=== PATIENT | male | born 1935 | race Two or more races ===

== ENCOUNTER 2016-07-16 11:58 | Inpatient (IN) | payer MEDICARE, MEDICAID ==
[~2016-07-16] VITALS: Ht 172.7 cm; Wt 77.3 kg
[2016-07-16] VITALS (20 sets, daily range): BP systolic 92–136; BP diastolic 45–113
[2016-07-16] MEDS ORDERED: Piperacillin/Tazobactam 3.375 GM in NS 110 ML IVPB ONE (12:15)
[2016-07-16] MEDS ORDERED: Zosyn 3.375gm inj ONE (12:37)
[2016-07-16 12:49] LABS: APPEARANCE,URINE TURBID; KETONES,URINE NEGATIVE (NEGATIVE); LEUKOCYTE ESTERASE ,URINE 3+ (NEGATIVE); NITRITE,URINE NEGATIVE (NEGATIVE); PH,URINE 9 (4.5-8.0); PROTEIN,URINE 4+ (NEGATIVE); UROBILINOGEN,URINE NORMAL MG/DL (0.0-1.0)
[2016-07-16 12:51] LABS: MEAN CORPUSCULAR HEMOGLOBIN 28.9 PG (27.0-31.0); MEAN CORPUSCULAR HGB CONC 31.7 G/DL (32.0-36.0); MEAN CORPUSCULAR VOLUME 91 FL (80-99); MEAN PLATELET VOLUME 6.9 FL (6.5-10.1); PLATELET COUNT 92 K/UL (150-450); RED CELL DISTRIBUTION WIDTH 15.5 % (11.6-14.8); WHITE BLOOD COUNT 10.3 K/UL (4.8-10.8)
[2016-07-16 12:58] LABS: INR 1.2 (0.9-1.1); PROTHROMBIN TIME 12.6 SEC (9.30-11.50)
--- NOTE | 2016-07-16 13:04 | Emergency Room Report ---
History of Present Illness General Chief Complaint: Dyspnea/Respdistress Present Illness HPI Patient presents from nursing facility with complaints of respiratory distress It appears the patient had symptoms earlier this morning however presents at noon Patient himself is in acute respiratory distress tachypneic Not able to provide any history There appears to be in consultation for hospice and the patient's paperwork from retirement however it is unclear if there was any consultation made Patient has multiple comorbidities unknown regarding fever No reports of any vomiting or diarrhea Allergies: Coded Allergies: No Known Allergies (Unverified , 07/16/16) Patient History Past Medical History: see triage record Pertinent Family History: none Reviewed Nursing Documentation: PMH: Agreed, PSxH: Agreed Nursing Documentation-PMH Hx Cardiac Problems: Yes - Heart Failure Hx Gastrointestinal Problems: Yes - GERD Hx Seizures: Yes Review of Systems All Other Systems: limited - Other than the ones mentioned in the history of present illness all others are reviewed however they do stay limited due to the patient's mental status Physical Exam Vital Signs Date Time Temp Pulse Resp B/P Pulse Ox O2 Delivery O2 Flow Rate FiO2 07/16/16 11:53 84 20 111/64 97 Non-Rebreather 15.0 07/16/16 12:15 98.5 07/16/16 12:20 100 Sp02 EP Interpretation: reviewed, normal General Appearance: severe distress - Tachypneic short of breath and retractions Head: normocephalic, atraumatic Eyes: bilateral eye other - The patient does not allow us to open his eyes ENT: dry mucus membranes Neck: supple, thyroid normal Respiratory: crackles - Audible crackles diffusely, tachypneic with retractions Cardiovascular #1: tachycardia Gastrointestinal: soft, no mass Musculoskeletal: other - Patient is contracted in his lower extremities does not follow commands Neurologic: other - Decreased GCS, minimally responsive to physical stimuli Skin: other - dry , poor turgor Lymphatic: no adenopathy Procedures Critical Care Time Critical Care Time 50 minutes for multiple evaluations critical presentation concern for respiratory failure not including any procedural time Central Line Central Line : Consent: Emergent Central Line Lumen: triple Maximal Sterile Barrier Tech: yes cap, yes mask, yes sterile gown, yes sterile gloves, yes large sterile sheet, yes hand hygiene, yes chlorhexidine prep Central Line Postion: femoral (L) Anesthesia: Lidocaine cc's of anesthesia: 2 Complications: none Central Line Post Position: sutured Attempts: Other Patient Tolerated: Well Complications: None Progress Patient had axis of femoral artery on 2 occasions in the right femoral area, therefore that was aborted and on the first attempt on the left femoral region patient had central line placed Intubation Intubation : Consent: Emergent Intubation Method: orotracheal Tube Size (cm): 8.0 Medications: Rocuronium Breath Sounds after Intubation: equal Intubation Complications: no complications Post Intubation Xray: Yes Attempts: One Patient Tolerated: Well Complications: None Medical Decision Making Diagnostic Impression: Primary Impression: Respiratory failure Additional Impressions: Renal failure Severe sepsis ER Course Patient presents in acute distress initial interventions include aggressive suctioning and ABG along with other intervention Patient's blood work reveals a significantly abnormal kidney function With evidence of renal failure hyperkalemia Patient meets all criteria for severe sepsis, including septic shock, IV hydration antibiotics and pressors are initiated , Patient requires emergent intervention ABG showing concerning findings of acidosis the patient's respiration continued to worsen requiring airway intubation Patient had copious amounts of mucous in the oral mucosa requiring suctioning Intubation was performed as noted above without any complications The patient is in acute distress requiring multiple IV bolus antibiotics ICU admission in critical condition Labs Test 07/16/16 12:12 07/16/16 12:30 07/16/16 13:01 White Blood Count 10.3 K/UL (4.8-10.8) Red Blood Count 4.00 M/UL (4.70-6.10) Hemoglobin 11.5 G/DL (14.2-18.0) Hematocrit 36.4 % (42.0-52.0) Mean Corpuscular Volume 91 FL (80-99) Mean Corpuscular Hemoglobin 28.9 PG (27.0-31.0) Mean Corpuscular Hemoglobin Concent 31.7 G/DL (32.0-36.0) Red Cell Distribution Width 15.5 % (11.6-14.8) Platelet Count 92 K/UL (150-450) Mean Platelet Volume 6.9 FL (6.5-10.1) Neutrophils (%) (Auto) % (45.0-75.0) Lymphocytes (%) (Auto) % (20.0-45.0) Monocytes (%) (Auto) % (1.0-10.0) Eosinophils (%) (Auto) % (0.0-3.0) Basophils (%) (Auto) % (0.0-2.0) Differential Total Cells Counted 100 Neutrophils % (Manual) 84 % (45-75) Lymphocytes % (Manual) 8 % (20-45) Monocytes % (Manual) 6 % (1-10) Eosinophils % (Manual) 0 % (0-3) Basophils % (Manual) 0 % (0-2) Band Neutrophils 2 % (0-8) Platelet Estimate Decreased Platelet Morphology Normal Hypochromasia 1+ Prothrombin Time 12.6 SEC (9.30-11.50) Prothromb Time International Ratio 1.2 (0.9-1.1) Activated Partial Thromboplast Time 26 SEC (23-33) Sodium Level 151 mEQ/L (135-145) Potassium Level 6.7 mEQ/L (3.4-4.9) Chloride Level 108 mEQ/L (98-107) Carbon Dioxide Level 11 mEQ/L (20-30) Anion Gap 32 (5-15) Blood Urea Nitrogen > 195 mg/dL (7-23) Creatinine 17.1 mg/dL (0.7-1.2) Estimat Glomerular Filtration Rate mL/min (>60) Glucose Level 166 mg/dL (74-106) Lactic Acid Level 1.80 mmol/L (0.66-2.22) Calcium Level 9.3 mg/dL (8.6-10.2) Phosphorus Level 6.6 mg/dL (2.5-4.8) Magnesium Level 3.2 mg/dL (1.7-2.5) Total Bilirubin 0.8 mg/dL (0.0-1.2) Aspartate Amino Transf (AST/SGOT) 12 U/L (5-40) Alanine Aminotransferase (ALT/SGPT) 7 U/L (3-41) Alkaline Phosphatase 169 U/L (40-129) Total Creatine Kinase 1235 U/L (38-174) Creatine Kinase MB 7.0 ng/mL (< 6.7) Creatine Kinase MB Relative Index 0.5 Troponin I < 0.30 ng/mL (<=0.30) Pro-B-Type Natriuretic Peptide 1323 pg/mL (0-450) Total Protein 6.7 g/dL (6.6-8.7) Albumin 2.6 g/dL (3.5-5.2) Globulin 4.1 g/dL Albumin/Globulin Ratio 0.6 (1.0-2.7) Lipase 165 U/L (< 60) Urine Color Red Urine Appearance Turbid Urine pH 9 (4.5-8.0) Urine Specific [place] 1.015 (1.005-1.035) Urine Protein 4+ (NEGATIVE) Urine Glucose (UA) Negative (NEGATIVE) Urine Ketones Negative (NEGATIVE) Urine Occult Blood 5+ (NEGATIVE) Urine Nitrite Negative (NEGATIVE) Urine Bilirubin Negative (NEGATIVE) Urine Urobilinogen Normal MG/DL (0.0-1.0) Urine Leukocyte Esterase 3+ (NEGATIVE) Urine RBC Tntc /HPF (0 - 0) Urine WBC Tntc /HPF (0 - 0) Urine Squamous Epithelial Cells Few /LPF (NONE/OCC) Urine Bacteria Many /HPF (NONE) Arterial Blood pH 7.191 (7.350-7.450) Arterial Blood Partial Pressure CO2 28.7 mmHg (35.0-45.0) Arterial Blood Partial Pressure O2 440.9 mmHg (75.0-100.0) Arterial Blood HCO3 10.7 mmol/L (22.0-26.0) Arterial Blood Oxygen Saturation 99.2 % (92.0-98.0) Arterial Blood Base Excess 16.0 Caleb Test Positive Rhythm Strip Diag. Results EP Interpretation: yes Rate: 89 Rhythm: NSR, no PVC's, no ectopy Chest X-Ray Diagnostic Results EP Interpretation: Yes Findings: no effusion, no pneumothorax, other - Poor exam, rotation significant , mediastinum appears abnormal Number of Views: 1 Other X-Ray Diagnostic Results Other X-Ray Diagnostic Results : EP Interpretation: Yes Findings: no dislocation, no soft tissue swelling, other - ET tube is appropriate, evidence of right lower lobe infiltrate, no acute bony abnormalities Number of Views: 1 - Repeat chest x-ray Last Vital Signs Date Time Temp Pulse Resp B/P Pulse Ox O2 Delivery O2 Flow Rate FiO2 07/16/16 12:45 89 36 100 Facial 100 07/16/16 12:15 98.5 135/113 15.0 Status: worsened Disposition: ADMITTED INPATIENT Condition: Critical Referrals: NON PHYSICIAN (PCP) YANCI SHARMA D.O. Jul 16, 2016 13:04
[2016-07-16 13:06] LABS: BACTERIA,URINE MANY /HPF; RBC,URINE TNTC /HPF (0 - 0); SQUAMOUS EPITHELIAL CELL,UR FEW /LPF (NONE/OCC); WBC,URINE TNTC /HPF (0 - 0)
[2016-07-16 13:10] LABS: ABG PCO2 28.7 mmHg (35.0-45.0)
[2016-07-16 13:11] LABS: ABG ALLEN TEST POSITIVE
[2016-07-16 13:18] LABS: TROPONIN I < 0.30 ng/mL (<=0.30)
[2016-07-16 13:22] LABS: ALANINE AMINOTRANSFERASE 7 U/L (3-41); ALBUMIN/GLOBULIN RATIO 0.6 (1.0-2.7); ASPARTATE AMINO TRANSFERASE 12 U/L (5-40); CALCIUM 9.3 mg/dL (8.6-10.2); CARBON DIOXIDE 11 mEQ/L (20-30); CHLORIDE 108 mEQ/L (98-107); CREATININE 17.1 mg/dL (0.7-1.2); HEMOLYSIS 7; LIPASE 165 U/L (< 60); MAGNESIUM 3.2 mg/dL (1.7-2.5); PHOSPHORUS 6.6 mg/dL (2.5-4.8); SODIUM 151 mEQ/L (135-145); TOTAL PROTEIN 6.7 g/dL (6.6-8.7)
[2016-07-16 13:35] LABS: BAND NEUTROPHILS % (MANUAL) 2 % (0-8); LYMPHOCYTES % (MANUAL) 8 % (20-45); NEUTROPHILS % (MANUAL) 84 % (45-75); TOTAL CELLS COUNTED 100
[2016-07-16 13:36] LABS: BASOPHILS % (MANUAL) 0 % (0-2); EOSINOPHILS % (MANUAL) 0 % (0-3); PLATELET ESTIMATE DECREASED; PLATELET MORPHOLOGY NORMAL
[2016-07-16 13:37] LABS: HYPOCHROMASIA 1+
[2016-07-16 13:39] LABS: ANION GAP 32 (5-15)
[2016-07-16 13:42] LABS: POTASSIUM 6.7 mEQ/L (3.4-4.9)
--- NOTE | 2016-07-16 14:05 | Diagnostic Imaging Report ---
Indication: Chest Pain Comparison: None A single view chest radiograph was obtained. Findings: Exam limited by rotation. Bones are osteopenic. Aorta is ectatic. Heart is normal in size. Lungs are clear. Impression: No acute disease. Suboptimal exam due to rotation
[2016-07-16] MEDS ORDERED: VALPROIC A250 MG/5 M PO (14:10)
[2016-07-16] MEDS ORDERED: NAMENDA5 MG ORAL (14:10)
[2016-07-16] MEDS ORDERED: CARVEDILOL6.25 MG ORAL (14:10)
[2016-07-16] MEDS ORDERED: ZYRTEC10 MG ORAL (14:10)
[2016-07-16] MEDS ORDERED: TAMSULOSIN HCL0.4 MG ORAL (14:10)
[2016-07-16] MEDS ORDERED: DONEPEZIL HCL5 MG ORAL (14:10)
[2016-07-16] MEDS ORDERED: ARTIFICIAL TEAR15 M2 OP (14:10)
[2016-07-16] MEDS ORDERED: CALCIUM CARBON500 M1 PO (14:10)
[2016-07-16] MEDS ORDERED: VITAMIN B-1100 MG ORAL (14:10)
[2016-07-16] MEDS ORDERED: MULTIVITAMINS1 EAC8 ORAL (14:10)
[2016-07-16] MEDS ORDERED: DOCUSATE SODIU100 MG ORAL (14:10)
[2016-07-16] MEDS ORDERED: PROMOD946 ML PO (14:10)
[2016-07-16] MEDS ORDERED: SINEMET 25/1001 EA ORAL (14:10)
[2016-07-16] MEDS ORDERED: FAMOTIDINE20 MG ORAL (14:10)
[2016-07-16] MEDS ORDERED: Sodium Polystyrene Sulfonate 15gm Powder ORAL ONE (14:15)
[2016-07-16] MEDS ORDERED: Sodium Bicarbonate 50ml Carp IV ONE (14:15)
[2016-07-16] MEDS ORDERED: DOPamine 400mg/250ml 250 ML IV SCH (15:00)
[2016-07-16] MEDS ORDERED: Nitroglycerin Subl 0.4mg tab (Bottle Of 25) SL PRN (15:15)
[2016-07-16] MEDS ORDERED: Miralax 17gm pkt ORAL PRN (15:15)
[2016-07-16] MEDS ORDERED: Morphine Sulfate 2mg/ml Inj IVP PRN (15:15)
[2016-07-16] MEDS ORDERED: DuoNeb 0.5-3(2.5)mg/3ml neb HHN PRN (15:15)
[2016-07-16] MEDS ORDERED: Zemuron 50mg/5ml Inj IV ONE (15:24)
[2016-07-16] MEDS ORDERED: Heparin 2000 units/Ns 1000ml IV ONE (16:00)
[2016-07-16] MEDS ORDERED: Heparin Sod 1000 units/ml 10ml INJ ONE (16:00)
[2016-07-16] MEDS ORDERED: Sodium Bicarbonate 4% 2.4meq/5ml vial IV ONE (16:00)
[2016-07-16] MEDS ORDERED: Lidocaine 1% Plain 30 ml INJ ONE (16:00)
--- NOTE | 2016-07-16 17:06 | Consultation ---
History of Present Illness General Date patient seen: Jul 16, 2016 Chief Complaint: Dyspnea/Respdistress Referring physician: Haris Reason for Consultation: HD cath Present Illness HPI 80M multiple medical comorbidities presented from nursing facility with respiratory failure. Required intubation in ED. Labs demonstrated renal insufficiency with Cr 17. Needs urgent HD. Surgery called for HD cath placement. please refer to medical records and H&P for details Allergies: Coded Allergies: No Known Allergies (Unverified , 07/16/16) Medication History Scheduled Calcium Carbonate (Calcium Carbonate), 1,000 MG PO DAILY, (Reported) Cetirizine Hcl* (Zyrtec*), 10 MG ORAL DAILY, (Reported) Docusate Sodium* (Docusate Sodium*), 100 MG ORAL DAILY, (Reported) Donepezil Hcl* (Donepezil Hcl*), 5 MG ORAL HS, (Reported) Famotidine (Famotidine), 20 MG ORAL DAILY, (Reported) Levodopa/Carbidopa (Carbidopa-Levodopa 25-100 Tab), 1 TAB ORAL EVERY 12 HOURS, ( Reported) Memantine Hcl* (Namenda*), 5 MG ORAL TWICE A DAY, (Reported) Multivitamin With Minerals (Multivitamins With Minerals*), 1 TAB ORAL DAILY, ( Reported) Protein Supplement (Promod), 30 ML PO DAILY, (Reported) Tamsulosin Hcl (Tamsulosin Hcl*), 0.4 MG ORAL DAILY, (Reported) Thiamine Hcl* (Vitamin B-1*), 100 MG ORAL DAILY, (Reported) Valproate Sodium (Valproic Acid), 7.5 ML PO TID, (Reported) Miscellaneous Medications Carvedilol* (Carvedilol*), 6.25 MG ORAL, (Reported) Polyvinyl Alcohol (Artificial Tears), 15 ML OP, (Reported) Patient History Limited by: medical condition History Provided By: Family Member Healthcare decision maker N Resuscitation status Advanced Directive on File Past Medical/Surgical History Past Medical/Surgical History: (1) Renal failure (2) Respiratory failure Review of Systems ROS Narrative unable to obtain given medical condition Physical Exam General Appearance: moderate distress Lines, tubes and drains: central line HEENT: atraumatic Neck: normal inspection Respiratory/Chest: respiratory distress, decreased breath sounds, on vent Cardiovascular/Chest: tachycardia Abdomen: soft, distended Extremities: trace edema Neurologic: unresponsiveness Last 24 Hour Vital Signs Date Time Temp Pulse Resp B/P Pulse Ox O2 Delivery O2 Flow Rate FiO2 07/16/16 15:55 98.5 114 18 92/50 92 Bi-pap 15.0 75 07/16/16 15:52 92/50 07/16/16 15:50 98.5 114 18 92/50 92 Bi-pap 15.0 75 07/16/16 15:47 81/50 07/16/16 15:42 82/50 07/16/16 15:40 15.0 75 07/16/16 15:37 75/48 07/16/16 15:35 114 18 Bi-pap 15.0 75 07/16/16 15:32 79/50 07/16/16 15:27 94/56 07/16/16 15:22 96/57 07/16/16 14:45 114 18 75 07/16/16 14:02 28 94/48 97 Bi-pap 07/16/16 13:55 15.0 100 07/16/16 13:00 36 136/94 98 Bi-pap 07/16/16 12:45 89 36 100 Facial 100 07/16/16 12:40 88 36 15.0 100 07/16/16 12:25 88 36 95 Facial 100 07/16/16 12:20 88 36 Bi-pap 100 07/16/16 12:15 98.5 86 30 135/113 98 Non-Rebreather 15.0 07/16/16 11:53 84 20 111/64 97 Non-Rebreather 15.0 Laboratory Tests Test 07/16/16 12:12 07/16/16 12:30 07/16/16 13:01 White Blood Count 10.3 K/UL (4.8-10.8) Red Blood Count 4.00 M/UL (4.70-6.10) L Hemoglobin 11.5 G/DL (14.2-18.0) L Hematocrit 36.4 % (42.0-52.0) L Mean Corpuscular Volume 91 FL (80-99) Mean Corpuscular Hemoglobin 28.9 PG (27.0-31.0) Mean Corpuscular Hemoglobin Concent 31.7 G/DL (32.0-36.0) L Red Cell Distribution Width 15.5 % (11.6-14.8) H Platelet Count 92 K/UL (150-450) L Mean Platelet Volume 6.9 FL (6.5-10.1) Neutrophils (%) (Auto) % (45.0-75.0) Lymphocytes (%) (Auto) % (20.0-45.0) Monocytes (%) (Auto) % (1.0-10.0) Eosinophils (%) (Auto) % (0.0-3.0) Basophils (%) (Auto) % (0.0-2.0) Differential Total Cells Counted 100 Neutrophils % (Manual) 84 % (45-75) H Lymphocytes % (Manual) 8 % (20-45) L Monocytes % (Manual) 6 % (1-10) Eosinophils % (Manual) 0 % (0-3) Basophils % (Manual) 0 % (0-2) Band Neutrophils 2 % (0-8) Platelet Estimate Decreased L Platelet Morphology Normal Hypochromasia 1+ Prothrombin Time 12.6 SEC (9.30-11.50) H Prothromb Time International Ratio 1.2 (0.9-1.1) H Activated Partial Thromboplast Time 26 SEC (23-33) Sodium Level 151 mEQ/L (135-145) H Potassium Level 6.7 mEQ/L (3.4-4.9) *H Chloride Level 108 mEQ/L (98-107) H Carbon Dioxide Level 11 mEQ/L (20-30) L Anion Gap 32 (5-15) H Blood Urea Nitrogen > 195 mg/dL (7-23) H Creatinine 17.1 mg/dL (0.7-1.2) H Estimat Glomerular Filtration Rate mL/min (>60) Glucose Level 166 mg/dL (74-106) H Lactic Acid Level 1.80 mmol/L (0.66-2.22) Calcium Level 9.3 mg/dL (8.6-10.2) Phosphorus Level 6.6 mg/dL (2.5-4.8) H Magnesium Level 3.2 mg/dL (1.7-2.5) H Total Bilirubin 0.8 mg/dL (0.0-1.2) Aspartate Amino Transf (AST/SGOT) 12 U/L (5-40) Alanine Aminotransferase (ALT/SGPT) 7 U/L (3-41) Alkaline Phosphatase 169 U/L (40-129) H Total Creatine Kinase 1235 U/L (38-174) H Creatine Kinase MB 7.0 ng/mL (< 6.7) H Creatine Kinase MB Relative Index 0.5 Troponin I < 0.30 ng/mL (<=0.30) Pro-B-Type Natriuretic Peptide 1323 pg/mL (0-450) H Total Protein 6.7 g/dL (6.6-8.7) Albumin 2.6 g/dL (3.5-5.2) L Globulin 4.1 g/dL Albumin/Globulin Ratio 0.6 (1.0-2.7) L Lipase 165 U/L (< 60) H Urine Color Red Urine Appearance Turbid Urine pH 9 (4.5-8.0) Urine Specific [place] 1.015 (1.005-1.035) Urine Protein 4+ (NEGATIVE) H Urine Glucose (UA) Negative (NEGATIVE) Urine Ketones Negative (NEGATIVE) Urine Occult Blood 5+ (NEGATIVE) H Urine Nitrite Negative (NEGATIVE) Urine Bilirubin Negative (NEGATIVE) Urine Urobilinogen Normal MG/DL (0.0-1.0) Urine Leukocyte Esterase 3+ (NEGATIVE) H Urine RBC Tntc /HPF (0 - 0) H Urine WBC Tntc /HPF (0 - 0) H Urine Squamous Epithelial Cells Few /LPF (NONE/OCC) Urine Bacteria Many /HPF (NONE) H Urine Eosinophils Pending Urine Random Sodium 129 mmol/L Urine Random Chloride 108 mmol/L Urine Potassium Timed 27 mmol/L Arterial Blood pH 7.191 (7.350-7.450) Arterial Blood Partial Pressure CO2 28.7 mmHg (35.0-45.0) L Arterial Blood Partial Pressure O2 440.9 mmHg (75.0-100.0) H Arterial Blood HCO3 10.7 mmol/L (22.0-26.0) L Arterial Blood Oxygen Saturation 99.2 % (92.0-98.0) H Arterial Blood Base Excess 16.0 Caleb Test Positive Height (Feet): 5 Height (Inches): 8.00 Weight (Pounds): 175 Medications Current Medications Medications (Trade) Dose Ordered Sig/Janay Route PRN Reason Start Time Stop Time Status Last Admin Dose Admin Acetaminophen (Tylenol) 650 mg Q4H PRN ORAL fever 07/16/16 15:15 08/15/16 15:14 Albuterol/ Ipratropium (DuoNeb 0.5-3(2.5)mg/3ml) 3 ml EVERY 4 HOURS PRN HHN Shortness of Breath 07/16/16 15:15 07/21/16 15:14 Chlorhexidine Gluconate (Loree-Hex 2%) 1 applic DAILY TOPIC 07/17/16 09:00 08/16/16 08:59 Lorazepam (Ativan 2mg/ml 1ml) 2 mg Q4H PRN IV For Anxiety 07/16/16 15:15 07/23/16 15:14 Morphine Sulfate (Morphine Sulfate) 2 mg EVERY 4 HOURS PRN IVP Moderate Pain (Pain Scale 4-6) 07/16/16 15:15 07/23/16 15:14 Nitroglycerin (Ntg) 0.4 mg Q5M PRN SL Prn Chest Pain 07/16/16 15:15 08/15/16 15:14 Ondansetron HCl (Zofran) 4 mg Q6H PRN IVP Nausea & Vomiting 07/16/16 15:15 08/15/16 15:14 Pantoprazole (Protonix) 40 mg EVERY 12 HOURS IVP 07/16/16 21:00 08/15/16 20:59 Polyethylene Glycol (Miralax) 17 gm DAILYPRN PRN ORAL Constipation 07/16/16 15:15 08/15/16 15:14 Sodium Chloride (Sodium Chloride 1000ml bag) 1,000 ml @ 150 mls/hr Q6H40M IVLG 07/17/16 17:00 08/16/16 16:59 Temazepam (Restoril) 15 mg HSPRN PRN ORAL Insomnia 07/16/16 15:15 07/23/16 15:14 Assessment/Plan Problem List: (1) Renal failure Assessment & Plan: 80M respiratory failure noted to have renal failure. Requires urgent HD. Thank you for this consultation. will place HD Cath at bedside. ICD Codes: N19 - Unspecified kidney failure SNOMED: [id number] Justin Cedillo Jul 16, 2016 17:06
--- NOTE | 2016-07-16 17:11 | Operative Note - PDOC ---
Operative Note Operative Note Date of Operation/Procedure: Jul 16, 2016 Pre-op Diagnosis: Renal failure Post-op Diagnosis: same as pre-op Operative Findings: consistent w/pre-op dx studies Surgeon: Mamadou Anesthesia: moderate sedation - patient sedated in ICU Specimen: none Complications: none Condition: stable Fluids: n/a Estimated Blood Loss: minimal - 20cc Drains: other - HD Cath Implant(s) used?: Yes - HD Cath Indications for Procedure 80M respiratory failure in ICU intubated noted to have Cr 17 with renal failure. Requires urgent HD. Family at bedside. risks, benefits, and alternatives discussed with son at bedside. He consented to procedure. Description of Procedure Patient was made comfortable at bedside in the supine position. time out was taken. patient was already intubated and sedated in the ICU. the right femoral artery and landmarks were assessed. All persons involved were shielded with hairnets, facemasks and sterile gowns. With sterile-gloved hands the right femoral area was thoroughly sponged with chlorhexidine and allowed to dry. The area was draped with the large disposable sterile field provided in the kit. The femoral artery was palpated and avoided. A finder needle was advanced at a 45-degree angle toward the inguinal ligament until the syringe was seen to fill with blood. The needle was then held in place while the guide wire was advanced. The needle was then removed. A skin dilator was advanced over the guidewire and removed, then the HD catheter was advanced over the guide wire into proper position. The guide wire was removed and discarded. The ports were aspirated which showed good blood return indicating proper position into the vein and then carefully flushed with normal saline. The catheter was stabilized and sutured to the skin with 2-0 silk at 2 anchor ports. A sterile bio-occlusive dressing was placed over the catheter, including the insertion site. The patient tolerated the procedure well. Justin Cedillo Jul 16, 2016 17:11
[2016-07-16] MEDS: DOPamine 400mg/250ml 250 ML IV SCH (17:30)
[2016-07-16 18:21] LABS: MEAN CORPUSCULAR HEMOGLOBIN 32.1 PG (27.0-31.0); MEAN CORPUSCULAR HGB CONC 34.4 G/DL (32.0-36.0); MEAN CORPUSCULAR VOLUME 93 FL (80-99); MEAN PLATELET VOLUME 8.2 FL (6.5-10.1); PLATELET COUNT 71 K/UL (150-450); RED BLOOD COUNT 3.14 M/UL (4.70-6.10); RED CELL DISTRIBUTION WIDTH 15.5 % (11.6-14.8); WHITE BLOOD COUNT 11.8 K/UL (4.8-10.8)
[2016-07-16 18:23] LABS: BASOPHILS % (AUTO) 0.2 % (0.0-2.0); MONOCYTES % (AUTO) 2.1 % (1.0-10.0); NEUTROPHILS % (AUTO) 94.7 % (45.0-75.0)
[2016-07-16 18:34] LABS: CARBON DIOXIDE 12 mEQ/L (20-30)
[2016-07-16 18:35] LABS: ALANINE AMINOTRANSFERASE 6 U/L (3-41); ALBUMIN/GLOBULIN RATIO 0.5 (1.0-2.7); ANION GAP 25 (5-15); ASPARTATE AMINO TRANSFERASE 13 U/L (5-40); CALCIUM 6.9 mg/dL (8.6-10.2); CHLORIDE 115 mEQ/L (98-107); CREATININE 12.1 mg/dL (0.7-1.2); HEMOLYSIS 13; MAGNESIUM 2.5 mg/dL (1.7-2.5); PHOSPHORUS 7.1 mg/dL (2.5-4.8); SODIUM 152 mEQ/L (135-145); URIC ACID 8.9 mg/dL (3.0-7.5)
--- NOTE | 2016-07-16 19:15 | History and Physical ---
History of Present Illness General Date patient seen: Jul 16, 2016 Reason for Hospitalization: Dyspnea/Respdistress Present Illness HPI 80 year old male with hx of Parkinson disease, renal insufficiency, bipolar, HTN , halfway resident presented with complaints of respiratory distress. Pt was in respiratory distress in ER and was intubated. Pt was in acute renal failure and a HD was place in ER as well. He received large amounts of fluid and transferred to ICU. Pt is obtunded and can't give any history. Allergies: Coded Allergies: No Known Allergies (Unverified , 07/16/16) Medication History Scheduled Calcium Carbonate (Calcium Carbonate), 1,000 MG PO DAILY, (Reported) Cetirizine Hcl* (Zyrtec*), 10 MG ORAL DAILY, (Reported) Docusate Sodium* (Docusate Sodium*), 100 MG ORAL DAILY, (Reported) Donepezil Hcl* (Donepezil Hcl*), 5 MG ORAL HS, (Reported) Famotidine (Famotidine), 20 MG ORAL DAILY, (Reported) Levodopa/Carbidopa (Carbidopa-Levodopa 25-100 Tab), 1 TAB ORAL EVERY 12 HOURS, ( Reported) Memantine Hcl* (Namenda*), 5 MG ORAL TWICE A DAY, (Reported) Multivitamin With Minerals (Multivitamins With Minerals*), 1 TAB ORAL DAILY, ( Reported) Protein Supplement (Promod), 30 ML PO DAILY, (Reported) Tamsulosin Hcl (Tamsulosin Hcl*), 0.4 MG ORAL DAILY, (Reported) Thiamine Hcl* (Vitamin B-1*), 100 MG ORAL DAILY, (Reported) Valproate Sodium (Valproic Acid), 7.5 ML PO TID, (Reported) Miscellaneous Medications Carvedilol* (Carvedilol*), 6.25 MG ORAL, (Reported) Polyvinyl Alcohol (Artificial Tears), 15 ML OP, (Reported) Patient History Healthcare decision maker N Resuscitation status Advanced Directive on File Past Medical/Surgical History Past Medical/Surgical History: (1) Parkinson disease (2) Bipolar 1 disorder (3) Anemia (4) Chronic renal insufficiency Review of Systems All Other Systems: negative except mentioned in HPI Physical Exam General Appearance: WD/WN Lines, tubes and drains: peripheral, central line HEENT: normocephalic, atraumatic Neck: non-tender, normal alignment Respiratory/Chest: chest wall non-tender, lungs clear Cardiovascular/Chest: normal peripheral pulses, normal rate Abdomen: normal bowel sounds, non tender Genitourinary/Rectal: normal genital exam Last 24 Hour Vital Signs Date Time Temp Pulse Resp B/P Pulse Ox O2 Delivery O2 Flow Rate FiO2 07/16/16 18:56 96 18 65 07/16/16 18:00 114/61 07/16/16 18:00 105 24 120/70 98 Mechanical Ventilator 75 07/16/16 17:30 113/67 07/16/16 17:28 106 18 75 07/16/16 17:00 98.4 104 24 117/68 97 Mechanical Ventilator 75 07/16/16 17:00 104/51 07/16/16 16:45 113 22 104/59 100 Mechanical Ventilator 75 07/16/16 16:30 113 24 104/59 90 Mechanical Ventilator 75 07/16/16 16:15 117 30 101/61 91 Mechanical Ventilator 75 07/16/16 16:00 119 07/16/16 16:00 98.3 119 28 95/45 92 Mechanical Ventilator 75 07/16/16 16:00 89/45 07/16/16 16:00 75 07/16/16 15:55 98.5 114 18 92/50 92 Bi-pap 15.0 75 07/16/16 15:52 92/50 07/16/16 15:50 98.5 114 18 92/50 92 Bi-pap 15.0 75 07/16/16 15:47 81/50 07/16/16 15:42 82/50 07/16/16 15:40 15.0 75 07/16/16 15:37 75/48 07/16/16 15:35 114 18 Bi-pap 15.0 75 07/16/16 15:32 79/50 07/16/16 15:27 94/56 07/16/16 15:22 96/57 07/16/16 14:45 114 18 75 07/16/16 14:02 28 94/48 97 Bi-pap 07/16/16 13:55 15.0 100 07/16/16 13:00 36 136/94 98 Bi-pap 07/16/16 12:45 89 36 100 Facial 100 07/16/16 12:40 88 36 15.0 100 07/16/16 12:25 88 36 95 Facial 100 07/16/16 12:20 88 36 Bi-pap 100 07/16/16 12:15 98.5 86 30 135/113 98 Non-Rebreather 15.0 07/16/16 11:53 84 20 111/64 97 Non-Rebreather 15.0 Laboratory Tests Test 07/16/16 12:12 07/16/16 12:30 07/16/16 13:01 07/16/16 18:00 White Blood Count 10.3 K/UL (4.8-10.8) 11.8 K/UL (4.8-10.8) H Red Blood Count 4.00 M/UL (4.70-6.10) L 3.14 M/UL (4.70-6.10) L Hemoglobin 11.5 G/DL (14.2-18.0) L 10.1 G/DL (14.2-18.0) L Hematocrit 36.4 % (42.0-52.0) L 29.4 % (42.0-52.0) L Mean Corpuscular Volume 91 FL (80-99) 93 FL (80-99) Mean Corpuscular Hemoglobin 28.9 PG (27.0-31.0) 32.1 PG (27.0-31.0) H Mean Corpuscular Hemoglobin Concent 31.7 G/DL (32.0-36.0) L 34.4 G/DL (32.0-36.0) Red Cell Distribution Width 15.5 % (11.6-14.8) H 15.5 % (11.6-14.8) H Platelet Count 92 K/UL (150-450) L 71 K/UL (150-450) L Mean Platelet Volume 6.9 FL (6.5-10.1) 8.2 FL (6.5-10.1) Neutrophils (%) (Auto) % (45.0-75.0) 94.7 % (45.0-75.0) H Lymphocytes (%) (Auto) % (20.0-45.0) 3.0 % (20.0-45.0) L Monocytes (%) (Auto) % (1.0-10.0) 2.1 % (1.0-10.0) Eosinophils (%) (Auto) % (0.0-3.0) 0.0 % (0.0-3.0) Basophils (%) (Auto) % (0.0-2.0) 0.2 % (0.0-2.0) Differential Total Cells Counted 100 Neutrophils % (Manual) 84 % (45-75) H Lymphocytes % (Manual) 8 % (20-45) L Monocytes % (Manual) 6 % (1-10) Eosinophils % (Manual) 0 % (0-3) Basophils % (Manual) 0 % (0-2) Band Neutrophils 2 % (0-8) Platelet Estimate Decreased L Platelet Morphology Normal Hypochromasia 1+ Prothrombin Time 12.6 SEC (9.30-11.50) H Prothromb Time International Ratio 1.2 (0.9-1.1) H Activated Partial Thromboplast Time 26 SEC (23-33) Sodium Level 151 mEQ/L (135-145) H 152 mEQ/L (135-145) H Potassium Level 6.7 mEQ/L (3.4-4.9) *H 5.0 mEQ/L (3.4-4.9) H Chloride Level 108 mEQ/L (98-107) H 115 mEQ/L (98-107) H Carbon Dioxide Level 11 mEQ/L (20-30) L 12 mEQ/L (20-30) L Anion Gap 32 (5-15) H 25 (5-15) H Blood Urea Nitrogen > 195 mg/dL (7-23) H 174 mg/dL (7-23) H Creatinine 17.1 mg/dL (0.7-1.2) H 12.1 mg/dL (0.7-1.2) H Estimat Glomerular Filtration Rate mL/min (>60) mL/min (>60) Glucose Level 166 mg/dL (74-106) H 192 mg/dL (74-106) H Lactic Acid Level 1.80 mmol/L (0.66-2.22) Calcium Level 9.3 mg/dL (8.6-10.2) 6.9 mg/dL (8.6-10.2) #L Phosphorus Level 6.6 mg/dL (2.5-4.8) H 7.1 mg/dL (2.5-4.8) H Magnesium Level 3.2 mg/dL (1.7-2.5) H 2.5 mg/dL (1.7-2.5) Total Bilirubin 0.8 mg/dL (0.0-1.2) 0.8 mg/dL (0.0-1.2) Aspartate Amino Transf (AST/SGOT) 12 U/L (5-40) 13 U/L (5-40) Alanine Aminotransferase (ALT/SGPT) 7 U/L (3-41) 6 U/L (3-41) Alkaline Phosphatase 169 U/L (40-129) H 120 U/L (40-129) Total Creatine Kinase 1235 U/L (38-174) H 1273 U/L (38-174) H Creatine Kinase MB 7.0 ng/mL (< 6.7) H Creatine Kinase MB Relative Index 0.5 Troponin I < 0.30 ng/mL (<=0.30) Pro-B-Type Natriuretic Peptide 1323 pg/mL (0-450) H Total Protein 6.7 g/dL (6.6-8.7) 5.0 g/dL (6.6-8.7) L Albumin 2.6 g/dL (3.5-5.2) L 1.8 g/dL (3.5-5.2) L Globulin 4.1 g/dL 3.2 g/dL Albumin/Globulin Ratio 0.6 (1.0-2.7) L 0.5 (1.0-2.7) L Lipase 165 U/L (< 60) H Urine Color Red Urine Appearance Turbid Urine pH 9 (4.5-8.0) Urine Specific [place] 1.015 (1.005-1.035) Urine Protein 4+ (NEGATIVE) H Urine Glucose (UA) Negative (NEGATIVE) Urine Ketones Negative (NEGATIVE) Urine Occult Blood 5+ (NEGATIVE) H Urine Nitrite Negative (NEGATIVE) Urine Bilirubin Negative (NEGATIVE) Urine Urobilinogen Normal MG/DL (0.0-1.0) Urine Leukocyte Esterase 3+ (NEGATIVE) H Urine RBC Tntc /HPF (0 - 0) H Urine WBC Tntc /HPF (0 - 0) H Urine Squamous Epithelial Cells Few /LPF (NONE/OCC) Urine Bacteria Many /HPF (NONE) H Urine Eosinophils None seen Urine Random Sodium 129 mmol/L Urine Random Chloride 108 mmol/L Urine Potassium Timed 27 mmol/L Arterial Blood pH 7.191 (7.350-7.450) Arterial Blood Partial Pressure CO2 28.7 mmHg (35.0-45.0) L Arterial Blood Partial Pressure O2 440.9 mmHg (75.0-100.0) H Arterial Blood HCO3 10.7 mmol/L (22.0-26.0) L Arterial Blood Oxygen Saturation 99.2 % (92.0-98.0) H Arterial Blood Base Excess 16.0 Caleb Test Positive Uric Acid 8.9 mg/dL (3.0-7.5) H Thyroid Stimulating Hormone (TSH) 0.670 uIU/mL (0.300-4.500) Free Thyroxine 0.83 ng/dL (0.86-1.85) L Height (Feet): 5 Height (Inches): 8.00 Weight (Pounds): 175 Medications Current Medications Medications (Trade) Dose Ordered Sig/Janay Route PRN Reason Start Time Stop Time Status Last Admin Dose Admin Acetaminophen (Tylenol) 650 mg Q4H PRN ORAL fever 07/16/16 15:15 08/15/16 15:14 Albuterol/ Ipratropium (DuoNeb 0.5-3(2.5)mg/3ml) 3 ml EVERY 4 HOURS PRN HHN Shortness of Breath 07/16/16 15:15 07/21/16 15:14 Chlorhexidine Gluconate 1 applic 1 applic DAILY TOPIC 07/17/16 09:00 08/16/16 08:59 Dopamine HCl/ Dextrose 250 ml @ 0 mls/hr Q24H IV 07/16/16 17:30 08/15/16 17:29 07/16/16 17:30 Lorazepam (Ativan 2mg/ml 1ml) 2 mg Q4H PRN IV For Anxiety 07/16/16 15:15 07/23/16 15:14 Morphine Sulfate (Morphine Sulfate) 2 mg EVERY 4 HOURS PRN IVP Moderate Pain (Pain Scale 4-6) 07/16/16 15:15 07/23/16 15:14 Nitroglycerin (Ntg) 0.4 mg Q5M PRN SL Prn Chest Pain 07/16/16 15:15 08/15/16 15:14 Ondansetron HCl (Zofran) 4 mg Q6H PRN IVP Nausea & Vomiting 07/16/16 15:15 08/15/16 15:14 Pantoprazole (Protonix) 40 mg EVERY 12 HOURS IVP 07/16/16 21:00 08/15/16 20:59 Polyethylene Glycol (Miralax) 17 gm DAILYPRN PRN ORAL Constipation 07/16/16 15:15 08/15/16 15:14 Sodium Chloride 1,000 ml @ 999 mls/hr Q1H1M ONCE IV 07/16/16 18:30 07/16/16 19:30 07/16/16 18:42 Sodium Chloride (Sodium Chloride 1000ml bag) 1,000 ml @ 150 mls/hr Q6H40M IVLG 07/17/16 17:00 08/16/16 16:59 Sodium Chloride (Sodium Chloride 1000ml bag) 1,000 ml @ 999 mls/hr Q1H1M ONCE IV 07/16/16 19:30 07/16/16 20:30 07/16/16 18:42 Temazepam (Restoril) 15 mg HSPRN PRN ORAL Insomnia 07/16/16 15:15 07/23/16 15:14 Assessment/Plan Problem List: (1) Acute respiratory failure ICD Codes: J96.00 - Acute respiratory failure, unspecified whether with hypoxia or hypercapnia SNOMED: 01529062 (2) Acute encephalopathy ICD Codes: G93.40 - Encephalopathy, unspecified SNOMED: 5584135 (3) Hyperkalemia ICD Codes: E87.5 - Hyperkalemia SNOMED: 93043483 (4) ATN (acute tubular necrosis) ICD Codes: N17.0 - Acute kidney failure with tubular necrosis SNOMED: 55076520 (5) Parkinson disease ICD Codes: G20 - Parkinson's disease SNOMED: 23392578 (6) Chronic renal insufficiency ICD Codes: N18.9 - Chronic kidney disease, unspecified SNOMED: 526976587 (7) Bipolar 1 disorder ICD Codes: F31.9 - Bipolar disorder, unspecified SNOMED: 151778296 Respiratory: monitor respiratory rate, adjust FIO2 Cardiac: continue to monitor HR/BP Renal: F/U I&O, keep IV fluid, check electrolytes, other - Hd as needed Infectious Disease: check cultures, continue antibiotics Gastrointestinal: continue feedings/current rate Endocrine: monitor blood sugar, continue sliding scale insulin Hematologic: monitor H/H, transfuse if hgb<8.5 Neurologic: PRN Morphine, keep patient comfortable Affect: PRN ativan Prophylaxis: Protonix Disposition: keep in ICU 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
[2016-07-16] MEDS ORDERED: Calcium Gluconate 1gm/10ml vial IVP ONE (20:30)
[2016-07-16] MEDS: Pantoprazole Inj IVP SCH (20:38)
[2016-07-16 20:41] LABS: ABG PCO2 40.4 mmHg (35.0-45.0)
[2016-07-16 20:42] LABS: ABG ALLEN TEST POSITIVE; ABG BASE EXCESS -17.8
[2016-07-16] MEDS ORDERED: Heparin 5000 units/ml inj SUBQ SCH (21:00)
[2016-07-16] MEDS: Sodium Bicarbonate 150 ML in D5W 1000ml 1,000 ML IV SCH (22:17)
[2016-07-16 22:40] LABS: ANION GAP 23 (5-15); CALCIUM 7.1 mg/dL (8.6-10.2); CARBON DIOXIDE 12 mEQ/L (20-30); CHLORIDE 117 mEQ/L (98-107); CREATININE 11.3 mg/dL (0.7-1.2); HEMOLYSIS 20; POTASSIUM 5.1 mEQ/L (3.4-4.9); SODIUM 152 mEQ/L (135-145)
[2016-07-16] MEDS: LORazepam Inj 2mg/ml 1ml IV PRN (23:13)
[2016-07-17] VITALS (81 sets, daily range): BP systolic 81–129; BP diastolic 25–105
--- NOTE | 2016-07-17 00:31 | Consultation ---
DATE OF CONSULTATION: 07/16/2016 REASON FOR CONSULTATION: Gross hematuria, urinary tract infection, and acute renal failure. The patient was referred to me by Dr. Carballo in critical condition with respiratory distress, renal failure, and gross hematuria. He was admitted to the [facility] from the ER with the above complaints. Previous history of urological condition is unavailable to me. He lives in nursing facility and was again admitted acutely to the ER. REVIEW OF SYSTEMS: Limited other than the one that is mentioned above. PHYSICAL EXAMINATION: GENERAL: In severe distress. HEENT: Normocephalic. ENT, dry mucous membranes. RESPIRATORY: Crackles bilaterally. GASTROINTESTINAL: Soft and nondistended. No mass. NEUROLOGIC: Exam deferred. GENITOURINARY: Prostate is mildly enlarged and firm. There is no evidence of nodules. LABORATORY DATA: Laboratory data was also reviewed. His white count is 10.3 and hematocrit is 36.4. Creatinine 17.1 and potassium 6.7. Urine shows 4+ protein, 5+ occult blood, and dho-wempcaff-xc-count WBCs. No imaging was done. ASSESSMENT/PLAN: The patient has severe respiratory and renal failure and gross hematuria. First, the patient will need to be stabilized with dialysis and his respiratory function. After that, we can proceed with evaluation of his upper and lower urinary tracts. He will be receiving antibiotics per ID to cover his urinary tract infection as well as respiratory. Thank you for entrusting me in the care of this patient. I will follow this patient with you. George Rosas M.D. DR: EVY JOB#: [id number] CC:
[2016-07-17] MEDS: Dyna-Hex 2% Top Sol 8oz TOPIC SCH ×2 (04:00→09:40)
[2016-07-17 04:04] LABS: ABG ALLEN TEST POSITIVE; ABG PCO2 33.2 mmHg (35.0-45.0)
[2016-07-17] MEDS: DOPamine 400mg/250ml 250 ML IV SCH ×2 (05:14→17:11)
[2016-07-17 05:39] LABS: MEAN CORPUSCULAR HEMOGLOBIN 30.3 PG (27.0-31.0); MEAN CORPUSCULAR HGB CONC 33.2 G/DL (32.0-36.0); MEAN CORPUSCULAR VOLUME 91 FL (80-99); MEAN PLATELET VOLUME 8.4 FL (6.5-10.1); PLATELET COUNT 48 K/UL (150-450); RED BLOOD COUNT 2.86 M/UL (4.70-6.10); RED CELL DISTRIBUTION WIDTH 16.1 % (11.6-14.8); WHITE BLOOD COUNT 11.1 K/UL (4.8-10.8)
[2016-07-17 06:10] LABS: ANION GAP 21 (5-15); CALCIUM 6.9 mg/dL (8.6-10.2); CARBON DIOXIDE 21 mEQ/L (20-30); CHLORIDE 107 mEQ/L (98-107); CREATININE 8.4 mg/dL (0.7-1.2); HEMOLYSIS 4; POTASSIUM 3.8 mEQ/L (3.4-4.9); SODIUM 149 mEQ/L (135-145)
[2016-07-17] MEDS: Sodium Bicarbonate 150 ML in D5W 1000ml 1,000 ML IV SCH (06:11)
[2016-07-17 06:17] LABS: ALANINE AMINOTRANSFERASE 10 U/L (3-41); ALBUMIN/GLOBULIN RATIO 0.5 (1.0-2.7); ANION GAP 22 (5-15); ASPARTATE AMINO TRANSFERASE 16 U/L (5-40); CALCIUM 6.8 mg/dL (8.6-10.2); CARBON DIOXIDE 21 mEQ/L (20-30); CHLORIDE 108 mEQ/L (98-107); CREATININE 8.6 mg/dL (0.7-1.2); HEMOLYSIS 6; POTASSIUM 3.9 mEQ/L (3.4-4.9); SODIUM 151 mEQ/L (135-145); TOTAL PROTEIN 4.6 g/dL (6.6-8.7)
--- NOTE | 2016-07-17 08:16 | Pulmonolgy Critical Care Note ---
Critical Care - Asmt/Plan Assessment/Plan: ASSESSMENT acute respiratory failure requiring intubation acute renal failure, requiring HD acute hyperkalemia shock possible sepsis UTI gross hematuria anemia CHF PLAN OF CARE ICU care vent support pulmonary toilet daily ABG and CXR and optimize ventilator settings as needed pressors, keep SBP above 90 , wean as tolerated HD as per nephro nephro follows monitor renal parameters, lytes avoid nephrotoxic renal US IVF with Na bicarb, per nephro management empiric abx , fup with cx urology consult appreciated monitor Garcia output, still with hematuria, manual irrigation prn urology follows monitor HH anemia workup transfuse prn CT abdomen/pelvis GI prophylaxis case discussed and evaluated by supervising physician Critical Care - Objective Last 24 Hour Vital Signs Date Time Temp Pulse Resp B/P Pulse Ox O2 Delivery O2 Flow Rate FiO2 07/17/16 07:00 106 28 92/55 97 Mechanical Ventilator 75 07/17/16 07:00 108 28 112/55 97 Mechanical Ventilator 75 07/17/16 06:56 107 31 50 07/17/16 06:45 108 28 111/54 97 Mechanical Ventilator 75 07/17/16 06:30 107 28 108/62 97 Mechanical Ventilator 75 07/17/16 06:15 106 28 92/55 97 Mechanical Ventilator 75 07/17/16 06:00 110 28 92/55 97 Mechanical Ventilator 75 07/17/16 05:45 110 28 90/55 96 Mechanical Ventilator 75 07/17/16 05:30 110 27 90/55 96 Mechanical Ventilator 75 07/17/16 05:24 113 30 50 07/17/16 05:15 114 27 111/64 96 Mechanical Ventilator 75 07/17/16 05:14 110/60 07/17/16 05:00 115 27 115/75 96 Mechanical Ventilator 75 07/17/16 04:45 115 27 110/60 96 Mechanical Ventilator 75 07/17/16 04:30 114 27 92/63 96 Mechanical Ventilator 75 07/17/16 04:15 114 28 98/55 95 Mechanical Ventilator 75 07/17/16 04:00 114 27 99/55 96 Mechanical Ventilator 75 07/17/16 04:00 115 07/17/16 04:00 75 07/17/16 03:45 115 28 108/84 96 Mechanical Ventilator 75 07/17/16 03:30 97.6 112 26 116/52 95 Mechanical Ventilator 75 6/3/17 03:15 112 26 116/52 95 Mechanical Ventilator 75 6/3/17 03:00 112 26 116/52 95 Mechanical Ventilator 75 6/3/17 02:54 100 25 50 6/3/17 02:45 111 26 92/58 95 Mechanical Ventilator 75 6/3/17 02:30 111 26 108/66 95 Mechanical Ventilator 75 6/3/17 02:15 114 25 108/70 97 Mechanical Ventilator 75 6/3/17 02:00 113 25 87/66 96 Mechanical Ventilator 75 6/3/17 01:45 108 24 96/59 97 Mechanical Ventilator 75 6/3/17 01:30 109 25 89/37 97 Mechanical Ventilator 75 6/3/17 01:15 102 24 98/73 97 Mechanical Ventilator 75 6/3/17 01:00 97 24 82/55 98 Mechanical Ventilator 75 6/3/17 00:56 94 24 50 6/3/17 00:45 95 22 84/25 100 Mechanical Ventilator 75 6/3/17 00:30 90 22 94/66 100 Mechanical Ventilator 75 6/3/17 00:15 92.2 87 22 114/81 99 Mechanical Ventilator 75 6/3/17 00:00 86 23 119/82 100 Mechanical Ventilator 75 6/3/17 00:00 90 6/3/17 00:00 75 6/2/17 23:30 86 21 106/65 99 Mechanical Ventilator 75 6/2/17 23:02 82 28 50 6/2/17 23:00 83 21 127/54 96 Mechanical Ventilator 75 6/2/17 22:30 83 21 111/74 96 Mechanical Ventilator 75 6/2/17 22:00 86 21 121/71 96 Mechanical Ventilator 75 6/2/17 21:30 88 18 120/73 96 Mechanical Ventilator 75 6/2/17 21:00 75 6/2/17 21:00 88 18 120/73 98 Mechanical Ventilator 75 6/2/17 20:35 91 18 65 6/2/17 20:30 91 21 120/64 99 Mechanical Ventilator 75 6/2/17 20:00 90 21 127/65 98 Mechanical Ventilator 75 6/2/17 20:00 75 6/2/17 20:00 89 6/2/17 20:00 126/85 6/2/17 19:30 98.0 94 21 104/73 98 Mechanical Ventilator 75 6/2/17 19:00 98 24 125/56 100 Mechanical Ventilator 75 07/16/16 19:00 125/50 07/16/16 18:56 96 18 65 07/16/16 18:00 114/61 07/16/16 18:00 105 24 120/70 98 Mechanical Ventilator 75 17 17:30 113/67 617 17:28 106 18 75 07/16/16 17:00 98.4 104 24 117/68 97 Mechanical Ventilator 75 07/16/16 17:00 104/51 07/16/16 16:45 113 22 104/59 100 Mechanical Ventilator 75 07/16/16 16:30 113 24 104/59 90 Mechanical Ventilator 75 07/16/16 16:15 117 30 101/61 91 Mechanical Ventilator 75 07/16/16 16:00 119 07/16/16 16:00 98.3 119 28 95/45 92 Mechanical Ventilator 75 07/16/16 16:00 89/45 07/16/16 16:00 75 07/16/16 15:55 98.5 114 18 92/50 92 Bi-pap 15.0 75 07/16/16 15:52 92/50 07/16/16 15:50 98.5 114 18 92/50 92 Bi-pap 15.0 75 07/16/16 15:47 81/50 07/16/16 15:42 82/50 07/16/16 15:40 15.0 75 07/16/16 15:37 75/48 07/16/16 15:35 114 18 Bi-pap 15.0 75 07/16/16 15:32 79/50 07/16/16 15:27 94/56 07/16/16 15:22 96/57 07/16/16 14:45 114 18 75 07/16/16 14:02 28 94/48 97 Bi-pap 07/16/16 13:55 15.0 100 07/16/16 13:00 36 136/94 98 Bi-pap 07/16/16 12:45 89 36 100 Facial 100 07/16/16 12:40 88 36 15.0 100 07/16/16 12:25 88 36 95 Facial 100 07/16/16 12:20 88 36 Bi-pap 100 07/16/16 12:15 98.5 86 30 135/113 98 Non-Rebreather 15.0 07/16/16 11:53 84 20 111/64 97 Non-Rebreather 15.0 Status: sedated Condition: critical HEENT: other - OP with ET in place, intact, NGT in place, intact Lungs: clear Heart: HR/BP unstable - on Dopamine gtt, other - L femoral TL CL, R femoral HD catheter intact Abdomen: soft, non-tender, active bowel sounds Extremities: other - edema +2 BLE Accucheck: 143 Critical Care - Subjective ROS Limited/Unobtainable: Yes Interval Events: hemodialysis early this morning with balance 0 creat down to 8.4 afebrile, leukocytosis on Dopamine drip intubated no signs of respiratory distress tachy 110 th Condition: critical IV Access: central - R femroal EKG Rhythm: Sinus Tachycardia FI02: 75 Vent Support Breath Rate: 24 Vent Support Mode: AC Vent Tidal Volume: 500 Sputum Amount: Small PEEP: 5.0 PIP: 14 Fluids: D5W with na bicarb at 150 Drips: Dopamine gtt 5 mcg/kg/min I&O: Intake and Output 07/16/16 07/17/16 19:00 07:00 Intake Total 08401.826 ml 1648.678 ml Output Total 7650 ml 2150 ml Balance 6853.826 ml -501.322 ml Intake Oral 0 ml IV Total 8003.826 ml 1648.678 ml Other 6500 ml Output Urine Total 7640 ml 2050 ml Stool Total 10 ml 100 ml # Bowel Movements 3 CXR: no acute cardiopulmonary disease ET-Tube: 8.0 ET Position: 24 Nora Ayoub NP (Vanchtein) Jul 17, 2016 08:16
[2016-07-17 08:24] LABS: ABG ALLEN TEST POSITIVE; ABG BASE EXCESS -0.8; ABG PCO2 32.7 mmHg (35.0-45.0)
[2016-07-17] MEDS: Pantoprazole Inj IVP SCH ×2 (09:40→21:02)
[2016-07-17 09:52] LABS: BAND NEUTROPHILS % (MANUAL) 2 % (0-8); BASOPHILS % (MANUAL) 0 % (0-2); EOSINOPHILS % (MANUAL) 0 % (0-3); LYMPHOCYTES % (MANUAL) 3 % (20-45); NEUTROPHILS % (MANUAL) 93 % (45-75); PLATELET ESTIMATE DECREASED; TOTAL CELLS COUNTED 100
[2016-07-17 09:53] LABS: ANISOCYTOSIS 1+; HYPOCHROMASIA 1+
[2016-07-17 09:54] LABS: PLATELET MORPHOLOGY NORMAL
[2016-07-17 10:30] LABS: HEMOLYSIS 6; IRON 24 ug/dL (59-158); TOTAL IRON BINDING CAPACITY 217 ug/dL (250-400)
[2016-07-17] MEDS ORDERED: Hydrocortisone 100mg Inj IV ONE (10:30)
--- NOTE | 2016-07-17 10:34 | Consultation ---
Consult Note Consult Note asked to eval for renal failure and acidosis Patient presents from nursing facility with complaints of respiratory distress It appears the patient had symptoms earlier this morning however presents at noon Patient himself is in acute respiratory distress tachypneic Not able to provide any history There appears to be in consultation for hospice and the patient's paperwork from intermediate however it is unclear if there was any consultation made Patient has multiple comorbidities unknown regarding fever No reports of any vomiting or diarrhea Assessment/Plan status: acute renal failure, requiring HD , done / acute hyperkalemia , resolved Low BP , septic Shock , on Pressors acute respiratory failure requiring intubation UTI gross hematuria anemia CHF Sever Hypoalbuminemai h/o Parkinsons , OBS , ? Sz Plan: Monitor renal parameters- Avoid Nephrotoxics Start Renal feeding IV Hydrocortisone BP support per orders HAI THOMPSON Jul 17, 2016 10:33
[2016-07-17 10:42] LABS: FERRITIN 319 ng/mL (10-230)
[2016-07-17] MEDS: D5 1/2NS 1,000 ML IV SCH (11:00)
--- NOTE | 2016-07-17 12:44 | General Progress Note ---
Progress Note Progress Note Triple samantha reyes OK, working well. Nothing to add CORNELIO WILSON Jul 17, 2016 12:44
--- NOTE | 2016-07-17 13:20 | Consultation ---
Consult Note Consult Note ID Dic # [id number] PHILLIP BARNES M.D. Jul 17, 2016 13:20
[2016-07-17] MEDS ORDERED: Piperacillin/Tazobactam 3.375 GM in D5W 110 ML IVPB SCH (14:00)
[2016-07-17] MEDS: Zosyn 2.25 gm in D5W 55ml IV SCH ×2 (15:38→22:10)
[2016-07-17] MEDS ORDERED: Sodium Bicarbonate 150 ML in D5W 1000ml 1,000 ML IV SCH (16:00)
[2016-07-17] MEDS ORDERED: D5 1/2NS 1000ml IV ONE (17:05)
[2016-07-17] MEDS ORDERED: Tubing IV Secondary IV ONE (17:05)
[2016-07-17] MEDS: Hydrocortisone 100mg Inj IV SCH (18:07)
[2016-07-17 20:53] LABS: MAGNESIUM 1.9 mg/dL (1.7-2.5); PHOSPHORUS 5.7 mg/dL (2.5-4.8); URIC ACID 7.6 mg/dL (3.0-7.5)
--- NOTE | 2016-07-17 21:30 | Consultation ---
DATE OF CONSULTATION: INFECTIOUS DISEASES CONSULTATION CONSULTING PHYSICIAN: New Thao M.D. REFERRING PHYSICIAN: Dawson Carballo M.D. REASON FOR CONSULTATION: Evaluation of the patient for sepsis, antibiotic management, and bacteremia. HISTORY OF PRESENT ILLNESS: The patient is an 80-year-old male who was brought to the hospital due to the respiratory distress. The patient was found to have sepsis, bacteremia, and hypertension. The patient has been started on IV antibiotics and Infectious Disease consultation has been requested for further evaluation of patient and antibiotic management. PAST MEDICAL HISTORY: 1. Dementia. 2. Parkinson disease. 3. Seizure disorder. 4. History of congestive heart failure. 5. Post pacemaker placement. 6. Obesity. 7. Renal insufficiency. 8. Hematuria. 9. Depression. 10. Anemia. ALLERGIES: No known drug allergies. MEDICATIONS: The patient received one dose of Zosyn. FAMILY HISTORY: unobtainable. SOCIAL HISTORY: Unobtainable. PHYSICAL EXAMINATION: VITAL SIGNS: Temperature is 99.2, blood pressure 114/55, pulse 86, and respiratory rate 18. HEENT: Mild pale conjunctivae. No icterus. NECK: No lymphadenopathy. CHEST: Coarse breathing sounds. HEART: S1 and S2. ABDOMEN: Soft. EXTREMITIES: No cyanosis at this time. NEUROLOGIC: Obtunded. LABORATORY AND DIAGNOSTIC DATA: WBC is 11, hemoglobin 8.6, and platelets 48,000. BUN 114, creatinine 8.4. ALT, AST, and alkaline phosphatase unremarkable. Urinalysis too numerous to count white blood cells and too numerous to count red blood cells. Cultures, blood cultures growing Gram-negative rods. Urine cultures, Gram-negative rods. ASSESSMENT: The patient is an 80-year-old male with multiple medical problems as listed above, who also has, 1. Sepsis. 2. Septic shock. 3. Urinary tract infection. 4. Gram-negative bacteremia. 5. Ventilator-dependent respiratory failure. 6. Renal insufficiency requiring hemodialysis. PLAN: 1. We will restart the patient on IV Zosyn. 2. Monitor CBC. 3. Monitor BMP. 4. Monitor cultures. 5. Continue ventilator support. Based on the patient's clinical course and labs, we will do further recommendations. Thank you, Dr. Carballo, for allowing me to participate in the care of this patient. I will follow the patient with you during this hospitalization. New Taho M.D. DR: MARCELA JOB#: [id number] CC:
[2016-07-18] VITALS (49 sets, daily range): BP systolic 85–185; BP diastolic 35–90
[2016-07-18] MEDS: Hydrocortisone 100mg Inj IV SCH ×3 (01:55→17:36)
[2016-07-18] MEDS: D5 1/2NS 1,000 ML IV SCH ×2 (04:28→04:29)
[2016-07-18] MEDS: Dyna-Hex 2% Top Sol 8oz TOPIC SCH (04:29)
[2016-07-18 05:54] LABS: MEAN CORPUSCULAR HEMOGLOBIN 30.6 PG (27.0-31.0); MEAN CORPUSCULAR HGB CONC 33.8 G/DL (32.0-36.0); MEAN CORPUSCULAR VOLUME 91 FL (80-99); MEAN PLATELET VOLUME 8.4 FL (6.5-10.1); PLATELET COUNT 62 K/UL (150-450); RED BLOOD COUNT 2.68 M/UL (4.70-6.10); RED CELL DISTRIBUTION WIDTH 15.6 % (11.6-14.8); WHITE BLOOD COUNT 12.8 K/UL (4.8-10.8)
[2016-07-18] MEDS: Zosyn 2.25 gm in D5W 55ml IV SCH ×3 (06:02→22:00)
[2016-07-18 06:54] LABS: ALANINE AMINOTRANSFERASE 26 U/L (3-41); ALBUMIN/GLOBULIN RATIO 0.5 (1.0-2.7); ANION GAP 21 (5-15); ASPARTATE AMINO TRANSFERASE 45 U/L (5-40); CARBON DIOXIDE 21 mEQ/L (20-30); CHLORIDE 108 mEQ/L (98-107); CREATININE 7.3 mg/dL (0.7-1.2); HEMOLYSIS 5; POTASSIUM 3.3 mEQ/L (3.4-4.9); SODIUM 150 mEQ/L (135-145); TOTAL PROTEIN 4.8 g/dL (6.6-8.7)
[2016-07-18 08:15] LABS: ABG ALLEN TEST POSITIVE; ABG BASE EXCESS -1.4; ABG PCO2 31.6 mmHg (35.0-45.0)
[2016-07-18 08:23] LABS: CRP QUANT 21.7 mg/dL (< 0.5); PHOSPHORUS 5.5 mg/dL (2.5-4.8); URIC ACID 8.2 mg/dL (3.0-7.5)
--- NOTE | 2016-07-18 08:28 | Diagnostic Imaging Report ---
Indication: Chest Pain Comparison: July 16, 2016 12:46 A single view chest radiograph was obtained. Findings: Current study performed 15:00. Endotracheal tube is in good position few cm above the otis. Dense acute consolidation of the right upper lobe demonstrated. Right basilar consolidation also noted. Right lung was previously clear about 2 hours earlier. A right pleural effusion is not excluded. Bones are osteopenic. Impression: Endotracheal tube in good position. Extensive new infiltrate in the right lung. Suspect aspiration pneumonia given the abrupt onset of findings occurring over the last 2 hours. Component of this may be atelectasis. Please correlate clinically. Followup recommended.
--- NOTE | 2016-07-18 08:29 | Diagnostic Imaging Report ---
Indication: Nasogastric tube placement Comparison: None Single view of the abdomen obtained Nasogastric tube is in good position with the side-port and tip both in the stomach. Although this is an abdomen exam only the upper part of the abdomen was imaged. Incidentally the endotracheal tube is noted and appears to be in good position. There is a hazy opacity over the right chest. Impression: Nasogastric tube in good position
--- NOTE | 2016-07-18 08:29 | Diagnostic Imaging Report ---
Indication: Line placement Comparison: 07/16/2016 A single view chest radiograph was obtained. Findings: The right upper lobe has reexpanded. There is a reexpansion pulmonary edema and/or residual infiltrate or atelectasis within the right upper lobe. Aeration has improved significantly. Endotracheal tube is in good position. A nasogastric tube has been passed and is in good position. There is no line identified. Heart size is stable. Impression: Interval reexpansion of the right upper lobe with residual infiltrate or atelectasis. Tube satisfactory in position
[2016-07-18] MEDS: LORazepam Inj 2mg/ml 1ml IV PRN ×2 (08:53→20:04)
[2016-07-18] MEDS: Pantoprazole Inj IVP SCH ×2 (08:53→20:46)
--- NOTE | 2016-07-18 09:22 | Infectious Diseases Prog Note ---
Assessment/Plan Assessment/Plan A; Gram negative sepsis UTI respiratory failure Anemia Parkinson's disease P; continue Zosyn will f/u cultures Subjective ROS Limited/Unobtainable: Yes Allergies: Coded Allergies: No Known Allergies (Unverified , 07/16/16) Objective Vital Signs Last 24 Hour Vital Signs Date Time Temp Pulse Resp B/P Pulse Ox O2 Delivery O2 Flow Rate FiO2 07/18/16 09:04 104 23 185/65 100 Mechanical Ventilator 40 07/18/16 08:54 40 07/18/16 08:45 110 35 40 07/18/16 08:30 106 23 168/64 100 Mechanical Ventilator 40 07/18/16 08:00 50 07/18/16 08:00 98.5 94 22 156/55 100 Mechanical Ventilator 50 07/18/16 08:00 98 07/18/16 07:30 93 25 140/52 100 Mechanical Ventilator 50 07/18/16 07:00 131/48 07/18/16 07:00 64 18 131/48 100 Mechanical Ventilator 50 07/18/16 06:55 60 30 40 07/18/16 06:30 71 20 107/43 100 Mechanical Ventilator 50 07/18/16 06:00 65 18 117/50 100 Mechanical Ventilator 50 07/18/16 06:00 115/66 07/18/16 05:30 72 18 143/71 100 Mechanical Ventilator 50 07/18/16 05:10 66 26 50 07/18/16 05:00 76 18 113/58 100 Mechanical Ventilator 50 07/18/16 05:00 121/63 07/18/16 04:30 79 21 140/90 100 Mechanical Ventilator 50 07/18/16 04:00 79 07/18/16 04:00 124/67 07/18/16 04:00 50 07/18/16 04:00 98.8 78 25 105/56 99 Mechanical Ventilator 50 07/18/16 03:30 65 21 122/51 100 Mechanical Ventilator 50 07/18/16 03:00 124/54 07/18/16 03:00 66 24 124/54 100 Mechanical Ventilator 50 07/18/16 02:55 65 25 50 07/18/16 02:30 67 24 88/45 100 Mechanical Ventilator 50 07/18/16 02:00 120/56 07/18/16 02:00 82 24 120/56 100 Mechanical Ventilator 50 07/18/16 01:30 70 24 125/49 100 Mechanical Ventilator 50 07/18/16 01:10 71 24 50 17 01:00 65 24 98/51 100 Mechanical Ventilator 50 07/18/16 01:00 83/44 07/18/16 00:30 86 26 134/68 100 Mechanical Ventilator 50 07/18/16 00:00 75 07/18/16 00:00 50 07/18/16 00:00 104/48 07/18/16 00:00 99.1 75 24 104/48 100 Mechanical Ventilator 50 07/17/16 23:30 84 25 129/71 100 Mechanical Ventilator 50 07/17/16 23:05 88 28 50 07/17/16 23:00 127/54 07/17/16 23:00 90 28 127/54 97 Mechanical Ventilator 50 07/17/16 22:30 88 28 116/60 100 Mechanical Ventilator 50 07/17/16 22:00 129/105 07/17/16 22:00 89 28 129/105 100 Mechanical Ventilator 50 07/17/16 21:30 71 24 110/51 100 Mechanical Ventilator 50 07/17/16 21:00 74 25 112/53 100 Mechanical Ventilator 50 07/17/16 21:00 112/53 07/17/16 20:43 71 26 50 07/17/16 20:30 74 25 120/50 100 Mechanical Ventilator 50 07/17/16 20:00 101/55 07/17/16 20:00 99.8 85 26 101/55 99 Mechanical Ventilator 50 07/17/16 20:00 85 07/17/16 20:00 50 07/17/16 19:30 77 26 121/74 100 Mechanical Ventilator 50 07/17/16 19:19 80 25 50 /3/17 19:00 99/47 07/17/16 19:00 75 25 99/47 99 Mechanical Ventilator 75 3/17 18:30 72 24 102/69 99 Mechanical Ventilator 75 63/17 18:00 110/62 63/17 18:00 83 26 103/49 99 Mechanical Ventilator 75 6/3/17 17:45 81 25 110/62 99 Mechanical Ventilator 75 6/3/17 17:30 82 25 90/44 99 Mechanical Ventilator 75 6/3/17 17:15 91 27 92/47 99 Mechanical Ventilator 75 3/17 17:11 121/62 6/3/17 17:02 92 36 50 6/3/17 17:00 96 30 103/51 99 Mechanical Ventilator 75 6/3/17 16:45 92 30 121/62 99 Mechanical Ventilator 75 6/3/17 16:30 93 29 94/51 99 Mechanical Ventilator 75 6/3/17 16:15 98 32 119/57 99 Mechanical Ventilator 75 6/3/17 16:00 92 26 128/61 99 Mechanical Ventilator 75 6/3/17 16:00 50 6/3/17 16:00 94 6/3/17 15:45 92 26 101/53 99 Mechanical Ventilator 75 6/3/17 15:30 95 26 128/95 100 Mechanical Ventilator 75 6/3/17 15:17 104 33 50 6/3/17 15:15 94 26 127/56 99 Mechanical Ventilator 75 6/3/17 15:00 117/60 6/3/17 15:00 120/54 6/3/17 15:00 96 26 117/60 100 Mechanical Ventilator 75 6/3/17 14:45 88 26 117/60 99 Mechanical Ventilator 75 6/3/17 14:30 85 25 113/53 99 Mechanical Ventilator 75 6/3/17 14:15 88 27 98/51 99 Mechanical Ventilator 75 6/3/17 14:15 88 27 98/51 99 Mechanical Ventilator 75 6/3/17 14:00 91 26 122/52 99 Mechanical Ventilator 75 6/3/17 14:00 110/54 6/3/17 14:00 122/52 6/3/17 13:45 89 25 120/55 99 Mechanical Ventilator 75 6/3/17 13:30 92 24 101/48 98 Mechanical Ventilator 75 6/3/17 13:29 94 29 50 6/3/17 13:15 97 28 102/49 99 Mechanical Ventilator 75 6/3/17 13:00 95 32 92/50 97 Mechanical Ventilator 75 6/3/17 13:00 98/67 6/3/17 12:45 95 32 102/57 97 Mechanical Ventilator 75 6/3/17 12:30 99 32 104/58 97 Mechanical Ventilator 75 6/3/17 12:15 98 34 103/58 97 Mechanical Ventilator 75 6/3/17 12:00 99.2 100 31 114/55 98 Mechanical Ventilator 75 6/3/17 12:00 98.2 104 31 114/55 97 Mechanical Ventilator 75 07/17/16 12:00 114/55 07/17/16 12:00 103 07/17/16 12:00 50 07/17/16 11:45 102 30 108/53 97 Mechanical Ventilator 75 07/17/16 11:45 102 34 108/53 98 Mechanical Ventilator 75 07/17/16 11:30 103 34 99/73 98 Mechanical Ventilator 75 07/17/16 11:30 103 32 99/73 97 Mechanical Ventilator 75 07/17/16 11:25 102 33 50 07/17/16 11:15 102 32 81/51 98 Mechanical Ventilator 75 07/17/16 11:15 102 33 100/51 97 Mechanical Ventilator 75 07/17/16 11:00 106 34 91/48 98 Mechanical Ventilator 75 07/17/16 11:00 91/48 07/17/16 11:00 106 30 91/48 97 Mechanical Ventilator 75 07/17/16 10:45 108 24 123/51 97 Mechanical Ventilator 75 07/17/16 10:30 107 33 110/60 97 Mechanical Ventilator 75 07/17/16 10:15 106 34 106/63 97 Mechanical Ventilator 75 07/17/16 10:00 97 24 86/34 97 Mechanical Ventilator 75 07/17/16 10:00 106/60 07/17/16 09:45 108 35 113/55 98 Mechanical Ventilator 75 07/17/16 09:30 106 35 102/52 98 Mechanical Ventilator 75 Height (Feet): 5 Height (Inches): 8.00 Weight (Pounds): 174 HEENT: other - orally intubated Respiratory/Chest: lungs clear, other - on ventilator Cardiovascular: tachycardia Abdomen: soft, non tender, other - orogastric tube Genitourinary: other - Garcia catheter, hematuria Extremities: other - mild edema of hands, right femoral line Neurologic/Psychiatric: unresponsiveness Microbiology Date/Time Source Procedure Growth Status 07/16/16 12:35 Blood Blood Culture - Preliminary Gram Negative Bacillus 1 Resulted 07/16/16 12:12 Blood Blood Culture - Preliminary Gram Negative Bacillus 1 Resulted 07/16/16 12:30 Urine,Clean Catch Urine Culture - Preliminary Proteus Mirabilis Gram Negative Bacillus 2 Resulted 07/16/16 16:00 Rectum VRE Culture - Final NO VANCOMYCIN RESISTANT ENTEROCOCCUS ... Complete Laboratory Tests Test 6/3/17 20:20 07/18/16 04:55 07/18/16 08:10 Uric Acid 7.6 mg/dL (3.0-7.5) H 8.2 mg/dL (3.0-7.5) H Phosphorus Level 5.7 mg/dL (2.5-4.8) H 5.5 mg/dL (2.5-4.8) H Magnesium Level 1.9 mg/dL (1.7-2.5) 2.0 mg/dL (1.7-2.5) White Blood Count 12.8 K/UL (4.8-10.8) H Red Blood Count 2.68 M/UL (4.70-6.10) L Hemoglobin 8.2 G/DL (14.2-18.0) L Hematocrit 24.3 % (42.0-52.0) L Mean Corpuscular Volume 91 FL (80-99) Mean Corpuscular Hemoglobin 30.6 PG (27.0-31.0) Mean Corpuscular Hemoglobin Concent 33.8 G/DL (32.0-36.0) Red Cell Distribution Width 15.6 % (11.6-14.8) H Platelet Count 62 K/UL (150-450) L Mean Platelet Volume 8.4 FL (6.5-10.1) Neutrophils (%) (Auto) % (45.0-75.0) Lymphocytes (%) (Auto) % (20.0-45.0) Monocytes (%) (Auto) % (1.0-10.0) Eosinophils (%) (Auto) % (0.0-3.0) Basophils (%) (Auto) % (0.0-2.0) Neutrophils % (Manual) Pending Lymphocytes % (Manual) Pending Platelet Estimate Pending Platelet Morphology Pending Sodium Level 150 mEQ/L (135-145) H Potassium Level 3.3 mEQ/L (3.4-4.9) L Chloride Level 108 mEQ/L (98-107) H Carbon Dioxide Level 21 mEQ/L (20-30) Anion Gap 21 (5-15) H Blood Urea Nitrogen 125 mg/dL (7-23) H Creatinine 7.3 mg/dL (0.7-1.2) H Estimat Glomerular Filtration Rate mL/min (>60) Glucose Level 282 mg/dL (74-106) #H Calcium Level 7.0 mg/dL (8.6-10.2) L Total Bilirubin 0.6 mg/dL (0.0-1.2) Gamma Glutamyl Transpeptidase 69 U/L (8-61) H Aspartate Amino Transf (AST/SGOT) 45 U/L (5-40) H Alanine Aminotransferase (ALT/SGPT) 26 U/L (3-41) Alkaline Phosphatase 207 U/L (40-129) H Total Creatine Kinase 2262 U/L (38-174) H C-Reactive Protein, Quantitative 21.7 mg/dL (< 0.5) H Pro-B-Type Natriuretic Peptide 1636 pg/mL (0-450) H Total Protein 4.8 g/dL (6.6-8.7) L Albumin 1.7 g/dL (3.5-5.2) L Globulin 3.1 g/dL Albumin/Globulin Ratio 0.5 (1.0-2.7) L Carcinoembryonic Antigen 5.7 ng/mL H Arterial Blood pH 7.460 (7.350-7.450) Arterial Blood Partial Pressure CO2 31.6 mmHg (35.0-45.0) L Arterial Blood Partial Pressure O2 120.8 mmHg (75.0-100.0) H Arterial Blood HCO3 22.0 mmol/L (22.0-26.0) Arterial Blood Oxygen Saturation 97.4 % (92.0-98.0) Arterial Blood Base Excess -1.4 Caleb Test Positive Current Medications Medications (Trade) Dose Ordered Sig/Janay Route PRN Reason Start Time Stop Time Status Last Admin Dose Admin Acetaminophen (Tylenol) 650 mg Q4H PRN ORAL fever 07/16/16 15:15 08/15/16 15:14 Albuterol/ Ipratropium (DuoNeb 0.5-3(2.5)mg/3ml) 3 ml EVERY 4 HOURS PRN HHN Shortness of Breath 07/16/16 15:15 07/21/16 15:14 Chlorhexidine Gluconate 1 applic 1 applic DAILY TOPIC 07/17/16 09:00 08/16/16 08:59 07/18/16 04:29 Dextrose/Sodium Chloride 1,000 ml @ 50 mls/hr Q20H IV 07/17/16 10:30 08/16/16 10:29 07/18/16 04:29 Dopamine HCl/ Dextrose (DOPamine 400mg/ 250ml) 250 ml @ 0 mls/hr Q24H IV 07/16/16 17:30 08/15/16 17:29 07/17/16 17:11 Hydrocortisone 100 mg 100 mg Q8H IV 07/17/16 18:00 08/16/16 17:59 07/18/16 01:55 Lorazepam (Ativan 2mg/ml 1ml) 2 mg Q4H PRN IV For Anxiety 07/16/16 15:15 07/23/16 15:14 07/18/16 08:53 Morphine Sulfate (Morphine Sulfate) 2 mg EVERY 4 HOURS PRN IVP Moderate Pain (Pain Scale 4-6) 07/16/16 15:15 07/23/16 15:14 07/17/16 04:09 Nitroglycerin (Ntg) 0.4 mg Q5M PRN SL Prn Chest Pain 07/16/16 15:15 08/15/16 15:14 Ondansetron HCl (Zofran) 4 mg Q6H PRN IVP Nausea & Vomiting 07/16/16 15:15 08/15/16 15:14 Pantoprazole (Protonix) 40 mg EVERY 12 HOURS IVP 07/16/16 21:00 08/15/16 20:59 07/18/16 08:53 Piperacillin Sod/ Tazobactam Sod/ Dextrose (Zosyn/D5W) 55 ml @ 110 mls/hr Q8HR IV 07/17/16 15:00 07/22/16 14:59 07/18/16 06:02 Polyethylene Glycol (Miralax) 17 gm DAILYPRN PRN ORAL Constipation 07/16/16 15:15 08/15/16 15:14 Temazepam (Restoril) 15 mg HSPRN PRN ORAL Insomnia 07/16/16 15:15 07/23/16 15:14 RAYMOND IRWIN Jul 18, 2016 09:22
[2016-07-18 09:44] LABS: BAND NEUTROPHILS % (MANUAL) 2 % (0-8); LYMPHOCYTES % (MANUAL) 8 % (20-45); NEUTROPHILS % (MANUAL) 87 % (45-75); TOTAL CELLS COUNTED 100
[2016-07-18 09:45] LABS: BASOPHILS % (MANUAL) 0 % (0-2); EOSINOPHILS % (MANUAL) 0 % (0-3); PLATELET ESTIMATE DECREASED; PLATELET MORPHOLOGY NORMAL
[2016-07-18 09:46] LABS: ANISOCYTOSIS 1+; HYPOCHROMASIA 1+
--- NOTE | 2016-07-18 10:47 | General Progress Note ---
Assessment/Plan Status: unchanged Assessment/Plan status: acute renal failure, requiring HD , done 07/16 acute hyperkalemia , resolved Low BP , septic Shock , on Pressors- RESOLVED acute respiratory failure requiring intubation UTI gross hematuria anemia CHF Sever Hypoalbuminemia h/o Parkinsons , OBS , ? Sz Plan: HD in am 07/19 Monitor renal parameters- Avoid Nephrotoxics Start Renal feeding IV Hydrocortisone BP support per orders Subjective ROS Limited/Unobtainable: Yes Allergies: Coded Allergies: No Known Allergies (Unverified , 07/16/16) Objective Last 24 Hour Vital Signs Date Time Temp Pulse Resp B/P Pulse Ox O2 Delivery O2 Flow Rate FiO2 07/18/16 10:30 94 19 102/45 100 Mechanical Ventilator 40 07/18/16 10:15 98 23 89/35 100 Mechanical Ventilator 40 07/18/16 10:00 103 23 85/38 100 Mechanical Ventilator 40 07/18/16 09:45 102 23 88/40 100 Mechanical Ventilator 40 07/18/16 09:30 104 23 110/50 100 Mechanical Ventilator 40 07/18/16 09:04 104 23 185/65 100 Mechanical Ventilator 40 07/18/16 08:54 40 07/18/16 08:45 110 35 40 07/18/16 08:30 106 23 168/64 100 Mechanical Ventilator 40 07/18/16 08:00 50 07/18/16 08:00 98.5 94 22 156/55 100 Mechanical Ventilator 50 07/18/16 08:00 98 07/18/16 07:30 93 25 140/52 100 Mechanical Ventilator 50 07/18/16 07:00 131/48 07/18/16 07:00 64 18 131/48 100 Mechanical Ventilator 50 07/18/16 06:55 60 30 40 07/18/16 06:30 71 20 107/43 100 Mechanical Ventilator 50 07/18/16 06:00 65 18 117/50 100 Mechanical Ventilator 50 07/18/16 06:00 115/66 07/18/16 05:30 72 18 143/71 100 Mechanical Ventilator 50 07/18/16 05:10 66 26 50 07/18/16 05:00 76 18 113/58 100 Mechanical Ventilator 50 07/18/16 05:00 121/63 07/18/16 04:30 79 21 140/90 100 Mechanical Ventilator 50 07/18/16 04:00 79 07/18/16 04:00 124/67 07/18/16 04:00 50 07/18/16 04:00 98.8 78 25 105/56 99 Mechanical Ventilator 50 07/18/16 03:30 65 21 122/51 100 Mechanical Ventilator 50 07/18/16 03:00 124/54 07/18/16 03:00 66 24 124/54 100 Mechanical Ventilator 50 07/18/16 02:55 65 25 50 07/18/16 02:30 67 24 88/45 100 Mechanical Ventilator 50 07/18/16 02:00 120/56 07/18/16 02:00 82 24 120/56 100 Mechanical Ventilator 50 07/18/16 01:30 70 24 125/49 100 Mechanical Ventilator 50 07/18/16 01:10 71 24 50 07/18/16 01:00 65 24 98/51 100 Mechanical Ventilator 50 07/18/16 01:00 83/44 07/18/16 00:30 86 26 134/68 100 Mechanical Ventilator 50 07/18/16 00:00 75 07/18/16 00:00 50 07/18/16 00:00 104/48 07/18/16 00:00 99.1 75 24 104/48 100 Mechanical Ventilator 50 07/17/16 23:30 84 25 129/71 100 Mechanical Ventilator 50 07/17/16 23:05 88 28 50 07/17/16 23:00 127/54 07/17/16 23:00 90 28 127/54 97 Mechanical Ventilator 50 07/17/16 22:30 88 28 116/60 100 Mechanical Ventilator 50 07/17/16 22:00 129/105 07/17/16 22:00 89 28 129/105 100 Mechanical Ventilator 50 07/17/16 21:30 71 24 110/51 100 Mechanical Ventilator 50 07/17/16 21:00 74 25 112/53 100 Mechanical Ventilator 50 07/17/16 21:00 112/53 07/17/16 20:43 71 26 50 07/17/16 20:30 74 25 120/50 100 Mechanical Ventilator 50 07/17/16 20:00 101/55 07/17/16 20:00 99.8 85 26 101/55 99 Mechanical Ventilator 50 07/17/16 20:00 85 07/17/16 20:00 50 07/17/16 19:30 77 26 121/74 100 Mechanical Ventilator 50 6/3/17 19:19 80 25 50 6/3/17 19:00 99/47 6/3/17 19:00 75 25 99/47 99 Mechanical Ventilator 75 6/3/17 18:30 72 24 102/69 99 Mechanical Ventilator 75 6/3/17 18:00 110/62 6/3/17 18:00 83 26 103/49 99 Mechanical Ventilator 75 6/3/17 17:45 81 25 110/62 99 Mechanical Ventilator 75 6/3/17 17:30 82 25 90/44 99 Mechanical Ventilator 75 6/3/17 17:15 91 27 92/47 99 Mechanical Ventilator 75 6/3/17 17:11 121/62 6/3/17 17:02 92 36 50 6/3/17 17:00 96 30 103/51 99 Mechanical Ventilator 75 6/3/17 16:45 92 30 121/62 99 Mechanical Ventilator 75 6/3/17 16:30 93 29 94/51 99 Mechanical Ventilator 75 6/3/17 16:15 98 32 119/57 99 Mechanical Ventilator 75 6/3/17 16:00 92 26 128/61 99 Mechanical Ventilator 75 6/3/17 16:00 50 6/3/17 16:00 94 6/3/17 15:45 92 26 101/53 99 Mechanical Ventilator 75 6/3/17 15:30 95 26 128/95 100 Mechanical Ventilator 75 6/3/17 15:17 104 33 50 6/3/17 15:15 94 26 127/56 99 Mechanical Ventilator 75 6/3/17 15:00 117/60 6/3/17 15:00 120/54 6/3/17 15:00 96 26 117/60 100 Mechanical Ventilator 75 6/3/17 14:45 88 26 117/60 99 Mechanical Ventilator 75 6/3/17 14:30 85 25 113/53 99 Mechanical Ventilator 75 6/3/17 14:15 88 27 98/51 99 Mechanical Ventilator 75 6/3/17 14:15 88 27 98/51 99 Mechanical Ventilator 75 6/3/17 14:00 91 26 122/52 99 Mechanical Ventilator 75 6/3/17 14:00 110/54 6/3/17 14:00 122/52 6/3/17 13:45 89 25 120/55 99 Mechanical Ventilator 75 6/3/17 13:30 92 24 101/48 98 Mechanical Ventilator 75 6/3/17 13:29 94 29 50 07/17/16 13:15 97 28 102/49 99 Mechanical Ventilator 75 07/17/16 13:00 95 32 92/50 97 Mechanical Ventilator 75 07/17/16 13:00 98/67 07/17/16 12:45 95 32 102/57 97 Mechanical Ventilator 75 07/17/16 12:30 99 32 104/58 97 Mechanical Ventilator 75 07/17/16 12:15 98 34 103/58 97 Mechanical Ventilator 75 07/17/16 12:00 99.2 100 31 114/55 98 Mechanical Ventilator 75 07/17/16 12:00 98.2 104 31 114/55 97 Mechanical Ventilator 75 07/17/16 12:00 114/55 07/17/16 12:00 103 07/17/16 12:00 50 07/17/16 11:45 102 30 108/53 97 Mechanical Ventilator 75 07/17/16 11:45 102 34 108/53 98 Mechanical Ventilator 75 07/17/16 11:30 103 34 99/73 98 Mechanical Ventilator 75 07/17/16 11:30 103 32 99/73 97 Mechanical Ventilator 75 07/17/16 11:25 102 33 50 07/17/16 11:15 102 32 81/51 98 Mechanical Ventilator 75 07/17/16 11:15 102 33 100/51 97 Mechanical Ventilator 75 07/17/16 11:00 106 34 91/48 98 Mechanical Ventilator 75 07/17/16 11:00 91/48 07/17/16 11:00 106 30 91/48 97 Mechanical Ventilator 75 07/17/16 10:45 108 24 123/51 97 Mechanical Ventilator 75 Intake and Output 07/17/16 07/18/16 19:00 07:00 Intake Total 899.343 ml 1171.208 ml Output Total 1115 ml 1130 ml Balance -215.657 ml 41.208 ml IV Total 839.343 ml 811.208 ml Tube Feeding 60 ml 360 ml Output Urine Total 1115 ml 1130 ml # Bowel Movements 3 1 Laboratory Tests 07/17/16 20:20: Uric Acid 7.6H, Phosphorus Level 5.7H, Magnesium Level 1.9 07/18/16 04:55: Uric Acid 8.2H, Phosphorus Level 5.5H, Magnesium Level 2.0, White Blood Count 12.8H, Red Blood Count 2.68L, Hemoglobin 8.2L, Hematocrit 24.3L, Mean Corpuscular Volume 91, Mean Corpuscular Hemoglobin 30.6, Mean Corpuscular Hemoglobin Concent 33.8, Red Cell Distribution Width 15.6H, Platelet Count 62L, Mean Platelet Volume 8.4, Neutrophils (%) (Auto) , Lymphocytes (%) (Auto) , Monocytes (%) (Auto) , Eosinophils (%) (Auto) , Basophils (%) (Auto) , Differential Total Cells Counted 100, Neutrophils % (Manual) 87H, Lymphocytes % (Manual) 8L, Monocytes % (Manual) 3, Eosinophils % (Manual) 0, Basophils % ( Manual) 0, Band Neutrophils 2, Platelet Estimate DecreasedL, Platelet Morphology Normal, Hypochromasia 1+, Anisocytosis 1+, Sodium Level 150H, Potassium Level 3.3L, Chloride Level 108H, Carbon Dioxide Level 21, Anion Gap 21H, Blood Urea Nitrogen 125H, Creatinine 7.3H, Estimat Glomerular Filtration Rate , Glucose Level 282#H, Calcium Level 7.0L, Total Bilirubin 0.6, Gamma Glutamyl Transpeptidase 69H, Aspartate Amino Transf (AST/SGOT) 45H, Alanine Aminotransferase (ALT/SGPT) 26, Alkaline Phosphatase 207H, Total Creatine Kinase 2262H, C-Reactive Protein, Quantitative 21.7H, Pro-B-Type Natriuretic Peptide 1636H, Total Protein 4.8L, Albumin 1.7L, Globulin 3.1, Albumin/Globulin Ratio 0.5L, Carcinoembryonic Antigen 5.7H 07/18/16 08:10: Arterial Blood pH 7.460H, Arterial Blood Partial Pressure CO2 31.6L, Arterial Blood Partial Pressure O2 120.8H, Arterial Blood HCO3 22.0, Arterial Blood Oxygen Saturation 97.4, Arterial Blood Base Excess -1.4, Caleb Test Positive Height (Feet): 5 Height (Inches): 8.00 Weight (Pounds): 174 General Appearance: mild distress Neck: stiff neck Cardiovascular: tachycardia Respiratory/Chest: decreased breath sounds Abdomen: distended Objective other PE not changed HAI THOMPSON Jul 18, 2016 10:46
--- NOTE | 2016-07-18 10:48 | General Progress Note ---
Progress Note Progress Note Afebrile. TLC OK. nothing to add. CORNELIO WILSON Jul 18, 2016 10:48
--- NOTE | 2016-07-18 12:15 | Diagnostic Imaging Report ---
Indication: Dyspnea Comparison: 07/17/2016 A single view chest radiograph was obtained. Findings: There is some clearance of the consolidative opacities and atelectasis seen yesterday in the right lung. There is still persistent airspace disease in the right lower lobe primarily, right perihilar region and a small focus in the right upper lobe. Continued followup recommended. Heart size is stable. Tubes and lines are in good position. Impression: Some improvement in aeration of the right lung with residual interstitial/alveolar disease and atelectasis. Followup recommended.
--- NOTE | 2016-07-18 12:34 | Pulmonolgy Critical Care Note ---
Critical Care - Asmt/Plan Assessment/Plan: ASSESSMENT acute respiratory failure requiring intubation acute renal failure, requiring HD acute hyperkalemia septic shock sepsis with bacteremia gram negative bacteremia polymicrobial UTI with Proteus and GNB gross hematuria anemia CHF PLAN OF CARE ICU care vent support pulmonary toilet daily ABG and CXR and optimize ventilator settings as needed pressors, keep SBP above 90 , wean as tolerated HD as per nephro nephro follows monitor renal parameters, lytes avoid nephrotoxic HD in am started on renal feeding renal US on IV Hydrocortisone IVF with Na bicarb, per nephro management, rate down to 50 abx , fup with cx, blood cx + GNB, urine cx + GNB, Proteus urology consult appreciated monitor Garcia output, still with hematuria, manual irrigation prn urology follows monitor HH anemia workup revealed low iron and low TIBC, thus anemia of chronic disease ? EPO - per nephro discretion transfuse prn CT abdomen/pelvis GI prophylaxis case discussed and evaluated by supervising physician Critical Care - Objective Last 24 Hour Vital Signs Date Time Temp Pulse Resp B/P Pulse Ox O2 Delivery O2 Flow Rate FiO2 07/18/16 11:07 110 28 40 07/18/16 11:04 93 19 100/45 100 Mechanical Ventilator 40 07/18/16 10:45 92 19 98/42 100 Mechanical Ventilator 40 07/18/16 10:30 94 19 102/45 100 Mechanical Ventilator 40 07/18/16 10:15 98 23 89/35 100 Mechanical Ventilator 40 07/18/16 10:00 103 23 85/38 100 Mechanical Ventilator 40 07/18/16 10:00 110/48 07/18/16 09:45 102 23 88/40 100 Mechanical Ventilator 40 07/18/16 09:30 104 23 110/50 100 Mechanical Ventilator 40 07/18/16 09:04 104 23 185/65 100 Mechanical Ventilator 40 07/18/16 09:00 88/38 07/18/16 08:54 40 07/18/16 08:45 110 35 40 07/18/16 08:30 106 23 168/64 100 Mechanical Ventilator 40 07/18/16 08:00 50 07/18/16 08:00 152/65 07/18/16 08:00 98.5 94 22 156/55 100 Mechanical Ventilator 50 07/18/16 08:00 98 07/18/16 07:30 93 25 140/52 100 Mechanical Ventilator 50 07/18/16 07:00 131/48 07/18/16 07:00 64 18 131/48 100 Mechanical Ventilator 50 07/18/16 06:55 60 30 40 07/18/16 06:30 71 20 107/43 100 Mechanical Ventilator 50 07/18/16 06:00 65 18 117/50 100 Mechanical Ventilator 50 07/18/16 06:00 115/66 07/18/16 05:30 72 18 143/71 100 Mechanical Ventilator 50 07/18/16 05:10 66 26 50 07/18/16 05:00 76 18 113/58 100 Mechanical Ventilator 50 07/18/16 05:00 121/63 07/18/16 04:30 79 21 140/90 100 Mechanical Ventilator 50 07/18/16 04:00 79 07/18/16 04:00 124/67 07/18/16 04:00 50 07/18/16 04:00 98.8 78 25 105/56 99 Mechanical Ventilator 50 07/18/16 03:30 65 21 122/51 100 Mechanical Ventilator 50 07/18/16 03:00 124/54 07/18/16 03:00 66 24 124/54 100 Mechanical Ventilator 50 07/18/16 02:55 65 25 50 07/18/16 02:30 67 24 88/45 100 Mechanical Ventilator 50 07/18/16 02:00 120/56 07/18/16 02:00 82 24 120/56 100 Mechanical Ventilator 50 07/18/16 01:30 70 24 125/49 100 Mechanical Ventilator 50 07/18/16 01:10 71 24 50 07/18/16 01:00 65 24 98/51 100 Mechanical Ventilator 50 07/18/16 01:00 83/44 07/18/16 00:30 86 26 134/68 100 Mechanical Ventilator 50 07/18/16 00:00 75 07/18/ 00:00 50 07/18/16 00:00 104/48 07/18/16 00:00 99.1 75 24 104/48 100 Mechanical Ventilator 50 07/17/16 23:30 84 25 129/71 100 Mechanical Ventilator 50 07/17/16 23:05 88 28 50 07/17/ 23:00 127/54 07/17/16 23:00 90 28 127/54 97 Mechanical Ventilator 50 07/17/16 22:30 88 28 116/60 100 Mechanical Ventilator 50 6/3/17 22:00 129/105 6/3/17 22:00 89 28 129/105 100 Mechanical Ventilator 50 6/3/17 21:30 71 24 110/51 100 Mechanical Ventilator 50 6/3/17 21:00 74 25 112/53 100 Mechanical Ventilator 50 6/3/17 21:00 112/53 6/3/17 20:43 71 26 50 6/3/17 20:30 74 25 120/50 100 Mechanical Ventilator 50 6/3/17 20:00 101/55 6/3/17 20:00 99.8 85 26 101/55 99 Mechanical Ventilator 50 6/3/17 20:00 85 6/3/17 20:00 50 6/3/17 19:30 77 26 121/74 100 Mechanical Ventilator 50 6/3/17 19:19 80 25 50 6/3/17 19:00 99/47 6/3/17 19:00 75 25 99/47 99 Mechanical Ventilator 75 6/3/17 18:30 72 24 102/69 99 Mechanical Ventilator 75 6/3/17 18:00 110/62 6/3/17 18:00 83 26 103/49 99 Mechanical Ventilator 75 6/3/17 17:45 81 25 110/62 99 Mechanical Ventilator 75 6/3/17 17:30 82 25 90/44 99 Mechanical Ventilator 75 6/3/17 17:15 91 27 92/47 99 Mechanical Ventilator 75 6/3/17 17:11 121/62 6/3/17 17:02 92 36 50 6/3/17 17:00 96 30 103/51 99 Mechanical Ventilator 75 6/3/17 16:45 92 30 121/62 99 Mechanical Ventilator 75 6/3/17 16:30 93 29 94/51 99 Mechanical Ventilator 75 6/3/17 16:15 98 32 119/57 99 Mechanical Ventilator 75 6/3/17 16:00 92 26 128/61 99 Mechanical Ventilator 75 6/3/17 16:00 50 6/3/17 16:00 94 6/3/17 15:45 92 26 101/53 99 Mechanical Ventilator 75 6/3/17 15:30 95 26 128/95 100 Mechanical Ventilator 75 6/3/17 15:17 104 33 50 6/3/17 15:15 94 26 127/56 99 Mechanical Ventilator 75 6/3/17 15:00 117/60 07/17/16 15:00 120/54 07/17/16 15:00 96 26 117/60 100 Mechanical Ventilator 75 07/17/16 14:45 88 26 117/60 99 Mechanical Ventilator 75 07/17/16 14:30 85 25 113/53 99 Mechanical Ventilator 75 07/17/16 14:15 88 27 98/51 99 Mechanical Ventilator 75 07/17/16 14:15 88 27 98/51 99 Mechanical Ventilator 75 07/17/16 14:00 91 26 122/52 99 Mechanical Ventilator 75 07/17/16 14:00 110/54 07/17/16 14:00 122/52 07/17/16 13:45 89 25 120/55 99 Mechanical Ventilator 75 07/17/16 13:30 92 24 101/48 98 Mechanical Ventilator 75 07/17/16 13:29 94 29 50 07/17/16 13:15 97 28 102/49 99 Mechanical Ventilator 75 07/17/16 13:00 95 32 92/50 97 Mechanical Ventilator 75 07/17/16 13:00 98/67 07/17/16 12:45 95 32 102/57 97 Mechanical Ventilator 75 Objective: Status: sedated Condition: critical HEENT: OP with ET in place, intact, NGT in place, intact Lungs: clear Heart: HR/BP unstable - on Dopamine gtt, L femoral TL CL, R femoral HD catheter intact Abdomen: soft, non-tender, active bowel sounds Extremities: edema +2 BLE Micro: Microbiology Date/Time Source Procedure Growth Status 07/16/16 12:35 Blood Blood Culture - Preliminary Gram Negative Bacillus 1 Resulted 07/16/16 12:12 Blood Blood Culture - Preliminary Gram Negative Bacillus 1 Resulted 07/16/16 16:00 Nasal Nares MRSA Culture - Final NO METHICILLIN RESISTANT STAPH AUREUS... Complete 07/16/16 12:30 Urine,Clean Catch Urine Culture - Preliminary Proteus Mirabilis Gram Negative Bacillus 2 Resulted 07/16/16 16:00 Rectum VRE Culture - Final NO VANCOMYCIN RESISTANT ENTEROCOCCUS ... Complete Accucheck: 143 Critical Care - Subjective ROS Limited/Unobtainable: Yes Interval Events: intubated still on pressors leukocytosis with small trend up, afebrile HH trending down ABG with respiratory alkalosis Condition: critical IV Access: central - L femoral CL TL inatct, R femoral HD catheter intact EKG Rhythm: Sinus Tachycardia FI02: 40 Vent Support Breath Rate: 24 Vent Support Mode: AC Vent Tidal Volume: 500 Sputum Amount: Small PEEP: 5.0 PIP: 35 Fluids: D5W+ Ma bicarb at 50 Tube Feeding Amount: 30 I&O: Intake and Output 07/17/16 07/18/16 19:00 07:00 Intake Total 899.343 ml 1171.208 ml Output Total 1115 ml 1130 ml Balance -215.657 ml 41.208 ml IV Total 839.343 ml 811.208 ml Tube Feeding 60 ml 360 ml Output Urine Total 1115 ml 1130 ml # Bowel Movements 3 1 CXR: 07/18 -Some improvement in aeration of the right lung with residual interstitial/alveolar disease and atelectasis. ET-Tube: 8.0 ET Position: 24 Mega (PardeepNora madrid NP Jul 18, 2016 12:34
[2016-07-18] MEDS ORDERED: D5 1/2NS 1000ml IV ONE (15:39)
[2016-07-18] MEDS ORDERED: NS 275ml ONE (15:39)
[2016-07-18 16:17] LABS: ABG ALLEN TEST POSITIVE; ABG BASE EXCESS 0.4; ABG PCO2 31.1 mmHg (35.0-45.0)
[2016-07-18] MEDS: DOPamine 400mg/250ml 250 ML IV SCH (17:35)
[2016-07-19] VITALS (27 sets, daily range): BP systolic 85–161; BP diastolic 43–101
[2016-07-19] MEDS: Hydrocortisone 100mg Inj IV SCH ×2 (02:00→10:49)
[2016-07-19] MEDS: Zosyn 2.25 gm in D5W 55ml IV SCH ×3 (05:43→21:59)
[2016-07-19 06:01] LABS: MEAN CORPUSCULAR HEMOGLOBIN 30.3 PG (27.0-31.0); MEAN CORPUSCULAR HGB CONC 32.9 G/DL (32.0-36.0); MEAN CORPUSCULAR VOLUME 92 FL (80-99); MEAN PLATELET VOLUME 8.6 FL (6.5-10.1); PLATELET COUNT 83 K/UL (150-450); RED BLOOD COUNT 2.66 M/UL (4.70-6.10); RED CELL DISTRIBUTION WIDTH 15.5 % (11.6-14.8); WHITE BLOOD COUNT 14.3 K/UL (4.8-10.8)
[2016-07-19 06:23] LABS: ANION GAP 18 (5-15); CALCIUM 7.5 mg/dL (8.6-10.2); CARBON DIOXIDE 22 mEQ/L (20-30); CHLORIDE 111 mEQ/L (98-107); CREATININE 5.5 mg/dL (0.7-1.2); HEMOLYSIS 7; SODIUM 151 mEQ/L (135-145)
[2016-07-19 08:02] LABS: ABG ALLEN TEST POSITIVE; ABG BASE EXCESS -2.3; ABG PCO2 31.3 mmHg (35.0-45.0)
[2016-07-19] MEDS: Pantoprazole Inj IVP SCH ×2 (08:34→21:06)
[2016-07-19] MEDS: Dyna-Hex 2% Top Sol 8oz TOPIC SCH (08:34)
--- NOTE | 2016-07-19 09:23 | General Progress Note ---
Assessment/Plan Status: not improved Status Narrative UTI Sepsis Hematuria Assessment/Plan Per ID ABX possible cystoscopy if condition will improve Subjective Allergies: Coded Allergies: No Known Allergies (Unverified , 07/16/16) Objective Last 24 Hour Vital Signs Date Time Temp Pulse Resp B/P Pulse Ox O2 Delivery O2 Flow Rate FiO2 07/19/16 09:00 40 07/19/16 07:07 84 30 40 07/19/16 07:00 76 23 145/82 99 Mechanical Ventilator 40 07/19/16 06:00 65 23 152/82 97 Mechanical Ventilator 40 07/19/16 05:04 81 38 40 07/19/16 05:00 76 29 142/72 97 Mechanical Ventilator 40 07/19/16 04:00 98.8 59 22 93/49 100 Mechanical Ventilator 40 07/19/16 04:00 40 07/19/16 04:00 59 07/19/16 03:31 56 22 40 07/19/16 03:30 57 22 93/49 99 Mechanical Ventilator 40 07/19/16 03:00 59 22 90/46 100 Mechanical Ventilator 40 07/19/16 02:30 60 26 90/58 99 Mechanical Ventilator 40 07/19/16 02:00 79 31 134/66 99 Mechanical Ventilator 40 07/19/16 01:43 78 35 40 07/19/16 01:30 81 31 126/66 99 Mechanical Ventilator 40 07/19/16 01:00 84 22 108/48 100 Mechanical Ventilator 40 07/19/16 00:30 59 22 108/48 100 Mechanical Ventilator 40 07/19/16 00:00 40 07/19/16 00:00 63 07/19/16 00:00 98.9 62 22 104/50 100 Mechanical Ventilator 40 07/18/16 23:34 72 42 40 07/18/16 23:30 76 31 125/86 100 Mechanical Ventilator 40 07/18/16 23:00 61 23 126/57 100 Mechanical Ventilator 40 07/18/16 22:30 72 23 126/57 100 Mechanical Ventilator 40 07/18/16 22:00 62 22 98/45 100 Mechanical Ventilator 40 07/18/16 21:30 63 22 98/45 100 Mechanical Ventilator 40 07/18/16 21:29 63 22 40 07/18/16 21:00 64 22 94/46 100 Mechanical Ventilator 40 07/18/16 20:30 66 22 111/48 100 Mechanical Ventilator 40 07/18/16 20:00 99.4 85 24 123/55 100 Mechanical Ventilator 40 07/18/16 20:00 71 07/18/16 20:00 40 07/18/16 19:54 87 37 40 17 19:30 91 21 122/79 100 Mechanical Ventilator 40 17 19:00 63 22 122/79 100 Mechanical Ventilator 40 07/18/16 18:00 88 22 100/47 98 Mechanical Ventilator 40 07/18/16 18:00 100/47 07/18/16 17:35 120/56 07/18/16 17:30 85 22 120/54 99 Mechanical Ventilator 40 17 17:06 68 22 40 07/18/16 17:00 84 22 130/65 99 Mechanical Ventilator 40 07/18/16 17:00 130/62 07/18/16 16:30 120/50 07/18/16 16:30 84 22 131/68 99 Mechanical Ventilator 40 07/18/16 16:00 100 07/18/16 16:00 131/68 07/18/16 16:00 99.2 71 26 130/65 99 Mechanical Ventilator 40 07/18/16 16:00 40 07/18/16 15:30 110/45 07/18/16 15:30 86 26 133/56 99 Mechanical Ventilator 40 07/18/16 15:00 126/56 07/18/16 15:00 84 26 126/61 99 Mechanical Ventilator 40 07/18/16 14:51 69 22 40 07/18/16 14:04 136/74 07/18/16 14:02 87 26 132/71 99 Mechanical Ventilator 40 07/18/16 14:00 40 07/18/16 13:32 96 30 40 07/18/16 13:30 90 28 152/71 100 Mechanical Ventilator 40 07/18/16 13:00 92 25 150/74 100 Mechanical Ventilator 40 07/18/16 13:00 128/68 07/18/16 12:30 99 31 170/87 100 Mechanical Ventilator 40 17 12:00 124/62 07/18/16 12:00 99 07/18/16 12:00 98.8 99 31 170/87 100 Mechanical Ventilator 40 07/18/16 11:30 99 29 165/81 100 Mechanical Ventilator 40 07/18/16 11:07 110 28 40 6/4/17 11:04 93 19 100/45 100 Mechanical Ventilator 40 07/18/16 11:00 120/56 07/18/16 10:45 92 19 98/42 100 Mechanical Ventilator 40 07/18/16 10:30 94 19 102/45 100 Mechanical Ventilator 40 07/18/16 10:15 98 23 89/35 100 Mechanical Ventilator 40 07/18/16 10:00 103 23 85/38 100 Mechanical Ventilator 40 07/18/16 10:00 110/48 07/18/16 09:45 102 23 88/40 100 Mechanical Ventilator 40 07/18/16 09:30 104 23 110/50 100 Mechanical Ventilator 40 Intake and Output 07/18/16 07/19/16 19:00 07:00 Intake Total 1169.9 ml 1092.5 ml Output Total 570 ml 1120 ml Balance 599.9 ml -27.5 ml IV Total 779.9 ml 732.5 ml Tube Feeding 390 ml 360 ml Output Urine Total 570 ml 1120 ml # Bowel Movements 2 Laboratory Tests 07/18/16 16:10: Arterial Blood pH 7.494H, Arterial Blood Partial Pressure CO2 31.1L, Arterial Blood Partial Pressure O2 115.6H, Arterial Blood HCO3 23.4, Arterial Blood Oxygen Saturation 97.2, Arterial Blood Base Excess 0.4, Caleb Test Positive 07/19/16 04:45: White Blood Count 14.3H, Red Blood Count 2.66L, Hemoglobin 8.1L, Hematocrit 24.5L, Mean Corpuscular Volume 92, Mean Corpuscular Hemoglobin 30.3, Mean Corpuscular Hemoglobin Concent 32.9, Red Cell Distribution Width 15.5H, Platelet Count 83L, Mean Platelet Volume 8.6, Neutrophils (%) (Auto) , Lymphocytes (%) (Auto) , Monocytes (%) (Auto) , Eosinophils (%) (Auto) , Basophils (%) (Auto) , Neutrophils % (Manual) [Pending], Lymphocytes % (Manual) [Pending], Platelet Estimate [Pending], Platelet Morphology [Pending], Sodium Level 151H, Potassium Level 3.0L, Chloride Level 111H, Carbon Dioxide Level 22, Anion Gap 18H, Blood Urea Nitrogen 123H, Creatinine 5.5H, Estimat Glomerular Filtration Rate , Glucose Level 326H, Calcium Level 7.5L 07/19/16 07:45: Arterial Blood pH 7.451H, Arterial Blood Partial Pressure CO2 31.3L, Arterial Blood Partial Pressure O2 126.7H, Arterial Blood HCO3 21.3L, Arterial Blood Oxygen Saturation 97.7, Arterial Blood Base Excess -2.3, Caleb Test Positive Height (Feet): 5 Height (Inches): 8.00 Weight (Pounds): 175 George Rosas MD Jul 19, 2016 09:23
[2016-07-19 10:01] LABS: ANISOCYTOSIS 1+; BAND NEUTROPHILS % (MANUAL) 0 % (0-8); BASOPHILS % (MANUAL) 0 % (0-2); EOSINOPHILS % (MANUAL) 0 % (0-3); HYPOCHROMASIA 1+; LYMPHOCYTES % (MANUAL) 3 % (20-45); NEUTROPHILS % (MANUAL) 96 % (45-75); PLATELET ESTIMATE DECREASED; PLATELET MORPHOLOGY NORMAL; TOTAL CELLS COUNTED 100
--- NOTE | 2016-07-19 11:13 | General Progress Note ---
Assessment/Plan Status: unchanged Status Narrative Cr lower Assessment/Plan status: acute renal failure, requiring HD , done 07/16 due 07/19 acute hyperkalemia , resolved Low BP , septic Shock , on Pressors- RESOLVED acute respiratory failure requiring intubation UTI gross hematuria anemia CHF Sever Hypoalbuminemia h/o Parkinsons , OBS , ? Sz Plan: HD today 07/19 Monitor renal parameters- Avoid Nephrotoxics Start Renal feeding DC IV Hydrocortisone BP support per orders Subjective ROS Limited/Unobtainable: Yes Allergies: Coded Allergies: No Known Allergies (Unverified , 07/16/16) Objective Last 24 Hour Vital Signs Date Time Temp Pulse Resp B/P Pulse Ox O2 Delivery O2 Flow Rate FiO2 07/19/16 10:38 61 22 30 07/19/16 09:21 76 25 30 07/19/16 09:00 40 07/19/16 09:00 84 23 121/57 99 Mechanical Ventilator 40 07/19/16 08:00 98.2 82 24 132/55 99 Mechanical Ventilator 40 07/19/16 08:00 88 07/19/16 07:07 84 30 40 07/19/16 07:00 76 23 145/82 99 Mechanical Ventilator 40 07/19/16 06:00 65 23 152/82 97 Mechanical Ventilator 40 07/19/16 05:04 81 38 40 07/19/16 05:00 76 29 142/72 97 Mechanical Ventilator 40 07/19/16 04:00 98.8 59 22 93/49 100 Mechanical Ventilator 40 07/19/16 04:00 40 07/19/16 04:00 59 07/19/16 03:31 56 22 40 07/19/16 03:30 57 22 93/49 99 Mechanical Ventilator 40 07/19/16 03:00 59 22 90/46 100 Mechanical Ventilator 40 07/19/16 02:30 60 26 90/58 99 Mechanical Ventilator 40 07/19/16 02:00 79 31 134/66 99 Mechanical Ventilator 40 07/19/16 01:43 78 35 40 07/19/16 01:30 81 31 126/66 99 Mechanical Ventilator 40 07/19/16 01:00 84 22 108/48 100 Mechanical Ventilator 40 07/19/16 00:30 59 22 108/48 100 Mechanical Ventilator 40 07/19/16 00:00 40 07/19/16 00:00 63 07/19/16 00:00 98.9 62 22 104/50 100 Mechanical Ventilator 40 6/17 23:34 72 42 40 617 23:30 76 31 125/86 100 Mechanical Ventilator 40 17 23:00 61 23 126/57 100 Mechanical Ventilator 40 6/17 22:30 72 23 126/57 100 Mechanical Ventilator 40 17 22:00 62 22 98/45 100 Mechanical Ventilator 40 17 21:30 63 22 98/45 100 Mechanical Ventilator 40 07/18/16 21:29 63 22 40 07/18/17 21:00 64 22 94/46 100 Mechanical Ventilator 40 17 20:30 66 22 111/48 100 Mechanical Ventilator 40 07/18/16 20:00 99.4 85 24 123/55 100 Mechanical Ventilator 40 07/18/16 20:00 71 07/18/16 20:00 40 07/18/16 19:54 87 37 40 07/18/16 19:30 91 21 122/79 100 Mechanical Ventilator 40 07/18/16 19:00 63 22 122/79 100 Mechanical Ventilator 40 07/18/16 18:00 88 22 100/47 98 Mechanical Ventilator 40 07/18/16 18:00 100/47 07/18/16 17:35 120/56 07/18/16 17:30 85 22 120/54 99 Mechanical Ventilator 40 07/18/16 17:06 68 22 40 17 17:00 84 22 130/65 99 Mechanical Ventilator 40 17 17:00 130/62 07/18/16 16:30 120/50 17 16:30 84 22 131/68 99 Mechanical Ventilator 40 07/18/16 16:00 100 17 16:00 131/68 07/18/16 16:00 99.2 71 26 130/65 99 Mechanical Ventilator 40 17 16:00 40 17 15:30 110/45 17 15:30 86 26 133/56 99 Mechanical Ventilator 40 617 15:00 126/56 17 15:00 84 26 126/61 99 Mechanical Ventilator 40 07/18/17 14:51 69 22 40 07/18/16 14:04 136/74 07/18/16 14:02 87 26 132/71 99 Mechanical Ventilator 40 07/18/16 14:00 40 07/18/16 13:32 96 30 40 07/18/16 13:30 90 28 152/71 100 Mechanical Ventilator 40 07/18/16 13:00 92 25 150/74 100 Mechanical Ventilator 40 07/18/16 13:00 128/68 07/18/16 12:30 99 31 170/87 100 Mechanical Ventilator 40 07/18/16 12:00 124/62 07/18/16 12:00 99 07/18/16 12:00 98.8 99 31 170/87 100 Mechanical Ventilator 40 07/18/16 11:30 99 29 165/81 100 Mechanical Ventilator 40 Intake and Output 07/18/16 07/19/16 19:00 07:00 Intake Total 1169.9 ml 1092.5 ml Output Total 570 ml 1120 ml Balance 599.9 ml -27.5 ml IV Total 779.9 ml 732.5 ml Tube Feeding 390 ml 360 ml Output Urine Total 570 ml 1120 ml # Bowel Movements 2 Laboratory Tests 07/18/16 16:10: Arterial Blood pH 7.494H, Arterial Blood Partial Pressure CO2 31.1L, Arterial Blood Partial Pressure O2 115.6H, Arterial Blood HCO3 23.4, Arterial Blood Oxygen Saturation 97.2, Arterial Blood Base Excess 0.4, Caleb Test Positive 07/18/16 18:47: Stool Occult Blood Positive 07/19/16 04:45: White Blood Count 14.3H, Red Blood Count 2.66L, Hemoglobin 8.1L, Hematocrit 24.5L, Mean Corpuscular Volume 92, Mean Corpuscular Hemoglobin 30.3, Mean Corpuscular Hemoglobin Concent 32.9, Red Cell Distribution Width 15.5H, Platelet Count 83L, Mean Platelet Volume 8.6, Neutrophils (%) (Auto) , Lymphocytes (%) (Auto) , Monocytes (%) (Auto) , Eosinophils (%) (Auto) , Basophils (%) (Auto) , Differential Total Cells Counted 100, Neutrophils % ( Manual) 96H, Lymphocytes % (Manual) 3L, Monocytes % (Manual) 1, Eosinophils % ( Manual) 0, Basophils % (Manual) 0, Band Neutrophils 0, Platelet Estimate DecreasedL, Platelet Morphology Normal, Hypochromasia 1+, Anisocytosis 1+, Sodium Level 151H, Potassium Level 3.0L, Chloride Level 111H, Carbon Dioxide Level 22, Anion Gap 18H, Blood Urea Nitrogen 123H, Creatinine 5.5H, Estimat Glomerular Filtration Rate , Glucose Level 326H, Calcium Level 7.5L 07/19/16 07:45: Arterial Blood pH 7.451H, Arterial Blood Partial Pressure CO2 31.3L, Arterial Blood Partial Pressure O2 126.7H, Arterial Blood HCO3 21.3L, Arterial Blood Oxygen Saturation 97.7, Arterial Blood Base Excess -2.3, Caleb Test Positive Height (Feet): 5 Height (Inches): 8.00 Weight (Pounds): 175 General Appearance: mild distress Cardiovascular: normal rate Respiratory/Chest: decreased breath sounds Abdomen: distended Objective other PE not changed HAI THOMPSON Jul 19, 2016 11:13
--- NOTE | 2016-07-19 11:15 | Pulmonolgy Critical Care Note ---
Critical Care - Asmt/Plan Problems: (1) Acute respiratory failure (2) Gram-negative bacteremia (3) ATN (acute tubular necrosis) (4) Hyperkalemia (5) Acute encephalopathy Respiratory: monitor respiratory rate, adjust FIO2, CXR Cardiac: stop pressors, continue to monitor HR/BP Renal: keep IV fluid Infectious Disease: check cultures Gastrointestinal: continue feedings/current rate Endocrine: monitor blood sugar, continue sliding scale insulin Hematologic: monitor H/H, transfuse if hgb<8.5 Neurologic: PRN Ativan, PRN Morphine, keep patient comfortable Affect: PRN ativan Prophylaxis: Protonix, Heparin Notes Reviewed: lead cytogenetic technologist, cardio, renal Discussed with: nurses, consultants, family caseworkersenior manager - Objective Last 24 Hour Vital Signs Date Time Temp Pulse Resp B/P Pulse Ox O2 Delivery O2 Flow Rate FiO2 07/19/16 10:38 61 22 30 07/19/16 09:21 76 25 30 07/19/16 09:00 40 07/19/16 09:00 84 23 121/57 99 Mechanical Ventilator 40 07/19/16 08:00 98.2 82 24 132/55 99 Mechanical Ventilator 40 07/19/16 08:00 88 07/19/16 07:07 84 30 40 07/19/16 07:00 76 23 145/82 99 Mechanical Ventilator 40 07/19/16 06:00 65 23 152/82 97 Mechanical Ventilator 40 07/19/16 05:04 81 38 40 07/19/16 05:00 76 29 142/72 97 Mechanical Ventilator 40 07/19/16 04:00 98.8 59 22 93/49 100 Mechanical Ventilator 40 07/19/16 04:00 40 07/19/16 04:00 59 07/19/16 03:31 56 22 40 07/19/16 03:30 57 22 93/49 99 Mechanical Ventilator 40 07/19/16 03:00 59 22 90/46 100 Mechanical Ventilator 40 07/19/16 02:30 60 26 90/58 99 Mechanical Ventilator 40 07/19/16 02:00 79 31 134/66 99 Mechanical Ventilator 40 07/19/16 01:43 78 35 40 07/19/16 01:30 81 31 126/66 99 Mechanical Ventilator 40 07/19/16 01:00 84 22 108/48 100 Mechanical Ventilator 40 07/19/16 00:30 59 22 108/48 100 Mechanical Ventilator 40 07/19/16 00:00 40 07/19/16 00:00 63 07/19/16 00:00 98.9 62 22 104/50 100 Mechanical Ventilator 40 07/18/16 23:34 72 42 40 17 23:30 76 31 125/86 100 Mechanical Ventilator 40 07/18/16 23:00 61 23 126/57 100 Mechanical Ventilator 40 07/18/16 22:30 72 23 126/57 100 Mechanical Ventilator 40 07/18/16 22:00 62 22 98/45 100 Mechanical Ventilator 40 07/18/16 21:30 63 22 98/45 100 Mechanical Ventilator 40 07/18/16 21:29 63 22 40 07/18/16 21:00 64 22 94/46 100 Mechanical Ventilator 40 07/18/16 20:30 66 22 111/48 100 Mechanical Ventilator 40 07/18/16 20:00 99.4 85 24 123/55 100 Mechanical Ventilator 40 07/18/16 20:00 71 07/18/16 20:00 40 07/18/16 19:54 87 37 40 07/18/16 19:30 91 21 122/79 100 Mechanical Ventilator 40 07/18/16 19:00 63 22 122/79 100 Mechanical Ventilator 40 07/18/16 18:00 88 22 100/47 98 Mechanical Ventilator 40 07/18/16 18:00 100/47 07/18/16 17:35 120/56 07/18/16 17:30 85 22 120/54 99 Mechanical Ventilator 40 07/18/16 17:06 68 22 40 07/18/16 17:00 84 22 130/65 99 Mechanical Ventilator 40 07/18/16 17:00 130/62 07/18/16 16:30 120/50 07/18/16 16:30 84 22 131/68 99 Mechanical Ventilator 40 17 16:00 100 07/18/16 16:00 131/68 07/18/16 16:00 99.2 71 26 130/65 99 Mechanical Ventilator 40 17 16:00 40 17 15:30 110/45 617 15:30 86 26 133/56 99 Mechanical Ventilator 40 17 15:00 126/56 17 15:00 84 26 126/61 99 Mechanical Ventilator 40 07/18/16 14:51 69 22 40 07/18/16 14:04 136/74 07/18/16 14:02 87 26 132/71 99 Mechanical Ventilator 40 07/18/16 14:00 40 07/18/16 13:32 96 30 40 07/18/16 13:30 90 28 152/71 100 Mechanical Ventilator 40 07/18/16 13:00 92 25 150/74 100 Mechanical Ventilator 40 07/18/16 13:00 128/68 07/18/16 12:30 99 31 170/87 100 Mechanical Ventilator 40 07/18/16 12:00 124/62 07/18/16 12:00 99 07/18/16 12:00 98.8 99 31 170/87 100 Mechanical Ventilator 40 07/18/16 11:30 99 29 165/81 100 Mechanical Ventilator 40 Status: sedated HEENT: atraumatic Neck: full ROM Lungs: clear Heart: HR/BP stable, HR/BP unstable Abdomen: soft, non-tender, feeding tube Extremities: edema Decubiti: location Micro: Microbiology Date/Time Source Procedure Growth Status 07/16/16 12:35 Blood Blood Culture - Final Proteus Mirabilis Complete 07/16/16 12:12 Blood Blood Culture - Final Proteus Mirabilis Complete 07/16/16 16:00 Nasal Nares MRSA Culture - Final NO METHICILLIN RESISTANT STAPH AUREUS... Complete 07/16/16 12:30 Urine,Clean Catch Urine Culture - Final Proteus Mirabilis Proteus Mirabilis#2 Complete 07/16/16 16:00 Rectum VRE Culture - Final NO VANCOMYCIN RESISTANT ENTEROCOCCUS ... Complete Accucheck: 143 Critical Care - Subjective ROS Limited/Unobtainable: No ICU Day: 3 Intubation Day: 3 Condition: critical EKG Rhythm: Sinus Rhythm FI02: 30 Vent Support Breath Rate: 22 Vent Support Mode: AC Vent Tidal Volume: 500 Sputum Amount: Small PEEP: 5.0 PIP: 35 Tube Feeding Amount: 30 I&O: Intake and Output 07/18/16 07/19/16 19:00 07:00 Intake Total 1169.9 ml 1092.5 ml Output Total 570 ml 1120 ml Balance 599.9 ml -27.5 ml IV Total 779.9 ml 732.5 ml Tube Feeding 390 ml 360 ml Output Urine Total 570 ml 1120 ml # Bowel Movements 2 CXR: ET in good position ET-Tube: 8.0 ET Position: 24 Labs: Laboratory Tests Test 07/18/16 16:10 07/18/16 18:47 07/19/16 04:45 07/19/16 07:45 Arterial Blood pH 7.494 (7.350-7.450) 7.451 (7.350-7.450) Arterial Blood Partial Pressure CO2 31.1 mmHg (35.0-45.0) L 31.3 mmHg (35.0-45.0) L Arterial Blood Partial Pressure O2 115.6 mmHg (75.0-100.0) H 126.7 mmHg (75.0-100.0) H Arterial Blood HCO3 23.4 mmol/L (22.0-26.0) 21.3 mmol/L (22.0-26.0) L Arterial Blood Oxygen Saturation 97.2 % (92.0-98.0) 97.7 % (92.0-98.0) Arterial Blood Base Excess 0.4 -2.3 Caleb Test Positive Positive Stool Occult Blood Positive (NEGATIVE) White Blood Count 14.3 K/UL (4.8-10.8) H Red Blood Count 2.66 M/UL (4.70-6.10) L Hemoglobin 8.1 G/DL (14.2-18.0) L Hematocrit 24.5 % (42.0-52.0) L Mean Corpuscular Volume 92 FL (80-99) Mean Corpuscular Hemoglobin 30.3 PG (27.0-31.0) Mean Corpuscular Hemoglobin Concent 32.9 G/DL (32.0-36.0) Red Cell Distribution Width 15.5 % (11.6-14.8) H Platelet Count 83 K/UL (150-450) L Mean Platelet Volume 8.6 FL (6.5-10.1) Neutrophils (%) (Auto) % (45.0-75.0) Lymphocytes (%) (Auto) % (20.0-45.0) Monocytes (%) (Auto) % (1.0-10.0) Eosinophils (%) (Auto) % (0.0-3.0) Basophils (%) (Auto) % (0.0-2.0) Differential Total Cells Counted 100 Neutrophils % (Manual) 96 % (45-75) H Lymphocytes % (Manual) 3 % (20-45) L Monocytes % (Manual) 1 % (1-10) Eosinophils % (Manual) 0 % (0-3) Basophils % (Manual) 0 % (0-2) Band Neutrophils 0 % (0-8) Platelet Estimate Decreased L Platelet Morphology Normal Hypochromasia 1+ Anisocytosis 1+ Sodium Level 151 mEQ/L (135-145) H Potassium Level 3.0 mEQ/L (3.4-4.9) L Chloride Level 111 mEQ/L (98-107) H Carbon Dioxide Level 22 mEQ/L (20-30) Anion Gap 18 (5-15) H Blood Urea Nitrogen 123 mg/dL (7-23) H Creatinine 5.5 mg/dL (0.7-1.2) H Estimat Glomerular Filtration Rate mL/min (>60) Glucose Level 326 mg/dL (74-106) H Calcium Level 7.5 mg/dL (8.6-10.2) MACARENA ZAPATA Jul 19, 2016 11:15
--- NOTE | 2016-07-19 11:15 | Infectious Diseases Prog Note ---
Assessment/Plan Assessment/Plan A: The patient is an 80-year-old male with Sepsis improving Septic shock, off of pressors Urinary tract infection : P mirabilis x 2 Bacteremia P mirabilis Ventilator-dependent respiratory failure Renal insufficiency requiring hemodialysis Dementia Parkinson disease Seizure disorder History of congestive heart failure Post pacemaker placement Obesity Renal insufficiency Hematuria Depression Anemia PLAN: cont pt on IV Zosyn d# 3 Monitor CBC Monitor BMP. Monitor cultures ( urine ) Continue ventilator support. HD as per Nephro Subjective Allergies: Coded Allergies: No Known Allergies (Unverified , 07/16/16) Subjective on vent Objective Vital Signs Last 24 Hour Vital Signs Date Time Temp Pulse Resp B/P Pulse Ox O2 Delivery O2 Flow Rate FiO2 07/19/16 10:38 61 22 30 07/19/16 09:21 76 25 30 07/19/16 09:00 40 07/19/16 09:00 84 23 121/57 99 Mechanical Ventilator 40 07/19/16 08:00 98.2 82 24 132/55 99 Mechanical Ventilator 40 07/19/16 08:00 88 07/19/16 07:07 84 30 40 07/19/16 07:00 76 23 145/82 99 Mechanical Ventilator 40 07/19/16 06:00 65 23 152/82 97 Mechanical Ventilator 40 07/19/16 05:04 81 38 40 07/19/16 05:00 76 29 142/72 97 Mechanical Ventilator 40 07/19/16 04:00 98.8 59 22 93/49 100 Mechanical Ventilator 40 07/19/16 04:00 40 07/19/16 04:00 59 07/19/16 03:31 56 22 40 07/19/16 03:30 57 22 93/49 99 Mechanical Ventilator 40 07/19/16 03:00 59 22 90/46 100 Mechanical Ventilator 40 07/19/16 02:30 60 26 90/58 99 Mechanical Ventilator 40 07/19/16 02:00 79 31 134/66 99 Mechanical Ventilator 40 07/19/16 01:43 78 35 40 07/19/16 01:30 81 31 126/66 99 Mechanical Ventilator 40 07/19/16 01:00 84 22 108/48 100 Mechanical Ventilator 40 07/19/16 00:30 59 22 108/48 100 Mechanical Ventilator 40 07/19/16 00:00 40 07/19/16 00:00 63 07/19/16 00:00 98.9 62 22 104/50 100 Mechanical Ventilator 40 617 23:34 72 42 40 617 23:30 76 31 125/86 100 Mechanical Ventilator 40 17 23:00 61 23 126/57 100 Mechanical Ventilator 40 6/17 22:30 72 23 126/57 100 Mechanical Ventilator 40 17 22:00 62 22 98/45 100 Mechanical Ventilator 40 07/18/16 21:30 63 22 98/45 100 Mechanical Ventilator 40 07/18/16 21:29 63 22 40 17 21:00 64 22 94/46 100 Mechanical Ventilator 40 07/18/16 20:30 66 22 111/48 100 Mechanical Ventilator 40 07/18/16 20:00 99.4 85 24 123/55 100 Mechanical Ventilator 40 07/18/16 20:00 71 07/18/16 20:00 40 07/18/16 19:54 87 37 40 07/18/16 19:30 91 21 122/79 100 Mechanical Ventilator 40 07/18/16 19:00 63 22 122/79 100 Mechanical Ventilator 40 07/18/16 18:00 88 22 100/47 98 Mechanical Ventilator 40 07/18/16 18:00 100/47 07/18/16 17:35 120/56 07/18/16 17:30 85 22 120/54 99 Mechanical Ventilator 40 07/18/16 17:06 68 22 40 17 17:00 84 22 130/65 99 Mechanical Ventilator 40 17 17:00 130/62 07/18/16 16:30 120/50 17 16:30 84 22 131/68 99 Mechanical Ventilator 40 07/18/16 16:00 100 17 16:00 131/68 07/18/16 16:00 99.2 71 26 130/65 99 Mechanical Ventilator 40 17 16:00 40 17 15:30 110/45 07/18/16 15:30 86 26 133/56 99 Mechanical Ventilator 40 17 15:00 126/56 17 15:00 84 26 126/61 99 Mechanical Ventilator 40 17 14:51 69 22 40 07/18/16 14:04 136/74 07/18/16 14:02 87 26 132/71 99 Mechanical Ventilator 40 07/18/16 14:00 40 07/18/16 13:32 96 30 40 07/18/16 13:30 90 28 152/71 100 Mechanical Ventilator 40 07/18/16 13:00 92 25 150/74 100 Mechanical Ventilator 40 07/18/16 13:00 128/68 07/18/16 12:30 99 31 170/87 100 Mechanical Ventilator 40 07/18/16 12:00 124/62 07/18/16 12:00 99 07/18/16 12:00 98.8 99 31 170/87 100 Mechanical Ventilator 40 07/18/16 11:30 99 29 165/81 100 Mechanical Ventilator 40 Height (Feet): 5 Height (Inches): 8.00 Weight (Pounds): 175 HEENT: anicteric Respiratory/Chest: lungs clear Cardiovascular: no gallop/murmur Abdomen: no organomegaly Microbiology Date/Time Source Procedure Growth Status 07/16/16 12:35 Blood Blood Culture - Final Proteus Mirabilis Complete 07/16/16 12:12 Blood Blood Culture - Final Proteus Mirabilis Complete 07/16/16 16:00 Nasal Nares MRSA Culture - Final NO METHICILLIN RESISTANT STAPH AUREUS... Complete 07/16/16 12:30 Urine,Clean Catch Urine Culture - Final Proteus Mirabilis Proteus Mirabilis#2 Complete 07/16/16 16:00 Rectum VRE Culture - Final NO VANCOMYCIN RESISTANT ENTEROCOCCUS ... Complete Laboratory Tests Test 07/18/16 16:10 07/18/16 18:47 07/19/16 04:45 07/19/16 07:45 Arterial Blood pH 7.494 (7.350-7.450) 7.451 (7.350-7.450) Arterial Blood Partial Pressure CO2 31.1 mmHg (35.0-45.0) L 31.3 mmHg (35.0-45.0) L Arterial Blood Partial Pressure O2 115.6 mmHg (75.0-100.0) H 126.7 mmHg (75.0-100.0) H Arterial Blood HCO3 23.4 mmol/L (22.0-26.0) 21.3 mmol/L (22.0-26.0) L Arterial Blood Oxygen Saturation 97.2 % (92.0-98.0) 97.7 % (92.0-98.0) Arterial Blood Base Excess 0.4 -2.3 Caleb Test Positive Positive Stool Occult Blood Positive (NEGATIVE) White Blood Count 14.3 K/UL (4.8-10.8) H Red Blood Count 2.66 M/UL (4.70-6.10) L Hemoglobin 8.1 G/DL (14.2-18.0) L Hematocrit 24.5 % (42.0-52.0) L Mean Corpuscular Volume 92 FL (80-99) Mean Corpuscular Hemoglobin 30.3 PG (27.0-31.0) Mean Corpuscular Hemoglobin Concent 32.9 G/DL (32.0-36.0) Red Cell Distribution Width 15.5 % (11.6-14.8) H Platelet Count 83 K/UL (150-450) L Mean Platelet Volume 8.6 FL (6.5-10.1) Neutrophils (%) (Auto) % (45.0-75.0) Lymphocytes (%) (Auto) % (20.0-45.0) Monocytes (%) (Auto) % (1.0-10.0) Eosinophils (%) (Auto) % (0.0-3.0) Basophils (%) (Auto) % (0.0-2.0) Differential Total Cells Counted 100 Neutrophils % (Manual) 96 % (45-75) H Lymphocytes % (Manual) 3 % (20-45) L Monocytes % (Manual) 1 % (1-10) Eosinophils % (Manual) 0 % (0-3) Basophils % (Manual) 0 % (0-2) Band Neutrophils 0 % (0-8) Platelet Estimate Decreased L Platelet Morphology Normal Hypochromasia 1+ Anisocytosis 1+ Sodium Level 151 mEQ/L (135-145) H Potassium Level 3.0 mEQ/L (3.4-4.9) L Chloride Level 111 mEQ/L (98-107) H Carbon Dioxide Level 22 mEQ/L (20-30) Anion Gap 18 (5-15) H Blood Urea Nitrogen 123 mg/dL (7-23) H Creatinine 5.5 mg/dL (0.7-1.2) H Estimat Glomerular Filtration Rate mL/min (>60) Glucose Level 326 mg/dL (74-106) H Calcium Level 7.5 mg/dL (8.6-10.2) L Current Medications Medications (Trade) Dose Ordered Sig/Janay Route PRN Reason Start Time Stop Time Status Last Admin Dose Admin Acetaminophen (Tylenol) 650 mg Q4H PRN ORAL fever 07/16/16 15:15 08/15/16 15:14 Albuterol/ Ipratropium (DuoNeb 0.5-3(2.5)mg/3ml) 3 ml EVERY 4 HOURS PRN HHN Shortness of Breath 07/16/16 15:15 07/21/16 15:14 Chlorhexidine Gluconate 1 applic 1 applic DAILY TOPIC 07/17/16 09:00 08/16/16 08:59 07/19/16 08:34 Dextrose/Sodium Chloride 1,000 ml @ 50 mls/hr Q20H IV 07/17/16 10:30 08/16/16 10:29 07/19/16 00:00 Dopamine HCl/ Dextrose (DOPamine 400mg/ 250ml) 250 ml @ 0 mls/hr Q24H IV 07/16/16 17:30 08/15/16 17:29 07/18/16 17:35 Hydrocortisone 100 mg 100 mg Q8H IV 07/17/16 18:00 08/16/16 17:59 07/19/16 10:49 Lorazepam (Ativan 2mg/ml 1ml) 2 mg Q4H PRN IV For Anxiety 07/16/16 15:15 07/23/16 15:14 07/18/16 20:04 Morphine Sulfate (Morphine Sulfate) 2 mg EVERY 4 HOURS PRN IVP Moderate Pain (Pain Scale 4-6) 07/16/16 15:15 07/23/16 15:14 07/17/16 04:09 Nitroglycerin (Ntg) 0.4 mg Q5M PRN SL Prn Chest Pain 07/16/16 15:15 08/15/16 15:14 Ondansetron HCl (Zofran) 4 mg Q6H PRN IVP Nausea & Vomiting 07/16/16 15:15 08/15/16 15:14 Pantoprazole (Protonix) 40 mg EVERY 12 HOURS IVP 07/16/16 21:00 08/15/16 20:59 07/19/16 08:34 Piperacillin Sod/ Tazobactam Sod/ Dextrose (Zosyn/D5W) 55 ml @ 110 mls/hr Q8HR IV 07/17/16 15:00 07/22/16 14:59 07/19/16 05:43 Polyethylene Glycol (Miralax) 17 gm DAILYPRN PRN ORAL Constipation 07/16/16 15:15 08/15/16 15:14 Temazepam (Restoril) 15 mg HSPRN PRN ORAL Insomnia 07/16/16 15:15 07/23/16 15:14 PHILLIP BARNES M.D. Jul 19, 2016 11:15
[2016-07-19 11:30] LABS: BILIRUBIN,DIRECT 0.2 mg/dL (0.1-0.3); MAGNESIUM 2.2 mg/dL (1.7-2.5); PHOSPHORUS 5.2 mg/dL (2.5-4.8); TOTAL PROTEIN 5.1 g/dL (6.6-8.7); URIC ACID 9.5 mg/dL (3.0-7.5)
--- NOTE | 2016-07-19 14:05 | Wound Care Consultation ---
Wound Assessment Wound Assessment #1: Wound Present on Admission: Yes New Wound: No Status Change of Wound: No Wound Location Body Site Modif: right Wound Location Body Site: heel Wound Type: pressure ulcer Kevin Test: Does not Kevin Pressure Ulcer Stage: deep tissue injury Wound Thickness: Full Thickness Wound Length: 6.5 Wound Width: 6.5 Wound Depth: utd Percent of Wound Purple/Maroon: 100 Wound Drainage Amount: None Wound Drainage Odor: None/Absent Tissue Surrounding Wound: Intact Wound General Appearance: Reddened - purple Wound Assessment #2: Wound Number: #2 Wound Present on Admission: Yes New Wound: No Status Change of Wound: No Wound Location Body Site Modif: right, lateral Wound Location Body Site: metatarsal head - 5th Wound Type: pressure ulcer Kevin Test: Does not Kevin Pressure Ulcer Stage: deep tissue injury Wound Thickness: Full Thickness Wound Length: 4.5 Wound Width: 2.5 Wound Depth: utd Percent of Wound Purple/Maroon: 100 Wound Drainage Amount: None Wound Drainage Odor: None/Absent Tissue Surrounding Wound: Intact Wound General Appearance: Reddened - purple Wound Assessment #3: Wound Number: #3 Wound Present on Admission: Yes New Wound: No Status Change of Wound: No Wound Location Body Site Modif: left, lateral Wound Location Body Site: metatarsal head - 1st Wound Type: pressure ulcer Kevin Test: Does not Kevin Pressure Ulcer Stage: deep tissue injury Wound Thickness: Full Thickness Wound Length: 3.0 Wound Width: 3.0 Wound Depth: utd Percent of Wound Purple/Maroon: 100 Wound Drainage Amount: None Wound Drainage Odor: None/Absent Tissue Surrounding Wound: Intact Wound General Appearance: Reddened - purple Wound Assessment #4: Wound Number: #4 Wound Present on Admission: Yes New Wound: No Status Change of Wound: No Wound Location Body Site Modif: left, mid, medial Wound Location Body Site: foot Wound Type: pressure ulcer Kevin Test: Does not Kevin Pressure Ulcer Stage: deep tissue injury Wound Thickness: Full Thickness Wound Length: 6.5 Wound Width: 5.0 Wound Depth: utd Percent of Wound Purple/Maroon: 100 - blood filled blister Wound Drainage Amount: None Wound Drainage Odor: None/Absent Tissue Surrounding Wound: Intact Wound General Appearance: Reddened - purple Wound Assessment #5: Wound Number: #5 Wound Present on Admission: Yes New Wound: No Status Change of Wound: No Wound Location Body Site Modif: left Wound Location Body Site: heel Wound Type: pressure ulcer Kevin Test: Does not Kevin Pressure Ulcer Stage: deep tissue injury Wound Thickness: Full Thickness Wound Length: 6.0 Wound Width: 6.0 Wound Depth: utd Percent of Wound Purple/Maroon: 100 Wound Drainage Amount: None Wound Drainage Odor: None/Absent Tissue Surrounding Wound: Intact Wound General Appearance: Reddened - purple Wound Assessment #6: Wound Number: #6 Wound Present on Admission: Yes New Wound: No Status Change of Wound: No Wound Location Body Site Modif: right, mid, lateral Wound Location Body Site: foot Wound Type: pressure ulcer Kevin Test: Does not Kevin Pressure Ulcer Stage: deep tissue injury Wound Thickness: Full Thickness Wound Length: 1.0 Wound Width: 1.0 Wound Depth: utd Percent of Wound Purple/Maroon: 100 Wound Drainage Amount: None Wound Drainage Odor: None/Absent Tissue Surrounding Wound: Intact Wound General Appearance: Reddened - maroon Wound Assessment #7: Wound Number: #7 Wound Present on Admission: Yes New Wound: No Status Change of Wound: No Wound Location Body Site Modif: right, lateral Wound Location Body Site: malleolus/ankle Wound Type: pressure ulcer Kevin Test: Does not Kevin Pressure Ulcer Stage: deep tissue injury Wound Thickness: Full Thickness Wound Length: 3.0 Wound Width: 2.5 Wound Depth: utd Percent of Wound Purple/Maroon: 100 Wound Drainage Amount: None Wound Drainage Odor: None/Absent Tissue Surrounding Wound: Intact Wound General Appearance: Reddened - maroon Wound Comment #1 Right heel DTI pressure ulcer #2 Right lateral 5th metatarsal head DTI pressure ulcer #3 Left 1st metatarsal head DTI pressure ulcer #4 Left mid foot blood filled blister DTI pressure ulcer #5 Left heel DTI pressure ulcer #6 Right mid lateral foot DTI pressure ulcer #7 Right lateral malleolus DTI pressure ulcer Recommendation -Local wound care per protocol for DTI pressure ulcer -Keep clean and dry -Turn and reposition -Offload both heels -Heel protector on both heels -Optimize nutrition -Low air loss mattress -Assess and f/u accordingly for any changes AMADO HIGH RN Jul 19, 2016 14:05
[2016-07-19] MEDS: DOPamine 400mg/250ml 250 ML IV SCH (17:30)
[2016-07-19] MEDS: NovoLOG Insulin Flexpen SUBQ SCH ×2 (18:28→23:55)
[2016-07-19] MEDS ORDERED: Sodium Bicarbonate 4% 2.4meq/5ml vial INJ PRN (19:15)
[2016-07-19] MEDS: D5 1/2NS 1,000 ML IV SCH ×2 (20:00)
[2016-07-20] VITALS (24 sets, daily range): BP systolic 83–148; BP diastolic 41–82
[2016-07-20 04:27] LABS: MEAN CORPUSCULAR HEMOGLOBIN 30.1 PG (27.0-31.0); MEAN CORPUSCULAR HGB CONC 32.6 G/DL (32.0-36.0); MEAN CORPUSCULAR VOLUME 92 FL (80-99); MEAN PLATELET VOLUME 7.6 FL (6.5-10.1); PLATELET COUNT 108 K/UL (150-450); RED BLOOD COUNT 2.69 M/UL (4.70-6.10); RED CELL DISTRIBUTION WIDTH 15.8 % (11.6-14.8); WHITE BLOOD COUNT 13.3 K/UL (4.8-10.8)
[2016-07-20 05:00] LABS: ALANINE AMINOTRANSFERASE 35 U/L (3-41); ALBUMIN/GLOBULIN RATIO 0.6 (1.0-2.7); ANION GAP 16 (5-15); ASPARTATE AMINO TRANSFERASE 32 U/L (5-40); CALCIUM 7.8 mg/dL (8.6-10.2); CARBON DIOXIDE 27 mEQ/L (20-30); CHLORIDE 111 mEQ/L (98-107); CREATININE 3.3 mg/dL (0.7-1.2); CRP QUANT 6.6 mg/dL (< 0.5); HEMOLYSIS 7; PHOSPHORUS 3.3 mg/dL (2.5-4.8); SODIUM 154 mEQ/L (135-145); TOTAL PROTEIN 5.3 g/dL (6.6-8.7); URIC ACID 7.6 mg/dL (3.0-7.5)
[2016-07-20 05:04] LABS: POTASSIUM 2.7 mEQ/L (3.4-4.9)
[2016-07-20] MEDS: NovoLOG Insulin Flexpen SUBQ SCH ×3 (05:47→17:30)
[2016-07-20] MEDS: Zosyn 2.25 gm in D5W 55ml IV SCH (05:48)
[2016-07-20] MEDS: Pantoprazole Inj IVP SCH ×2 (07:52→20:57)
--- NOTE | 2016-07-20 08:33 | Diagnostic Imaging Report ---
Indication:Elevated Bun and Creatinine. Technique: Grayscale and duplex Doppler imaging of the kidneys performed. Comparison: None Findings: The size, contour, and echogenicity of both kidneys are within normal limits. Right kidney 9.4 CM. Left kidney 10.6 CM. There is minimal hydronephrosis on the right side. Please correlate clinically and evaluate further as needed. The IVC and urinary bladder are unremarkable. Garcia catheter is noted. Impression: Minimal right hydronephrosis. Noncontrast CT may be helpful for further evaluation as warranted clinically.
[2016-07-20] MEDS ORDERED: Dyna-Hex 2% Top Sol 8oz TOPIC SCH (09:00)
[2016-07-20 10:03] LABS: ANISOCYTOSIS 1+; BAND NEUTROPHILS % (MANUAL) 0 % (0-8); BASOPHILS % (MANUAL) 0 % (0-2); EOSINOPHILS % (MANUAL) 3 % (0-3); HYPOCHROMASIA 1+; LYMPHOCYTES % (MANUAL) 10 % (20-45); NEUTROPHILS % (MANUAL) 86 % (45-75); PLATELET ESTIMATE DECREASED; PLATELET MORPHOLOGY NORMAL; TOTAL CELLS COUNTED 100
[2016-07-20 10:07] LABS: ABG PCO2 34.3 mmHg (35.0-45.0)
--- NOTE | 2016-07-20 10:07 | Pulmonolgy Critical Care Note ---
Critical Care - Asmt/Plan Problems: (1) Acute respiratory failure (2) Gram-negative bacteremia (3) ATN (acute tubular necrosis) (4) Hyperkalemia (5) Acute encephalopathy Respiratory: monitor respiratory rate, adjust FIO2, CXR Cardiac: continue to monitor HR/BP Renal: F/U I&O, keep IV fluid, check electrolytes Infectious Disease: check cultures, continue antibiotics Gastrointestinal: continue feedings/current rate Endocrine: monitor blood sugar, continue sliding scale insulin Hematologic: monitor H/H, transfuse if hgb<8.5 Neurologic: PRN Ativan, PRN Morphine, keep patient comfortable Prophylaxis: Protonix Time Spent (Minutes): 40 Notes Reviewed: ironer sock, cardio Discussed with: nurses, consultants, case aiderollout manager - Objective Last 24 Hour Vital Signs Date Time Temp Pulse Resp B/P Pulse Ox O2 Delivery O2 Flow Rate FiO2 07/20/16 09:26 104 32 30 07/20/16 09:00 101 24 136/80 96 Mechanical Ventilator 40 07/20/16 08:00 40 07/20/16 08:00 98 07/20/16 08:00 98.9 98 22 120/58 95 Mechanical Ventilator 40 07/20/16 07:28 102 32 30 07/20/16 07:00 92 26 148/69 96 Mechanical Ventilator 40 07/20/16 06:00 84 29 131/82 96 Mechanical Ventilator 40 07/20/16 05:00 80 29 142/80 96 Mechanical Ventilator 40 07/20/16 04:55 95 33 30 07/20/16 04:38 40 07/20/16 04:00 85 07/20/16 04:00 99.1 86 24 133/81 97 Mechanical Ventilator 40 07/20/16 03:30 87 23 30 07/20/16 03:00 85 20 135/80 96 Mechanical Ventilator 40 07/20/16 02:00 85 21 144/63 97 Mechanical Ventilator 40 07/20/16 01:03 87 27 30 07/20/16 01:00 84 21 140/72 96 Mechanical Ventilator 40 07/20/16 00:00 99.2 85 25 132/75 95 Mechanical Ventilator 40 07/20/16 00:00 85 07/20/16 00:00 40 07/19/16 23:30 83 27 30 07/19/16 23:00 84 23 161/66 97 Mechanical Ventilator 40 07/19/16 22:00 84 23 145/84 97 Mechanical Ventilator 40 07/19/16 21:30 83 25 30 07/19/16 21:00 90 27 149/76 97 Mechanical Ventilator 40 07/19/16 20:00 40 07/19/16 20:00 93 07/19/16 20:00 98.6 93 25 161/77 97 Mechanical Ventilator 40 07/19/16 19:30 90 25 30 07/19/16 19:00 92 22 142/84 97 Mechanical Ventilator 40 07/19/16 18:00 94 25 155/88 97 Mechanical Ventilator 40 07/19/16 17:01 98 26 30 07/19/16 17:00 95 24 148/91 99 Mechanical Ventilator 40 07/19/16 16:09 Mechanical Ventilator 15.0 40 07/19/16 16:06 Mechanical Ventilator 15.0 40 07/19/16 16:00 90 07/19/16 16:00 40 07/19/16 16:00 98.5 93 22 151/96 98 Mechanical Ventilator 40 07/19/16 15:07 97 30 30 07/19/16 15:00 87 22 139/88 99 Mechanical Ventilator 40 07/19/16 13:00 82 22 159/78 97 Mechanical Ventilator 40 07/19/16 12:44 85 22 30 07/19/16 12:00 Mechanical Ventilator 15.0 40 07/19/16 12:00 40 07/19/16 12:00 97 07/19/16 12:00 98.8 73 21 122/54 96 Mechanical Ventilator 40 07/19/16 11:00 81 21 85/43 96 Mechanical Ventilator 40 07/19/16 10:38 61 22 30 Status: awake Condition: critical, improving HEENT: atraumatic Neck: full ROM Lungs: clear Heart: HR/BP unstable Abdomen: soft, non-tender, active bowel sounds Extremities: no C/C/E, edema Decubiti: stage Accucheck: 184 Critical Care - Subjective ROS Limited/Unobtainable: No ICU Day: 4 Intubation Day: 4 Condition: critical EKG Rhythm: Sinus Rhythm FI02: 30 Vent Support Breath Rate: 22 Vent Support Mode: AC Vent Tidal Volume: 500 Sputum Amount: Small PEEP: 5.0 PIP: 18 Fluids: d5w 100 cc.hour Tube Feeding Amount: 30 I&O: Intake and Output 07/19/16 07/20/16 19:00 07:00 Intake Total 960 ml 1070 ml Output Total 855 ml 925 ml Balance 105 ml 145 ml IV Total 600 ml 710 ml Tube Feeding 360 ml 360 ml Output Urine Total 855 ml 925 ml Hemodialysis UF 0 ml # Bowel Movements 2 1 Subjective: comfortable CXR: ET in good position ET-Tube: 8.0 ET Position: 24 Labs: Laboratory Tests Test 07/20/16 03:20 White Blood Count 13.3 K/UL (4.8-10.8) H Red Blood Count 2.69 M/UL (4.70-6.10) L Hemoglobin 8.1 G/DL (14.2-18.0) L Hematocrit 24.8 % (42.0-52.0) L Mean Corpuscular Volume 92 FL (80-99) Mean Corpuscular Hemoglobin 30.1 PG (27.0-31.0) Mean Corpuscular Hemoglobin Concent 32.6 G/DL (32.0-36.0) Red Cell Distribution Width 15.8 % (11.6-14.8) H Platelet Count 108 K/UL (150-450) L Mean Platelet Volume 7.6 FL (6.5-10.1) Neutrophils (%) (Auto) % (45.0-75.0) Lymphocytes (%) (Auto) % (20.0-45.0) Monocytes (%) (Auto) % (1.0-10.0) Eosinophils (%) (Auto) % (0.0-3.0) Basophils (%) (Auto) % (0.0-2.0) Differential Total Cells Counted 100 Neutrophils % (Manual) 86 % (45-75) H Lymphocytes % (Manual) 10 % (20-45) L Monocytes % (Manual) 1 % (1-10) Eosinophils % (Manual) 3 % (0-3) Basophils % (Manual) 0 % (0-2) Band Neutrophils 0 % (0-8) Platelet Estimate Decreased L Platelet Morphology Normal Hypochromasia 1+ Anisocytosis 1+ Sodium Level 154 mEQ/L (135-145) H Potassium Level 2.7 mEQ/L (3.4-4.9) *L Chloride Level 111 mEQ/L (98-107) H Carbon Dioxide Level 27 mEQ/L (20-30) Anion Gap 16 (5-15) H Blood Urea Nitrogen 88 mg/dL (7-23) #H Creatinine 3.3 mg/dL (0.7-1.2) H Estimat Glomerular Filtration Rate mL/min (>60) Glucose Level 177 mg/dL (74-106) #H Uric Acid 7.6 mg/dL (3.0-7.5) H Calcium Level 7.8 mg/dL (8.6-10.2) L Phosphorus Level 3.3 mg/dL (2.5-4.8) Magnesium Level 2.0 mg/dL (1.7-2.5) Total Bilirubin 0.6 mg/dL (0.0-1.2) Aspartate Amino Transf (AST/SGOT) 32 U/L (5-40) Alanine Aminotransferase (ALT/SGPT) 35 U/L (3-41) Alkaline Phosphatase 231 U/L (40-129) H C-Reactive Protein, Quantitative 6.6 mg/dL (< 0.5) H Pro-B-Type Natriuretic Peptide 2083 pg/mL (0-450) H Total Protein 5.3 g/dL (6.6-8.7) L Albumin 2.0 g/dL (3.5-5.2) L Globulin 3.3 g/dL Albumin/Globulin Ratio 0.6 (1.0-2.7) L MACARENA FLANNERY Jul 20, 2016 10:07
[2016-07-20 10:08] LABS: ABG ALLEN TEST POSITIVE; ABG BASE EXCESS 6.4
--- NOTE | 2016-07-20 10:45 | General Progress Note ---
Assessment/Plan Status: stable Assessment/Plan status: acute renal failure, requiring HD , done 07/16 due 07/19 acute hyperkalemia , resolved Low BP , septic Shock , on Pressors- RESOLVED acute respiratory failure requiring intubation UTI gross hematuria anemia CHF Sever Hypoalbuminemia h/o Parkinsons , OBS , ? Sz Plan: HD 07/19 Monitor renal parameters- K supplement- D5W one liter- Avoid Nephrotoxics Start Renal feeding DC IV Hydrocortisone BP support per orders Subjective ROS Limited/Unobtainable: Yes Allergies: Coded Allergies: No Known Allergies (Unverified , 07/16/16) Objective Last 24 Hour Vital Signs Date Time Temp Pulse Resp B/P Pulse Ox O2 Delivery O2 Flow Rate FiO2 07/20/16 10:00 98 23 125/76 96 Mechanical Ventilator 40 07/20/16 09:26 104 32 30 07/20/16 09:00 101 24 136/80 96 Mechanical Ventilator 40 07/20/16 08:00 40 07/20/16 08:00 98 07/20/16 08:00 98.9 98 22 120/58 95 Mechanical Ventilator 40 07/20/16 07:28 102 32 30 07/20/16 07:00 92 26 148/69 96 Mechanical Ventilator 40 07/20/16 06:00 84 29 131/82 96 Mechanical Ventilator 40 07/20/16 05:00 80 29 142/80 96 Mechanical Ventilator 40 07/20/16 04:55 95 33 30 07/20/16 04:38 40 07/20/16 04:00 85 07/20/16 04:00 99.1 86 24 133/81 97 Mechanical Ventilator 40 07/20/16 03:30 87 23 30 07/20/16 03:00 85 20 135/80 96 Mechanical Ventilator 40 07/20/16 02:00 85 21 144/63 97 Mechanical Ventilator 40 07/20/16 01:03 87 27 30 07/20/16 01:00 84 21 140/72 96 Mechanical Ventilator 40 07/20/16 00:00 99.2 85 25 132/75 95 Mechanical Ventilator 40 07/20/16 00:00 85 07/20/16 00:00 40 07/19/16 23:30 83 27 30 07/19/16 23:00 84 23 161/66 97 Mechanical Ventilator 40 07/19/16 22:00 84 23 145/84 97 Mechanical Ventilator 40 07/19/16 21:30 83 25 30 07/19/16 21:00 90 27 149/76 97 Mechanical Ventilator 40 07/19/16 20:00 40 07/19/16 20:00 93 07/19/16 20:00 98.6 93 25 161/77 97 Mechanical Ventilator 40 07/19/16 19:30 90 25 30 07/19/16 19:00 92 22 142/84 97 Mechanical Ventilator 40 07/19/16 18:00 94 25 155/88 97 Mechanical Ventilator 40 07/19/16 17:01 98 26 30 07/19/16 17:00 95 24 148/91 99 Mechanical Ventilator 40 07/19/16 16:09 Mechanical Ventilator 15.0 40 07/19/16 16:06 Mechanical Ventilator 15.0 40 07/19/16 16:00 90 07/19/16 16:00 40 07/19/16 16:00 98.5 93 22 151/96 98 Mechanical Ventilator 40 07/19/16 15:07 97 30 30 07/19/16 15:00 87 22 139/88 99 Mechanical Ventilator 40 07/19/16 13:00 82 22 159/78 97 Mechanical Ventilator 40 07/19/16 12:44 85 22 30 07/19/16 12:00 Mechanical Ventilator 15.0 40 07/19/16 12:00 40 07/19/16 12:00 97 07/19/16 12:00 98.8 73 21 122/54 96 Mechanical Ventilator 40 07/19/16 11:00 81 21 85/43 96 Mechanical Ventilator 40 Intake and Output 07/19/16 07/20/16 19:00 07:00 Intake Total 960 ml 1070 ml Output Total 855 ml 925 ml Balance 105 ml 145 ml IV Total 600 ml 710 ml Tube Feeding 360 ml 360 ml Output Urine Total 855 ml 925 ml Hemodialysis UF 0 ml # Bowel Movements 2 1 Laboratory Tests 07/20/16 03:20: White Blood Count 13.3H, Red Blood Count 2.69L, Hemoglobin 8.1L, Hematocrit 24.8L, Mean Corpuscular Volume 92, Mean Corpuscular Hemoglobin 30.1, Mean Corpuscular Hemoglobin Concent 32.6, Red Cell Distribution Width 15.8H, Platelet Count 108L, Mean Platelet Volume 7.6, Neutrophils (%) (Auto) , Lymphocytes (%) (Auto) , Monocytes (%) (Auto) , Eosinophils (%) (Auto) , Basophils (%) (Auto) , Differential Total Cells Counted 100, Neutrophils % ( Manual) 86H, Lymphocytes % (Manual) 10L, Monocytes % (Manual) 1, Eosinophils % ( Manual) 3, Basophils % (Manual) 0, Band Neutrophils 0, Platelet Estimate DecreasedL, Platelet Morphology Normal, Hypochromasia 1+, Anisocytosis 1+, Sodium Level 154H, Potassium Level 2.7*L, Chloride Level 111H, Carbon Dioxide Level 27, Anion Gap 16H, Blood Urea Nitrogen 88#H, Creatinine 3.3H, Estimat Glomerular Filtration Rate , Glucose Level 177#H, Uric Acid 7.6H, Calcium Level 7.8L, Phosphorus Level 3.3, Magnesium Level 2.0, Total Bilirubin 0.6, Aspartate Amino Transf (AST/SGOT) 32, Alanine Aminotransferase (ALT/SGPT) 35, Alkaline Phosphatase 231H, C-Reactive Protein, Quantitative 6.6H, Pro-B-Type Natriuretic Peptide 2083H, Total Protein 5.3L, Albumin 2.0L, Globulin 3.3, Albumin/Globulin Ratio 0.6L 07/20/16 09:30: Arterial Blood pH 7.547H, Arterial Blood Partial Pressure CO2 34.3L, Arterial Blood Partial Pressure O2 72.5L, Arterial Blood HCO3 29.1H, Arterial Blood Oxygen Saturation 93.1, Arterial Blood Base Excess 6.4, Caleb Test Positive Height (Feet): 5 Height (Inches): 8.00 Weight (Pounds): 175 General Appearance: no apparent distress Neck: limited range of motion Cardiovascular: tachycardia Respiratory/Chest: decreased breath sounds Abdomen: soft Objective other PE not changed HAI THOMPSON Jul 20, 2016 10:45
--- NOTE | 2016-07-20 11:15 | Diagnostic Imaging Report ---
Indication: Dyspnea Comparison: 07/19/16 A single view chest radiograph was obtained. Findings: Endotracheal tube is in good position above the otis. NG tube is in good position unchanged. Lungs and pulmonary vascularity are unchanged from yesterday. Impression: No change from one day earlier
--- NOTE | 2016-07-20 12:08 | Infectious Diseases Prog Note ---
Assessment/Plan Assessment/Plan A: The patient is an 80-year-old male with Sepsis improving Septic shock, off of pressors Urinary tract infection : P mirabilis x 2 Bacteremia P mirabilis Ventilator-dependent respiratory failure Renal insufficiency ON hemodialysis Dementia Parkinson disease Seizure disorder History of congestive heart failure Post pacemaker placement Obesity Renal insufficiency Hematuria Depression Anemia PLAN: on levaquin d # 1 DC IV Zosyn d# 4 Monitor CBC Monitor BMP. Monitor cultures ( urine ) Continue ventilator support. HD as per Nephro Subjective Allergies: Coded Allergies: No Known Allergies (Unverified , 07/16/16) Subjective on vent Objective Vital Signs Last 24 Hour Vital Signs Date Time Temp Pulse Resp B/P Pulse Ox O2 Delivery O2 Flow Rate FiO2 07/20/16 11:14 91 30 30 07/20/16 11:00 87 23 89/44 98 Mechanical Ventilator 40 07/20/16 10:00 98 23 125/76 96 Mechanical Ventilator 40 07/20/16 09:26 104 32 30 07/20/16 09:00 101 24 136/80 96 Mechanical Ventilator 40 07/20/16 08:00 40 07/20/16 08:00 98 07/20/16 08:00 98.9 98 22 120/58 95 Mechanical Ventilator 40 07/20/16 07:28 102 32 30 07/20/16 07:00 92 26 148/69 96 Mechanical Ventilator 40 07/20/16 06:00 84 29 131/82 96 Mechanical Ventilator 40 07/20/16 05:00 80 29 142/80 96 Mechanical Ventilator 40 07/20/16 04:55 95 33 30 07/20/16 04:38 40 07/20/16 04:00 85 07/20/16 04:00 99.1 86 24 133/81 97 Mechanical Ventilator 40 07/20/16 03:30 87 23 30 07/20/16 03:00 85 20 135/80 96 Mechanical Ventilator 40 07/20/16 02:00 85 21 144/63 97 Mechanical Ventilator 40 07/20/16 01:03 87 27 30 07/20/16 01:00 84 21 140/72 96 Mechanical Ventilator 40 07/20/16 00:00 99.2 85 25 132/75 95 Mechanical Ventilator 40 07/20/16 00:00 85 07/20/16 00:00 40 07/19/16 23:30 83 27 30 07/19/16 23:00 84 23 161/66 97 Mechanical Ventilator 40 07/19/16 22:00 84 23 145/84 97 Mechanical Ventilator 40 07/19/16 21:30 83 25 30 07/19/16 21:00 90 27 149/76 97 Mechanical Ventilator 40 07/19/16 20:00 40 07/19/16 20:00 93 07/19/16 20:00 98.6 93 25 161/77 97 Mechanical Ventilator 40 07/19/16 19:30 90 25 30 07/19/16 19:00 92 22 142/84 97 Mechanical Ventilator 40 07/19/16 18:00 94 25 155/88 97 Mechanical Ventilator 40 07/19/16 17:01 98 26 30 07/19/16 17:00 95 24 148/91 99 Mechanical Ventilator 40 07/19/16 16:09 Mechanical Ventilator 15.0 40 07/19/16 16:06 Mechanical Ventilator 15.0 40 07/19/16 16:00 90 07/19/16 16:00 40 07/19/16 16:00 98.5 93 22 151/96 98 Mechanical Ventilator 40 07/19/16 15:07 97 30 30 07/19/16 15:00 87 22 139/88 99 Mechanical Ventilator 40 07/19/16 13:00 82 22 159/78 97 Mechanical Ventilator 40 07/19/16 12:44 85 22 30 Height (Feet): 5 Height (Inches): 8.00 Weight (Pounds): 175 HEENT: atraumatic Respiratory/Chest: normal breath sounds Cardiovascular: regularly irregular Abdomen: non distended Laboratory Tests Test 07/20/16 03:20 07/20/16 09:30 White Blood Count 13.3 K/UL (4.8-10.8) H Red Blood Count 2.69 M/UL (4.70-6.10) L Hemoglobin 8.1 G/DL (14.2-18.0) L Hematocrit 24.8 % (42.0-52.0) L Mean Corpuscular Volume 92 FL (80-99) Mean Corpuscular Hemoglobin 30.1 PG (27.0-31.0) Mean Corpuscular Hemoglobin Concent 32.6 G/DL (32.0-36.0) Red Cell Distribution Width 15.8 % (11.6-14.8) H Platelet Count 108 K/UL (150-450) L Mean Platelet Volume 7.6 FL (6.5-10.1) Neutrophils (%) (Auto) % (45.0-75.0) Lymphocytes (%) (Auto) % (20.0-45.0) Monocytes (%) (Auto) % (1.0-10.0) Eosinophils (%) (Auto) % (0.0-3.0) Basophils (%) (Auto) % (0.0-2.0) Differential Total Cells Counted 100 Neutrophils % (Manual) 86 % (45-75) H Lymphocytes % (Manual) 10 % (20-45) L Monocytes % (Manual) 1 % (1-10) Eosinophils % (Manual) 3 % (0-3) Basophils % (Manual) 0 % (0-2) Band Neutrophils 0 % (0-8) Platelet Estimate Decreased L Platelet Morphology Normal Hypochromasia 1+ Anisocytosis 1+ Sodium Level 154 mEQ/L (135-145) H Potassium Level 2.7 mEQ/L (3.4-4.9) *L Chloride Level 111 mEQ/L (98-107) H Carbon Dioxide Level 27 mEQ/L (20-30) Anion Gap 16 (5-15) H Blood Urea Nitrogen 88 mg/dL (7-23) #H Creatinine 3.3 mg/dL (0.7-1.2) H Estimat Glomerular Filtration Rate mL/min (>60) Glucose Level 177 mg/dL (74-106) #H Uric Acid 7.6 mg/dL (3.0-7.5) H Calcium Level 7.8 mg/dL (8.6-10.2) L Phosphorus Level 3.3 mg/dL (2.5-4.8) Magnesium Level 2.0 mg/dL (1.7-2.5) Total Bilirubin 0.6 mg/dL (0.0-1.2) Aspartate Amino Transf (AST/SGOT) 32 U/L (5-40) Alanine Aminotransferase (ALT/SGPT) 35 U/L (3-41) Alkaline Phosphatase 231 U/L (40-129) H C-Reactive Protein, Quantitative 6.6 mg/dL (< 0.5) H Pro-B-Type Natriuretic Peptide 2083 pg/mL (0-450) H Total Protein 5.3 g/dL (6.6-8.7) L Albumin 2.0 g/dL (3.5-5.2) L Globulin 3.3 g/dL Albumin/Globulin Ratio 0.6 (1.0-2.7) L Arterial Blood pH 7.547 (7.350-7.450) Arterial Blood Partial Pressure CO2 34.3 mmHg (35.0-45.0) L Arterial Blood Partial Pressure O2 72.5 mmHg (75.0-100.0) L Arterial Blood HCO3 29.1 mmol/L (22.0-26.0) H Arterial Blood Oxygen Saturation 93.1 % (92.0-98.0) Arterial Blood Base Excess 6.4 Caleb Test Positive Current Medications Medications (Trade) Dose Ordered Sig/Janay Route PRN Reason Start Time Stop Time Status Last Admin Dose Admin Acetaminophen (Tylenol) 650 mg Q4H PRN ORAL fever 07/16/16 15:15 08/15/16 15:14 Albuterol/ Ipratropium (DuoNeb 0.5-3(2.5)mg/3ml) 3 ml EVERY 4 HOURS PRN HHN Shortness of Breath 07/16/16 15:15 07/21/16 15:14 Dextrose 1,000 ml @ 100 mls/hr Q10H IV 07/20/16 10:00 07/20/16 19:59 07/20/16 10:03 Dextrose (Dextrose 50%) STAT PRN IV Hypoglycemia 07/19/16 17:30 08/18/16 17:29 Dopamine HCl/ Dextrose 250 ml @ 0 mls/hr Q24H IV 07/16/16 17:30 08/15/16 17:29 07/18/16 17:35 Insulin Aspart (NovoLOG) Q6HR SUBQ 07/19/16 18:30 08/18/16 18:29 07/20/16 11:47 Lorazepam (Ativan 2mg/ml 1ml) 2 mg Q4H PRN IV For Anxiety 07/16/16 15:15 07/23/16 15:14 07/18/16 20:04 Morphine Sulfate (Morphine Sulfate) 2 mg EVERY 4 HOURS PRN IVP Moderate Pain (Pain Scale 4-6) 07/16/16 15:15 07/23/16 15:14 07/17/16 04:09 Nitroglycerin (Ntg) 0.4 mg Q5M PRN SL Prn Chest Pain 07/16/16 15:15 08/15/16 15:14 Ondansetron HCl (Zofran) 4 mg Q6H PRN IVP Nausea & Vomiting 07/16/16 15:15 08/15/16 15:14 Pantoprazole 40 mg 40 mg EVERY 12 HOURS IVP 07/16/16 21:00 08/15/16 20:59 07/20/16 07:52 Piperacillin Sod/ Tazobactam Sod/ Dextrose (Zosyn/D5W) 55 ml @ 110 mls/hr Q8HR IV 07/17/16 15:00 07/22/16 14:59 07/20/16 05:48 Polyethylene Glycol (Miralax) 17 gm DAILYPRN PRN ORAL Constipation 07/16/16 15:15 08/15/16 15:14 Potassium Chloride (KCl 20mEq/100ml Premix) 100 ml @ 50 mls/hr ONCE ONCE IVPB 07/20/16 12:00 07/20/16 13:59 07/20/16 11:45 Sodium Bicarbonate 1 ml 1 ml ONCE PRN INJ PICC PLACEMENT 07/19/16 19:15 07/20/16 23:59 Temazepam (Restoril) 15 mg HSPRN PRN ORAL Insomnia 07/16/16 15:15 07/23/16 15:14 PHILLIP BARNES M.D. Jul 20, 2016 12:08
[2016-07-20] MEDS: LORazepam Inj 2mg/ml 1ml IV PRN (13:27)
[2016-07-20] MEDS ORDERED: D5 1/2NS 1000ml IV ONE (15:56)
[2016-07-20] MEDS ORDERED: NS 275ml ONE (15:56)
--- NOTE | 2016-07-20 16:05 | Diagnostic Imaging Report ---
APPROVED REPORT CPT Code: 77258 Present Symptoms Shortness of breath Comments: Hx of RT Femoral HD catheter LT Femoral CL RIGHT LEG: Venous imaging reveals chronic thrombus in the superficial femoral and popliteal veins. Large collateral vein noted anterior to the superficial femoral artery. Remainder of the deep venous system within normal limits. No evidence of thrombus in the common and calf veins. Greater saphenous vein also within normal limits. LEFT LEG: Venous imaging reveals chronic thrombus in the superficial femoral and popliteal veins. Large collateral vein noted anterior to the superficial femoral artery. Remainder of the deep venous system within normal limits. No evidence of thrombus in the common and calf veins. Greater saphenous vein also within normal limits. Technically difficult study (bilateral contractures of the hip and knee) and common femoral veins lines. There is no evidence of acute deep vein thrombosis.
--- NOTE | 2016-07-20 16:05 | Diagnostic Imaging Report ---
Indication: Dyspnea Comparison: 07/18/16 A single view chest radiograph was obtained. Findings: Tubes are stable. Heart size is stable. Right perihilar infiltrate and/or atelectasis may be present. Similar findings seen previously. These correlate clinically. Impression: No significant change from the prior day
[2016-07-20] MEDS: DOPamine 400mg/250ml 250 ML IV SCH (17:29)
[2016-07-20] MEDS: Dyna-Hex 2% Top Sol 8oz TOPIC SCH (23:12)
[2016-07-21] VITALS (24 sets, daily range): BP systolic 102–153; BP diastolic 51–88
[2016-07-21] MEDS: NovoLOG Insulin Flexpen SUBQ SCH ×5 (00:20→23:49)
[2016-07-21 04:43] LABS: MEAN CORPUSCULAR HEMOGLOBIN 29.9 PG (27.0-31.0); MEAN CORPUSCULAR HGB CONC 32.2 G/DL (32.0-36.0); MEAN CORPUSCULAR VOLUME 93 FL (80-99); MEAN PLATELET VOLUME 8.1 FL (6.5-10.1); PLATELET COUNT 115 K/UL (150-450); RED BLOOD COUNT 2.54 M/UL (4.70-6.10); RED CELL DISTRIBUTION WIDTH 15.9 % (11.6-14.8); WHITE BLOOD COUNT 11.1 K/UL (4.8-10.8)
[2016-07-21 05:38] LABS: ALANINE AMINOTRANSFERASE 62 U/L (3-41); ALBUMIN/GLOBULIN RATIO 0.5 (1.0-2.7); ASPARTATE AMINO TRANSFERASE 69 U/L (5-40); CALCIUM 7.8 mg/dL (8.6-10.2); CARBON DIOXIDE 26 mEQ/L (20-30); CHLORIDE 112 mEQ/L (98-107); CREATININE 2.9 mg/dL (0.7-1.2); CRP QUANT 9.8 mg/dL (< 0.5); HEMOLYSIS 4; MAGNESIUM 2.1 mg/dL (1.7-2.5); SODIUM 152 mEQ/L (135-145); TOTAL PROTEIN 5.2 g/dL (6.6-8.7); URIC ACID 7.4 mg/dL (3.0-7.5)
[2016-07-21 05:50] LABS: ANION GAP 14 (5-15)
[2016-07-21 06:04] LABS: POTASSIUM 2.6 mEQ/L (3.4-4.9)
--- NOTE | 2016-07-21 07:38 | General Progress Note ---
Progress Note Progress Note Surgery: Pt seen and examined at bedside. right groin HD cath clean and functional. Cr improving. -dressing changes and care for right groin HD cath daily. -Hopefully as renal function improves and when no longer requires HD can d/c catheter. Justin Cedillo Jul 21, 2016 07:38
[2016-07-21] MEDS: Pantoprazole Inj IVP SCH ×2 (08:15→20:32)
[2016-07-21 09:15] LABS: ABG ALLEN TEST POSITIVE; ABG PCO2 33.1 mmHg (35.0-45.0)
--- NOTE | 2016-07-21 09:28 | Diagnostic Imaging Report ---
Indication: Dyspnea Comparison: 07/20/16 A single view chest radiograph was obtained. Findings: Infiltrates in the right lung again noted. Heart is stable in size. Tubes are stable. 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
--- NOTE | 2016-07-21 09:35 | Diagnostic Imaging Report ---
Indication: Abdominal pain Technique: Continuous helical transaxial imaging of the abdomen and pelvis was obtained from the lung bases to the pubic symphysis. No intravenous contrast was administered. Coronal 2-D reformats were also obtained. Total Dose length Product (DLP): [address] Dose Index Volume (CTDIvol): 18 mGy Comparison: none Findings: The visualized lung bases demonstrate a mixed interstitial and other disease involving the right lung with airspace opacification and air bronchograms involving the right lower lobe and more ill-defined densities in the right middle lobe. Trace left basilar atelectasis also present. NG tube is in good position. There is a large masslike opacity measuring 3 x 8.7 x 4.8 cm (AP, transverse, craniocaudal dimensions respectively) between the left kidney and the body and tail the pancreas. The mass is associated with the left adrenal gland and could be of adrenal gland origin. Evaluation of this is limited on the current study which is done without IV contrast. Suggest repeating the study with intravenous contrast material. Considerations include solid tumor or phlegmon. There is a bilateral hydronephrosis present. There is no obstructing stone identified. There is suggestion of thickening of the uroepithelium especially in the left kidney and ureter. This could be due to chronic inflammation or superimposed infection. There is diffuse abnormal thickening of the wall the urinary bladder. There is a Garcia catheter present. The prostate is enlarged measuring 6.2 x 6.1 x 6.2 cm. Right inguinal hernia containing fat noted. Multiple small nodes are seen in the retroperitoneum and mesentery nonspecific in nature. Gallbladder is grossly unremarkable in appearance. There is no free fluid or free air. Bilateral femoral central venous catheters are present. There is narrowing of intervertebral discs and accompanying endplate osteophyte formation. Hypertrophied facet joints also demonstrated.. Bones are osteopenic. Impression: 3 x 8.7 x 4.8 cm mass posterior to the pancreas possibly arising from the left adrenal gland. This is poorly evaluated on the current exam which is done without IV contrast. Suggest repeating the study with IV contrast. Mixed interstitial infiltrate at the right lung base. Diffuse thickening of the urinary bladder wall consistent with cystitis. Garcia in good position. Mild bilateral hydronephrosis probably on the basis of a bladder disease. Thickening of the uroepithelium suggestive of chronic inflammation or infection. Right inguinal hernia containing fat Prostate enlargement Spondylosis and osteopenia Nasogastric tube in good position The CT scanner at [facility] is accredited by the [employer] and the scans are performed using dose optimization techniques as appropriate to a performed exam including Automatic Exposure control.
--- NOTE | 2016-07-21 09:41 | General Progress Note ---
Assessment/Plan Status: stable - from renal stand Status Narrative Low K- 2 times diarrhea Assessment/Plan status: acute renal failure, requiring HD , done 07/16 due 07/19 acute hyperkalemia , resolved Low BP , septic Shock , on Pressors- RESOLVED acute respiratory failure requiring intubation UTI gross hematuria anemia CHF Sever Hypoalbuminemia h/o Parkinsons , OBS , ? Sz Plan: HD 07/19, no further dialysis appears to be needed Monitor renal parameters- K supplement- D5W one liter- Lactobacillus Avoid Nephrotoxics Start Renal feeding DC IV Hydrocortisone BP support per orders Subjective ROS Limited/Unobtainable: Yes Allergies: Coded Allergies: No Known Allergies (Unverified , 07/16/16) Objective Last 24 Hour Vital Signs Date Time Temp Pulse Resp B/P Pulse Ox O2 Delivery O2 Flow Rate FiO2 07/21/16 09:15 81 23 30 07/21/16 08:00 99.4 90 22 134/84 99 Mechanical Ventilator 40 07/21/16 08:00 90 07/21/16 08:00 40 07/21/16 07:00 84 22 132/81 98 Mechanical Ventilator 40 07/21/16 06:45 85 21 30 07/21/16 06:00 83 22 108/55 98 Mechanical Ventilator 40 07/21/16 05:26 92 24 30 07/21/16 05:00 90 24 119/66 99 Mechanical Ventilator 40 07/21/16 04:00 89 07/21/16 04:00 99.2 94 18 119/61 97 Mechanical Ventilator 40 07/21/16 04:00 40 07/21/16 03:09 94 23 30 07/21/16 03:00 95 25 130/65 97 Mechanical Ventilator 40 07/21/16 02:00 93 25 130/66 97 Mechanical Ventilator 40 07/21/16 01:00 92 21 136/70 96 Mechanical Ventilator 40 07/21/16 00:29 85 24 30 07/21/16 00:00 40 07/21/16 00:00 99.6 89 20 128/65 97 Mechanical Ventilator 40 07/21/16 00:00 81 07/20/16 23:19 88 27 30 07/20/16 23:00 88 24 137/66 96 Mechanical Ventilator 40 07/20/16 22:00 87 24 133/64 97 Mechanical Ventilator 40 07/20/16 21:46 77 23 30 07/20/16 21:00 99.3 86 24 131/65 96 Mechanical Ventilator 40 07/20/16 20:00 99.6 88 23 129/75 98 Mechanical Ventilator 40 07/20/16 20:00 86 07/20/16 20:00 40 07/20/16 19:41 84 33 30 07/20/16 19:00 77 22 113/61 96 Mechanical Ventilator 40 07/20/16 18:00 98.9 89 23 134/59 96 Mechanical Ventilator 40 07/20/16 17:29 126/59 07/20/16 17:00 77 22 126/59 96 Mechanical Ventilator 40 07/20/16 16:43 89 27 30 07/20/16 16:00 98.9 73 23 110/51 95 Mechanical Ventilator 40 07/20/16 16:00 86 07/20/16 16:00 40 07/20/16 15:10 102 30 30 07/20/16 15:00 99.1 65 22 87/41 97 Mechanical Ventilator 40 07/20/16 14:25 99.2 07/20/16 14:00 99.6 87 22 83/43 96 Mechanical Ventilator 40 07/20/16 13:20 90 31 30 07/20/16 13:00 83 23 93/45 96 Mechanical Ventilator 40 07/20/16 12:00 97 07/20/16 12:00 40 07/20/16 12:00 99.2 86 20 112/46 98 Mechanical Ventilator 40 07/20/16 11:14 91 30 30 07/20/16 11:00 87 23 89/44 98 Mechanical Ventilator 40 07/20/16 10:00 98 23 125/76 96 Mechanical Ventilator 40 Intake and Output 07/20/16 07/21/16 19:00 07:00 Intake Total 2230 ml 870 ml Output Total 1040 ml 1110 ml Balance 1190 ml -240 ml Free Water 100 ml 300 ml IV Total 1400 ml 150 ml Tube Feeding 230 ml 420 ml Other 500 ml Output Urine Total 1040 ml 1110 ml # Bowel Movements 2 3 Laboratory Tests 07/21/16 03:10: White Blood Count 11.1H, Red Blood Count 2.54L, Hemoglobin 7.6L, Hematocrit 23.6L, Mean Corpuscular Volume 93, Mean Corpuscular Hemoglobin 29.9, Mean Corpuscular Hemoglobin Concent 32.2, Red Cell Distribution Width 15.9H, Platelet Count 115L, Mean Platelet Volume 8.1, Neutrophils (%) (Auto) , Lymphocytes (%) (Auto) , Monocytes (%) (Auto) , Eosinophils (%) (Auto) , Basophils (%) (Auto) , Neutrophils % (Manual) [Pending], Lymphocytes % (Manual) [Pending], Platelet Estimate [Pending], Platelet Morphology [Pending], Sodium Level 152H, Potassium Level 2.6*L, Chloride Level 112H, Carbon Dioxide Level 26 , Anion Gap 14, Blood Urea Nitrogen 76H, Creatinine 2.9H, Estimat Glomerular Filtration Rate , Glucose Level 157H, Uric Acid 7.4, Calcium Level 7.8L, Phosphorus Level 3.0, Magnesium Level 2.1, Total Bilirubin 0.5, Aspartate Amino Transf (AST/SGOT) 69H, Alanine Aminotransferase (ALT/SGPT) 62H, Alkaline Phosphatase 258H, C-Reactive Protein, Quantitative 9.8H, Total Protein 5.2L, Albumin 1.8L, Globulin 3.4, Albumin/Globulin Ratio 0.5L 07/21/16 09:03: Arterial Blood pH 7.528H, Arterial Blood Partial Pressure CO2 33.1L, Arterial Blood Partial Pressure O2 123.0H, Arterial Blood HCO3 26.9H, Arterial Blood Oxygen Saturation 97.7, Arterial Blood Base Excess 4.0, Caleb Test Positive Height (Feet): 5 Height (Inches): 8.00 Weight (Pounds): 174 General Appearance: no apparent distress Cardiovascular: tachycardia Respiratory/Chest: decreased breath sounds Abdomen: distended Edema: 1+ Arm (L), 1+ Arm (R), 1+ Leg (L), 1+ Leg (R), 1+ Pedal (L), 1+ Pedal ( R), 1+ Generalized Objective other PE not changed HAI THOMPSON Jul 21, 2016 09:40
--- NOTE | 2016-07-21 10:25 | Pulmonolgy Critical Care Note ---
Critical Care - Asmt/Plan Problems: (1) Acute respiratory failure (2) Gram-negative bacteremia (3) ATN (acute tubular necrosis) (4) Hyperkalemia (5) Acute encephalopathy Respiratory: monitor respiratory rate, adjust FIO2, CXR, other - might need tracheostomy Cardiac: continue to monitor HR/BP Renal: F/U I&O, check electrolytes Gastrointestinal: continue feedings/current rate Endocrine: check HgA1C, continue sliding scale insulin Hematologic: monitor H/H, transfuse if hgb<8.5 Neurologic: PRN Ativan, keep patient comfortable Affect: PRN ativan Prophylaxis: Protonix, Heparin Notes Reviewed: application administrator, cardio Discussed with: nurses, consultants, sample case porterintegrated marketing manager - Objective Last 24 Hour Vital Signs Date Time Temp Pulse Resp B/P Pulse Ox O2 Delivery O2 Flow Rate FiO2 07/21/16 09:15 81 23 30 07/21/16 08:00 99.4 90 22 134/84 99 Mechanical Ventilator 40 07/21/16 08:00 90 07/21/16 08:00 40 07/21/16 07:00 84 22 132/81 98 Mechanical Ventilator 40 07/21/16 06:45 85 21 30 07/21/16 06:00 83 22 108/55 98 Mechanical Ventilator 40 07/21/16 05:26 92 24 30 07/21/16 05:00 90 24 119/66 99 Mechanical Ventilator 40 07/21/16 04:00 89 07/21/16 04:00 99.2 94 18 119/61 97 Mechanical Ventilator 40 07/21/16 04:00 40 07/21/16 03:09 94 23 30 07/21/16 03:00 95 25 130/65 97 Mechanical Ventilator 40 07/21/16 02:00 93 25 130/66 97 Mechanical Ventilator 40 07/21/16 01:00 92 21 136/70 96 Mechanical Ventilator 40 07/21/16 00:29 85 24 30 07/21/16 00:00 40 07/21/16 00:00 99.6 89 20 128/65 97 Mechanical Ventilator 40 07/21/16 00:00 81 07/20/16 23:19 88 27 30 07/20/16 23:00 88 24 137/66 96 Mechanical Ventilator 40 07/20/16 22:00 87 24 133/64 97 Mechanical Ventilator 40 07/20/16 21:46 77 23 30 07/20/16 21:00 99.3 86 24 131/65 96 Mechanical Ventilator 40 07/20/16 20:00 99.6 88 23 129/75 98 Mechanical Ventilator 40 07/20/16 20:00 86 07/20/16 20:00 40 07/20/16 19:41 84 33 30 07/20/16 19:00 77 22 113/61 96 Mechanical Ventilator 40 07/20/16 18:00 98.9 89 23 134/59 96 Mechanical Ventilator 40 07/20/16 17:29 126/59 07/20/16 17:00 77 22 126/59 96 Mechanical Ventilator 40 07/20/16 16:43 89 27 30 07/20/16 16:00 98.9 73 23 110/51 95 Mechanical Ventilator 40 07/20/16 16:00 86 07/20/16 16:00 40 07/20/16 15:10 102 30 30 07/20/16 15:00 99.1 65 22 87/41 97 Mechanical Ventilator 40 07/20/16 14:25 99.2 07/20/16 14:00 99.6 87 22 83/43 96 Mechanical Ventilator 40 07/20/16 13:20 90 31 30 07/20/16 13:00 83 23 93/45 96 Mechanical Ventilator 40 07/20/16 12:00 97 07/20/16 12:00 40 07/20/16 12:00 99.2 86 20 112/46 98 Mechanical Ventilator 40 07/20/16 11:14 91 30 30 07/20/16 11:00 87 23 89/44 98 Mechanical Ventilator 40 Status: awake Condition: critical HEENT: atraumatic Lungs: clear Heart: HR/BP stable, HR/BP unstable Abdomen: soft, non-tender, feeding tube Extremities: edema Accucheck: 161 Critical Care - Subjective ROS Limited/Unobtainable: Yes ICU Day: 5 Condition: critical EKG Rhythm: Sinus Rhythm FI02: 30 Vent Support Breath Rate: 22 Vent Support Mode: AC Vent Tidal Volume: 500 Sputum Amount: Small PEEP: 5.0 PIP: 35 Secretions: small Fluids: d5w Tube Feeding Amount: 35 I&O: Intake and Output 07/20/16 07/21/16 19:00 07:00 Intake Total 2230 ml 870 ml Output Total 1040 ml 1110 ml Balance 1190 ml -240 ml Free Water 100 ml 300 ml IV Total 1400 ml 150 ml Tube Feeding 230 ml 420 ml Other 500 ml Output Urine Total 1040 ml 1110 ml # Bowel Movements 2 3 Subjective: comfortable CXR: ET in good postion ET-Tube: 8.0 ET Position: 24 Labs: Laboratory Tests Test 07/21/16 03:10 07/21/16 09:03 White Blood Count 11.1 K/UL (4.8-10.8) H Red Blood Count 2.54 M/UL (4.70-6.10) L Hemoglobin 7.6 G/DL (14.2-18.0) L Hematocrit 23.6 % (42.0-52.0) L Mean Corpuscular Volume 93 FL (80-99) Mean Corpuscular Hemoglobin 29.9 PG (27.0-31.0) Mean Corpuscular Hemoglobin Concent 32.2 G/DL (32.0-36.0) Red Cell Distribution Width 15.9 % (11.6-14.8) H Platelet Count 115 K/UL (150-450) L Mean Platelet Volume 8.1 FL (6.5-10.1) Neutrophils (%) (Auto) % (45.0-75.0) Lymphocytes (%) (Auto) % (20.0-45.0) Monocytes (%) (Auto) % (1.0-10.0) Eosinophils (%) (Auto) % (0.0-3.0) Basophils (%) (Auto) % (0.0-2.0) Neutrophils % (Manual) Pending Lymphocytes % (Manual) Pending Platelet Estimate Pending Platelet Morphology Pending Sodium Level 152 mEQ/L (135-145) H Potassium Level 2.6 mEQ/L (3.4-4.9) *L Chloride Level 112 mEQ/L (98-107) H Carbon Dioxide Level 26 mEQ/L (20-30) Anion Gap 14 (5-15) Blood Urea Nitrogen 76 mg/dL (7-23) H Creatinine 2.9 mg/dL (0.7-1.2) H Estimat Glomerular Filtration Rate mL/min (>60) Glucose Level 157 mg/dL (74-106) H Uric Acid 7.4 mg/dL (3.0-7.5) Calcium Level 7.8 mg/dL (8.6-10.2) L Phosphorus Level 3.0 mg/dL (2.5-4.8) Magnesium Level 2.1 mg/dL (1.7-2.5) Total Bilirubin 0.5 mg/dL (0.0-1.2) Aspartate Amino Transf (AST/SGOT) 69 U/L (5-40) H Alanine Aminotransferase (ALT/SGPT) 62 U/L (3-41) H Alkaline Phosphatase 258 U/L (40-129) H C-Reactive Protein, Quantitative 9.8 mg/dL (< 0.5) H Total Protein 5.2 g/dL (6.6-8.7) L Albumin 1.8 g/dL (3.5-5.2) L Globulin 3.4 g/dL Albumin/Globulin Ratio 0.5 (1.0-2.7) L Arterial Blood pH 7.528 (7.350-7.450) Arterial Blood Partial Pressure CO2 33.1 mmHg (35.0-45.0) L Arterial Blood Partial Pressure O2 123.0 mmHg (75.0-100.0) H Arterial Blood HCO3 26.9 mmol/L (22.0-26.0) H Arterial Blood Oxygen Saturation 97.7 % (92.0-98.0) Arterial Blood Base Excess 4.0 Caleb Test Positive MACARENA FLANNERY Jul 21, 2016 10:25
[2016-07-21] MEDS ORDERED: NS 275ml ONE (10:36)
[2016-07-21 10:48] LABS: EOSINOPHILS % (MANUAL) 2 % (0-3); LYMPHOCYTES % (MANUAL) 11 % (20-45); NEUTROPHILS % (MANUAL) 83 % (45-75); TOTAL CELLS COUNTED 100
[2016-07-21 10:49] LABS: ANISOCYTOSIS 1+; BAND NEUTROPHILS % (MANUAL) 0 % (0-8); BASOPHILS % (MANUAL) 0 % (0-2); HYPOCHROMASIA 1+; PLATELET ESTIMATE DECREASED; PLATELET MORPHOLOGY NORMAL
--- NOTE | 2016-07-21 11:39 | Neurology Progress Note ---
Interim History Interim History ROS Limited/Unobtainable: Yes Objective Physical Exam Last Vital Signs Date Time Temp Pulse Resp B/P Pulse Ox O2 Delivery O2 Flow Rate FiO2 07/21/16 11:00 72 22 131/56 99 Mechanical Ventilator 40 07/21/16 08:00 99.4 07/19/16 16:09 15.0 Laboratory Tests Test 07/21/16 03:10 07/21/16 09:03 White Blood Count 11.1 K/UL (4.8-10.8) H Red Blood Count 2.54 M/UL (4.70-6.10) L Hemoglobin 7.6 G/DL (14.2-18.0) L Hematocrit 23.6 % (42.0-52.0) L Mean Corpuscular Volume 93 FL (80-99) Mean Corpuscular Hemoglobin 29.9 PG (27.0-31.0) Mean Corpuscular Hemoglobin Concent 32.2 G/DL (32.0-36.0) Red Cell Distribution Width 15.9 % (11.6-14.8) H Platelet Count 115 K/UL (150-450) L Mean Platelet Volume 8.1 FL (6.5-10.1) Neutrophils (%) (Auto) % (45.0-75.0) Lymphocytes (%) (Auto) % (20.0-45.0) Monocytes (%) (Auto) % (1.0-10.0) Eosinophils (%) (Auto) % (0.0-3.0) Basophils (%) (Auto) % (0.0-2.0) Differential Total Cells Counted 100 Neutrophils % (Manual) 83 % (45-75) H Lymphocytes % (Manual) 11 % (20-45) L Monocytes % (Manual) 4 % (1-10) Eosinophils % (Manual) 2 % (0-3) Basophils % (Manual) 0 % (0-2) Band Neutrophils 0 % (0-8) Platelet Estimate Decreased L Platelet Morphology Normal Hypochromasia 1+ Anisocytosis 1+ Sodium Level 152 mEQ/L (135-145) H Potassium Level 2.6 mEQ/L (3.4-4.9) *L Chloride Level 112 mEQ/L (98-107) H Carbon Dioxide Level 26 mEQ/L (20-30) Anion Gap 14 (5-15) Blood Urea Nitrogen 76 mg/dL (7-23) H Creatinine 2.9 mg/dL (0.7-1.2) H Estimat Glomerular Filtration Rate mL/min (>60) Glucose Level 157 mg/dL (74-106) H Uric Acid 7.4 mg/dL (3.0-7.5) Calcium Level 7.8 mg/dL (8.6-10.2) L Phosphorus Level 3.0 mg/dL (2.5-4.8) Magnesium Level 2.1 mg/dL (1.7-2.5) Total Bilirubin 0.5 mg/dL (0.0-1.2) Aspartate Amino Transf (AST/SGOT) 69 U/L (5-40) H Alanine Aminotransferase (ALT/SGPT) 62 U/L (3-41) H Alkaline Phosphatase 258 U/L (40-129) H C-Reactive Protein, Quantitative 9.8 mg/dL (< 0.5) H Total Protein 5.2 g/dL (6.6-8.7) L Albumin 1.8 g/dL (3.5-5.2) L Globulin 3.4 g/dL Albumin/Globulin Ratio 0.5 (1.0-2.7) L Arterial Blood pH 7.528 (7.350-7.450) Arterial Blood Partial Pressure CO2 33.1 mmHg (35.0-45.0) L Arterial Blood Partial Pressure O2 123.0 mmHg (75.0-100.0) H Arterial Blood HCO3 26.9 mmol/L (22.0-26.0) H Arterial Blood Oxygen Saturation 97.7 % (92.0-98.0) Arterial Blood Base Excess 4.0 Caleb Test Positive Impression/Recommendations Status: stable Recommendations #[id number] LAVONNE MEANS Jul 21, 2016 11:39
[2016-07-21] MEDS: Lactobacillus-GG tablet GT SCH ×2 (12:32→17:36)
[2016-07-21 13:53] LABS: CKMB < 1.5 ng/mL (< 6.7)
--- NOTE | 2016-07-21 14:56 | Diagnostic Imaging Report ---
Indication: Headache Technique: Contiguous 5 mm thick transaxial imaging of the head obtained in a Siemens Sensation [address] scanner. Soft tissue and bone windows generated. Total Dose length Product (DLP): [address] Dose Index Volume (CTDIvol): 70.38 mGy Comparison: none Findings: There is moderate prominence of the ventricles, basal cisterns, and cerebral sulci consistent with atrophy. Moderate, nonspecific, white matter hypoattenuation is noted throughout the brain consistent with chronic small vessel disease. There is a focus of parenchymal calcification within the right parietal lobe. There is no midline shift, edema, acute hemorrhage, mass effect, or abnormal extra-axial fluid collections. Bones and extra osseous soft tissues are unremarkable. There is mucosal thickening within the paranasal sinuses. Impression: No acute intracranial bleed, mass effect or edema. 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 Evidence of chronic small vessel disease involving white matter tracts. Sinusitis The CT scanner at [facility] is accredited by the [employer] and the scans are performed using dose optimization techniques as appropriate to a performed exam including Automatic Exposure control.
--- NOTE | 2016-07-21 16:13 | Diagnostic Imaging Report ---
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 The right upper extremity was prepped with alcohol. All elements of maximal sterile barrier technique were followed including usage of a cap, mask, sterile gown, sterile gloves, hand hygiene and a large sterile sheet. Sonographic evaluation of the upper extremity was performed demonstrating a patent and compressible brachial vein. Access was obtained under real-time ultrasound guidance and digital image was saved and archived. An .018 wire was introduced. Needle exchanged for a 5 Malay peel-away sheath. Measurements were obtained. A 5 Malay dual-lumen Power PICC line catheter was cut to 35 cm and introduced over the wire. Peel-away sheath and wire were removed.Catheter was secured to the skin using 2-0 Prolene suture. Both ports aspirate and flush easily. Post procedure chest x-ray demonstrates the PICC line catheter within the right jugular vein. The catheter was pulled back several centimeters and repeat chest x-ray shows the tip in the subclavian vein. Impression: Successful placement of an upper extremity PICC line catheter. The tip of the catheter is in the right subclavian vein.
--- NOTE | 2016-07-21 16:27 | Diagnostic Imaging Report ---
Indication: PICC line repositioning Comparison: 30 minutes earlier A single view chest radiograph was obtained. Findings: Catheter was pulled back from the jugular vein and the tip is now in the subclavian vein. No change otherwise. Impression: Right PICC line tip is in the subclavian vein
[2016-07-21] MEDS: DOPamine 400mg/250ml 250 ML IV SCH (17:24)
--- NOTE | 2016-07-21 18:31 | Consultation ---
DATE OF CONSULTATION: 07/21/2016 NEUROLOGICAL CONSULTATION REQUESTING PHYSICIAN: Dawson Carballo M.D. HISTORY OF PRESENT ILLNESS: The patient is an 80-year-old man, resident of a convalescent hospital, brought to this hospital with acute respiratory distress. His baseline being altered with altered mental status. Paramedics were called to the scene, as the patient become hypoxic. His vital signs on admission were stable with sinus rhythm, was brought to the emergency room, tachypneic, short of breath with retractions. He maintained eyes tightly closed, tachycardia, minimally responsive to physical stimulation, and contracted lower extremities. The patient admitted with concern of respiratory failure. He was intubated. His initial laboratory studies included a CBC with hemoglobin 11.5 and hematocrit 36.4. Mild coagulopathy, INR 1.2. Chemistry panel with potassium 6.7, sodium 151, BUN of more than 195 and creatinine 17.1 and blood sugar 166. Elevated phosphorus and magnesium levels. Alkaline phosphatase of 169 and CPK of 1235 with a CK-MB of 7.0. BNP of 1323. Elevated lipase at 165. Normal B12. CEA 5.7. Urinalysis, WBC too numerous to count, 3+ leukocyte esterase, and 4+ protein. Stool for occult blood was positive. THE PATIENT PRESENTED WITH ACUTE RENAL FAILURE, REQUIRED HEMODIALYSIS, CONTINUES WITH HYPOTENSION AND SIGNS OF SEPTIC SHOCK. MAINTAIN TEMPORARILY ON PRESSORS: Acute respiratory failure required intubation. IV fluids and antibiotics for underlying UTI and urosepsis, presented with CHF and severe hyperalbuminemia. The patient remained nonverbal, unresponsive throughout the hospitalization. He described only being defensive with both upper extremities biting ET tube. With persistent changes in mental status, a neurological consultation was requested. PAST MEDICAL HISTORY: The patient has a history of advanced dementia, Parkinson syndrome, behavioral abnormalities, history of chronic renal and respiratory insufficiency. MEDICATIONS: The patient's treatment include Depakote, thiamine, tamsulosin, Namenda, Sinemet 25/100 mg b.i.d., Aricept, Zyrtec, carvedilol and calcium carbonate. ALLERGIES: None reported. SOCIAL HISTORY: Resident of nursing facility. FAMILY HISTORY: Unavailable. REVIEW OF SYSTEMS: Review of symptoms unable to obtain due the patient's status. PHYSICAL EXAMINATION: GENERAL: This is a well-developed, intubated man who is lying in bed comfortably. VITAL SIGNS: His vital signs are stable, blood pressure 131/56, heart rate is 66, and pulse oximetry 98%. HEENT: Head, normocephalic. There is no evidence of trauma. Eyes, ears, and throat are clear. NECK: Rigid in all directions. MUSCULOSKELETAL: No deformities noted. Peripheral pulses 1+ symmetric. MENTAL STATUS: The patient is nonverbal. He is not responding to any verbal commands. He does not follow instructions. He remained with eyes tightly closed, resisting examination and defending with both upper extremities when stimulated. CRANIAL NERVE II: Unable to test. CRANIAL NERVE V: Normal corneal responses. CRANIAL NERVE VII: No facial asymmetry, but grimacing. CRANIAL NERVE VIII: Unable to test. CRANIAL NERVE IX THROUGH XII: Tongue appears midline. Reduced gag response. MOTOR EXAMINATION: Significant diffuse rigidity in legs more than arms. Increased muscle tone. Ankle clonus both arms. Flexed both lower extremities and unable to extend. Deep tendon reflexes 2+ bilaterally. Plantar response is questionable. Babinski on the right. SENSORY EXAM: No response to pin stimulation. IMPRESSION: 1. This is an 80-year-old man with preexistent dementia with parkinsonian syndrome, now presents with persistent verbal unresponsiveness, obtundation, this likely represents multifactorial encephalopathy contributed by underlying infection, respiratory and renal insufficiency. 2. History of dementia with behavioral abnormalities. 3. Acute renal failure, status post hemodialysis. 4. Rhabdomyolysis. 5. Status post septic shock. 6. Status post pacemaker placement. 7. Respiratory failure, now ventilator-dependent. RECOMMENDATION: The patient remained with a verbal unresponsiveness, which may reflect multiple causes such as underlying infection and metabolic derangement in the setting of advanced dementia. No sedatives given. We will obtain a CAT scan of the brain to rule out any evidence of hydrocephalus versus stroke. The patient reportedly was evaluated for hospice care. Currently, the patient will continue symptomatic and supportive care. Thank you for allowing me to see this interesting patient in neurological consultation. Prashanth Leblanc M.D. DR: SAMUEL JOB#: [id number] CC:
--- NOTE | 2016-07-21 21:30 | Infectious Diseases Prog Note ---
Assessment/Plan Assessment/Plan A: The patient is an 80-year-old male with Sepsis improving Septic shock, off of pressors Urinary tract infection : P mirabilis x 2 Bacteremia P mirabilis Ventilator-dependent respiratory failure Renal insufficiency ON hemodialysis Dementia Parkinson disease Seizure disorder History of congestive heart failure Post pacemaker placement Obesity Renal insufficiency Hematuria Depression Anemia PLAN: on levaquin d # 2 /10 DC IV Zosyn d# 4 Monitor CBC Monitor BMP. Monitor cultures ( urine ) Continue ventilator support. HD as per Nephro Subjective Allergies: Coded Allergies: No Known Allergies (Unverified , 07/16/16) Subjective on vent Objective Vital Signs Last 24 Hour Vital Signs Date Time Temp Pulse Resp B/P Pulse Ox O2 Delivery O2 Flow Rate FiO2 07/21/16 21:09 69 22 30 07/21/16 21:00 69 23 119/51 98 Mechanical Ventilator 30 07/21/16 20:00 80 07/21/16 20:00 98.8 80 22 142/69 98 Mechanical Ventilator 30 07/21/16 20:00 30 07/21/16 19:07 85 22 30 07/21/16 19:00 80 22 120/53 98 Mechanical Ventilator 30 07/21/16 18:00 87 22 144/74 98 Mechanical Ventilator 30 07/21/16 17:24 112/88 07/21/16 17:00 83 22 112/88 98 Mechanical Ventilator 30 07/21/16 16:52 77 17 30 07/21/16 16:00 98.8 72 22 102/54 98 Mechanical Ventilator 30 07/21/16 16:00 71 07/21/16 16:00 30 07/21/16 15:00 84 22 142/73 97 Mechanical Ventilator 30 07/21/16 14:35 86 21 30 07/21/16 14:00 82 22 146/81 99 Mechanical Ventilator 30 07/21/16 13:00 70 22 134/58 99 Mechanical Ventilator 40 07/21/16 12:45 89 23 30 07/21/16 12:00 74 07/21/16 12:00 99.2 74 22 126/71 99 Mechanical Ventilator 40 07/21/16 12:00 30 07/21/16 11:00 72 22 131/56 99 Mechanical Ventilator 40 07/21/16 10:45 67 22 30 07/21/16 10:00 71 22 117/64 97 Mechanical Ventilator 40 07/21/16 09:15 81 23 30 07/21/16 09:00 74 22 141/66 97 Mechanical Ventilator 40 07/21/16 08:00 99.4 90 22 134/84 99 Mechanical Ventilator 40 07/21/16 08:00 90 07/21/16 08:00 40 07/21/16 07:00 84 22 132/81 98 Mechanical Ventilator 40 07/21/16 06:45 85 21 30 07/21/16 06:00 83 22 108/55 98 Mechanical Ventilator 40 07/21/16 05:26 92 24 30 07/21/16 05:00 90 24 119/66 99 Mechanical Ventilator 40 07/21/16 04:00 89 07/21/16 04:00 99.2 94 18 119/61 97 Mechanical Ventilator 40 07/21/16 04:00 40 07/21/16 03:09 94 23 30 07/21/16 03:00 95 25 130/65 97 Mechanical Ventilator 40 07/21/16 02:00 93 25 130/66 97 Mechanical Ventilator 40 07/21/16 01:00 92 21 136/70 96 Mechanical Ventilator 40 07/21/16 00:29 85 24 30 07/21/16 00:00 40 07/21/16 00:00 99.6 89 20 128/65 97 Mechanical Ventilator 40 07/21/16 00:00 81 07/20/16 23:19 88 27 30 07/20/16 23:00 88 24 137/66 96 Mechanical Ventilator 40 07/20/16 22:00 87 24 133/64 97 Mechanical Ventilator 40 07/20/16 21:46 77 23 30 Height (Feet): 5 Height (Inches): 8.00 Weight (Pounds): 174 Respiratory/Chest: normal breath sounds, accessory muscle use Cardiovascular: regular rhythm Abdomen: normal bowel sounds Laboratory Tests Test 07/21/16 03:10 07/21/16 09:03 07/21/16 13:20 White Blood Count 11.1 K/UL (4.8-10.8) H Red Blood Count 2.54 M/UL (4.70-6.10) L Hemoglobin 7.6 G/DL (14.2-18.0) L Hematocrit 23.6 % (42.0-52.0) L Mean Corpuscular Volume 93 FL (80-99) Mean Corpuscular Hemoglobin 29.9 PG (27.0-31.0) Mean Corpuscular Hemoglobin Concent 32.2 G/DL (32.0-36.0) Red Cell Distribution Width 15.9 % (11.6-14.8) H Platelet Count 115 K/UL (150-450) L Mean Platelet Volume 8.1 FL (6.5-10.1) Neutrophils (%) (Auto) % (45.0-75.0) Lymphocytes (%) (Auto) % (20.0-45.0) Monocytes (%) (Auto) % (1.0-10.0) Eosinophils (%) (Auto) % (0.0-3.0) Basophils (%) (Auto) % (0.0-2.0) Differential Total Cells Counted 100 Neutrophils % (Manual) 83 % (45-75) H Lymphocytes % (Manual) 11 % (20-45) L Monocytes % (Manual) 4 % (1-10) Eosinophils % (Manual) 2 % (0-3) Basophils % (Manual) 0 % (0-2) Band Neutrophils 0 % (0-8) Platelet Estimate Decreased L Platelet Morphology Normal Hypochromasia 1+ Anisocytosis 1+ Sodium Level 152 mEQ/L (135-145) H Potassium Level 2.6 mEQ/L (3.4-4.9) *L Chloride Level 112 mEQ/L (98-107) H Carbon Dioxide Level 26 mEQ/L (20-30) Anion Gap 14 (5-15) Blood Urea Nitrogen 76 mg/dL (7-23) H Creatinine 2.9 mg/dL (0.7-1.2) H Estimat Glomerular Filtration Rate mL/min (>60) Glucose Level 157 mg/dL (74-106) H Uric Acid 7.4 mg/dL (3.0-7.5) Calcium Level 7.8 mg/dL (8.6-10.2) L Phosphorus Level 3.0 mg/dL (2.5-4.8) Magnesium Level 2.1 mg/dL (1.7-2.5) Total Bilirubin 0.5 mg/dL (0.0-1.2) Aspartate Amino Transf (AST/SGOT) 69 U/L (5-40) H Alanine Aminotransferase (ALT/SGPT) 62 U/L (3-41) H Alkaline Phosphatase 258 U/L (40-129) H C-Reactive Protein, Quantitative 9.8 mg/dL (< 0.5) H Total Protein 5.2 g/dL (6.6-8.7) L Albumin 1.8 g/dL (3.5-5.2) L Globulin 3.4 g/dL Albumin/Globulin Ratio 0.5 (1.0-2.7) L Arterial Blood pH 7.528 (7.350-7.450) Arterial Blood Partial Pressure CO2 33.1 mmHg (35.0-45.0) L Arterial Blood Partial Pressure O2 123.0 mmHg (75.0-100.0) H Arterial Blood HCO3 26.9 mmol/L (22.0-26.0) H Arterial Blood Oxygen Saturation 97.7 % (92.0-98.0) Arterial Blood Base Excess 4.0 Caleb Test Positive Total Creatine Kinase 260 U/L (38-174) H Creatine Kinase MB < 1.5 ng/mL (< 6.7) Creatine Kinase MB Relative Index 0.5 Vitamin B12 Level > 2000 pg/mL (211-946) H Current Medications Medications (Trade) Dose Ordered Sig/Janay Route PRN Reason Start Time Stop Time Status Last Admin Dose Admin Acetaminophen (Tylenol) 650 mg Q4H PRN ORAL fever 07/16/16 15:15 08/15/16 15:14 07/20/16 13:27 Chlorhexidine Gluconate 1 applic 1 applic Q24H TOPIC 07/20/16 23:00 08/19/16 22:59 07/20/16 23:12 Dextrose (D5W 1000ml) 1,000 ml @ 75 mls/hr [id number] IV 07/21/16 10:00 07/21/16 23:00 07/21/16 10:50 Dextrose STAT PRN IV Hypoglycemia 07/19/16 17:30 08/18/16 17:29 Dopamine HCl/ Dextrose (DOPamine 400mg/ 250ml) 250 ml @ 0 mls/hr Q24H IV 07/16/16 17:30 08/15/16 17:29 07/18/16 17:35 Insulin Aspart (NovoLOG) Q6HR SUBQ 07/19/16 18:30 08/18/16 18:29 07/21/16 17:37 Lactobacillus Acidophilus (Culturelle) 1 tab THREE TIMES A DAY GT 07/21/16 13:00 08/20/16 12:59 07/21/16 17:36 Levofloxacin (Levaquin) 50 ml @ 50 mls/hr Q48H IVPB 07/22/16 18:00 07/29/16 17:59 Lorazepam (Ativan 2mg/ml 1ml) 2 mg Q4H PRN IV For Anxiety 07/16/16 15:15 07/23/16 15:14 07/20/16 13:27 Morphine Sulfate (Morphine Sulfate) 2 mg EVERY 4 HOURS PRN IVP Moderate Pain (Pain Scale 4-6) 07/16/16 15:15 07/23/16 15:14 07/17/16 04:09 Nitroglycerin (Ntg) 0.4 mg Q5M PRN SL Prn Chest Pain 07/16/16 15:15 08/15/16 15:14 Ondansetron HCl (Zofran) 4 mg Q6H PRN IVP Nausea & Vomiting 07/16/16 15:15 08/15/16 15:14 Pantoprazole 40 mg 40 mg EVERY 12 HOURS IVP 07/16/16 21:00 08/15/16 20:59 07/21/16 20:32 Polyethylene Glycol (Miralax) 17 gm DAILYPRN PRN ORAL Constipation 07/16/16 15:15 08/15/16 15:14 Temazepam (Restoril) 15 mg HSPRN PRN ORAL Insomnia 07/16/16 15:15 07/23/16 15:14 PHILLIP BARNES M.D. Jul 21, 2016 21:30
[2016-07-21] MEDS: Dyna-Hex 2% Top Sol 8oz TOPIC SCH (23:47)
[2016-07-22] VITALS (24 sets, daily range): BP systolic 92–144; BP diastolic 38–77
[2016-07-22 05:04] LABS: BASOPHILS % (AUTO) 0.3 % (0.0-2.0); EOSINOPHILS % (AUTO) 2.8 % (0.0-3.0); MEAN CORPUSCULAR HEMOGLOBIN 29.7 PG (27.0-31.0); MEAN CORPUSCULAR HGB CONC 32.3 G/DL (32.0-36.0); MEAN CORPUSCULAR VOLUME 92 FL (80-99); MEAN PLATELET VOLUME 8.5 FL (6.5-10.1); MONOCYTES % (AUTO) 3.4 % (1.0-10.0); NEUTROPHILS % (AUTO) 82.6 % (45.0-75.0); PLATELET COUNT 119 K/UL (150-450); RED BLOOD COUNT 2.81 M/UL (4.70-6.10); RED CELL DISTRIBUTION WIDTH 16.1 % (11.6-14.8); WHITE BLOOD COUNT 9.1 K/UL (4.8-10.8)
[2016-07-22 05:31] LABS: ALANINE AMINOTRANSFERASE 44 U/L (3-41); ALBUMIN/GLOBULIN RATIO 0.5 (1.0-2.7); ANION GAP 11 (5-15); ASPARTATE AMINO TRANSFERASE 31 U/L (5-40); CALCIUM 7.8 mg/dL (8.6-10.2); CARBON DIOXIDE 28 mEQ/L (20-30); CHLORIDE 110 mEQ/L (98-107); CREATININE 2.5 mg/dL (0.7-1.2); CRP QUANT 10.9 mg/dL (< 0.5); HEMOLYSIS 3; PHOSPHORUS 3.1 mg/dL (2.5-4.8); POTASSIUM 3.3 mEQ/L (3.4-4.9); SODIUM 149 mEQ/L (135-145); TOTAL PROTEIN 5.1 g/dL (6.6-8.7); URIC ACID 7.2 mg/dL (3.0-7.5)
[2016-07-22] MEDS: NovoLOG Insulin Flexpen SUBQ SCH ×3 (06:02→17:52)
[2016-07-22 07:13] LABS: OTHERS PATHOLOGIST COMMENT
[2016-07-22] MEDS: Lactobacillus-GG tablet GT SCH ×3 (08:41→17:50)
[2016-07-22] MEDS: Pantoprazole Inj IVP SCH ×2 (08:41→20:46)
--- NOTE | 2016-07-22 10:02 | Pulmonolgy Critical Care Note ---
Critical Care - Asmt/Plan Problems: (1) Acute respiratory failure (2) Gram-negative bacteremia (3) ATN (acute tubular necrosis) (4) Hyperkalemia (5) Acute encephalopathy Respiratory: monitor respiratory rate, adjust FIO2, CXR, other - weaning parameters, can't extubate with current mental status Cardiac: continue to monitor HR/BP Renal: F/U I&O, check electrolytes Infectious Disease: check cultures, continue antibiotics Gastrointestinal: continue feedings/current rate Endocrine: monitor blood sugar Hematologic: transfuse if hgb<8.5 Neurologic: PRN Ativan, PRN Morphine, keep patient comfortable Affect: PRN ativan Prophylaxis: Protonix Notes Reviewed: renal Discussed with: nurses, consultants, case finishermanager psychology - Objective Last 24 Hour Vital Signs Date Time Temp Pulse Resp B/P Pulse Ox O2 Delivery O2 Flow Rate FiO2 07/22/16 09:25 70 22 30 07/22/16 09:00 82 21 118/50 97 Mechanical Ventilator 30 07/22/16 08:00 99.0 84 25 132/67 98 Mechanical Ventilator 30 07/22/16 08:00 75 07/22/16 08:00 30 07/22/16 07:00 72 22 107/54 98 Mechanical Ventilator 30 07/22/16 06:55 72 22 30 07/22/16 06:00 88 23 144/59 98 Mechanical Ventilator 07/22/16 05:22 79 22 30 07/22/16 05:00 89 24 115/61 98 Mechanical Ventilator 07/22/16 04:00 98.3 81 20 134/65 98 Mechanical Ventilator 07/22/16 04:00 30 07/22/16 04:00 81 07/22/16 03:28 86 23 30 07/22/16 03:00 90 21 137/69 99 Mechanical Ventilator 07/22/16 02:00 86 23 129/64 99 Mechanical Ventilator 07/22/16 01:04 85 23 30 07/22/16 01:00 85 18 140/72 99 Mechanical Ventilator 07/22/16 00:00 71 07/22/16 00:00 98.6 77 23 108/52 99 Mechanical Ventilator 30 07/22/16 00:00 30 07/21/16 23:23 68 22 30 07/21/16 23:00 67 18 146/59 99 Mechanical Ventilator 30 07/21/16 22:00 77 22 153/62 99 Mechanical Ventilator 30 07/21/16 21:09 69 22 30 07/21/16 21:00 69 23 119/51 98 Mechanical Ventilator 30 07/21/16 20:00 80 07/21/16 20:00 98.8 80 22 142/69 98 Mechanical Ventilator 30 07/21/16 20:00 30 07/21/16 19:07 85 22 30 07/21/16 19:00 80 22 120/53 98 Mechanical Ventilator 30 07/21/16 18:00 87 22 144/74 98 Mechanical Ventilator 30 07/21/16 17:24 112/88 07/21/16 17:00 83 22 112/88 98 Mechanical Ventilator 30 07/21/16 16:52 77 17 30 07/21/16 16:00 98.8 72 22 102/54 98 Mechanical Ventilator 30 07/21/16 16:00 71 07/21/16 16:00 30 07/21/16 15:00 84 22 142/73 97 Mechanical Ventilator 07/21/16 14:35 86 21 30 07/21/16 14:00 82 22 146/81 99 Mechanical Ventilator 30 07/21/16 13:00 70 22 134/58 99 Mechanical Ventilator 40 07/21/16 12:45 89 23 30 07/21/16 12:00 74 07/21/16 12:00 99.2 74 22 126/71 99 Mechanical Ventilator 40 07/21/16 12:00 30 07/21/16 11:00 72 22 131/56 99 Mechanical Ventilator 40 07/21/16 10:45 67 22 30 Status: awake Condition: critical, grave HEENT: atraumatic Neck: full ROM Lungs: clear Heart: HR/BP stable, HR/BP unstable Abdomen: soft, non-tender, active bowel sounds, feeding tube Extremities: no C/C/E Decubiti: location, stage Accucheck: 150 Critical Care - Subjective ROS Limited/Unobtainable: No ICU Day: 6 Intubation Day: 6 Condition: critical EKG Rhythm: Sinus Rhythm FI02: 30 Vent Support Breath Rate: 22 Vent Support Mode: AC Vent Tidal Volume: 500 Sputum Amount: Small PEEP: 5.0 PIP: 29 Secretions: small Tube Feeding Amount: 35 I&O: Intake and Output 07/21/16 07/22/16 19:00 07:00 Intake Total 1378 ml 1470 ml Output Total 1190 ml 1170 ml Balance 188 ml 300 ml Free Water 300 ml 300 ml IV Total 693 ml 450 ml Tube Feeding 385 ml 420 ml Blood Product 300 ml Output Urine Total 1190 ml 1170 ml # Bowel Movements 2 Subjective: comfortable CXR: increase infiltrate in RLL ET-Tube: 8.0 ET Position: 24 Labs: Laboratory Tests Test 07/21/16 13:20 07/22/16 04:00 Total Creatine Kinase 260 U/L (38-174) H Creatine Kinase MB < 1.5 ng/mL (< 6.7) Creatine Kinase MB Relative Index 0.5 Vitamin B12 Level > 2000 pg/mL (211-946) H White Blood Count 9.1 K/UL (4.8-10.8) Red Blood Count 2.81 M/UL (4.70-6.10) L Hemoglobin 8.3 G/DL (14.2-18.0) L Hematocrit 25.8 % (42.0-52.0) L Mean Corpuscular Volume 92 FL (80-99) Mean Corpuscular Hemoglobin 29.7 PG (27.0-31.0) Mean Corpuscular Hemoglobin Concent 32.3 G/DL (32.0-36.0) Red Cell Distribution Width 16.1 % (11.6-14.8) H Platelet Count 119 K/UL (150-450) L Mean Platelet Volume 8.5 FL (6.5-10.1) Neutrophils (%) (Auto) 82.6 % (45.0-75.0) H Lymphocytes (%) (Auto) 11.0 % (20.0-45.0) L Monocytes (%) (Auto) 3.4 % (1.0-10.0) Eosinophils (%) (Auto) 2.8 % (0.0-3.0) Basophils (%) (Auto) 0.3 % (0.0-2.0) Sodium Level 149 mEQ/L (135-145) H Potassium Level 3.3 mEQ/L (3.4-4.9) L Chloride Level 110 mEQ/L (98-107) H Carbon Dioxide Level 28 mEQ/L (20-30) Anion Gap 11 (5-15) Blood Urea Nitrogen 62 mg/dL (7-23) H Creatinine 2.5 mg/dL (0.7-1.2) H Estimat Glomerular Filtration Rate mL/min (>60) Glucose Level 146 mg/dL (74-106) H Uric Acid 7.2 mg/dL (3.0-7.5) Calcium Level 7.8 mg/dL (8.6-10.2) L Phosphorus Level 3.1 mg/dL (2.5-4.8) Magnesium Level 2.0 mg/dL (1.7-2.5) Total Bilirubin 0.6 mg/dL (0.0-1.2) Aspartate Amino Transf (AST/SGOT) 31 U/L (5-40) Alanine Aminotransferase (ALT/SGPT) 44 U/L (3-41) H Alkaline Phosphatase 226 U/L (40-129) H C-Reactive Protein, Quantitative 10.9 mg/dL (< 0.5) H Pro-B-Type Natriuretic Peptide 1294 pg/mL (0-450) H Total Protein 5.1 g/dL (6.6-8.7) L Albumin 1.8 g/dL (3.5-5.2) L Globulin 3.3 g/dL Albumin/Globulin Ratio 0.5 (1.0-2.7) L MACARENA FLANNERY Jul 22, 2016 10:02
--- NOTE | 2016-07-22 11:20 | General Progress Note ---
Progress Note Progress Note Afebrile. Pt remain intubated. The rt femoral Mahurkur catheter is in place. Good urine output, creatinine is improving, now 2.5. We will continue supportive measures. Sincere Erwin MD Jul 22, 2016 11:20
--- NOTE | 2016-07-22 11:54 | General Progress Note ---
Assessment/Plan Status: stable - from renal stand Status Narrative renal parameters stable- Remains intubated- Na lower Assessment/Plan status: acute renal failure, requiring HD , done 07/16 due 07/19 acute hyperkalemia , resolved Low BP , septic Shock , on Pressors- RESOLVED acute respiratory failure requiring intubation UTI gross hematuria anemia CHF Sever Hypoalbuminemia h/o Parkinsons , OBS , ? Sz Plan: HD 07/19, no further dialysis appears to be needed Monitor renal parameters- K supplement- weaning Lactobacillus Avoid Nephrotoxics Start Renal feeding DC IV Hydrocortisone BP support per orders Subjective ROS Limited/Unobtainable: Yes Allergies: Coded Allergies: No Known Allergies (Unverified , 07/16/16) Objective Last 24 Hour Vital Signs Date Time Temp Pulse Resp B/P Pulse Ox O2 Delivery O2 Flow Rate FiO2 07/22/16 11:07 70 22 30 07/22/16 11:00 78 25 114/70 95 Mechanical Ventilator 07/22/16 10:00 71 20 122/38 95 Mechanical Ventilator 30 07/22/16 09:25 70 22 30 07/22/16 09:00 82 21 118/50 97 Mechanical Ventilator 07/22/16 08:00 99.0 84 25 132/67 98 Mechanical Ventilator 07/22/16 08:00 75 07/22/16 08:00 30 07/22/16 07:00 72 22 107/54 98 Mechanical Ventilator 07/22/16 06:55 72 22 30 07/22/16 06:00 88 23 144/59 98 Mechanical Ventilator 07/22/16 05:22 79 22 30 07/22/16 05:00 89 24 115/61 98 Mechanical Ventilator 07/22/16 04:00 98.3 81 20 134/65 98 Mechanical Ventilator 30 07/22/16 04:00 30 07/22/16 04:00 81 07/22/16 03:28 86 23 30 07/22/16 03:00 90 21 137/69 99 Mechanical Ventilator 07/22/16 02:00 86 23 129/64 99 Mechanical Ventilator 07/22/16 01:04 85 23 30 07/22/16 01:00 85 18 140/72 99 Mechanical Ventilator 07/22/16 00:00 71 07/22/16 00:00 98.6 77 23 108/52 99 Mechanical Ventilator 07/22/16 00:00 30 07/21/16 23:23 68 22 30 07/21/16 23:00 67 18 146/59 99 Mechanical Ventilator 30 07/21/16 22:00 77 22 153/62 99 Mechanical Ventilator 30 07/21/16 21:09 69 22 30 07/21/16 21:00 69 23 119/51 98 Mechanical Ventilator 30 07/21/16 20:00 80 07/21/16 20:00 98.8 80 22 142/69 98 Mechanical Ventilator 30 07/21/16 20:00 30 07/21/16 19:07 85 22 30 07/21/16 19:00 80 22 120/53 98 Mechanical Ventilator 30 07/21/16 18:00 87 22 144/74 98 Mechanical Ventilator 30 07/21/16 17:24 112/88 07/21/16 17:00 83 22 112/88 98 Mechanical Ventilator 30 07/21/16 16:52 77 17 30 07/21/16 16:00 98.8 72 22 102/54 98 Mechanical Ventilator 30 07/21/16 16:00 71 07/21/16 16:00 30 07/21/16 15:00 84 22 142/73 97 Mechanical Ventilator 30 07/21/16 14:35 86 21 30 07/21/16 14:00 82 22 146/81 99 Mechanical Ventilator 30 07/21/16 13:00 70 22 134/58 99 Mechanical Ventilator 40 07/21/16 12:45 89 23 30 07/21/16 12:00 74 07/21/16 12:00 99.2 74 22 126/71 99 Mechanical Ventilator 40 07/21/16 12:00 30 Intake and Output 07/21/16 07/22/16 19:00 07:00 Intake Total 1378 ml 1470 ml Output Total 1190 ml 1170 ml Balance 188 ml 300 ml Free Water 300 ml 300 ml IV Total 693 ml 450 ml Tube Feeding 385 ml 420 ml Blood Product 300 ml Output Urine Total 1190 ml 1170 ml # Bowel Movements 2 Laboratory Tests 07/21/16 13:20: Total Creatine Kinase 260H, Creatine Kinase MB < 1.5, Creatine Kinase MB Relative Index 0.5, Vitamin B12 Level > 2000H 07/22/16 04:00: White Blood Count 9.1, Red Blood Count 2.81L, Hemoglobin 8.3L, Hematocrit 25.8L , Mean Corpuscular Volume 92, Mean Corpuscular Hemoglobin 29.7, Mean Corpuscular Hemoglobin Concent 32.3, Red Cell Distribution Width 16.1H, Platelet Count 119L, Mean Platelet Volume 8.5, Neutrophils (%) (Auto) 82.6H, Lymphocytes (%) (Auto) 11.0L, Monocytes (%) (Auto) 3.4, Eosinophils (%) (Auto) 2.8, Basophils (%) (Auto) 0.3, Sodium Level 149H, Potassium Level 3.3L, Chloride Level 110H, Carbon Dioxide Level 28, Anion Gap 11, Blood Urea Nitrogen 62H, Creatinine 2.5H, Estimat Glomerular Filtration Rate , Glucose Level 146H, Uric Acid 7.2, Calcium Level 7.8L, Phosphorus Level 3.1, Magnesium Level 2.0, Total Bilirubin 0.6, Aspartate Amino Transf (AST/SGOT) 31, Alanine Aminotransferase (ALT/SGPT) 44H, Alkaline Phosphatase 226H, C-Reactive Protein, Quantitative 10.9H, Pro-B-Type Natriuretic Peptide 1294H, Total Protein 5.1L, Albumin 1.8L, Globulin 3.3, Albumin/Globulin Ratio 0.5L Height (Feet): 5 Height (Inches): 8.00 Weight (Pounds): 180 General Appearance: no apparent distress Respiratory/Chest: decreased breath sounds Abdomen: soft, distended Objective other PE not changed AHI THOMPSON Jul 22, 2016 11:54
--- NOTE | 2016-07-22 12:00 | Infectious Diseases Prog Note ---
Assessment/Plan Assessment/Plan A: The patient is an 80-year-old male with Sepsis improving Septic shock, off of pressors Urinary tract infection : P mirabilis x 2 Bacteremia P mirabilis Ventilator-dependent respiratory failure Renal insufficiency SP hemodialysis x 2 Dementia Parkinson disease Seizure disorder History of congestive heart failure Post pacemaker placement Obesity Renal insufficiency Hematuria Depression Anemia PLAN: on levaquin d # 3 /10 6/7 IV Zosyn d# 4 Monitor CBC Monitor BMP. Continue ventilator support. HD on hold as per Nephro Subjective Allergies: Coded Allergies: No Known Allergies (Unverified , 07/16/16) Subjective on vent Objective Vital Signs Last 24 Hour Vital Signs Date Time Temp Pulse Resp B/P Pulse Ox O2 Delivery O2 Flow Rate FiO2 07/22/16 11:07 70 22 30 07/22/16 11:00 78 25 114/70 95 Mechanical Ventilator 30 07/22/16 10:00 71 20 122/38 95 Mechanical Ventilator 30 07/22/16 09:25 70 22 30 07/22/16 09:00 82 21 118/50 97 Mechanical Ventilator 30 07/22/16 08:00 99.0 84 25 132/67 98 Mechanical Ventilator 30 07/22/16 08:00 75 07/22/16 08:00 30 07/22/16 07:00 72 22 107/54 98 Mechanical Ventilator 30 07/22/16 06:55 72 22 30 07/22/16 06:00 88 23 144/59 98 Mechanical Ventilator 30 07/22/16 05:22 79 22 30 07/22/16 05:00 89 24 115/61 98 Mechanical Ventilator 30 07/22/16 04:00 98.3 81 20 134/65 98 Mechanical Ventilator 30 07/22/16 04:00 30 07/22/16 04:00 81 07/22/16 03:28 86 23 30 07/22/16 03:00 90 21 137/69 99 Mechanical Ventilator 30 07/22/16 02:00 86 23 129/64 99 Mechanical Ventilator 30 07/22/16 01:04 85 23 30 07/22/16 01:00 85 18 140/72 99 Mechanical Ventilator 30 07/22/16 00:00 71 07/22/16 00:00 98.6 77 23 108/52 99 Mechanical Ventilator 30 07/22/16 00:00 30 07/21/16 23:23 68 22 30 07/21/16 23:00 67 18 146/59 99 Mechanical Ventilator 30 07/21/16 22:00 77 22 153/62 99 Mechanical Ventilator 30 07/21/16 21:09 69 22 30 07/21/16 21:00 69 23 119/51 98 Mechanical Ventilator 30 07/21/16 20:00 80 07/21/16 20:00 98.8 80 22 142/69 98 Mechanical Ventilator 30 07/21/16 20:00 30 07/21/16 19:07 85 22 30 07/21/16 19:00 80 22 120/53 98 Mechanical Ventilator 30 07/21/16 18:00 87 22 144/74 98 Mechanical Ventilator 30 07/21/16 17:24 112/88 07/21/16 17:00 83 22 112/88 98 Mechanical Ventilator 30 07/21/16 16:52 77 17 30 07/21/16 16:00 98.8 72 22 102/54 98 Mechanical Ventilator 30 07/21/16 16:00 71 07/21/16 16:00 30 07/21/16 15:00 84 22 142/73 97 Mechanical Ventilator 30 07/21/16 14:35 86 21 30 07/21/16 14:00 82 22 146/81 99 Mechanical Ventilator 30 07/21/16 13:00 70 22 134/58 99 Mechanical Ventilator 40 07/21/16 12:45 89 23 30 07/21/16 12:00 74 07/21/16 12:00 99.2 74 22 126/71 99 Mechanical Ventilator 40 07/21/16 12:00 30 Height (Feet): 5 Height (Inches): 8.00 Weight (Pounds): 180 HEENT: atraumatic Respiratory/Chest: no respiratory distress Cardiovascular: regular rhythm Abdomen: non distended Laboratory Tests Test 07/21/16 13:20 07/22/16 04:00 Total Creatine Kinase 260 U/L (38-174) H Creatine Kinase MB < 1.5 ng/mL (< 6.7) Creatine Kinase MB Relative Index 0.5 Vitamin B12 Level > 2000 pg/mL (211-946) H White Blood Count 9.1 K/UL (4.8-10.8) Red Blood Count 2.81 M/UL (4.70-6.10) L Hemoglobin 8.3 G/DL (14.2-18.0) L Hematocrit 25.8 % (42.0-52.0) L Mean Corpuscular Volume 92 FL (80-99) Mean Corpuscular Hemoglobin 29.7 PG (27.0-31.0) Mean Corpuscular Hemoglobin Concent 32.3 G/DL (32.0-36.0) Red Cell Distribution Width 16.1 % (11.6-14.8) H Platelet Count 119 K/UL (150-450) L Mean Platelet Volume 8.5 FL (6.5-10.1) Neutrophils (%) (Auto) 82.6 % (45.0-75.0) H Lymphocytes (%) (Auto) 11.0 % (20.0-45.0) L Monocytes (%) (Auto) 3.4 % (1.0-10.0) Eosinophils (%) (Auto) 2.8 % (0.0-3.0) Basophils (%) (Auto) 0.3 % (0.0-2.0) Sodium Level 149 mEQ/L (135-145) H Potassium Level 3.3 mEQ/L (3.4-4.9) L Chloride Level 110 mEQ/L (98-107) H Carbon Dioxide Level 28 mEQ/L (20-30) Anion Gap 11 (5-15) Blood Urea Nitrogen 62 mg/dL (7-23) H Creatinine 2.5 mg/dL (0.7-1.2) H Estimat Glomerular Filtration Rate mL/min (>60) Glucose Level 146 mg/dL (74-106) H Uric Acid 7.2 mg/dL (3.0-7.5) Calcium Level 7.8 mg/dL (8.6-10.2) L Phosphorus Level 3.1 mg/dL (2.5-4.8) Magnesium Level 2.0 mg/dL (1.7-2.5) Total Bilirubin 0.6 mg/dL (0.0-1.2) Aspartate Amino Transf (AST/SGOT) 31 U/L (5-40) Alanine Aminotransferase (ALT/SGPT) 44 U/L (3-41) H Alkaline Phosphatase 226 U/L (40-129) H C-Reactive Protein, Quantitative 10.9 mg/dL (< 0.5) H Pro-B-Type Natriuretic Peptide 1294 pg/mL (0-450) H Total Protein 5.1 g/dL (6.6-8.7) L Albumin 1.8 g/dL (3.5-5.2) L Globulin 3.3 g/dL Albumin/Globulin Ratio 0.5 (1.0-2.7) L Current Medications Medications (Trade) Dose Ordered Sig/Janay Route PRN Reason Start Time Stop Time Status Last Admin Dose Admin Acetaminophen (Tylenol) 650 mg Q4H PRN ORAL fever 07/16/16 15:15 08/15/16 15:14 07/20/16 13:27 Chlorhexidine Gluconate (Loree-Hex 2%) 1 applic Q24H TOPIC 07/20/16 23:00 08/19/16 22:59 07/21/16 23:47 Dextrose STAT PRN IV Hypoglycemia 07/19/16 17:30 08/18/16 17:29 Dopamine HCl/ Dextrose (DOPamine 400mg/ 250ml) 250 ml @ 0 mls/hr Q24H IV 07/16/16 17:30 08/15/16 17:29 07/18/16 17:35 Insulin Aspart (NovoLOG) Q6HR SUBQ 07/19/16 18:30 08/18/16 18:29 07/22/16 06:02 Lactobacillus Acidophilus 1 tab 1 tab THREE TIMES A DAY GT 07/21/16 13:00 08/20/16 12:59 07/22/16 08:41 Levofloxacin (Levaquin) 50 ml @ 50 mls/hr Q48H IVPB 07/22/16 18:00 07/29/16 17:59 Lorazepam (Ativan 2mg/ml 1ml) 2 mg Q4H PRN IV For Anxiety 07/16/16 15:15 07/23/16 15:14 07/20/16 13:27 Morphine Sulfate (Morphine Sulfate) 2 mg EVERY 4 HOURS PRN IVP Moderate Pain (Pain Scale 4-6) 07/16/16 15:15 07/23/16 15:14 07/17/16 04:09 Nitroglycerin (Ntg) 0.4 mg Q5M PRN SL Prn Chest Pain 07/16/16 15:15 08/15/16 15:14 Ondansetron HCl (Zofran) 4 mg Q6H PRN IVP Nausea & Vomiting 07/16/16 15:15 08/15/16 15:14 Pantoprazole 40 mg 40 mg EVERY 12 HOURS IVP 07/16/16 21:00 08/15/16 20:59 07/22/16 08:41 Polyethylene Glycol (Miralax) 17 gm DAILYPRN PRN ORAL Constipation 07/16/16 15:15 08/15/16 15:14 Potassium Chloride (KCl 20mEq/100ml Premix) 100 ml @ 50 mls/hr Q2H IVPB 07/22/16 09:00 07/22/16 12:59 07/22/16 11:20 Temazepam (Restoril) 15 mg HSPRN PRN ORAL Insomnia 07/16/16 15:15 07/23/16 15:14 PHILLIP BARNES M.D. Jul 22, 2016 12:00
[2016-07-22 16:47] LABS: ABG ALLEN TEST POSITIVE; ABG PCO2 32.2 mmHg (35.0-45.0)
[2016-07-22] MEDS: DOPamine 400mg/250ml 250 ML IV SCH (17:30)
[2016-07-22] MEDS: Levofloxacin 250mg/D5W 50ml IVPB SCH (17:50)
[2016-07-22] MEDS: Dyna-Hex 2% Top Sol 8oz TOPIC SCH (23:58)
[2016-07-23] VITALS (23 sets, daily range): BP systolic 93–145; BP diastolic 44–105
[2016-07-23] MEDS: NovoLOG Insulin Flexpen SUBQ SCH ×5 (00:06→23:46)
[2016-07-23 05:05] LABS: BASOPHILS % (AUTO) 0.4 % (0.0-2.0); EOSINOPHILS % (AUTO) 2.2 % (0.0-3.0); LYMPHOCYTES % (AUTO) 11.7 % (20.0-45.0); MEAN CORPUSCULAR HEMOGLOBIN 29.5 PG (27.0-31.0); MEAN CORPUSCULAR HGB CONC 32.3 G/DL (32.0-36.0); MEAN CORPUSCULAR VOLUME 91 FL (80-99); MEAN PLATELET VOLUME 8.5 FL (6.5-10.1); MONOCYTES % (AUTO) 3.5 % (1.0-10.0); NEUTROPHILS % (AUTO) 82.2 % (45.0-75.0); PLATELET COUNT 171 K/UL (150-450); RED CELL DISTRIBUTION WIDTH 15.7 % (11.6-14.8); WHITE BLOOD COUNT 8.4 K/UL (4.8-10.8)
[2016-07-23 05:26] LABS: ALANINE AMINOTRANSFERASE 37 U/L (3-41); ALBUMIN/GLOBULIN RATIO 0.5 (1.0-2.7); ANION GAP 9 (5-15); ASPARTATE AMINO TRANSFERASE 26 U/L (5-40); CARBON DIOXIDE 26 mEQ/L (20-30); CHLORIDE 114 mEQ/L (98-107); CREATININE 2.1 mg/dL (0.7-1.2); HEMOLYSIS 8; POTASSIUM 4.2 mEQ/L (3.4-4.9); SODIUM 149 mEQ/L (135-145); TOTAL PROTEIN 5.5 g/dL (6.6-8.7)
[2016-07-23] MEDS: Pantoprazole Inj IVP SCH ×2 (08:34→21:10)
[2016-07-23] MEDS: Lactobacillus-GG tablet GT SCH ×3 (08:34→17:50)
--- NOTE | 2016-07-23 08:56 | Diagnostic Imaging Report ---
Indication: DYSPNEA Technique: One view of the chest Comparison: 07/21/2016 Findings: Right arm PICC has its tip in the axillary vein. Stable satisfactory positions of endotracheal and nasogastric tubes. Equivocal minimal interstitial congestion noted. There are probable small bilateral pleural effusions. Findings are unchanged Impression: Unchanged, over 2 days, findings as above.
--- NOTE | 2016-07-23 09:17 | General Progress Note ---
Assessment/Plan Status: stable Status Narrative Cr stable 2.1 Assessment/Plan status: acute renal failure, requiring HD , done 07/16 due 07/19 acute hyperkalemia , resolved Low BP , septic Shock , on Pressors- RESOLVED acute respiratory failure requiring intubation UTI gross hematuria anemia CHF Sever Hypoalbuminemia h/o Parkinsons , OBS , ? Sz Plan: HD 07/19, no further dialysis appears to be needed, DC Dialysis cath from groin Monitor renal parameters- K supplement- weaning in process Lactobacillus Avoid Nephrotoxics On Renal feeding BP support per orders Subjective ROS Limited/Unobtainable: Yes Allergies: Coded Allergies: No Known Allergies (Unverified , 07/16/16) Objective Last 24 Hour Vital Signs Date Time Temp Pulse Resp B/P Pulse Ox O2 Delivery O2 Flow Rate FiO2 07/23/16 08:00 84 07/23/16 08:00 99.0 87 23 124/52 98 Mechanical Ventilator 30 07/23/16 07:25 30 07/23/16 07:00 79 22 30 07/23/16 07:00 84 18 104/54 99 Mechanical Ventilator 30 07/23/16 06:00 82 18 120/55 97 Mechanical Ventilator 30 07/23/16 05:00 85 18 138/69 97 Mechanical Ventilator 30 07/23/16 04:55 86 24 30 07/23/16 04:00 30 07/23/16 04:00 80 07/23/16 04:00 98.7 83 19 125/66 97 Mechanical Ventilator 07/23/16 03:00 87 20 125/60 97 Mechanical Ventilator 30 07/23/16 03:00 86 22 30 07/23/16 02:00 83 19 125/105 97 Mechanical Ventilator 07/23/16 01:00 81 19 137/70 99 Mechanical Ventilator 30 07/23/16 00:59 78 22 30 07/23/16 00:00 30 07/23/16 00:00 98.6 81 19 120/61 99 Mechanical Ventilator 30 07/23/16 00:00 82 07/22/16 23:15 82 22 30 07/22/16 23:00 80 20 121/61 99 Mechanical Ventilator 30 07/22/16 22:00 79 25 108/72 99 Mechanical Ventilator 30 07/22/16 21:05 80 23 30 07/22/16 21:00 78 25 92/44 97 Mechanical Ventilator 30 07/22/16 20:00 72 07/22/16 20:00 98.6 75 24 92/47 97 Mechanical Ventilator 30 07/22/16 19:00 91 23 107/63 97 Mechanical Ventilator 30 07/22/16 18:50 88 25 30 07/22/16 18:00 30 07/22/16 18:00 96 26 102/54 97 Mechanical Ventilator 30 07/22/16 17:06 79 24 30 07/22/16 17:00 99.0 82 24 124/60 98 Mechanical Ventilator 30 07/22/16 16:00 30 07/22/16 16:00 94 25 143/53 97 Mechanical Ventilator 30 07/22/16 16:00 90 07/22/16 15:29 30 07/22/16 15:19 77 21 30 07/22/16 15:00 76 20 123/67 97 Mechanical Ventilator 30 07/22/16 14:00 72 19 105/51 97 Mechanical Ventilator 30 07/22/16 13:00 82 24 96/77 99 Mechanical Ventilator 30 07/22/16 12:45 30 07/22/16 12:42 77 23 30 07/22/16 12:00 73 07/22/16 12:00 98.9 75 18 128/58 95 Mechanical Ventilator 30 07/22/16 12:00 30 07/22/16 11:15 30 07/22/16 11:07 70 22 30 07/22/16 11:00 78 25 114/70 95 Mechanical Ventilator 30 07/22/16 10:00 71 20 122/38 95 Mechanical Ventilator 30 07/22/16 09:25 70 22 30 Intake and Output 07/22/16 07/23/16 19:00 07:00 Intake Total 1100 ml 720 ml Output Total 1500 ml 1150 ml Balance -400 ml -430 ml Free Water 300 ml 300 ml IV Total 200 ml Tube Feeding 420 ml 420 ml Other 180 ml Output Urine Total 1500 ml 1150 ml # Bowel Movements 1 1 Laboratory Tests 07/22/16 16:30: Arterial Blood pH 7.520H, Arterial Blood Partial Pressure CO2 32.2L, Arterial Blood Partial Pressure O2 82.0, Arterial Blood HCO3 25.8, Arterial Blood Oxygen Saturation 94.9, Arterial Blood Base Excess 3.0, Caleb Test Positive 07/23/16 04:40: White Blood Count 8.4, Red Blood Count 2.90L, Hemoglobin 8.6L, Hematocrit 26.5L , Mean Corpuscular Volume 91, Mean Corpuscular Hemoglobin 29.5, Mean Corpuscular Hemoglobin Concent 32.3, Red Cell Distribution Width 15.7H, Platelet Count 171, Mean Platelet Volume 8.5, Neutrophils (%) (Auto) 82.2H, Lymphocytes (%) (Auto) 11.7L, Monocytes (%) (Auto) 3.5, Eosinophils (%) (Auto) 2.2, Basophils (%) (Auto) 0.4, Sodium Level 149H, Potassium Level 4.2, Chloride Level 114H, Carbon Dioxide Level 26, Anion Gap 9, Blood Urea Nitrogen 54H, Creatinine 2.1H, Estimat Glomerular Filtration Rate , Glucose Level 126H, Calcium Level 8.0L, Total Bilirubin 0.5, Aspartate Amino Transf (AST/SGOT) 26, Alanine Aminotransferase (ALT/SGPT) 37, Alkaline Phosphatase 246H, Pro-B-Type Natriuretic Peptide 1567H, Total Protein 5.5L, Albumin 1.9L, Globulin 3.6, Albumin/Globulin Ratio 0.5L Height (Feet): 5 Height (Inches): 8.00 Weight (Pounds): 185 General Appearance: mild distress EENT: other - on vent Cardiovascular: tachycardia Respiratory/Chest: decreased breath sounds Abdomen: soft Objective other PE not changed HAI THOMPSON Jul 23, 2016 09:17
[2016-07-23] MEDS ORDERED: Tubing Blood Filter IV ONE (09:56)
[2016-07-23] MEDS ORDERED: NS 275ml ONE ×2 (09:56→16:46)
[2016-07-23] MEDS ORDERED: Tubing IV Secondary IV ONE ×2 (09:56→16:46)
--- NOTE | 2016-07-23 10:17 | Pulmonolgy Critical Care Note ---
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, 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 - Objective Last 24 Hour Vital Signs Date Time Temp Pulse Resp B/P Pulse Ox O2 Delivery O2 Flow Rate FiO2 07/23/16 09:00 98 30 145/82 96 Mechanical Ventilator 30 07/23/16 09:00 100 25 30 07/23/16 09:00 95 07/23/16 08:00 84 07/23/16 08:00 99.0 87 23 124/52 98 Mechanical Ventilator 30 07/23/16 07:25 30 07/23/16 07:00 79 22 30 07/23/16 07:00 84 18 104/54 99 Mechanical Ventilator 30 07/23/16 06:00 82 18 120/55 97 Mechanical Ventilator 30 07/23/16 05:00 85 18 138/69 97 Mechanical Ventilator 30 07/23/16 04:55 86 24 30 07/23/16 04:00 30 07/23/16 04:00 80 07/23/16 04:00 98.7 83 19 125/66 97 Mechanical Ventilator 30 07/23/16 03:00 87 20 125/60 97 Mechanical Ventilator 30 07/23/16 03:00 86 22 30 07/23/16 02:00 83 19 125/105 97 Mechanical Ventilator 30 07/23/16 01:00 81 19 137/70 99 Mechanical Ventilator 30 07/23/16 00:59 78 22 30 07/23/16 00:00 30 07/23/16 00:00 98.6 81 19 120/61 99 Mechanical Ventilator 30 07/23/16 00:00 82 07/22/16 23:15 82 22 30 07/22/16 23:00 80 20 121/61 99 Mechanical Ventilator 30 07/22/16 22:00 79 25 108/72 99 Mechanical Ventilator 30 07/22/16 21:05 80 23 30 07/22/16 21:00 78 25 92/44 97 Mechanical Ventilator 30 07/22/16 20:00 72 07/22/16 20:00 98.6 75 24 92/47 97 Mechanical Ventilator 30 07/22/16 19:00 91 23 107/63 97 Mechanical Ventilator 30 07/22/16 18:50 88 25 30 07/22/16 18:00 30 07/22/16 18:00 96 26 102/54 97 Mechanical Ventilator 30 07/22/16 17:06 79 24 30 07/22/16 17:00 99.0 82 24 124/60 98 Mechanical Ventilator 30 07/22/16 16:00 30 07/22/16 16:00 94 25 143/53 97 Mechanical Ventilator 30 07/22/16 16:00 90 07/22/16 15:29 30 07/22/16 15:19 77 21 30 07/22/16 15:00 76 20 123/67 97 Mechanical Ventilator 07/22/16 14:00 72 19 105/51 97 Mechanical Ventilator 30 07/22/16 13:00 82 24 96/77 99 Mechanical Ventilator 30 07/22/16 12:45 30 07/22/16 12:42 77 23 30 07/22/16 12:00 73 07/22/16 12:00 98.9 75 18 128/58 95 Mechanical Ventilator 30 07/22/16 12:00 30 07/22/16 11:15 30 07/22/16 11:07 70 22 30 07/22/16 11:00 78 25 114/70 95 Mechanical Ventilator 30 Status: somnolent Condition: critical HEENT: atraumatic Neck: full ROM Lungs: clear Heart: HR/BP stable, HR/BP unstable Extremities: no C/C/E, edema Decubiti: location Accucheck: 120 Critical Care - Subjective ROS Limited/Unobtainable: No ICU Day: 7 Condition: critical EKG Rhythm: Sinus Rhythm FI02: 30 Vent Support Breath Rate: 10 Vent Support Mode: IMV/SIMV Vent Tidal Volume: 500 Sputum Amount: Small PEEP: 5.0 PIP: 20 Tube Feeding Amount: 35 I&O: Intake and Output 07/22/16 07/23/16 19:00 07:00 Intake Total 1100 ml 720 ml Output Total 1500 ml 1150 ml Balance -400 ml -430 ml Free Water 300 ml 300 ml IV Total 200 ml Tube Feeding 420 ml 420 ml Other 180 ml Output Urine Total 1500 ml 1150 ml # Bowel Movements 1 1 Subjective: comfortable CXR: no change ET-Tube: 8.0 ET Position: 24 Labs: Laboratory Tests Test 07/22/16 16:30 07/23/16 04:40 Arterial Blood pH 7.520 (7.350-7.450) Arterial Blood Partial Pressure CO2 32.2 mmHg (35.0-45.0) L Arterial Blood Partial Pressure O2 82.0 mmHg (75.0-100.0) Arterial Blood HCO3 25.8 mmol/L (22.0-26.0) Arterial Blood Oxygen Saturation 94.9 % (92.0-98.0) Arterial Blood Base Excess 3.0 Caleb Test Positive White Blood Count 8.4 K/UL (4.8-10.8) Red Blood Count 2.90 M/UL (4.70-6.10) L Hemoglobin 8.6 G/DL (14.2-18.0) L Hematocrit 26.5 % (42.0-52.0) L Mean Corpuscular Volume 91 FL (80-99) Mean Corpuscular Hemoglobin 29.5 PG (27.0-31.0) Mean Corpuscular Hemoglobin Concent 32.3 G/DL (32.0-36.0) Red Cell Distribution Width 15.7 % (11.6-14.8) H Platelet Count 171 K/UL (150-450) Mean Platelet Volume 8.5 FL (6.5-10.1) Neutrophils (%) (Auto) 82.2 % (45.0-75.0) H Lymphocytes (%) (Auto) 11.7 % (20.0-45.0) L Monocytes (%) (Auto) 3.5 % (1.0-10.0) Eosinophils (%) (Auto) 2.2 % (0.0-3.0) Basophils (%) (Auto) 0.4 % (0.0-2.0) Sodium Level 149 mEQ/L (135-145) H Potassium Level 4.2 mEQ/L (3.4-4.9) Chloride Level 114 mEQ/L (98-107) H Carbon Dioxide Level 26 mEQ/L (20-30) Anion Gap 9 (5-15) Blood Urea Nitrogen 54 mg/dL (7-23) H Creatinine 2.1 mg/dL (0.7-1.2) H Estimat Glomerular Filtration Rate mL/min (>60) Glucose Level 126 mg/dL (74-106) H Calcium Level 8.0 mg/dL (8.6-10.2) L Total Bilirubin 0.5 mg/dL (0.0-1.2) Aspartate Amino Transf (AST/SGOT) 26 U/L (5-40) Alanine Aminotransferase (ALT/SGPT) 37 U/L (3-41) Alkaline Phosphatase 246 U/L (40-129) H Pro-B-Type Natriuretic Peptide 1567 pg/mL (0-450) H Total Protein 5.5 g/dL (6.6-8.7) L Albumin 1.9 g/dL (3.5-5.2) L Globulin 3.6 g/dL Albumin/Globulin Ratio 0.5 (1.0-2.7) L MACARENA FLANNERY Jul 23, 2016 10:17
[2016-07-23] MEDS: DOPamine 400mg/250ml 250 ML IV SCH (17:30)
--- NOTE | 2016-07-23 22:32 | Infectious Diseases Prog Note ---
Assessment/Plan Assessment/Plan A: The patient is an 80-year-old male with Sepsis improving Septic shock, off of pressors Urinary tract infection : P mirabilis x 2 CT: Diffuse thickening of the urinary bladder wall consistent with cystitis. Garcia in good position. Mild bilateral hydronephrosis probably on the basis of a bladder disease. Thickening of the uroepithelium suggestive of chronic inflammation or infection. Prostate enlargement Bacteremia P mirabilis Chronic VDRF Left adrenal mass CT: 3 x 8.7 x 4.8 cm mass posterior to the pancreas possibly arising from the left adrenal gland. Renal insufficiency SP hemodialysis x 2 Dementia Parkinson disease Seizure disorder History of congestive heart failure Post pacemaker placement Chronic BLE DVT Obesity Renal insufficiency Hematuria Depression Anemia PLAN: continue levaquin d # 4 /10 6/ IV Zosyn d# 4 Monitor CBC Monitor BMP. Continue ventilator support. HD on hold as per Nephro Subjective Allergies: Coded Allergies: No Known Allergies (Unverified , 07/16/16) Subjective remains afebrile on vent. no pressors Objective Vital Signs Last 24 Hour Vital Signs Date Time Temp Pulse Resp B/P Pulse Ox O2 Delivery O2 Flow Rate FiO2 07/23/16 21:19 75 22 30 07/23/16 20:00 30 07/23/16 19:15 76 22 30 07/23/16 18:00 77 22 105/56 100 Mechanical Ventilator 30 07/23/16 17:30 129/66 07/23/16 17:00 76 22 129/66 100 Mechanical Ventilator 30 07/23/16 16:43 72 22 30 07/23/16 16:00 74 07/23/16 16:00 99.2 75 22 136/67 100 Mechanical Ventilator 30 07/23/16 16:00 30 07/23/16 15:00 73 16 118/76 99 Mechanical Ventilator 30 07/23/16 15:00 78 24 30 07/23/16 14:00 76 21 109/59 99 Mechanical Ventilator 30 07/23/16 13:08 78 29 30 07/23/16 13:00 83 30 117/61 99 Mechanical Ventilator 30 07/23/16 12:00 30 07/23/16 12:00 99.6 84 28 119/62 100 Mechanical Ventilator 30 07/23/16 12:00 84 07/23/16 11:00 83 26 127/69 98 Mechanical Ventilator 30 07/23/16 10:46 88 23 30 07/23/16 10:00 90 24 131/61 97 Mechanical Ventilator 30 07/23/16 09:00 98 30 145/82 96 Mechanical Ventilator 30 07/23/16 09:00 100 25 30 07/23/16 09:00 95 07/23/16 08:00 84 07/23/16 08:00 99.0 87 23 124/52 98 Mechanical Ventilator 30 07/23/16 07:25 30 07/23/16 07:00 79 22 30 07/23/16 07:00 84 18 104/54 99 Mechanical Ventilator 30 07/23/16 06:00 82 18 120/55 97 Mechanical Ventilator 30 07/23/16 05:00 85 18 138/69 97 Mechanical Ventilator 07/23/16 04:55 86 24 30 07/23/16 04:00 30 07/23/16 04:00 80 07/23/16 04:00 98.7 83 19 125/66 97 Mechanical Ventilator 07/23/16 03:00 87 20 125/60 97 Mechanical Ventilator 30 07/23/16 03:00 86 22 30 07/23/16 02:00 83 19 125/105 97 Mechanical Ventilator 30 07/23/16 01:00 81 19 137/70 99 Mechanical Ventilator 30 07/23/16 00:59 78 22 30 07/23/16 00:00 30 07/23/16 00:00 98.6 81 19 120/61 99 Mechanical Ventilator 30 07/23/16 00:00 82 07/22/16 23:15 82 22 30 07/22/16 23:00 80 20 121/61 99 Mechanical Ventilator 30 Height (Feet): 5 Height (Inches): 8.00 Weight (Pounds): 185 General Appearance: no acute distress Respiratory/Chest: decreased breath sounds Cardiovascular: normal rate, regular rhythm Abdomen: normal bowel sounds, soft, non tender, non distended Laboratory Tests Test 07/23/16 04:40 White Blood Count 8.4 K/UL (4.8-10.8) Red Blood Count 2.90 M/UL (4.70-6.10) L Hemoglobin 8.6 G/DL (14.2-18.0) L Hematocrit 26.5 % (42.0-52.0) L Mean Corpuscular Volume 91 FL (80-99) Mean Corpuscular Hemoglobin 29.5 PG (27.0-31.0) Mean Corpuscular Hemoglobin Concent 32.3 G/DL (32.0-36.0) Red Cell Distribution Width 15.7 % (11.6-14.8) H Platelet Count 171 K/UL (150-450) Mean Platelet Volume 8.5 FL (6.5-10.1) Neutrophils (%) (Auto) 82.2 % (45.0-75.0) H Lymphocytes (%) (Auto) 11.7 % (20.0-45.0) L Monocytes (%) (Auto) 3.5 % (1.0-10.0) Eosinophils (%) (Auto) 2.2 % (0.0-3.0) Basophils (%) (Auto) 0.4 % (0.0-2.0) Sodium Level 149 mEQ/L (135-145) H Potassium Level 4.2 mEQ/L (3.4-4.9) Chloride Level 114 mEQ/L (98-107) H Carbon Dioxide Level 26 mEQ/L (20-30) Anion Gap 9 (5-15) Blood Urea Nitrogen 54 mg/dL (7-23) H Creatinine 2.1 mg/dL (0.7-1.2) H Estimat Glomerular Filtration Rate mL/min (>60) Glucose Level 126 mg/dL (74-106) H Calcium Level 8.0 mg/dL (8.6-10.2) L Total Bilirubin 0.5 mg/dL (0.0-1.2) Aspartate Amino Transf (AST/SGOT) 26 U/L (5-40) Alanine Aminotransferase (ALT/SGPT) 37 U/L (3-41) Alkaline Phosphatase 246 U/L (40-129) H Pro-B-Type Natriuretic Peptide 1567 pg/mL (0-450) H Total Protein 5.5 g/dL (6.6-8.7) L Albumin 1.9 g/dL (3.5-5.2) L Globulin 3.6 g/dL Albumin/Globulin Ratio 0.5 (1.0-2.7) L Current Medications Medications (Trade) Dose Ordered Sig/Janay Route PRN Reason Start Time Stop Time Status Last Admin Dose Admin Acetaminophen (Tylenol) 650 mg Q4H PRN ORAL fever 07/16/16 15:15 08/15/16 15:14 07/20/16 13:27 Chlorhexidine Gluconate (Loree-Hex 2%) 1 applic Q24H TOPIC 07/20/16 23:00 08/19/16 22:59 07/22/16 23:58 Dextrose STAT PRN IV Hypoglycemia 07/19/16 17:30 08/18/16 17:29 Dopamine HCl/ Dextrose (DOPamine 400mg/ 250ml) 250 ml @ 0 mls/hr Q24H IV 07/16/16 17:30 08/15/16 17:29 07/18/16 17:35 Insulin Aspart (NovoLOG) Q6HR SUBQ 07/19/16 18:30 08/18/16 18:29 07/23/16 12:00 Lactobacillus Acidophilus (Culturelle) 1 tab THREE TIMES A DAY GT 07/21/16 13:00 08/20/16 12:59 07/23/16 17:50 Levofloxacin (Levaquin) 50 ml @ 50 mls/hr Q48H IVPB 07/22/16 18:00 07/29/16 17:59 07/22/16 17:50 Nitroglycerin (Ntg) 0.4 mg Q5M PRN SL Prn Chest Pain 07/16/16 15:15 08/15/16 15:14 Ondansetron HCl (Zofran) 4 mg Q6H PRN IVP Nausea & Vomiting 07/16/16 15:15 08/15/16 15:14 Pantoprazole 40 mg 40 mg EVERY 12 HOURS IVP 07/16/16 21:00 08/15/16 20:59 07/23/16 21:10 Polyethylene Glycol (Miralax) 17 gm DAILYPRN PRN ORAL Constipation 07/16/16 15:15 08/15/16 15:14 YVONNE ORTIZ Jul 23, 2016 22:32
[2016-07-23] MEDS: Dyna-Hex 2% Top Sol 8oz TOPIC SCH (23:24)
[2016-07-24] VITALS (24 sets, daily range): BP systolic 96–143; BP diastolic 47–89
[2016-07-24] MEDS: NovoLOG Insulin Flexpen SUBQ SCH ×4 (05:52→23:41)
[2016-07-24 05:59] LABS: BASOPHILS % (AUTO) 0.4 % (0.0-2.0); EOSINOPHILS % (AUTO) 2.3 % (0.0-3.0); LYMPHOCYTES % (AUTO) 13.5 % (20.0-45.0); MEAN CORPUSCULAR HEMOGLOBIN 30.8 PG (27.0-31.0); MEAN CORPUSCULAR HGB CONC 33.1 G/DL (32.0-36.0); MEAN CORPUSCULAR VOLUME 93 FL (80-99); MEAN PLATELET VOLUME 7.1 FL (6.5-10.1); MONOCYTES % (AUTO) 4.3 % (1.0-10.0); NEUTROPHILS % (AUTO) 79.5 % (45.0-75.0); PLATELET COUNT 169 K/UL (150-450); RED CELL DISTRIBUTION WIDTH 15.7 % (11.6-14.8); WHITE BLOOD COUNT 7.3 K/UL (4.8-10.8)
[2016-07-24 06:16] LABS: ALANINE AMINOTRANSFERASE 29 U/L (3-41); ALBUMIN/GLOBULIN RATIO 0.4 (1.0-2.7); ANION GAP 10 (5-15); ASPARTATE AMINO TRANSFERASE 25 U/L (5-40); CALCIUM 8.1 mg/dL (8.6-10.2); CARBON DIOXIDE 27 mEQ/L (20-30); CHLORIDE 115 mEQ/L (98-107); CREATININE 2.2 mg/dL (0.7-1.2); HEMOLYSIS 0; MAGNESIUM 2.1 mg/dL (1.7-2.5); PHOSPHORUS 3.3 mg/dL (2.5-4.8); POTASSIUM 3.9 mEQ/L (3.4-4.9); SODIUM 152 mEQ/L (135-145); TOTAL PROTEIN 5.4 g/dL (6.6-8.7)
[2016-07-24] MEDS: Pantoprazole Inj IVP SCH (08:10)
[2016-07-24] MEDS: Lactobacillus-GG tablet GT SCH ×3 (08:10→17:31)
[2016-07-24 08:48] LABS: ABG BASE EXCESS 1.4; ABG PCO2 33.3 mmHg (35.0-45.0)
[2016-07-24 08:49] LABS: ABG ALLEN TEST POSITIVE
--- NOTE | 2016-07-24 09:20 | Diagnostic Imaging Report ---
Indication: Dyspnea Comparison: 07/23/16 A single view chest radiograph was obtained. Findings: Tubes and lines are stable. Heart size is stable. Minimal interstitial edema may be present. Infiltrate in the right lung is not excluded but the appearance is unchanged. 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
--- NOTE | 2016-07-24 10:59 | General Progress Note ---
Assessment/Plan Status: stable - from , unchanged Assessment/Plan status: acute renal failure, requiring HD , done 07/16 due 07/19 acute hyperkalemia , resolved Low BP , septic Shock , on Pressors- RESOLVED acute respiratory failure requiring intubation UTI gross hematuria anemia CHF Sever Hypoalbuminemia h/o Parkinsons , OBS , ? Sz Plan: HD 07/19, no further dialysis appears to be needed, DC Dialysis cath from groin ( right groin catheter was discontinued and the site was dressed under pressure and hemostasis acheived) Monitor renal parameters- K supplement as needed- one liter D5 weaning in process Lactobacillus Avoid Nephrotoxics On Renal feeding BP support per orders Subjective ROS Limited/Unobtainable: Yes Allergies: Coded Allergies: No Known Allergies (Unverified , 07/16/16) Objective Last 24 Hour Vital Signs Date Time Temp Pulse Resp B/P Pulse Ox O2 Delivery O2 Flow Rate FiO2 07/24/16 10:00 73 20 110/54 99 Mechanical Ventilator 30 07/24/16 09:00 74 20 113/64 96 Mechanical Ventilator 30 07/24/16 08:35 71 22 30 07/24/16 08:00 80 07/24/16 08:00 99.0 77 33 111/71 97 Mechanical Ventilator 30 07/24/16 08:00 30 07/24/16 07:02 85 22 30 07/24/16 07:00 75 21 117/62 96 Mechanical Ventilator 30 07/24/16 06:00 75 22 117/73 96 Mechanical Ventilator 30 07/24/16 05:27 83 22 30 07/24/16 05:00 84 22 120/67 96 Mechanical Ventilator 30 07/24/16 04:00 30 07/24/16 04:00 98.4 87 22 119/67 96 Mechanical Ventilator 30 07/24/16 04:00 87 07/24/16 03:00 89 21 119/47 97 Mechanical Ventilator 30 07/24/16 02:00 83 21 118/60 97 Mechanical Ventilator 30 07/24/16 01:10 80 23 30 07/24/16 01:00 82 23 110/58 99 Mechanical Ventilator 30 07/24/16 00:00 64 07/24/16 00:00 98.8 78 22 122/60 99 Mechanical Ventilator 30 07/24/16 00:00 30 07/23/16 23:29 80 22 30 07/23/16 23:00 80 22 93/44 98 Mechanical Ventilator 30 07/23/16 22:00 76 22 131/63 99 Mechanical Ventilator 30 07/23/16 21:19 75 22 30 07/23/16 21:00 75 22 124/68 100 Mechanical Ventilator 30 07/23/16 20:00 99.0 75 22 110/56 100 Mechanical Ventilator 30 07/23/16 20:00 75 07/23/16 20:00 30 07/23/16 19:15 76 22 30 07/23/16 18:00 77 22 105/56 100 Mechanical Ventilator 30 07/23/16 17:30 129/66 07/23/16 17:00 76 22 129/66 100 Mechanical Ventilator 30 07/23/16 16:43 72 22 30 07/23/16 16:00 74 07/23/16 16:00 99.2 75 22 136/67 100 Mechanical Ventilator 30 07/23/16 16:00 30 07/23/16 15:00 73 16 118/76 99 Mechanical Ventilator 30 07/23/16 15:00 78 24 30 07/23/16 14:00 76 21 109/59 99 Mechanical Ventilator 30 07/23/16 13:08 78 29 30 07/23/16 13:00 83 30 117/61 99 Mechanical Ventilator 30 07/23/16 12:00 30 07/23/16 12:00 99.6 84 28 119/62 100 Mechanical Ventilator 30 07/23/16 12:00 84 07/23/16 11:00 83 26 127/69 98 Mechanical Ventilator 30 07/23/16 10:46 88 23 30 Intake and Output 07/23/16 07/24/16 19:00 07:00 Intake Total 685 ml 720 ml Output Total 965 ml 1151 ml Balance -280 ml -431 ml Free Water 300 ml 300 ml Tube Feeding 385 ml 420 ml Output Urine Total 965 ml 1150 ml Stool Total 1 ml # Bowel Movements 4 Laboratory Tests 07/24/16 03:11: White Blood Count 7.3, Red Blood Count 2.60L, Hemoglobin 8.0L, Hematocrit 24.2L , Mean Corpuscular Volume 93, Mean Corpuscular Hemoglobin 30.8, Mean Corpuscular Hemoglobin Concent 33.1, Red Cell Distribution Width 15.7H, Platelet Count 169, Mean Platelet Volume 7.1, Neutrophils (%) (Auto) 79.5H, Lymphocytes (%) (Auto) 13.5L, Monocytes (%) (Auto) 4.3, Eosinophils (%) (Auto) 2.3, Basophils (%) (Auto) 0.4, Sodium Level 152H, Potassium Level 3.9, Chloride Level 115H, Carbon Dioxide Level 27, Anion Gap 10, Blood Urea Nitrogen 50H, Creatinine 2.2H, Estimat Glomerular Filtration Rate , Glucose Level 108H, Calcium Level 8.1L, Phosphorus Level 3.3, Magnesium Level 2.1, Total Bilirubin 0.5, Aspartate Amino Transf (AST/SGOT) 25, Alanine Aminotransferase (ALT/SGPT) 29, Alkaline Phosphatase 244H, Total Protein 5.4L, Albumin 1.6L, Globulin 3.8, Albumin/Globulin Ratio 0.4L 07/24/16 04:00: Arterial Blood pH 7.490H, Arterial Blood Partial Pressure CO2 33.3L, Arterial Blood Partial Pressure O2 82.0, Arterial Blood HCO3 25.0, Arterial Blood Oxygen Saturation 95.1, Arterial Blood Base Excess 1.4, Caleb Test Positive Height (Feet): 5 Height (Inches): 8.00 Weight (Pounds): 187 General Appearance: no apparent distress EENT: other - remains intubated Respiratory/Chest: decreased breath sounds Abdomen: soft Objective other PE not changed HAI THOMPSON Jul 24, 2016 10:59
--- NOTE | 2016-07-24 11:17 | Pulmonolgy Critical Care Note ---
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 winter - Objective Last 24 Hour Vital Signs Date Time Temp Pulse Resp B/P Pulse Ox O2 Delivery O2 Flow Rate FiO2 07/24/16 10:46 76 22 30 07/24/16 10:00 73 20 110/54 99 Mechanical Ventilator 30 07/24/16 09:00 74 20 113/64 96 Mechanical Ventilator 30 07/24/16 08:35 71 22 30 07/24/16 08:00 80 07/24/16 08:00 99.0 77 33 111/71 97 Mechanical Ventilator 30 07/24/16 08:00 30 07/24/16 07:02 85 22 30 07/24/16 07:00 75 21 117/62 96 Mechanical Ventilator 30 07/24/16 06:00 75 22 117/73 96 Mechanical Ventilator 30 07/24/16 05:27 83 22 30 07/24/16 05:00 84 22 120/67 96 Mechanical Ventilator 30 07/24/16 04:00 30 07/24/16 04:00 98.4 87 22 119/67 96 Mechanical Ventilator 30 07/24/16 04:00 87 07/24/16 03:00 89 21 119/47 97 Mechanical Ventilator 30 07/24/16 02:00 83 21 118/60 97 Mechanical Ventilator 30 07/24/16 01:10 80 23 30 07/24/16 01:00 82 23 110/58 99 Mechanical Ventilator 30 07/24/16 00:00 64 07/24/16 00:00 98.8 78 22 122/60 99 Mechanical Ventilator 30 07/24/16 00:00 30 07/23/16 23:29 80 22 30 07/23/16 23:00 80 22 93/44 98 Mechanical Ventilator 30 07/23/16 22:00 76 22 131/63 99 Mechanical Ventilator 30 07/23/16 21:19 75 22 30 07/23/16 21:00 75 22 124/68 100 Mechanical Ventilator 30 07/23/16 20:00 99.0 75 22 110/56 100 Mechanical Ventilator 30 07/23/16 20:00 75 07/23/16 20:00 30 07/23/16 19:15 76 22 30 07/23/16 18:00 77 22 105/56 100 Mechanical Ventilator 30 07/23/16 17:30 129/66 07/23/16 17:00 76 22 129/66 100 Mechanical Ventilator 30 07/23/16 16:43 72 22 30 07/23/16 16:00 74 07/23/16 16:00 99.2 75 22 136/67 100 Mechanical Ventilator 30 07/23/16 16:00 30 07/23/16 15:00 73 16 118/76 99 Mechanical Ventilator 30 07/23/16 15:00 78 24 30 07/23/16 14:00 76 21 109/59 99 Mechanical Ventilator 30 07/23/16 13:08 78 29 30 07/23/16 13:00 83 30 117/61 99 Mechanical Ventilator 30 07/23/16 12:00 30 07/23/16 12:00 99.6 84 28 119/62 100 Mechanical Ventilator 30 07/23/16 12:00 84 Status: somnolent HEENT: atraumatic, normocephalic Lungs: clear Heart: HR/BP stable, HR/BP unstable Abdomen: soft, non-tender Extremities: no C/C/E, edema Decubiti: location Accucheck: 107 Critical Care - Subjective ROS Limited/Unobtainable: No Condition: critical EKG Rhythm: Sinus Rhythm FI02: 30 Vent Support Breath Rate: 22 Vent Support Mode: AC Vent Tidal Volume: 500 Sputum Amount: Small PEEP: 5.0 PIP: 22 Tube Feeding Amount: 35 I&O: Intake and Output 07/23/16 07/24/16 19:00 07:00 Intake Total 685 ml 720 ml Output Total 965 ml 1151 ml Balance -280 ml -431 ml Free Water 300 ml 300 ml Tube Feeding 385 ml 420 ml Output Urine Total 965 ml 1150 ml Stool Total 1 ml # Bowel Movements 4 Subjective: comfortable CXR: no change ET-Tube: 8.0 ET Position: 24 Labs: Laboratory Tests Test 07/24/16 03:11 07/24/16 04:00 White Blood Count 7.3 K/UL (4.8-10.8) Red Blood Count 2.60 M/UL (4.70-6.10) L Hemoglobin 8.0 G/DL (14.2-18.0) L Hematocrit 24.2 % (42.0-52.0) L Mean Corpuscular Volume 93 FL (80-99) Mean Corpuscular Hemoglobin 30.8 PG (27.0-31.0) Mean Corpuscular Hemoglobin Concent 33.1 G/DL (32.0-36.0) Red Cell Distribution Width 15.7 % (11.6-14.8) H Platelet Count 169 K/UL (150-450) Mean Platelet Volume 7.1 FL (6.5-10.1) Neutrophils (%) (Auto) 79.5 % (45.0-75.0) H Lymphocytes (%) (Auto) 13.5 % (20.0-45.0) L Monocytes (%) (Auto) 4.3 % (1.0-10.0) Eosinophils (%) (Auto) 2.3 % (0.0-3.0) Basophils (%) (Auto) 0.4 % (0.0-2.0) Sodium Level 152 mEQ/L (135-145) H Potassium Level 3.9 mEQ/L (3.4-4.9) Chloride Level 115 mEQ/L (98-107) H Carbon Dioxide Level 27 mEQ/L (20-30) Anion Gap 10 (5-15) Blood Urea Nitrogen 50 mg/dL (7-23) H Creatinine 2.2 mg/dL (0.7-1.2) H Estimat Glomerular Filtration Rate mL/min (>60) Glucose Level 108 mg/dL (74-106) H Calcium Level 8.1 mg/dL (8.6-10.2) L Phosphorus Level 3.3 mg/dL (2.5-4.8) Magnesium Level 2.1 mg/dL (1.7-2.5) Total Bilirubin 0.5 mg/dL (0.0-1.2) Aspartate Amino Transf (AST/SGOT) 25 U/L (5-40) Alanine Aminotransferase (ALT/SGPT) 29 U/L (3-41) Alkaline Phosphatase 244 U/L (40-129) H Total Protein 5.4 g/dL (6.6-8.7) L Albumin 1.6 g/dL (3.5-5.2) L Globulin 3.8 g/dL Albumin/Globulin Ratio 0.4 (1.0-2.7) L Arterial Blood pH 7.490 (7.350-7.450) Arterial Blood Partial Pressure CO2 33.3 mmHg (35.0-45.0) L Arterial Blood Partial Pressure O2 82.0 mmHg (75.0-100.0) Arterial Blood HCO3 25.0 mmol/L (22.0-26.0) Arterial Blood Oxygen Saturation 95.1 % (92.0-98.0) Arterial Blood Base Excess 1.4 Caleb Test Positive MACARENA FLANNERY Jul 24, 2016 11:17
[2016-07-24] MEDS ORDERED: NS 275ml ONE (15:56)
[2016-07-24] MEDS ORDERED: Tubing Blood Filter IV ONE (15:56)
--- NOTE | 2016-07-24 17:15 | Infectious Diseases Prog Note ---
Assessment/Plan Assessment/Plan A: The patient is an 80-year-old male with Leukocytosis - resolved, afebrile Septic shock SP - off of pressors Urinary tract infection : P mirabilis x 2 CT: Diffuse thickening of the urinary bladder wall consistent with cystitis. Garcia in good position. Mild bilateral hydronephrosis probably on the basis of a bladder disease. Thickening of the uroepithelium suggestive of chronic inflammation or infection. Prostate enlargement Bacteremia P mirabilis Acute VDRF - failed weaning, may need trach Left adrenal mass CT: 3 x 8.7 x 4.8 cm mass posterior to the pancreas possibly arising from the left adrenal gland. Renal insufficiency SP hemodialysis x 2 Hypernatremia Dementia Parkinson disease Seizure disorder History of congestive heart failure Post pacemaker placement Chronic BLE DVT Obesity Renal insufficiency Hematuria Depression Anemia PLAN: continue levaquin d # 5 /10 6/ IV Zosyn d# 4 Monitor CBC Monitor BMP. vent support, wean as tolerated - may need trach HD on hold as per Nephro Subjective Allergies: Coded Allergies: No Known Allergies (Unverified , 07/16/16) Subjective remains afebrile on vent. no pressors Objective Vital Signs Last 24 Hour Vital Signs Date Time Temp Pulse Resp B/P Pulse Ox O2 Delivery O2 Flow Rate FiO2 07/24/16 16:44 65 22 30 07/24/16 16:00 68 07/24/16 16:00 99.0 69 19 129/89 100 Mechanical Ventilator 30 07/24/16 16:00 30 07/24/16 15:00 70 20 109/63 100 Mechanical Ventilator 30 07/24/16 14:53 59 22 30 07/24/16 14:00 63 19 101/51 100 Mechanical Ventilator 30 07/24/16 13:12 65 22 30 07/24/16 13:00 75 18 96/71 99 Mechanical Ventilator 30 07/24/16 12:00 30 07/24/16 12:00 64 07/24/16 12:00 98.9 64 20 110/66 99 Mechanical Ventilator 30 07/24/16 11:00 69 19 124/58 99 Mechanical Ventilator 30 07/24/16 10:46 76 22 30 07/24/16 10:00 73 20 110/54 99 Mechanical Ventilator 30 07/24/16 09:00 74 20 113/64 96 Mechanical Ventilator 30 07/24/16 08:35 71 22 30 07/24/16 08:00 80 07/24/16 08:00 99.0 77 33 111/71 97 Mechanical Ventilator 30 07/24/16 08:00 30 07/24/16 07:02 85 22 30 07/24/16 07:00 75 21 117/62 96 Mechanical Ventilator 30 07/24/16 06:00 75 22 117/73 96 Mechanical Ventilator 30 07/24/16 05:27 83 22 30 07/24/16 05:00 84 22 120/67 96 Mechanical Ventilator 30 07/24/16 04:00 30 07/24/16 04:00 98.4 87 22 119/67 96 Mechanical Ventilator 30 07/24/16 04:00 87 07/24/16 03:00 89 21 119/47 97 Mechanical Ventilator 30 07/24/16 02:00 83 21 118/60 97 Mechanical Ventilator 30 07/24/16 01:10 80 23 30 07/24/16 01:00 82 23 110/58 99 Mechanical Ventilator 30 07/24/16 00:00 64 07/24/16 00:00 98.8 78 22 122/60 99 Mechanical Ventilator 30 07/24/16 00:00 30 07/23/16 23:29 80 22 30 07/23/16 23:00 80 22 93/44 98 Mechanical Ventilator 30 07/23/16 22:00 76 22 131/63 99 Mechanical Ventilator 30 07/23/16 21:19 75 22 30 07/23/16 21:00 75 22 124/68 100 Mechanical Ventilator 30 07/23/16 20:00 99.0 75 22 110/56 100 Mechanical Ventilator 07/23/16 20:00 75 07/23/16 20:00 30 07/23/16 19:15 76 22 30 07/23/16 18:00 77 22 105/56 100 Mechanical Ventilator 30 07/23/16 17:30 129/66 Height (Feet): 5 Height (Inches): 8.00 Weight (Pounds): 187 General Appearance: other - intubated Respiratory/Chest: decreased breath sounds Cardiovascular: normal rate, regular rhythm Abdomen: normal bowel sounds, soft, non tender, non distended Laboratory Tests Test 07/24/16 03:11 07/24/16 04:00 White Blood Count 7.3 K/UL (4.8-10.8) Red Blood Count 2.60 M/UL (4.70-6.10) L Hemoglobin 8.0 G/DL (14.2-18.0) L Hematocrit 24.2 % (42.0-52.0) L Mean Corpuscular Volume 93 FL (80-99) Mean Corpuscular Hemoglobin 30.8 PG (27.0-31.0) Mean Corpuscular Hemoglobin Concent 33.1 G/DL (32.0-36.0) Red Cell Distribution Width 15.7 % (11.6-14.8) H Platelet Count 169 K/UL (150-450) Mean Platelet Volume 7.1 FL (6.5-10.1) Neutrophils (%) (Auto) 79.5 % (45.0-75.0) H Lymphocytes (%) (Auto) 13.5 % (20.0-45.0) L Monocytes (%) (Auto) 4.3 % (1.0-10.0) Eosinophils (%) (Auto) 2.3 % (0.0-3.0) Basophils (%) (Auto) 0.4 % (0.0-2.0) Sodium Level 152 mEQ/L (135-145) H Potassium Level 3.9 mEQ/L (3.4-4.9) Chloride Level 115 mEQ/L (98-107) H Carbon Dioxide Level 27 mEQ/L (20-30) Anion Gap 10 (5-15) Blood Urea Nitrogen 50 mg/dL (7-23) H Creatinine 2.2 mg/dL (0.7-1.2) H Estimat Glomerular Filtration Rate mL/min (>60) Glucose Level 108 mg/dL (74-106) H Calcium Level 8.1 mg/dL (8.6-10.2) L Phosphorus Level 3.3 mg/dL (2.5-4.8) Magnesium Level 2.1 mg/dL (1.7-2.5) Total Bilirubin 0.5 mg/dL (0.0-1.2) Aspartate Amino Transf (AST/SGOT) 25 U/L (5-40) Alanine Aminotransferase (ALT/SGPT) 29 U/L (3-41) Alkaline Phosphatase 244 U/L (40-129) H Total Protein 5.4 g/dL (6.6-8.7) L Albumin 1.6 g/dL (3.5-5.2) L Globulin 3.8 g/dL Albumin/Globulin Ratio 0.4 (1.0-2.7) L Arterial Blood pH 7.490 (7.350-7.450) Arterial Blood Partial Pressure CO2 33.3 mmHg (35.0-45.0) L Arterial Blood Partial Pressure O2 82.0 mmHg (75.0-100.0) Arterial Blood HCO3 25.0 mmol/L (22.0-26.0) Arterial Blood Oxygen Saturation 95.1 % (92.0-98.0) Arterial Blood Base Excess 1.4 Caleb Test Positive Current Medications Medications (Trade) Dose Ordered Sig/Janay Route PRN Reason Start Time Stop Time Status Last Admin Dose Admin Acetaminophen (Tylenol) 650 mg Q4H PRN ORAL fever 07/16/16 15:15 08/15/16 15:14 07/24/16 14:36 Chlorhexidine Gluconate (Loree-Hex 2%) 1 applic Q24H TOPIC 07/20/16 23:00 08/19/16 22:59 07/23/16 23:24 Dextrose (D5W 1000ml) 1,000 ml @ 100 mls/hr Q10H IV 07/24/16 11:00 07/24/16 20:59 07/24/16 11:39 Dextrose STAT PRN IV Hypoglycemia 07/19/16 17:30 08/18/16 17:29 Dopamine HCl/ Dextrose (DOPamine 400mg/ 250ml) 250 ml @ 0 mls/hr Q24H IV 07/16/16 17:30 08/15/16 17:29 07/18/16 17:35 Insulin Aspart (NovoLOG) Q6HR SUBQ 07/19/16 18:30 08/18/16 18:29 07/24/16 11:58 Lactobacillus Acidophilus (Culturelle) 1 tab THREE TIMES A DAY GT 07/21/16 13:00 08/20/16 12:59 07/24/16 12:00 Levofloxacin (Levaquin) 50 ml @ 50 mls/hr Q48H IVPB 07/22/16 18:00 07/29/16 17:59 07/22/16 17:50 Nitroglycerin (Ntg) 0.4 mg Q5M PRN SL Prn Chest Pain 07/16/16 15:15 08/15/16 15:14 Ondansetron HCl (Zofran) 4 mg Q6H PRN IVP Nausea & Vomiting 07/16/16 15:15 08/15/16 15:14 Pantoprazole 40 mg 40 mg DAILY IVP 07/25/16 09:00 08/24/16 08:59 Polyethylene Glycol 17 gm 17 gm DAILYPRN PRN ORAL Constipation 07/16/16 15:15 08/15/16 15:14 YVONNE ORTIZ Jul 24, 2016 17:15
[2016-07-24] MEDS: DOPamine 400mg/250ml 250 ML IV SCH (17:25)
[2016-07-24] MEDS: Levofloxacin 250mg/D5W 50ml IVPB SCH (17:31)
[2016-07-24] MEDS: Dyna-Hex 2% Top Sol 8oz TOPIC SCH (23:10)
[2016-07-25] VITALS (24 sets, daily range): BP systolic 102–158; BP diastolic 58–100
[2016-07-25] MEDS: NovoLOG Insulin Flexpen SUBQ SCH ×3 (06:11→17:38)
[2016-07-25 06:36] LABS: BASOPHILS % (AUTO) 0.3 % (0.0-2.0); EOSINOPHILS % (AUTO) 2.2 % (0.0-3.0); MEAN CORPUSCULAR HEMOGLOBIN 30.2 PG (27.0-31.0); MEAN CORPUSCULAR VOLUME 92 FL (80-99); MEAN PLATELET VOLUME 6.6 FL (6.5-10.1); MONOCYTES % (AUTO) 3.2 % (1.0-10.0); NEUTROPHILS % (AUTO) 80.3 % (45.0-75.0); PLATELET COUNT 191 K/UL (150-450); RED BLOOD COUNT 3.17 M/UL (4.70-6.10); WHITE BLOOD COUNT 8.4 K/UL (4.8-10.8)
[2016-07-25 07:31] LABS: ALANINE AMINOTRANSFERASE 31 U/L (3-41); ALBUMIN/GLOBULIN RATIO 0.5 (1.0-2.7); ANION GAP 14 (5-15); ASPARTATE AMINO TRANSFERASE 31 U/L (5-40); CALCIUM 8.1 mg/dL (8.6-10.2); CARBON DIOXIDE 24 mEQ/L (20-30); CHLORIDE 109 mEQ/L (98-107); CREATININE 1.9 mg/dL (0.7-1.2); HEMOLYSIS 3; POTASSIUM 4.1 mEQ/L (3.4-4.9); SODIUM 147 mEQ/L (135-145); TOTAL PROTEIN 5.7 g/dL (6.6-8.7)
[2016-07-25 07:56] LABS: CRP QUANT 9.1 mg/dL (< 0.5); PHOSPHORUS 3.3 mg/dL (2.5-4.8); URIC ACID 6.6 mg/dL (3.0-7.5)
[2016-07-25] MEDS: Pantoprazole Inj IVP SCH (07:59)
[2016-07-25] MEDS: Lactobacillus-GG tablet GT SCH ×3 (07:59→17:41)
--- NOTE | 2016-07-25 09:00 | Infectious Diseases Prog Note ---
Assessment/Plan Assessment/Plan A; Proteus sepsis ProteusUTI respiratory failure Anemia Parkinson's disease Adrenal mass P; continue Levaquin Subjective ROS Limited/Unobtainable: Yes Allergies: Coded Allergies: No Known Allergies (Unverified , 07/16/16) Objective Vital Signs Last 24 Hour Vital Signs Date Time Temp Pulse Resp B/P Pulse Ox O2 Delivery O2 Flow Rate FiO2 07/25/16 08:00 94 07/25/16 08:00 99.4 95 25 140/61 99 Mechanical Ventilator 30 07/25/16 08:00 30 07/25/16 07:02 97 23 30 07/25/16 07:00 97 21 116/62 99 Mechanical Ventilator 30 07/25/16 07:00 99 23 116/62 99 Mechanical Ventilator 30 07/25/16 06:00 99 23 120/77 99 Mechanical Ventilator 30 07/25/16 05:10 97 25 30 07/25/16 05:00 101 23 124/77 99 Mechanical Ventilator 30 07/25/16 04:00 98.2 96 20 144/82 99 Mechanical Ventilator 30 07/25/16 04:00 30 07/25/16 04:00 96 07/25/16 03:06 100 28 30 07/25/16 03:00 99 20 141/81 99 Mechanical Ventilator 30 07/25/16 02:00 85 20 130/85 99 Mechanical Ventilator 30 07/25/16 01:00 77 21 132/89 99 Mechanical Ventilator 30 07/25/16 00:48 72 22 30 07/25/16 00:00 30 07/25/16 00:00 98.4 71 23 151/82 99 Mechanical Ventilator 30 07/25/16 00:00 71 07/24/16 23:06 67 22 30 07/24/16 23:00 66 22 136/65 99 Mechanical Ventilator 30 07/24/16 22:00 69 23 143/80 100 Mechanical Ventilator 30 07/24/16 21:00 70 23 138/80 100 Mechanical Ventilator 30 07/24/16 20:57 73 25 30 07/24/16 20:00 30 07/24/16 20:00 98.8 72 24 141/82 100 Mechanical Ventilator 30 07/24/16 20:00 72 07/24/16 19:29 65 22 30 07/24/16 19:00 72 20 118/61 100 Mechanical Ventilator 30 07/24/16 18:00 67 21 124/82 100 Mechanical Ventilator 30 07/24/16 17:00 60 20 106/54 100 Mechanical Ventilator 30 07/24/16 16:44 65 22 30 07/24/16 16:00 68 07/24/16 16:00 99.0 69 19 129/89 100 Mechanical Ventilator 30 07/24/16 16:00 30 07/24/16 15:00 70 20 109/63 100 Mechanical Ventilator 30 07/24/16 14:53 59 22 30 07/24/16 14:00 63 19 101/51 100 Mechanical Ventilator 30 07/24/16 13:12 65 22 30 07/24/16 13:00 75 18 96/71 99 Mechanical Ventilator 30 07/24/16 12:00 30 07/24/16 12:00 64 07/24/16 12:00 98.9 64 20 110/66 99 Mechanical Ventilator 30 07/24/16 11:00 69 19 124/58 99 Mechanical Ventilator 30 07/24/16 10:46 76 22 30 07/24/16 10:00 73 20 110/54 99 Mechanical Ventilator 30 07/24/16 09:00 74 20 113/64 96 Mechanical Ventilator 30 Height (Feet): 5 Height (Inches): 8.00 Weight (Pounds): 183 HEENT: other - orally intubated Respiratory/Chest: lungs clear, other - on ventilator Cardiovascular: normal rate Abdomen: soft, non tender, other - orogastric tube feeding Extremities: other - Generalized edema, R arm PICC line Neurologic/Psychiatric: unresponsiveness Laboratory Tests Test 07/25/16 03:48 White Blood Count 8.4 K/UL (4.8-10.8) Red Blood Count 3.17 M/UL (4.70-6.10) L Hemoglobin 9.6 G/DL (14.2-18.0) L Hematocrit 29.0 % (42.0-52.0) L Mean Corpuscular Volume 92 FL (80-99) Mean Corpuscular Hemoglobin 30.2 PG (27.0-31.0) Mean Corpuscular Hemoglobin Concent 33.0 G/DL (32.0-36.0) Red Cell Distribution Width 15.0 % (11.6-14.8) H Platelet Count 191 K/UL (150-450) Mean Platelet Volume 6.6 FL (6.5-10.1) Neutrophils (%) (Auto) 80.3 % (45.0-75.0) H Lymphocytes (%) (Auto) 14.0 % (20.0-45.0) L Monocytes (%) (Auto) 3.2 % (1.0-10.0) Eosinophils (%) (Auto) 2.2 % (0.0-3.0) Basophils (%) (Auto) 0.3 % (0.0-2.0) Sodium Level 147 mEQ/L (135-145) H Potassium Level 4.1 mEQ/L (3.4-4.9) Chloride Level 109 mEQ/L (98-107) H Carbon Dioxide Level 24 mEQ/L (20-30) Anion Gap 14 (5-15) Blood Urea Nitrogen 44 mg/dL (7-23) H Creatinine 1.9 mg/dL (0.7-1.2) H Estimat Glomerular Filtration Rate mL/min (>60) Glucose Level 110 mg/dL (74-106) H Uric Acid 6.6 mg/dL (3.0-7.5) Calcium Level 8.1 mg/dL (8.6-10.2) L Phosphorus Level 3.3 mg/dL (2.5-4.8) Magnesium Level 2.0 mg/dL (1.7-2.5) Total Bilirubin 0.5 mg/dL (0.0-1.2) Aspartate Amino Transf (AST/SGOT) 31 U/L (5-40) Alanine Aminotransferase (ALT/SGPT) 31 U/L (3-41) Alkaline Phosphatase 259 U/L (40-129) H C-Reactive Protein, Quantitative 9.1 mg/dL (< 0.5) H Pro-B-Type Natriuretic Peptide 1092 pg/mL (0-450) H Total Protein 5.7 g/dL (6.6-8.7) L Albumin 2.1 g/dL (3.5-5.2) L Globulin 3.6 g/dL Albumin/Globulin Ratio 0.5 (1.0-2.7) L Current Medications Medications (Trade) Dose Ordered Sig/Janay Route PRN Reason Start Time Stop Time Status Last Admin Dose Admin Acetaminophen (Tylenol) 650 mg Q4H PRN ORAL fever 07/16/16 15:15 7/2/17 15:14 07/24/16 14:36 Chlorhexidine Gluconate (Loree-Hex 2%) 1 applic Q24H TOPIC 07/20/16 23:00 08/19/16 22:59 07/24/16 23:10 Dextrose STAT PRN IV Hypoglycemia 07/19/16 17:30 08/18/16 17:29 Dopamine HCl/ Dextrose (DOPamine 400mg/ 250ml) 250 ml @ 0 mls/hr Q24H IV 07/16/16 17:30 08/15/16 17:29 07/18/16 17:35 Insulin Aspart (NovoLOG) Q6HR SUBQ 07/19/16 18:30 08/18/16 18:29 07/25/16 06:11 Lactobacillus Acidophilus (Culturelle) 1 tab THREE TIMES A DAY GT 07/21/16 13:00 08/20/16 12:59 07/25/16 07:59 Levofloxacin (Levaquin) 50 ml @ 50 mls/hr Q48H IVPB 07/22/16 18:00 07/29/16 17:59 07/24/16 17:31 Nitroglycerin (Ntg) 0.4 mg Q5M PRN SL Prn Chest Pain 07/16/16 15:15 08/15/16 15:14 Ondansetron HCl (Zofran) 4 mg Q6H PRN IVP Nausea & Vomiting 07/16/16 15:15 08/15/16 15:14 Pantoprazole (Protonix) 40 mg DAILY IVP 07/25/16 09:00 08/24/16 08:59 07/25/16 07:59 Polyethylene Glycol 17 gm 17 gm DAILYPRN PRN ORAL Constipation 07/16/16 15:15 08/15/16 15:14 RAYMOND IRWIN Jul 25, 2016 08:59
--- NOTE | 2016-07-25 11:26 | General Progress Note ---
Assessment/Plan Status: stable - from renal stand Assessment/Plan status: acute renal failure, requiring HD , done 07/16 & 07/19 & no more acute hyperkalemia , resolved Low BP , septic Shock , on Pressors- RESOLVED acute respiratory failure requiring intubation UTI gross hematuria anemia CHF Sever Hypoalbuminemia h/o Parkinsons , OBS , ? Sz Plan: HD 07/19, no further dialysis appears to be needed, DC Dialysis cath from groin 06/23/16--( right groin catheter was discontinued and the site was dressed under pressure and hemostasis acheived) Monitor renal parameters- K supplement as needed- one liter D5 weaning in process Lactobacillus Avoid Nephrotoxics On Renal feeding BP support per orders Subjective ROS Limited/Unobtainable: Yes Allergies: Coded Allergies: No Known Allergies (Unverified , 07/16/16) Objective Last 24 Hour Vital Signs Date Time Temp Pulse Resp B/P Pulse Ox O2 Delivery O2 Flow Rate FiO2 07/25/16 11:04 78 22 30 07/25/16 11:00 81 23 118/90 98 Mechanical Ventilator 30 07/25/16 10:00 75 24 111/98 98 Mechanical Ventilator 30 07/25/16 09:00 89 23 104/73 97 Mechanical Ventilator 30 07/25/16 08:54 93 25 30 07/25/16 08:00 94 07/25/16 08:00 99.4 95 25 140/61 99 Mechanical Ventilator 30 07/25/16 08:00 30 07/25/16 07:02 97 23 30 07/25/16 07:00 97 21 116/62 99 Mechanical Ventilator 30 07/25/16 07:00 99 23 116/62 99 Mechanical Ventilator 30 07/25/16 06:00 99 23 120/77 99 Mechanical Ventilator 30 07/25/16 05:10 97 25 30 07/25/16 05:00 101 23 124/77 99 Mechanical Ventilator 30 07/25/16 04:00 98.2 96 20 144/82 99 Mechanical Ventilator 30 07/25/16 04:00 30 07/25/16 04:00 96 07/25/16 03:06 100 28 30 07/25/16 03:00 99 20 141/81 99 Mechanical Ventilator 30 07/25/16 02:00 85 20 130/85 99 Mechanical Ventilator 30 07/25/16 01:00 77 21 132/89 99 Mechanical Ventilator 30 07/25/16 00:48 72 22 30 07/25/16 00:00 30 07/25/16 00:00 98.4 71 23 151/82 99 Mechanical Ventilator 30 07/25/16 00:00 71 07/24/16 23:06 67 22 30 07/24/16 23:00 66 22 136/65 99 Mechanical Ventilator 30 07/24/16 22:00 69 23 143/80 100 Mechanical Ventilator 30 07/24/16 21:00 70 23 138/80 100 Mechanical Ventilator 30 07/24/16 20:57 73 25 30 07/24/16 20:00 30 07/24/16 20:00 98.8 72 24 141/82 100 Mechanical Ventilator 30 07/24/16 20:00 72 07/24/16 19:29 65 22 30 07/24/16 19:00 72 20 118/61 100 Mechanical Ventilator 30 07/24/16 18:00 67 21 124/82 100 Mechanical Ventilator 30 07/24/16 17:00 60 20 106/54 100 Mechanical Ventilator 30 07/24/16 16:44 65 22 30 07/24/16 16:00 68 07/24/16 16:00 99.0 69 19 129/89 100 Mechanical Ventilator 30 07/24/16 16:00 30 07/24/16 15:00 70 20 109/63 100 Mechanical Ventilator 30 07/24/16 14:53 59 22 30 07/24/16 14:00 63 19 101/51 100 Mechanical Ventilator 30 07/24/16 13:12 65 22 30 07/24/16 13:00 75 18 96/71 99 Mechanical Ventilator 30 07/24/16 12:00 30 07/24/16 12:00 64 07/24/16 12:00 98.9 64 20 110/66 99 Mechanical Ventilator 30 Intake and Output 07/24/16 07/25/16 19:00 07:00 Intake Total 1795 ml 1100 ml Output Total 710 ml 1022 ml Balance 1085 ml 78 ml Free Water 200 ml 300 ml IV Total 600 ml 200 ml Tube Feeding 525 ml 600 ml Blood Product 250 ml Other 220 ml Output Urine Total 710 ml 1020 ml Stool Total 2 ml # Bowel Movements 1 2 Laboratory Tests 07/25/16 03:48: White Blood Count 8.4, Red Blood Count 3.17L, Hemoglobin 9.6L, Hematocrit 29.0L , Mean Corpuscular Volume 92, Mean Corpuscular Hemoglobin 30.2, Mean Corpuscular Hemoglobin Concent 33.0, Red Cell Distribution Width 15.0H, Platelet Count 191, Mean Platelet Volume 6.6, Neutrophils (%) (Auto) 80.3H, Lymphocytes (%) (Auto) 14.0L, Monocytes (%) (Auto) 3.2, Eosinophils (%) (Auto) 2.2, Basophils (%) (Auto) 0.3, Sodium Level 147H, Potassium Level 4.1, Chloride Level 109H, Carbon Dioxide Level 24, Anion Gap 14, Blood Urea Nitrogen 44H, Creatinine 1.9H, Estimat Glomerular Filtration Rate , Glucose Level 110H, Uric Acid 6.6, Calcium Level 8.1L, Phosphorus Level 3.3, Magnesium Level 2.0, Total Bilirubin 0.5, Aspartate Amino Transf (AST/SGOT) 31, Alanine Aminotransferase ( ALT/SGPT) 31, Alkaline Phosphatase 259H, C-Reactive Protein, Quantitative 9.1H, Pro-B-Type Natriuretic Peptide 1092H, Total Protein 5.7L, Albumin 2.1L, Globulin 3.6, Albumin/Globulin Ratio 0.5L Height (Feet): 5 Height (Inches): 8.00 Weight (Pounds): 183 General Appearance: no apparent distress Objective other PE not changed HAI THOMPSON Jul 25, 2016 11:26
--- NOTE | 2016-07-25 12:02 | Pulmonolgy Critical Care Note ---
Critical Care - Asmt/Plan Problems: (1) Acute respiratory failure (2) Gram-negative bacteremia (3) ATN (acute tubular necrosis) (4) Hyperkalemia (5) Acute encephalopathy Respiratory: monitor respiratory rate, adjust FIO2 Cardiac: continue pressors, stop pressors Renal: F/U I&O, keep IV fluid Infectious Disease: check cultures Gastrointestinal: continue feedings/current rate Endocrine: check TSH Hematologic: monitor H/H Neurologic: PRN Ativan Affect: PRN ativan Prophylaxis: Protonix Disposition: keep in ICU Critical Care - Objective Last 24 Hour Vital Signs Date Time Temp Pulse Resp B/P Pulse Ox O2 Delivery O2 Flow Rate FiO2 07/25/16 11:04 78 22 30 07/25/16 11:00 81 23 118/90 98 Mechanical Ventilator 30 07/25/16 10:00 75 24 111/98 98 Mechanical Ventilator 30 07/25/16 09:00 89 23 104/73 97 Mechanical Ventilator 30 07/25/16 08:54 93 25 30 07/25/16 08:00 94 07/25/16 08:00 99.4 95 25 140/61 99 Mechanical Ventilator 30 07/25/16 08:00 30 07/25/16 07:02 97 23 30 07/25/16 07:00 97 21 116/62 99 Mechanical Ventilator 30 07/25/16 07:00 99 23 116/62 99 Mechanical Ventilator 30 07/25/16 06:00 99 23 120/77 99 Mechanical Ventilator 30 07/25/16 05:10 97 25 30 07/25/16 05:00 101 23 124/77 99 Mechanical Ventilator 30 07/25/16 04:00 98.2 96 20 144/82 99 Mechanical Ventilator 30 07/25/16 04:00 30 07/25/16 04:00 96 07/25/16 03:06 100 28 30 07/25/16 03:00 99 20 141/81 99 Mechanical Ventilator 30 07/25/16 02:00 85 20 130/85 99 Mechanical Ventilator 30 07/25/16 01:00 77 21 132/89 99 Mechanical Ventilator 30 07/25/16 00:48 72 22 30 07/25/16 00:00 30 07/25/16 00:00 98.4 71 23 151/82 99 Mechanical Ventilator 30 07/25/16 00:00 71 07/24/16 23:06 67 22 30 07/24/16 23:00 66 22 136/65 99 Mechanical Ventilator 30 07/24/16 22:00 69 23 143/80 100 Mechanical Ventilator 30 07/24/16 21:00 70 23 138/80 100 Mechanical Ventilator 30 07/24/16 20:57 73 25 30 07/24/16 20:00 30 07/24/16 20:00 98.8 72 24 141/82 100 Mechanical Ventilator 30 07/24/16 20:00 72 07/24/16 19:29 65 22 30 07/24/16 19:00 72 20 118/61 100 Mechanical Ventilator 30 07/24/16 18:00 67 21 124/82 100 Mechanical Ventilator 30 07/24/16 17:00 60 20 106/54 100 Mechanical Ventilator 30 07/24/16 16:44 65 22 30 07/24/16 16:00 68 07/24/16 16:00 99.0 69 19 129/89 100 Mechanical Ventilator 30 07/24/16 16:00 30 07/24/16 15:00 70 20 109/63 100 Mechanical Ventilator 30 07/24/16 14:53 59 22 30 07/24/16 14:00 63 19 101/51 100 Mechanical Ventilator 30 07/24/16 13:12 65 22 30 07/24/16 13:00 75 18 96/71 99 Mechanical Ventilator 30 Status: awake Condition: critical HEENT: atraumatic Lungs: clear Heart: HR/BP stable Abdomen: soft, non-tender Extremities: no C/C/E Accucheck: 123 Critical Care - Subjective ROS Limited/Unobtainable: Yes - 9 ICU Day: 9 Intubation Day: 9 Condition: critical FI02: 30 Vent Support Breath Rate: 22 Vent Support Mode: AC Vent Tidal Volume: 500 Sputum Amount: Small PEEP: 5.0 PIP: 28 Tube Feeding Amount: 50 I&O: Intake and Output 07/24/16 07/25/16 19:00 07:00 Intake Total 1795 ml 1100 ml Output Total 710 ml 1022 ml Balance 1085 ml 78 ml Free Water 200 ml 300 ml IV Total 600 ml 200 ml Tube Feeding 525 ml 600 ml Blood Product 250 ml Other 220 ml Output Urine Total 710 ml 1020 ml Stool Total 2 ml # Bowel Movements 1 2 Subjective: comfortable ET-Tube: 8.0 ET Position: 24 Labs: Laboratory Tests Test 6/11/17 03:48 White Blood Count 8.4 K/UL (4.8-10.8) Red Blood Count 3.17 M/UL (4.70-6.10) L Hemoglobin 9.6 G/DL (14.2-18.0) L Hematocrit 29.0 % (42.0-52.0) L Mean Corpuscular Volume 92 FL (80-99) Mean Corpuscular Hemoglobin 30.2 PG (27.0-31.0) Mean Corpuscular Hemoglobin Concent 33.0 G/DL (32.0-36.0) Red Cell Distribution Width 15.0 % (11.6-14.8) H Platelet Count 191 K/UL (150-450) Mean Platelet Volume 6.6 FL (6.5-10.1) Neutrophils (%) (Auto) 80.3 % (45.0-75.0) H Lymphocytes (%) (Auto) 14.0 % (20.0-45.0) L Monocytes (%) (Auto) 3.2 % (1.0-10.0) Eosinophils (%) (Auto) 2.2 % (0.0-3.0) Basophils (%) (Auto) 0.3 % (0.0-2.0) Sodium Level 147 mEQ/L (135-145) H Potassium Level 4.1 mEQ/L (3.4-4.9) Chloride Level 109 mEQ/L (98-107) H Carbon Dioxide Level 24 mEQ/L (20-30) Anion Gap 14 (5-15) Blood Urea Nitrogen 44 mg/dL (7-23) H Creatinine 1.9 mg/dL (0.7-1.2) H Estimat Glomerular Filtration Rate mL/min (>60) Glucose Level 110 mg/dL (74-106) H Uric Acid 6.6 mg/dL (3.0-7.5) Calcium Level 8.1 mg/dL (8.6-10.2) L Phosphorus Level 3.3 mg/dL (2.5-4.8) Magnesium Level 2.0 mg/dL (1.7-2.5) Total Bilirubin 0.5 mg/dL (0.0-1.2) Aspartate Amino Transf (AST/SGOT) 31 U/L (5-40) Alanine Aminotransferase (ALT/SGPT) 31 U/L (3-41) Alkaline Phosphatase 259 U/L (40-129) H C-Reactive Protein, Quantitative 9.1 mg/dL (< 0.5) H Pro-B-Type Natriuretic Peptide 1092 pg/mL (0-450) H Total Protein 5.7 g/dL (6.6-8.7) L Albumin 2.1 g/dL (3.5-5.2) L Globulin 3.6 g/dL Albumin/Globulin Ratio 0.5 (1.0-2.7) L MACARENA FLANNERY Jul 25, 2016 12:02
[2016-07-25] MEDS: DOPamine 400mg/250ml 250 ML IV SCH (17:30)
[2016-07-25] MEDS: Levofloxacin 250mg/D5W 50ml IVPB SCH (17:41)
--- NOTE | 2016-07-25 22:37 | Cardiology Report ---
APPROVED REPORT EKG Measurement Heart [id number] Sinus rhythm with occasional premature ventricular complexes and fusion complexes Indeterminate axis Right bundle branch block Abnormal ECG
[2016-07-26] VITALS (24 sets, daily range): BP systolic 94–178; BP diastolic 55–104
[2016-07-26] MEDS: Dyna-Hex 2% Top Sol 8oz TOPIC SCH ×2 (00:34→23:10)
[2016-07-26 05:29] LABS: BASOPHILS % (AUTO) 0.5 % (0.0-2.0); EOSINOPHILS % (AUTO) 1.8 % (0.0-3.0); LYMPHOCYTES % (AUTO) 14.6 % (20.0-45.0); MEAN CORPUSCULAR HEMOGLOBIN 30.6 PG (27.0-31.0); MEAN CORPUSCULAR HGB CONC 33.4 G/DL (32.0-36.0); MEAN CORPUSCULAR VOLUME 92 FL (80-99); MONOCYTES % (AUTO) 4.5 % (1.0-10.0); NEUTROPHILS % (AUTO) 78.6 % (45.0-75.0); PLATELET COUNT 202 K/UL (150-450); RED BLOOD COUNT 3.01 M/UL (4.70-6.10); RED CELL DISTRIBUTION WIDTH 14.8 % (11.6-14.8); WHITE BLOOD COUNT 8.5 K/UL (4.8-10.8)
[2016-07-26] MEDS: NovoLOG Insulin Flexpen SUBQ SCH ×4 (06:00→17:49)
[2016-07-26 06:03] LABS: ALANINE AMINOTRANSFERASE 25 U/L (3-41); ALBUMIN/GLOBULIN RATIO 0.4 (1.0-2.7); ANION GAP 13 (5-15); ASPARTATE AMINO TRANSFERASE 26 U/L (5-40); CALCIUM 8.1 mg/dL (8.6-10.2); CARBON DIOXIDE 22 mEQ/L (20-30); CHLORIDE 112 mEQ/L (98-107); CREATININE 1.7 mg/dL (0.7-1.2); HEMOLYSIS 9; MAGNESIUM 1.9 mg/dL (1.7-2.5); PHOSPHORUS 3.5 mg/dL (2.5-4.8); POTASSIUM 4.5 mEQ/L (3.4-4.9); SODIUM 147 mEQ/L (135-145); TOTAL PROTEIN 5.5 g/dL (6.6-8.7)
[2016-07-26] MEDS: Lactobacillus-GG tablet GT SCH ×3 (08:29→17:48)
[2016-07-26] MEDS: Pantoprazole Inj IVP SCH (08:29)
--- NOTE | 2016-07-26 09:11 | Diagnostic Imaging Report ---
Indication: Dyspnea Comparison: 07/24/16 A single view chest radiograph was obtained. Findings: Endotracheal tube, PICC line and nasogastric tubes are in good position. Heart is stable in size. Appearance of the lungs is unchanged. Impression: No changeover operator the last day
--- NOTE | 2016-07-26 09:56 | General Progress Note ---
Assessment/Plan Status: stable - from renal stand Status Narrative Cr remains low Assessment/Plan status: acute renal failure, requiring HD , done 07/16 & 07/19 & no more acute hyperkalemia , resolved Low BP , septic Shock , on Pressors- RESOLVED acute respiratory failure requiring intubation UTI gross hematuria anemia CHF Sever Hypoalbuminemia h/o Parkinsons , OBS , ? Sz Plan: HD 07/19, no further dialysis appears to be needed, DC Dialysis cath from groin 06/23/16--( right groin catheter was discontinued and the site was dressed under pressure and hemostasis acheived) Monitor renal parameters- K supplement as needed- one liter D5 weaning in process Lactobacillus Avoid Nephrotoxics On Renal feeding BP support per orders Subjective ROS Limited/Unobtainable: Yes Allergies: Coded Allergies: No Known Allergies (Unverified , 07/16/16) Objective Last 24 Hour Vital Signs Date Time Temp Pulse Resp B/P Pulse Ox O2 Delivery O2 Flow Rate FiO2 07/26/16 09:00 76 24 105/57 100 Mechanical Ventilator 30 07/26/16 08:39 79 20 30 07/26/16 08:37 97 07/26/16 08:30 30 07/26/16 08:00 80 07/26/16 08:00 99.6 80 21 110/63 100 Mechanical Ventilator 30 07/26/16 08:00 30 07/26/16 07:00 86 22 134/79 100 Mechanical Ventilator 30 07/26/16 06:54 83 22 30 07/26/16 06:00 79 23 123/69 100 Mechanical Ventilator 30 07/26/16 05:09 80 22 30 07/26/16 05:00 84 23 136/75 99 Mechanical Ventilator 30 07/26/16 04:00 30 07/26/16 04:00 96 07/26/16 04:00 99.4 96 28 178/82 100 Mechanical Ventilator 30 07/26/16 03:22 85 24 30 07/26/16 03:00 89 25 131/104 96 Mechanical Ventilator 30 07/26/16 02:00 83 24 137/66 100 Mechanical Ventilator 30 07/26/16 01:12 80 26 30 07/26/16 01:00 89 23 157/77 100 Mechanical Ventilator 30 07/26/16 00:00 30 07/26/16 00:00 89 07/26/16 00:00 99.2 89 23 161/81 97 Mechanical Ventilator 30 07/25/16 23:06 75 24 30 07/25/16 23:00 77 23 151/77 99 Mechanical Ventilator 30 07/25/16 22:00 78 25 158/100 99 Mechanical Ventilator 30 07/25/16 21:00 80 27 148/59 99 Mechanical Ventilator 30 07/25/16 20:59 75 25 30 07/25/16 20:00 30 07/25/16 20:00 66 07/25/16 20:00 98.3 66 21 157/73 99 Mechanical Ventilator 30 07/25/16 19:03 81 22 30 07/25/16 19:00 80 21 145/85 100 Mechanical Ventilator 30 07/25/16 18:00 70 22 128/70 100 Mechanical Ventilator 30 07/25/16 17:00 66 21 127/67 100 Mechanical Ventilator 30 07/25/16 16:38 73 22 30 07/25/16 16:00 70 07/25/16 16:00 98.8 72 29 127/61 100 Mechanical Ventilator 30 07/25/16 16:00 30 07/25/16 15:00 70 19 131/64 100 Mechanical Ventilator 30 07/25/16 14:36 65 22 30 07/25/16 14:00 70 20 112/86 100 Mechanical Ventilator 30 07/25/16 13:00 72 18 102/58 100 Mechanical Ventilator 30 07/25/16 12:47 74 22 30 07/25/16 12:00 30 07/25/16 12:00 99.0 78 21 122/66 100 Mechanical Ventilator 30 07/25/16 12:00 98 07/25/16 11:04 78 22 30 07/25/16 11:00 81 23 118/90 98 Mechanical Ventilator 30 07/25/16 10:00 75 24 111/98 98 Mechanical Ventilator 30 Intake and Output 07/25/16 07/26/16 19:00 07:00 Intake Total 1250 ml 600 ml Output Total 1280 ml 1250 ml Balance -30 ml -650 ml Free Water 300 ml IV Total 50 ml Tube Feeding 600 ml 600 ml Other 300 ml Output Urine Total 1280 ml 1250 ml # Bowel Movements 5 4 Laboratory Tests 07/26/16 04:20: White Blood Count 8.5, Red Blood Count 3.01L, Hemoglobin 9.2L, Hematocrit 27.6L , Mean Corpuscular Volume 92, Mean Corpuscular Hemoglobin 30.6, Mean Corpuscular Hemoglobin Concent 33.4, Red Cell Distribution Width 14.8, Platelet Count 202, Mean Platelet Volume 7.0, Neutrophils (%) (Auto) 78.6H, Lymphocytes ( %) (Auto) 14.6L, Monocytes (%) (Auto) 4.5, Eosinophils (%) (Auto) 1.8, Basophils (%) (Auto) 0.5, Sodium Level 147H, Potassium Level 4.5, Chloride Level 112H, Carbon Dioxide Level 22, Anion Gap 13, Blood Urea Nitrogen 36H, Creatinine 1.7H, Estimat Glomerular Filtration Rate , Glucose Level 103, Calcium Level 8.1L, Phosphorus Level 3.5, Magnesium Level 1.9, Total Bilirubin 0.4, Aspartate Amino Transf (AST/SGOT) 26, Alanine Aminotransferase (ALT/SGPT) 25, Alkaline Phosphatase 232H, Total Protein 5.5L, Albumin 1.8L, Globulin 3.7, Albumin/Globulin Ratio 0.4L Height (Feet): 5 Height (Inches): 8.00 Weight (Pounds): 184 General Appearance: no apparent distress Cardiovascular: normal rate Respiratory/Chest: decreased breath sounds Abdomen: soft Objective other PE not changed HAI THOMPSON Jul 26, 2016 09:56
--- NOTE | 2016-07-26 10:29 | Pulmonolgy Critical Care Note ---
Critical Care - Asmt/Plan Problems: (1) Acute respiratory failure (2) Gram-negative bacteremia (3) ATN (acute tubular necrosis) (4) Hyperkalemia (5) Acute encephalopathy Respiratory: monitor respiratory rate, adjust FIO2 Cardiac: continue to monitor HR/BP Renal: F/U I&O, check electrolytes Infectious Disease: check cultures, continue antibiotics Gastrointestinal: continue feedings/current rate Endocrine: monitor blood sugar, check HgA1C Hematologic: transfuse if hgb<8.5 Neurologic: PRN Morphine, keep patient comfortable Prophylaxis: Protonix Disposition: keep in ICU Notes Reviewed: cardio, renal Discussed with: nurses, consultants, window caser, other - will need to talk to family about plan of care. Critical Care - Objective Last 24 Hour Vital Signs Date Time Temp Pulse Resp B/P Pulse Ox O2 Delivery O2 Flow Rate FiO2 07/26/16 10:00 73 21 105/56 100 Mechanical Ventilator 30 07/26/16 09:54 30 07/26/16 09:46 76 6 30 07/26/16 09:00 76 24 105/57 100 Mechanical Ventilator 30 07/26/16 08:39 79 20 30 07/26/16 08:37 97 07/26/16 08:30 30 07/26/16 08:00 80 07/26/16 08:00 99.6 80 21 110/63 100 Mechanical Ventilator 30 07/26/16 08:00 30 07/26/16 07:00 86 22 134/79 100 Mechanical Ventilator 30 07/26/16 06:54 83 22 30 07/26/16 06:00 79 23 123/69 100 Mechanical Ventilator 30 07/26/16 05:09 80 22 30 07/26/16 05:00 84 23 136/75 99 Mechanical Ventilator 30 07/26/16 04:00 30 07/26/16 04:00 96 07/26/16 04:00 99.4 96 28 178/82 100 Mechanical Ventilator 30 07/26/16 03:22 85 24 30 07/26/16 03:00 89 25 131/104 96 Mechanical Ventilator 30 07/26/16 02:00 83 24 137/66 100 Mechanical Ventilator 30 07/26/16 01:12 80 26 30 07/26/16 01:00 89 23 157/77 100 Mechanical Ventilator 30 07/26/16 00:00 30 07/26/16 00:00 89 07/26/16 00:00 99.2 89 23 161/81 97 Mechanical Ventilator 30 07/25/16 23:06 75 24 30 07/25/16 23:00 77 23 151/77 99 Mechanical Ventilator 30 07/25/16 22:00 78 25 158/100 99 Mechanical Ventilator 30 07/25/16 21:00 80 27 148/59 99 Mechanical Ventilator 30 07/25/16 20:59 75 25 30 07/25/16 20:00 30 07/25/16 20:00 66 07/25/16 20:00 98.3 66 21 157/73 99 Mechanical Ventilator 30 07/25/16 19:03 81 22 30 07/25/16 19:00 80 21 145/85 100 Mechanical Ventilator 30 07/25/16 18:00 70 22 128/70 100 Mechanical Ventilator 30 07/25/16 17:00 66 21 127/67 100 Mechanical Ventilator 30 07/25/16 16:38 73 22 30 07/25/16 16:00 70 07/25/16 16:00 98.8 72 29 127/61 100 Mechanical Ventilator 30 07/25/16 16:00 30 07/25/16 15:00 70 19 131/64 100 Mechanical Ventilator 30 07/25/16 14:36 65 22 30 07/25/16 14:00 70 20 112/86 100 Mechanical Ventilator 30 07/25/16 13:00 72 18 102/58 100 Mechanical Ventilator 30 07/25/16 12:47 74 22 30 07/25/16 12:00 30 07/25/16 12:00 99.0 78 21 122/66 100 Mechanical Ventilator 30 07/25/16 12:00 98 07/25/16 11:04 78 22 30 07/25/16 11:00 81 23 118/90 98 Mechanical Ventilator 30 Status: somnolent Condition: critical HEENT: atraumatic Neck: full ROM Lungs: clear, chest wall tender Heart: HR/BP stable Abdomen: soft, non-tender Extremities: no C/C/E, edema Accucheck: 88 Critical Care - Subjective ROS Limited/Unobtainable: Yes - 1 ICU Day: 10 Condition: critical EKG Rhythm: Sinus Rhythm FI02: 30 Vent Support Breath Rate: 8 Vent Support Mode: CPAP Vent Tidal Volume: 500 Sputum Amount: Moderate PEEP: 5.0 PIP: 19 Secretions: small Tube Feeding Amount: 50 I&O: Intake and Output 07/25/16 07/26/16 19:00 07:00 Intake Total 1250 ml 600 ml Output Total 1280 ml 1250 ml Balance -30 ml -650 ml Free Water 300 ml IV Total 50 ml Tube Feeding 600 ml 600 ml Other 300 ml Output Urine Total 1280 ml 1250 ml # Bowel Movements 5 4 Subjective: comfortable CXR: no rehman ET-Tube: 8.0 ET Position: 24 Labs: Laboratory Tests Test 07/26/16 04:20 White Blood Count 8.5 K/UL (4.8-10.8) Red Blood Count 3.01 M/UL (4.70-6.10) L Hemoglobin 9.2 G/DL (14.2-18.0) L Hematocrit 27.6 % (42.0-52.0) L Mean Corpuscular Volume 92 FL (80-99) Mean Corpuscular Hemoglobin 30.6 PG (27.0-31.0) Mean Corpuscular Hemoglobin Concent 33.4 G/DL (32.0-36.0) Red Cell Distribution Width 14.8 % (11.6-14.8) Platelet Count 202 K/UL (150-450) Mean Platelet Volume 7.0 FL (6.5-10.1) Neutrophils (%) (Auto) 78.6 % (45.0-75.0) H Lymphocytes (%) (Auto) 14.6 % (20.0-45.0) L Monocytes (%) (Auto) 4.5 % (1.0-10.0) Eosinophils (%) (Auto) 1.8 % (0.0-3.0) Basophils (%) (Auto) 0.5 % (0.0-2.0) Sodium Level 147 mEQ/L (135-145) H Potassium Level 4.5 mEQ/L (3.4-4.9) Chloride Level 112 mEQ/L (98-107) H Carbon Dioxide Level 22 mEQ/L (20-30) Anion Gap 13 (5-15) Blood Urea Nitrogen 36 mg/dL (7-23) H Creatinine 1.7 mg/dL (0.7-1.2) H Estimat Glomerular Filtration Rate mL/min (>60) Glucose Level 103 mg/dL (74-106) Calcium Level 8.1 mg/dL (8.6-10.2) L Phosphorus Level 3.5 mg/dL (2.5-4.8) Magnesium Level 1.9 mg/dL (1.7-2.5) Total Bilirubin 0.4 mg/dL (0.0-1.2) Aspartate Amino Transf (AST/SGOT) 26 U/L (5-40) Alanine Aminotransferase (ALT/SGPT) 25 U/L (3-41) Alkaline Phosphatase 232 U/L (40-129) H Total Protein 5.5 g/dL (6.6-8.7) L Albumin 1.8 g/dL (3.5-5.2) L Globulin 3.7 g/dL Albumin/Globulin Ratio 0.4 (1.0-2.7) L MACARENA FLANNERY Jul 26, 2016 10:29
--- NOTE | 2016-07-26 10:57 | Infectious Diseases Prog Note ---
Assessment/Plan Assessment/Plan A: The patient is an 80-year-old male with Leukocytosis - resolved, afebrile Septic shock SP - off of pressors Urinary tract infection : P mirabilis x 2 CT: Diffuse thickening of the urinary bladder wall consistent with cystitis. Garcia in good position. Mild bilateral hydronephrosis probably on the basis of a bladder disease. Thickening of the uroepithelium suggestive of chronic inflammation or infection. Prostate enlargement Bacteremia P mirabilis Acute VDRF - failed weaning, may need trach Left adrenal mass CT: 3 x 8.7 x 4.8 cm mass posterior to the pancreas possibly arising from the left adrenal gland. Renal insufficiency SP hemodialysis x 2 Hypernatremia Dementia Parkinson disease Seizure disorder History of congestive heart failure Post pacemaker placement Chronic BLE DVT Obesity Renal insufficiency Hematuria Depression Anemia PLAN: continue levaquin d # 7 /10 6/ IV Zosyn d# 4 Monitor CBC Monitor BMP. vent support, wean as tolerated - may need trach HD on hold as per Nephro Subjective Allergies: Coded Allergies: No Known Allergies (Unverified , 07/16/16) Subjective on vent Objective Vital Signs Last 24 Hour Vital Signs Date Time Temp Pulse Resp B/P Pulse Ox O2 Delivery O2 Flow Rate FiO2 07/26/16 10:53 82 20 30 07/26/16 10:00 73 21 105/56 100 Mechanical Ventilator 30 07/26/16 09:54 30 07/26/16 09:46 76 6 30 07/26/16 09:00 76 24 105/57 100 Mechanical Ventilator 30 07/26/16 08:39 79 20 30 07/26/16 08:37 97 07/26/16 08:30 30 07/26/16 08:00 80 07/26/16 08:00 99.6 80 21 110/63 100 Mechanical Ventilator 30 07/26/16 08:00 30 07/26/16 07:00 86 22 134/79 100 Mechanical Ventilator 30 07/26/16 06:54 83 22 30 07/26/16 06:00 79 23 123/69 100 Mechanical Ventilator 30 07/26/16 05:09 80 22 30 07/26/16 05:00 84 23 136/75 99 Mechanical Ventilator 30 07/26/16 04:00 30 07/26/16 04:00 96 07/26/16 04:00 99.4 96 28 178/82 100 Mechanical Ventilator 30 07/26/16 03:22 85 24 30 07/26/16 03:00 89 25 131/104 96 Mechanical Ventilator 30 07/26/16 02:00 83 24 137/66 100 Mechanical Ventilator 30 07/26/16 01:12 80 26 30 07/26/16 01:00 89 23 157/77 100 Mechanical Ventilator 30 07/26/16 00:00 30 07/26/16 00:00 89 07/26/16 00:00 99.2 89 23 161/81 97 Mechanical Ventilator 30 07/25/16 23:06 75 24 30 07/25/16 23:00 77 23 151/77 99 Mechanical Ventilator 30 07/25/16 22:00 78 25 158/100 99 Mechanical Ventilator 30 07/25/16 21:00 80 27 148/59 99 Mechanical Ventilator 30 07/25/16 20:59 75 25 30 07/25/16 20:00 30 07/25/16 20:00 66 07/25/16 20:00 98.3 66 21 157/73 99 Mechanical Ventilator 30 07/25/16 19:03 81 22 30 07/25/16 19:00 80 21 145/85 100 Mechanical Ventilator 30 07/25/16 18:00 70 22 128/70 100 Mechanical Ventilator 30 07/25/16 17:00 66 21 127/67 100 Mechanical Ventilator 30 07/25/16 16:38 73 22 30 07/25/16 16:00 70 07/25/16 16:00 98.8 72 29 127/61 100 Mechanical Ventilator 30 07/25/16 16:00 30 07/25/16 15:00 70 19 131/64 100 Mechanical Ventilator 30 07/25/16 14:36 65 22 30 07/25/16 14:00 70 20 112/86 100 Mechanical Ventilator 30 07/25/16 13:00 72 18 102/58 100 Mechanical Ventilator 30 07/25/16 12:47 74 22 30 07/25/16 12:00 30 07/25/16 12:00 99.0 78 21 122/66 100 Mechanical Ventilator 30 07/25/16 12:00 98 07/25/16 11:04 78 22 30 07/25/16 11:00 81 23 118/90 98 Mechanical Ventilator 30 Height (Feet): 5 Height (Inches): 8.00 Weight (Pounds): 184 HEENT: anicteric Respiratory/Chest: lungs clear Cardiovascular: regular rhythm Abdomen: no organomegaly Laboratory Tests Test 07/26/16 04:20 White Blood Count 8.5 K/UL (4.8-10.8) Red Blood Count 3.01 M/UL (4.70-6.10) L Hemoglobin 9.2 G/DL (14.2-18.0) L Hematocrit 27.6 % (42.0-52.0) L Mean Corpuscular Volume 92 FL (80-99) Mean Corpuscular Hemoglobin 30.6 PG (27.0-31.0) Mean Corpuscular Hemoglobin Concent 33.4 G/DL (32.0-36.0) Red Cell Distribution Width 14.8 % (11.6-14.8) Platelet Count 202 K/UL (150-450) Mean Platelet Volume 7.0 FL (6.5-10.1) Neutrophils (%) (Auto) 78.6 % (45.0-75.0) H Lymphocytes (%) (Auto) 14.6 % (20.0-45.0) L Monocytes (%) (Auto) 4.5 % (1.0-10.0) Eosinophils (%) (Auto) 1.8 % (0.0-3.0) Basophils (%) (Auto) 0.5 % (0.0-2.0) Sodium Level 147 mEQ/L (135-145) H Potassium Level 4.5 mEQ/L (3.4-4.9) Chloride Level 112 mEQ/L (98-107) H Carbon Dioxide Level 22 mEQ/L (20-30) Anion Gap 13 (5-15) Blood Urea Nitrogen 36 mg/dL (7-23) H Creatinine 1.7 mg/dL (0.7-1.2) H Estimat Glomerular Filtration Rate mL/min (>60) Glucose Level 103 mg/dL (74-106) Calcium Level 8.1 mg/dL (8.6-10.2) L Phosphorus Level 3.5 mg/dL (2.5-4.8) Magnesium Level 1.9 mg/dL (1.7-2.5) Total Bilirubin 0.4 mg/dL (0.0-1.2) Aspartate Amino Transf (AST/SGOT) 26 U/L (5-40) Alanine Aminotransferase (ALT/SGPT) 25 U/L (3-41) Alkaline Phosphatase 232 U/L (40-129) H Total Protein 5.5 g/dL (6.6-8.7) L Albumin 1.8 g/dL (3.5-5.2) L Globulin 3.7 g/dL Albumin/Globulin Ratio 0.4 (1.0-2.7) L Current Medications Medications (Trade) Dose Ordered Sig/Janay Route PRN Reason Start Time Stop Time Status Last Admin Dose Admin Acetaminophen (Tylenol) 650 mg Q4H PRN ORAL fever 07/16/16 15:15 08/15/16 15:14 07/24/16 14:36 Chlorhexidine Gluconate (Loree-Hex 2%) 1 applic Q24H TOPIC 07/20/16 23:00 08/19/16 22:59 07/26/16 00:34 Dextrose (Dextrose 50%) STAT PRN IV Hypoglycemia 07/19/16 17:30 08/18/16 17:29 Insulin Aspart (NovoLOG) Q6HR SUBQ 07/19/16 18:30 08/18/16 18:29 07/25/16 11:57 Lactobacillus Acidophilus (Culturelle) 1 tab THREE TIMES A DAY GT 07/21/16 13:00 08/20/16 12:59 07/26/16 08:29 Levofloxacin (Levaquin) 50 ml @ 50 mls/hr Q24H IVPB 07/25/16 18:00 07/29/16 23:59 07/25/16 17:41 Nitroglycerin (Ntg) 0.4 mg Q5M PRN SL Prn Chest Pain 07/16/16 15:15 08/15/16 15:14 Ondansetron HCl (Zofran) 4 mg Q6H PRN IVP Nausea & Vomiting 07/16/16 15:15 08/15/16 15:14 Pantoprazole 40 mg 40 mg DAILY IVP 07/25/16 09:00 08/24/16 08:59 07/26/16 08:29 Polyethylene Glycol (Miralax) 17 gm DAILYPRN PRN ORAL Constipation 07/16/16 15:15 08/15/16 15:14 PHILLIP BARNES M.D. Jul 26, 2016 10:56
[2016-07-26 11:04] LABS: ABG ALLEN TEST POSITIVE; ABG BASE EXCESS -0.8; ABG PCO2 32.3 mmHg (35.0-45.0)
[2016-07-26] MEDS ORDERED: NS 275ml ONE (11:07)
[2016-07-26] MEDS ORDERED: NS Irrig 1000ml ONE (11:08)
[2016-07-26] MEDS: Levofloxacin 250mg/D5W 50ml IVPB SCH (17:49)
[2016-07-27] VITALS (24 sets, daily range): BP systolic 105–141; BP diastolic 47–95
[2016-07-27 05:28] LABS: BASOPHILS % (AUTO) 0.6 % (0.0-2.0); EOSINOPHILS % (AUTO) 2.1 % (0.0-3.0); LYMPHOCYTES % (AUTO) 15.7 % (20.0-45.0); MEAN CORPUSCULAR HEMOGLOBIN 29.8 PG (27.0-31.0); MEAN CORPUSCULAR HGB CONC 32.3 G/DL (32.0-36.0); MEAN CORPUSCULAR VOLUME 92 FL (80-99); MEAN PLATELET VOLUME 7.1 FL (6.5-10.1); MONOCYTES % (AUTO) 5.4 % (1.0-10.0); NEUTROPHILS % (AUTO) 76.1 % (45.0-75.0); PLATELET COUNT 194 K/UL (150-450); RED BLOOD COUNT 2.96 M/UL (4.70-6.10); WHITE BLOOD COUNT 7.4 K/UL (4.8-10.8)
[2016-07-27] MEDS: NovoLOG Insulin Flexpen SUBQ SCH ×4 (05:35→17:17)
[2016-07-27 05:59] LABS: ALANINE AMINOTRANSFERASE 22 U/L (3-41); ALBUMIN/GLOBULIN RATIO 0.4 (1.0-2.7); ANION GAP 12 (5-15); ASPARTATE AMINO TRANSFERASE 22 U/L (5-40); CALCIUM 8.1 mg/dL (8.6-10.2); CARBON DIOXIDE 21 mEQ/L (20-30); CHLORIDE 110 mEQ/L (98-107); CREATININE 1.6 mg/dL (0.7-1.2); HEMOLYSIS 1; MAGNESIUM 1.8 mg/dL (1.7-2.5); PHOSPHORUS 3.3 mg/dL (2.5-4.8); POTASSIUM 4.6 mEQ/L (3.4-4.9); SODIUM 143 mEQ/L (135-145); TOTAL PROTEIN 5.6 g/dL (6.6-8.7)
[2016-07-27] MEDS: Pantoprazole Inj IVP SCH (08:00)
[2016-07-27] MEDS: Lactobacillus-GG tablet GT SCH ×3 (08:00→17:17)
[2016-07-27 09:47] LABS: ABG PCO2 33.4 mmHg (35.0-45.0)
[2016-07-27 09:48] LABS: ABG ALLEN TEST POSITIVE; ABG BASE EXCESS 0.3
--- NOTE | 2016-07-27 10:05 | Diagnostic Imaging Report ---
Indications: DYSPNEA Technique: Portable AP chest Findings: Comparison: 07/26/2016 Right lung base linear opacity, right costophrenic angle blunting, hazy opacity overlying right hemithorax persists, unchanged. Left lung and pleura remain clear. Heart size and pulmonary vasculature remain within normal limits. Lines and tubes remain in place. IMPRESSION: Stable right lung base subsegmental atelectasis and adjacent pleural effusion. Superimposed pulmonary infiltrate not excludable, unchanged. No new abnormality
--- NOTE | 2016-07-27 10:28 | Pulmonolgy Critical Care Note ---
Critical Care - Asmt/Plan Problems: (1) Acute respiratory failure (2) Gram-negative bacteremia (3) ATN (acute tubular necrosis) (4) Hyperkalemia (5) Acute encephalopathy Respiratory: monitor respiratory rate, adjust FIO2, CXR Cardiac: continue to monitor HR/BP Renal: F/U I&O, check electrolytes Infectious Disease: check cultures, continue antibiotics Gastrointestinal: continue feedings/current rate Endocrine: monitor blood sugar, check TSH Hematologic: monitor H/H, transfuse if hgb<8.5 Neurologic: PRN Ativan, PRN Morphine, keep patient comfortable Prophylaxis: Protonix, Heparin Notes Reviewed: renal, ID Discussed with: nurses, consultants, patient case coordinatorcreative resource manager - Objective Last 24 Hour Vital Signs Date Time Temp Pulse Resp B/P Pulse Ox O2 Delivery O2 Flow Rate FiO2 07/27/16 09:27 78 24 30 07/27/16 09:03 99 07/27/16 09:00 94 21 141/95 97 Mechanical Ventilator 30 07/27/16 08:00 99.0 82 24 117/62 97 Mechanical Ventilator 30 07/27/16 08:00 83 07/27/16 07:57 30 07/27/16 07:00 95 26 30 07/27/16 07:00 94 21 118/82 97 Mechanical Ventilator 30 07/27/16 06:00 79 21 113/66 96 Mechanical Ventilator 30 07/27/16 05:12 93 24 30 07/27/16 05:00 88 21 106/53 100 Mechanical Ventilator 30 07/27/16 04:00 84 07/27/16 04:00 30 07/27/16 04:00 98.0 85 19 105/53 100 Mechanical Ventilator 30 07/27/16 03:24 78 28 30 07/27/16 03:00 80 19 120/75 100 Mechanical Ventilator 30 07/27/16 02:00 77 20 122/75 100 Mechanical Ventilator 30 07/27/16 01:00 76 21 127/75 100 Mechanical Ventilator 30 07/27/16 00:37 69 20 30 07/27/16 00:00 74 07/27/16 00:00 97.9 81 21 130/76 100 Mechanical Ventilator 30 07/27/16 00:00 30 07/26/16 23:00 79 20 115/57 100 Mechanical Ventilator 30 07/26/16 22:36 72 22 30 07/26/16 22:00 68 20 127/92 100 Mechanical Ventilator 30 07/26/16 21:02 80 26 30 07/26/16 21:00 78 20 153/89 100 Mechanical Ventilator 30 07/26/16 20:00 98.5 78 20 123/65 100 Mechanical Ventilator 30 07/26/16 20:00 79 07/26/16 19:11 30 07/26/16 19:10 77 25 30 07/26/16 19:00 77 20 119/69 100 Mechanical Ventilator 30 07/26/16 18:00 64 21 106/62 100 Mechanical Ventilator 30 07/26/16 17:20 84 24 30 07/26/16 17:00 67 20 130/76 100 Mechanical Ventilator 30 07/26/16 16:00 73 07/26/16 16:00 30 07/26/16 16:00 98.6 76 24 112/58 100 Mechanical Ventilator 30 07/26/16 15:00 66 19 108/57 100 Mechanical Ventilator 30 07/26/16 14:49 64 19 30 07/26/16 14:00 63 20 112/60 100 Mechanical Ventilator 30 07/26/16 13:04 65 20 30 07/26/16 13:00 66 19 94/59 98 Mechanical Ventilator 30 07/26/16 12:00 30 07/26/16 12:00 72 07/26/16 12:00 99.2 70 18 111/55 98 Mechanical Ventilator 30 07/26/16 11:00 82 20 132/73 100 Mechanical Ventilator 30 07/26/16 10:53 82 20 30 Status: somnolent Condition: critical HEENT: atraumatic Neck: full ROM Lungs: clear, chest wall tender Heart: HR/BP stable, regular Abdomen: soft, non-tender, active bowel sounds Extremities: no C/C/E, edema Decubiti: location, stage Accucheck: 108 Critical Care - Subjective ROS Limited/Unobtainable: No Condition: critical EKG Rhythm: Sinus Rhythm FI02: 30 Vent Support Breath Rate: 8 Vent Support Mode: IMV/SIMV Vent Tidal Volume: 500 Sputum Amount: Moderate PEEP: 5.0 PIP: 26 Tube Feeding Amount: 50 I&O: Intake and Output 07/26/16 07/27/16 19:00 07:00 Intake Total 1130 ml 900 ml Output Total 1430 ml 1350 ml Balance -300 ml -450 ml Free Water 300 ml 300 ml IV Total 50 ml Tube Feeding 600 ml 600 ml Other 180 ml Output Urine Total 1430 ml 1350 ml # Bowel Movements 4 3 Subjective: comfortable CXR: no new changes, ET in good position ET-Tube: 8.0 ET Position: 24 Labs: Laboratory Tests Test 07/26/16 10:50 07/27/16 04:30 07/27/16 09:30 Arterial Blood pH 7.462 (7.350-7.450) 7.469 (7.350-7.450) Arterial Blood Partial Pressure CO2 32.3 mmHg (35.0-45.0) L 33.4 mmHg (35.0-45.0) L Arterial Blood Partial Pressure O2 95.7 mmHg (75.0-100.0) 105.2 mmHg (75.0-100.0) H Arterial Blood HCO3 22.8 mmol/L (22.0-26.0) 23.7 mmol/L (22.0-26.0) Arterial Blood Oxygen Saturation 96.6 % (92.0-98.0) 97.4 % (92.0-98.0) Arterial Blood Base Excess -0.8 0.3 Caleb Test Positive Positive White Blood Count 7.4 K/UL (4.8-10.8) Red Blood Count 2.96 M/UL (4.70-6.10) L Hemoglobin 8.8 G/DL (14.2-18.0) L Hematocrit 27.3 % (42.0-52.0) L Mean Corpuscular Volume 92 FL (80-99) Mean Corpuscular Hemoglobin 29.8 PG (27.0-31.0) Mean Corpuscular Hemoglobin Concent 32.3 G/DL (32.0-36.0) Red Cell Distribution Width 15.0 % (11.6-14.8) H Platelet Count 194 K/UL (150-450) Mean Platelet Volume 7.1 FL (6.5-10.1) Neutrophils (%) (Auto) 76.1 % (45.0-75.0) H Lymphocytes (%) (Auto) 15.7 % (20.0-45.0) L Monocytes (%) (Auto) 5.4 % (1.0-10.0) Eosinophils (%) (Auto) 2.1 % (0.0-3.0) Basophils (%) (Auto) 0.6 % (0.0-2.0) Sodium Level 143 mEQ/L (135-145) Potassium Level 4.6 mEQ/L (3.4-4.9) Chloride Level 110 mEQ/L (98-107) H Carbon Dioxide Level 21 mEQ/L (20-30) Anion Gap 12 (5-15) Blood Urea Nitrogen 32 mg/dL (7-23) H Creatinine 1.6 mg/dL (0.7-1.2) H Estimat Glomerular Filtration Rate mL/min (>60) Glucose Level 119 mg/dL (74-106) H Calcium Level 8.1 mg/dL (8.6-10.2) L Phosphorus Level 3.3 mg/dL (2.5-4.8) Magnesium Level 1.8 mg/dL (1.7-2.5) Total Bilirubin 0.4 mg/dL (0.0-1.2) Aspartate Amino Transf (AST/SGOT) 22 U/L (5-40) Alanine Aminotransferase (ALT/SGPT) 22 U/L (3-41) Alkaline Phosphatase 214 U/L (40-129) H Total Protein 5.6 g/dL (6.6-8.7) L Albumin 1.8 g/dL (3.5-5.2) L Globulin 3.8 g/dL Albumin/Globulin Ratio 0.4 (1.0-2.7) L MACARENA FLANNERY Jul 27, 2016 10:28
--- NOTE | 2016-07-27 10:45 | General Progress Note ---
Assessment/Plan Status: stable Status Narrative Cr 1.6 Assessment/Plan status: acute renal failure, requiring HD , done 07/16 & 07/19 & no more acute hyperkalemia , resolved Low BP , septic Shock , on Pressors- RESOLVED acute respiratory failure requiring intubation UTI gross hematuria anemia CHF Sever Hypoalbuminemia h/o Parkinsons , OBS , ? Sz Plan: HD 07/19, no further dialysis appears to be needed, DC Dialysis cath from groin 06/23/16--( right groin catheter was discontinued and the site was dressed under pressure and hemostasis acheived) Monitor renal parameters- K supplement as needed- one liter D5 weaning in process Lactobacillus Avoid Nephrotoxics On Renal feeding BP support per orders Subjective ROS Limited/Unobtainable: Yes Allergies: Coded Allergies: No Known Allergies (Unverified , 07/16/16) Objective Last 24 Hour Vital Signs Date Time Temp Pulse Resp B/P Pulse Ox O2 Delivery O2 Flow Rate FiO2 07/27/16 10:00 77 26 131/81 96 Mechanical Ventilator 30 07/27/16 09:27 78 24 30 07/27/16 09:03 99 07/27/16 09:00 94 21 141/95 97 Mechanical Ventilator 30 07/27/16 08:00 99.0 82 24 117/62 97 Mechanical Ventilator 30 07/27/16 08:00 83 07/27/16 07:57 30 07/27/16 07:00 95 26 30 07/27/16 07:00 94 21 118/82 97 Mechanical Ventilator 30 07/27/16 06:00 79 21 113/66 96 Mechanical Ventilator 30 07/27/16 05:12 93 24 30 07/27/16 05:00 88 21 106/53 100 Mechanical Ventilator 30 07/27/16 04:00 84 07/27/16 04:00 30 07/27/16 04:00 98.0 85 19 105/53 100 Mechanical Ventilator 30 07/27/16 03:24 78 28 30 07/27/16 03:00 80 19 120/75 100 Mechanical Ventilator 30 07/27/16 02:00 77 20 122/75 100 Mechanical Ventilator 30 07/27/16 01:00 76 21 127/75 100 Mechanical Ventilator 30 07/27/16 00:37 69 20 30 07/27/16 00:00 74 07/27/16 00:00 97.9 81 21 130/76 100 Mechanical Ventilator 30 07/27/16 00:00 30 07/26/16 23:00 79 20 115/57 100 Mechanical Ventilator 30 07/26/16 22:36 72 22 30 07/26/16 22:00 68 20 127/92 100 Mechanical Ventilator 30 07/26/16 21:02 80 26 30 07/26/16 21:00 78 20 153/89 100 Mechanical Ventilator 30 07/26/16 20:00 98.5 78 20 123/65 100 Mechanical Ventilator 30 07/26/16 20:00 79 07/26/16 19:11 30 07/26/16 19:10 77 25 30 07/26/16 19:00 77 20 119/69 100 Mechanical Ventilator 30 07/26/16 18:00 64 21 106/62 100 Mechanical Ventilator 30 07/26/16 17:20 84 24 30 07/26/16 17:00 67 20 130/76 100 Mechanical Ventilator 30 07/26/16 16:00 73 07/26/16 16:00 30 07/26/16 16:00 98.6 76 24 112/58 100 Mechanical Ventilator 30 07/26/16 15:00 66 19 108/57 100 Mechanical Ventilator 30 07/26/16 14:49 64 19 30 07/26/16 14:00 63 20 112/60 100 Mechanical Ventilator 30 07/26/16 13:04 65 20 30 07/26/16 13:00 66 19 94/59 98 Mechanical Ventilator 30 07/26/16 12:00 30 07/26/16 12:00 72 07/26/16 12:00 99.2 70 18 111/55 98 Mechanical Ventilator 30 07/26/16 11:00 82 20 132/73 100 Mechanical Ventilator 30 07/26/16 10:53 82 20 30 Intake and Output 07/26/16 07/27/16 19:00 07:00 Intake Total 1130 ml 900 ml Output Total 1430 ml 1350 ml Balance -300 ml -450 ml Free Water 300 ml 300 ml IV Total 50 ml Tube Feeding 600 ml 600 ml Other 180 ml Output Urine Total 1430 ml 1350 ml # Bowel Movements 4 3 Laboratory Tests 07/26/16 10:50: Arterial Blood pH 7.462H, Arterial Blood Partial Pressure CO2 32.3L, Arterial Blood Partial Pressure O2 95.7, Arterial Blood HCO3 22.8, Arterial Blood Oxygen Saturation 96.6, Arterial Blood Base Excess -0.8, Caleb Test Positive 07/27/16 04:30: White Blood Count 7.4, Red Blood Count 2.96L, Hemoglobin 8.8L, Hematocrit 27.3L , Mean Corpuscular Volume 92, Mean Corpuscular Hemoglobin 29.8, Mean Corpuscular Hemoglobin Concent 32.3, Red Cell Distribution Width 15.0H, Platelet Count 194, Mean Platelet Volume 7.1, Neutrophils (%) (Auto) 76.1H, Lymphocytes (%) (Auto) 15.7L, Monocytes (%) (Auto) 5.4, Eosinophils (%) (Auto) 2.1, Basophils (%) (Auto) 0.6, Sodium Level 143, Potassium Level 4.6, Chloride Level 110H, Carbon Dioxide Level 21, Anion Gap 12, Blood Urea Nitrogen 32H, Creatinine 1.6H, Estimat Glomerular Filtration Rate , Glucose Level 119H, Calcium Level 8.1L, Phosphorus Level 3.3, Magnesium Level 1.8, Total Bilirubin 0.4, Aspartate Amino Transf (AST/SGOT) 22, Alanine Aminotransferase (ALT/SGPT) 22, Alkaline Phosphatase 214H, Total Protein 5.6L, Albumin 1.8L, Globulin 3.8, Albumin/Globulin Ratio 0.4L 07/27/16 09:30: Arterial Blood pH 7.469H, Arterial Blood Partial Pressure CO2 33.4L, Arterial Blood Partial Pressure O2 105.2H, Arterial Blood HCO3 23.7, Arterial Blood Oxygen Saturation 97.4, Arterial Blood Base Excess 0.3, Caleb Test Positive Height (Feet): 5 Height (Inches): 8.00 Weight (Pounds): 186 General Appearance: no apparent distress Objective other PE not changed HAI THOMPSON Jul 27, 2016 10:45
--- NOTE | 2016-07-27 11:08 | Diagnostic Imaging Report ---
Indication: DYSPNEA Technique: One view of the chest Comparison: 07/25/2016 Findings: Stable satisfactory positions of endotracheal tube, nasogastric tube. Right arm midline is again demonstrated. Mild interstitial prominence throughout the right lung is noted. Fibronodular scarring is again demonstrated at the right lung apex. No new infiltrates or significant interim change Impression: Unchanged, over one day, findings as above.
--- NOTE | 2016-07-27 11:10 | Diagnostic Imaging Report ---
Indication:Elevated Bun and Creatinine. Technique: Grayscale and duplex Doppler imaging of the kidneys performed. Comparison: None Findings: There is mild right hydronephrosis demonstrated. No hydronephrosis on the left side demonstrated. Renal cortical echogenicity appears increased. Please correlate clinically for medical renal disease. IVC is grossly unremarkable. The right kidney measures 9 CM. Left kidney 10.7 CM in length. Impression: mild right hydronephrosis Garcia catheter Probable medical renal disease
--- NOTE | 2016-07-27 12:35 | Infectious Diseases Prog Note ---
Assessment/Plan Assessment/Plan A: The patient is an 80-year-old male with Leukocytosis - resolved, afebrile Septic shock SP - off of pressors Urinary tract infection : P mirabilis x 2 CT: Diffuse thickening of the urinary bladder wall consistent with cystitis. Garcia in good position. Mild bilateral hydronephrosis probably on the basis of a bladder disease. Thickening of the uroepithelium suggestive of chronic inflammation or infection. Prostate enlargement Bacteremia P mirabilis Acute VDRF - failed weaning, may need trach Left adrenal mass CT: 3 x 8.7 x 4.8 cm mass posterior to the pancreas possibly arising from the left adrenal gland. Renal insufficiency SP hemodialysis x 2 Hypernatremia Dementia Parkinson disease Seizure disorder History of congestive heart failure Post pacemaker placement Chronic BLE DVT Obesity Renal insufficiency Hematuria Depression Anemia PLAN: continue levaquin d # 8 /10 6/ IV Zosyn d# 4 Monitor CBC Monitor BMP. vent support, wean as tolerated - may need trach HD on hold as per Nephro Subjective Constitutional: Denies: anorexia, chills, drenching sweats, fatigue, fever, no symptoms, other Allergies: Coded Allergies: No Known Allergies (Unverified , 07/16/16) Subjective on vent Objective Vital Signs Last 24 Hour Vital Signs Date Time Temp Pulse Resp B/P Pulse Ox O2 Delivery O2 Flow Rate FiO2 07/27/16 12:00 30 07/27/16 12:00 98.9 76 22 123/69 100 Mechanical Ventilator 30 07/27/16 11:28 76 29 30 07/27/16 11:00 76 22 124/67 100 Mechanical Ventilator 30 07/27/16 10:00 77 26 131/81 96 Mechanical Ventilator 30 07/27/16 09:27 78 24 30 07/27/16 09:03 99 07/27/16 09:00 94 21 141/95 97 Mechanical Ventilator 30 07/27/16 08:00 99.0 82 24 117/62 97 Mechanical Ventilator 30 07/27/16 08:00 83 07/27/16 07:57 30 07/27/16 07:00 95 26 30 07/27/16 07:00 94 21 118/82 97 Mechanical Ventilator 30 07/27/16 06:00 79 21 113/66 96 Mechanical Ventilator 30 07/27/16 05:12 93 24 30 07/27/16 05:00 88 21 106/53 100 Mechanical Ventilator 30 07/27/16 04:00 84 07/27/16 04:00 30 07/27/16 04:00 98.0 85 19 105/53 100 Mechanical Ventilator 30 07/27/16 03:24 78 28 30 07/27/16 03:00 80 19 120/75 100 Mechanical Ventilator 30 07/27/16 02:00 77 20 122/75 100 Mechanical Ventilator 30 07/27/16 01:00 76 21 127/75 100 Mechanical Ventilator 30 07/27/16 00:37 69 20 30 07/27/16 00:00 74 07/27/16 00:00 97.9 81 21 130/76 100 Mechanical Ventilator 30 07/27/16 00:00 30 07/26/16 23:00 79 20 115/57 100 Mechanical Ventilator 30 07/26/16 22:36 72 22 30 07/26/16 22:00 68 20 127/92 100 Mechanical Ventilator 30 07/26/16 21:02 80 26 30 07/26/16 21:00 78 20 153/89 100 Mechanical Ventilator 30 07/26/16 20:00 98.5 78 20 123/65 100 Mechanical Ventilator 30 07/26/16 20:00 79 07/26/16 19:11 30 07/26/16 19:10 77 25 30 07/26/16 19:00 77 20 119/69 100 Mechanical Ventilator 30 07/26/16 18:00 64 21 106/62 100 Mechanical Ventilator 30 07/26/16 17:20 84 24 30 07/26/16 17:00 67 20 130/76 100 Mechanical Ventilator 30 07/26/16 16:00 73 07/26/16 16:00 30 07/26/16 16:00 98.6 76 24 112/58 100 Mechanical Ventilator 30 07/26/16 15:00 66 19 108/57 100 Mechanical Ventilator 30 07/26/16 14:49 64 19 30 07/26/16 14:00 63 20 112/60 100 Mechanical Ventilator 30 07/26/16 13:04 65 20 30 07/26/16 13:00 66 19 94/59 98 Mechanical Ventilator 30 Height (Feet): 5 Height (Inches): 8.00 Weight (Pounds): 186 HEENT: anicteric Respiratory/Chest: no respiratory distress Cardiovascular: regularly irregular Abdomen: no organomegaly Laboratory Tests Test 07/27/16 04:30 07/27/16 09:30 White Blood Count 7.4 K/UL (4.8-10.8) Red Blood Count 2.96 M/UL (4.70-6.10) L Hemoglobin 8.8 G/DL (14.2-18.0) L Hematocrit 27.3 % (42.0-52.0) L Mean Corpuscular Volume 92 FL (80-99) Mean Corpuscular Hemoglobin 29.8 PG (27.0-31.0) Mean Corpuscular Hemoglobin Concent 32.3 G/DL (32.0-36.0) Red Cell Distribution Width 15.0 % (11.6-14.8) H Platelet Count 194 K/UL (150-450) Mean Platelet Volume 7.1 FL (6.5-10.1) Neutrophils (%) (Auto) 76.1 % (45.0-75.0) H Lymphocytes (%) (Auto) 15.7 % (20.0-45.0) L Monocytes (%) (Auto) 5.4 % (1.0-10.0) Eosinophils (%) (Auto) 2.1 % (0.0-3.0) Basophils (%) (Auto) 0.6 % (0.0-2.0) Sodium Level 143 mEQ/L (135-145) Potassium Level 4.6 mEQ/L (3.4-4.9) Chloride Level 110 mEQ/L (98-107) H Carbon Dioxide Level 21 mEQ/L (20-30) Anion Gap 12 (5-15) Blood Urea Nitrogen 32 mg/dL (7-23) H Creatinine 1.6 mg/dL (0.7-1.2) H Estimat Glomerular Filtration Rate mL/min (>60) Glucose Level 119 mg/dL (74-106) H Calcium Level 8.1 mg/dL (8.6-10.2) L Phosphorus Level 3.3 mg/dL (2.5-4.8) Magnesium Level 1.8 mg/dL (1.7-2.5) Total Bilirubin 0.4 mg/dL (0.0-1.2) Aspartate Amino Transf (AST/SGOT) 22 U/L (5-40) Alanine Aminotransferase (ALT/SGPT) 22 U/L (3-41) Alkaline Phosphatase 214 U/L (40-129) H Total Protein 5.6 g/dL (6.6-8.7) L Albumin 1.8 g/dL (3.5-5.2) L Globulin 3.8 g/dL Albumin/Globulin Ratio 0.4 (1.0-2.7) L Arterial Blood pH 7.469 (7.350-7.450) Arterial Blood Partial Pressure CO2 33.4 mmHg (35.0-45.0) L Arterial Blood Partial Pressure O2 105.2 mmHg (75.0-100.0) H Arterial Blood HCO3 23.7 mmol/L (22.0-26.0) Arterial Blood Oxygen Saturation 97.4 % (92.0-98.0) Arterial Blood Base Excess 0.3 Caleb Test Positive Current Medications Medications (Trade) Dose Ordered Sig/Janay Route PRN Reason Start Time Stop Time Status Last Admin Dose Admin Acetaminophen (Tylenol) 650 mg Q4H PRN ORAL fever 07/16/16 15:15 08/15/16 15:14 07/24/16 14:36 Chlorhexidine Gluconate (Loree-Hex 2%) 1 applic Q24H TOPIC 07/20/16 23:00 08/19/16 22:59 07/26/16 23:10 Dextrose (Dextrose 50%) STAT PRN IV Hypoglycemia 07/19/16 17:30 08/18/16 17:29 Insulin Aspart (NovoLOG) Q6HR SUBQ 07/19/16 18:30 08/18/16 18:29 07/25/16 11:57 Lactobacillus Acidophilus (Culturelle) 1 tab THREE TIMES A DAY GT 07/21/16 13:00 08/20/16 12:59 07/27/16 08:00 Levofloxacin (Levaquin) 50 ml @ 50 mls/hr Q24H IVPB 07/25/16 18:00 07/29/16 23:59 07/26/16 17:49 Nitroglycerin (Ntg) 0.4 mg Q5M PRN SL Prn Chest Pain 07/16/16 15:15 08/15/16 15:14 Ondansetron HCl (Zofran) 4 mg Q6H PRN IVP Nausea & Vomiting 07/16/16 15:15 08/15/16 15:14 Pantoprazole 40 mg 40 mg DAILY IVP 07/25/16 09:00 08/24/16 08:59 07/27/16 08:00 Polyethylene Glycol (Miralax) 17 gm DAILYPRN PRN ORAL Constipation 07/16/16 15:15 08/15/16 15:14 PHILLIP BARNES M.D. Jul 27, 2016 12:35
[2016-07-27] MEDS: Levofloxacin 250mg/D5W 50ml IVPB SCH (17:17)
--- NOTE | 2016-07-27 17:30 | Consultation ---
DATE OF CONSULTATION: HEAD AND NECK SURGERY ENT CONSULT CONSULTING PHYSICIAN: Suleiman Guerin M.D. REQUESTING PHYSICIAN: Dawson Carballo M.D. INDICATION FOR CONSULTATION: The patient is an 80-year-old male, who is presently intubated, has been intubated and extubated numerous times, as well as being on BiPAP which he tolerates for short while and then becomes intubated. I have been asked to evaluate him for tracheostomy to control his airway. PAST MEDICAL HISTORY: Significant for most recently severe sepsis, renal failure which is responding to treatment by Dr. Smith, respiratory failure, bipolar disorder, chronic renal insufficiency, Parkinson's, anemia, encephalopathy, hyperkalemia. MEDICATIONS: Include sodium chloride, Protonix, lactobacillus acidophilus, NovoLog, dextrose, Tylenol, Zofran, nitroglycerin, MiraLAX. PHYSICAL EXAMINATION: VITAL SIGNS: Height 172.72 centimeters, weight 84.368 kg, BMI 28.3 kg/m2. HEENT: Head is normocephalic. Endotracheal tube taken through his mouth so I did not do a full evaluation of his mouth. Feeding tube. Ears, positive light reflex and normal canals. NECK: Normal landmarks. ASSESSMENT: He is a candidate for tracheostomy. As a safety factor considering that he has been intubated-extubated, intubated-extubated numerous times and according to the nurses never been off the BiPAP in his recent stay in the hospital. It is also my understanding that the family is not sure if they want to consent to tracheostomy and that they have a meeting scheduled with Dr. Carballo. If need, I also will be available to speak to the family but at this point the nurse there would like to speak with Dr. Carballo. I will be available once we consulted to proceed with a tracheostomy as needed. I would request an INR be done within 48 hours of the trach, his last one was done on 07/16/2016 and is high-level of acceptable for doing a tracheostomy which is an INR of 1.2. Thank you very much for asking my opinion in the care and treatment of this patient. Suleiman Guerin M.D. DR: Jayesh JOB#: [id number] CC: SANJAY
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
[2016-07-28] VITALS (24 sets, daily range): BP systolic 12–144; BP diastolic 27–105
[2016-07-28] MEDS: Dyna-Hex 2% Top Sol 8oz TOPIC SCH (00:09)
[2016-07-28 05:40] LABS: BASOPHILS % (AUTO) 0.7 % (0.0-2.0); EOSINOPHILS % (AUTO) 2.7 % (0.0-3.0); LYMPHOCYTES % (AUTO) 20.8 % (20.0-45.0); MEAN CORPUSCULAR HEMOGLOBIN 29.6 PG (27.0-31.0); MEAN CORPUSCULAR HGB CONC 32.4 G/DL (32.0-36.0); MEAN CORPUSCULAR VOLUME 91 FL (80-99); MEAN PLATELET VOLUME 6.8 FL (6.5-10.1); MONOCYTES % (AUTO) 5.5 % (1.0-10.0); NEUTROPHILS % (AUTO) 70.2 % (45.0-75.0); PLATELET COUNT 201 K/UL (150-450); RED BLOOD COUNT 3.01 M/UL (4.70-6.10); WHITE BLOOD COUNT 6.7 K/UL (4.8-10.8)
[2016-07-28 05:43] LABS: INR 1.1 (0.9-1.1)
[2016-07-28] MEDS: NovoLOG Insulin Flexpen SUBQ SCH ×2 (06:00)
[2016-07-28 06:14] LABS: ALANINE AMINOTRANSFERASE 24 U/L (3-41); ALBUMIN/GLOBULIN RATIO 0.5 (1.0-2.7); ANION GAP 12 (5-15); ASPARTATE AMINO TRANSFERASE 29 U/L (5-40); CALCIUM 8.3 mg/dL (8.6-10.2); CARBON DIOXIDE 21 mEQ/L (20-30); CHLORIDE 108 mEQ/L (98-107); CREATININE 1.5 mg/dL (0.7-1.2); HEMOLYSIS 3; MAGNESIUM 1.8 mg/dL (1.7-2.5); PHOSPHORUS 3.5 mg/dL (2.5-4.8); POTASSIUM 4.8 mEQ/L (3.4-4.9); SODIUM 141 mEQ/L (135-145); TOTAL PROTEIN 5.7 g/dL (6.6-8.7)
[2016-07-28] MEDS: Lactobacillus-GG tablet GT SCH ×3 (08:00→18:09)
[2016-07-28] MEDS: Pantoprazole Inj IVP SCH (08:00)
--- NOTE | 2016-07-28 10:08 | Pulmonolgy Critical Care Note ---
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 Discussed with: nurses, consultants, correctional casework specialistmanager pacu - Objective Last 24 Hour Vital Signs Date Time Temp Pulse Resp B/P Pulse Ox O2 Delivery O2 Flow Rate FiO2 07/28/16 09:08 84 28 133/94 99 Mechanical Ventilator 30 07/28/16 09:07 79 29 30 07/28/16 09:06 99 07/28/16 08:00 99.3 88 26 128/85 97 Mechanical Ventilator 30 07/28/16 08:00 30 07/28/16 07:11 76 25 30 07/28/16 07:00 84 28 140/70 99 Mechanical Ventilator 30 07/28/16 06:00 78 25 122/72 98 Mechanical Ventilator 30 07/28/16 05:29 80 27 30 07/28/16 05:00 79 27 144/83 99 Mechanical Ventilator 30 07/28/16 04:00 78 07/28/16 04:00 30 07/28/16 04:00 98.5 74 25 116/91 99 Mechanical Ventilator 30 07/28/16 03:30 82 25 30 07/28/16 03:00 79 27 91/71 100 Mechanical Ventilator 30 07/28/16 02:00 79 25 120/89 99 Mechanical Ventilator 30 07/28/16 01:30 81 24 30 07/28/16 01:00 79 19 139/76 100 Mechanical Ventilator 30 07/28/16 00:00 30 07/28/16 00:00 69 07/28/16 00:00 98.1 69 19 121/66 100 Mechanical Ventilator 30 07/27/16 23:00 79 25 135/74 99 Mechanical Ventilator 30 07/27/16 22:54 76 24 30 07/27/16 22:00 75 20 117/47 98 Mechanical Ventilator 30 07/27/16 21:30 69 23 30 07/27/16 21:00 68 19 115/55 98 Mechanical Ventilator 30 07/27/16 20:00 98.6 77 20 109/56 98 Mechanical Ventilator 30 07/27/16 20:00 82 07/27/16 20:00 30 07/27/16 19:30 77 33 30 07/27/16 19:00 78 20 120/79 98 Mechanical Ventilator 30 07/27/16 18:00 73 19 119/60 98 Mechanical Ventilator 30 07/27/16 17:00 79 19 124/75 98 Mechanical Ventilator 30 07/27/16 16:44 70 23 30 07/27/16 16:00 99.0 69 20 111/68 98 Mechanical Ventilator 30 07/27/16 16:00 67 07/27/16 16:00 30 07/27/16 15:20 73 22 30 07/27/16 15:00 68 20 127/69 98 Mechanical Ventilator 30 07/27/16 14:00 79 20 105/59 98 Mechanical Ventilator 30 07/27/16 13:29 70 22 30 07/27/16 13:00 98.9 69 18 120/59 100 Mechanical Ventilator 30 07/27/16 12:00 30 07/27/16 12:00 70 07/27/16 12:00 98.9 76 22 123/69 100 Mechanical Ventilator 30 07/27/16 11:28 76 29 30 07/27/16 11:00 76 22 124/67 100 Mechanical Ventilator 30 Status: somnolent Condition: critical Neck: full ROM Lungs: clear, chest wall tender Heart: HR/BP unstable Abdomen: soft, non-tender, active bowel sounds Extremities: no C/C/E, edema Decubiti: location Accucheck: 102 Critical Care - Subjective ROS Limited/Unobtainable: Yes - 12 ICU Day: 12 Intubation Day: 12 Condition: critical EKG Rhythm: Sinus Rhythm FI02: 30 Vent Support Breath Rate: 8 Vent Support Mode: IMV/SIMV Vent Tidal Volume: 500 Sputum Amount: Small PEEP: 5.0 PIP: 21 Tube Feeding Amount: 50 I&O: Intake and Output 07/27/16 07/28/16 19:00 07:00 Intake Total 1180 ml 900 ml Output Total 1480 ml 1175 ml Balance -300 ml -275 ml Free Water 300 ml 300 ml IV Total 50 ml Tube Feeding 650 ml 600 ml Other 180 ml Output Urine Total 1480 ml 1175 ml # Bowel Movements 2 3 Subjective: comfortable CXR: RLL infiltrate ET-Tube: 8.0 ET Position: 24 Labs: Laboratory Tests Test 07/28/16 04:30 White Blood Count 6.7 K/UL (4.8-10.8) Red Blood Count 3.01 M/UL (4.70-6.10) L Hemoglobin 8.9 G/DL (14.2-18.0) L Hematocrit 27.5 % (42.0-52.0) L Mean Corpuscular Volume 91 FL (80-99) Mean Corpuscular Hemoglobin 29.6 PG (27.0-31.0) Mean Corpuscular Hemoglobin Concent 32.4 G/DL (32.0-36.0) Red Cell Distribution Width 14.0 % (11.6-14.8) Platelet Count 201 K/UL (150-450) Mean Platelet Volume 6.8 FL (6.5-10.1) Neutrophils (%) (Auto) 70.2 % (45.0-75.0) Lymphocytes (%) (Auto) 20.8 % (20.0-45.0) Monocytes (%) (Auto) 5.5 % (1.0-10.0) Eosinophils (%) (Auto) 2.7 % (0.0-3.0) Basophils (%) (Auto) 0.7 % (0.0-2.0) Prothrombin Time 12.0 SEC (9.30-11.50) H Prothromb Time International Ratio 1.1 (0.9-1.1) Activated Partial Thromboplast Time 26 SEC (23-33) Sodium Level 141 mEQ/L (135-145) Potassium Level 4.8 mEQ/L (3.4-4.9) Chloride Level 108 mEQ/L (98-107) H Carbon Dioxide Level 21 mEQ/L (20-30) Anion Gap 12 (5-15) Blood Urea Nitrogen 29 mg/dL (7-23) H Creatinine 1.5 mg/dL (0.7-1.2) H Estimat Glomerular Filtration Rate mL/min (>60) Glucose Level 102 mg/dL (74-106) Calcium Level 8.3 mg/dL (8.6-10.2) L Phosphorus Level 3.5 mg/dL (2.5-4.8) Magnesium Level 1.8 mg/dL (1.7-2.5) Total Bilirubin 0.4 mg/dL (0.0-1.2) Aspartate Amino Transf (AST/SGOT) 29 U/L (5-40) Alanine Aminotransferase (ALT/SGPT) 24 U/L (3-41) Alkaline Phosphatase 212 U/L (40-129) H Total Protein 5.7 g/dL (6.6-8.7) L Albumin 2.0 g/dL (3.5-5.2) L Globulin 3.7 g/dL Albumin/Globulin Ratio 0.5 (1.0-2.7) L MACARENA FLANNERY Jul 28, 2016 10:08
--- NOTE | 2016-07-28 10:36 | General Progress Note ---
Assessment/Plan Status: stable - from renal stand Assessment/Plan status: acute renal failure, requiring HD , done 07/16 & 07/19 & no more acute hyperkalemia , resolved Low BP , septic Shock , on Pressors- RESOLVED acute respiratory failure requiring intubation UTI gross hematuria anemia CHF Sever Hypoalbuminemia h/o Parkinsons , OBS , ? Sz Plan: HD 07/19, no further dialysis appears to be needed, DC Dialysis cath from groin 06/23/16--( right groin catheter was discontinued and the site was dressed under pressure and hemostasis acheived) Monitor renal parameters- K supplement as needed- one liter D5 weaning in process Lactobacillus Avoid Nephrotoxics On Renal feeding BP support per orders Subjective ROS Limited/Unobtainable: Yes Allergies: Coded Allergies: No Known Allergies (Unverified , 07/16/16) Objective Last 24 Hour Vital Signs Date Time Temp Pulse Resp B/P Pulse Ox O2 Delivery O2 Flow Rate FiO2 07/28/16 09:08 84 28 133/94 99 Mechanical Ventilator 30 07/28/16 09:07 79 29 30 07/28/16 09:06 99 07/28/16 08:00 99.3 88 26 128/85 97 Mechanical Ventilator 30 07/28/16 08:00 30 07/28/16 07:11 76 25 30 07/28/16 07:00 84 28 140/70 99 Mechanical Ventilator 30 07/28/16 06:00 78 25 122/72 98 Mechanical Ventilator 30 07/28/16 05:29 80 27 30 07/28/16 05:00 79 27 144/83 99 Mechanical Ventilator 30 07/28/16 04:00 78 07/28/16 04:00 30 07/28/16 04:00 98.5 74 25 116/91 99 Mechanical Ventilator 30 07/28/16 03:30 82 25 30 07/28/16 03:00 79 27 91/71 100 Mechanical Ventilator 30 07/28/16 02:00 79 25 120/89 99 Mechanical Ventilator 30 07/28/16 01:30 81 24 30 07/28/16 01:00 79 19 139/76 100 Mechanical Ventilator 30 07/28/16 00:00 30 07/28/16 00:00 69 07/28/16 00:00 98.1 69 19 121/66 100 Mechanical Ventilator 30 07/27/16 23:00 79 25 135/74 99 Mechanical Ventilator 30 07/27/16 22:54 76 24 30 07/27/16 22:00 75 20 117/47 98 Mechanical Ventilator 30 07/27/16 21:30 69 23 30 07/27/16 21:00 68 19 115/55 98 Mechanical Ventilator 30 07/27/16 20:00 98.6 77 20 109/56 98 Mechanical Ventilator 30 07/27/16 20:00 82 07/27/16 20:00 30 07/27/16 19:30 77 33 30 07/27/16 19:00 78 20 120/79 98 Mechanical Ventilator 30 07/27/16 18:00 73 19 119/60 98 Mechanical Ventilator 30 07/27/16 17:00 79 19 124/75 98 Mechanical Ventilator 30 07/27/16 16:44 70 23 30 07/27/16 16:00 99.0 69 20 111/68 98 Mechanical Ventilator 30 07/27/16 16:00 67 07/27/16 16:00 30 07/27/16 15:20 73 22 30 07/27/16 15:00 68 20 127/69 98 Mechanical Ventilator 30 07/27/16 14:00 79 20 105/59 98 Mechanical Ventilator 30 07/27/16 13:29 70 22 30 07/27/16 13:00 98.9 69 18 120/59 100 Mechanical Ventilator 30 07/27/16 12:00 30 07/27/16 12:00 70 07/27/16 12:00 98.9 76 22 123/69 100 Mechanical Ventilator 30 07/27/16 11:28 76 29 30 07/27/16 11:00 76 22 124/67 100 Mechanical Ventilator 30 Intake and Output 07/27/16 07/28/16 19:00 07:00 Intake Total 1180 ml 900 ml Output Total 1480 ml 1175 ml Balance -300 ml -275 ml Free Water 300 ml 300 ml IV Total 50 ml Tube Feeding 650 ml 600 ml Other 180 ml Output Urine Total 1480 ml 1175 ml # Bowel Movements 2 3 Laboratory Tests 07/28/16 04:30: White Blood Count 6.7, Red Blood Count 3.01L, Hemoglobin 8.9L, Hematocrit 27.5L , Mean Corpuscular Volume 91, Mean Corpuscular Hemoglobin 29.6, Mean Corpuscular Hemoglobin Concent 32.4, Red Cell Distribution Width 14.0, Platelet Count 201, Mean Platelet Volume 6.8, Neutrophils (%) (Auto) 70.2, Lymphocytes (% ) (Auto) 20.8, Monocytes (%) (Auto) 5.5, Eosinophils (%) (Auto) 2.7, Basophils ( %) (Auto) 0.7, Prothrombin Time 12.0H, Prothromb Time International Ratio 1.1, Activated Partial Thromboplast Time 26, Sodium Level 141, Potassium Level 4.8, Chloride Level 108H, Carbon Dioxide Level 21, Anion Gap 12, Blood Urea Nitrogen 29H, Creatinine 1.5H, Estimat Glomerular Filtration Rate , Glucose Level 102, Calcium Level 8.3L, Phosphorus Level 3.5, Magnesium Level 1.8, Total Bilirubin 0.4, Aspartate Amino Transf (AST/SGOT) 29, Alanine Aminotransferase (ALT/SGPT) 24, Alkaline Phosphatase 212H, Total Protein 5.7L, Albumin 2.0L, Globulin 3.7, Albumin/Globulin Ratio 0.5L Height (Feet): 5 Height (Inches): 8.00 Weight (Pounds): 184 General Appearance: no apparent distress Objective other PE not changed HAI THOMPSON Jul 28, 2016 10:36
[2016-07-28] MEDS: Levofloxacin 250mg/D5W 50ml IVPB SCH (18:09)
[2016-07-29] VITALS (24 sets, daily range): BP systolic 93–144; BP diastolic 48–100
[2016-07-29] MEDS: Dyna-Hex 2% Top Sol 8oz TOPIC SCH ×2 (00:15→23:00)
[2016-07-29 05:23] LABS: BASOPHILS % (AUTO) 0.7 % (0.0-2.0); EOSINOPHILS % (AUTO) 3.4 % (0.0-3.0); LYMPHOCYTES % (AUTO) 21.9 % (20.0-45.0); MEAN CORPUSCULAR HEMOGLOBIN 31.3 PG (27.0-31.0); MEAN CORPUSCULAR HGB CONC 34.5 G/DL (32.0-36.0); MEAN CORPUSCULAR VOLUME 91 FL (80-99); MONOCYTES % (AUTO) 5.4 % (1.0-10.0); NEUTROPHILS % (AUTO) 68.6 % (45.0-75.0); PLATELET COUNT 187 K/UL (150-450); RED BLOOD COUNT 2.83 M/UL (4.70-6.10); RED CELL DISTRIBUTION WIDTH 13.8 % (11.6-14.8)
[2016-07-29 05:53] LABS: ALANINE AMINOTRANSFERASE 22 U/L (3-41); ALBUMIN/GLOBULIN RATIO 0.5 (1.0-2.7); ANION GAP 13 (5-15); ASPARTATE AMINO TRANSFERASE 26 U/L (5-40); CALCIUM 8.2 mg/dL (8.6-10.2); CARBON DIOXIDE 21 mEQ/L (20-30); CHLORIDE 106 mEQ/L (98-107); CREATININE 1.5 mg/dL (0.7-1.2); HEMOLYSIS 2; MAGNESIUM 1.9 mg/dL (1.7-2.5); PHOSPHORUS 3.5 mg/dL (2.5-4.8); POTASSIUM 4.6 mEQ/L (3.4-4.9); SODIUM 140 mEQ/L (135-145); TOTAL PROTEIN 5.7 g/dL (6.6-8.7)
[2016-07-29 08:24] LABS: ABG ALLEN TEST POSITIVE; ABG BASE EXCESS -1.4; ABG PCO2 33.3 mmHg (35.0-45.0)
--- NOTE | 2016-07-29 09:13 | Infectious Diseases Prog Note ---
Assessment/Plan Assessment/Plan A: The patient is an 80-year-old male with Low grade fever Leukocytosis, SP Septic shock SP - off of pressors Urinary tract infection : P mirabilis x 2 CT: Diffuse thickening of the urinary bladder wall consistent with cystitis. Garcia in good position. Mild bilateral hydronephrosis probably on the basis of a bladder disease. Thickening of the uroepithelium suggestive of chronic inflammation or infection. Prostate enlargement Bacteremia P mirabilis Acute VDRF - failed weaning, may need trach Left adrenal mass CT: 3 x 8.7 x 4.8 cm mass posterior to the pancreas possibly arising from the left adrenal gland. Renal insufficiency SP hemodialysis x 2 Hypernatremia Dementia Parkinson disease Seizure disorder History of congestive heart failure Post pacemaker placement Chronic BLE DVT Obesity Renal insufficiency Hematuria Depression Anemia PLAN: oin Levaquin d # 10 /10 / IV Zosyn d# 4 Monitor CBC Monitor BMP. vent support, wean as tolerated - may need trach repeat culture ( blood and Urine , sputum ) Subjective Allergies: Coded Allergies: No Known Allergies (Unverified , 07/16/16) Subjective low grade fever ,x 1 , on vent Objective Vital Signs Last 24 Hour Vital Signs Date Time Temp Pulse Resp B/P Pulse Ox O2 Delivery O2 Flow Rate FiO2 07/29/16 08:00 30 07/29/16 08:00 100.3 85 24 144/100 100 Mechanical Ventilator 30 07/29/16 08:00 85 07/29/16 07:25 76 28 30 07/29/16 07:00 83 25 110/59 98 Mechanical Ventilator 30 07/29/16 06:00 84 32 120/70 99 Mechanical Ventilator 30 07/29/16 05:00 82 26 133/60 99 Mechanical Ventilator 30 07/29/16 04:52 84 27 30 07/29/16 04:00 99.6 88 25 136/80 99 Mechanical Ventilator 30 07/29/16 04:00 30 07/29/16 04:00 88 07/29/16 03:19 81 25 30 07/29/16 03:00 83 23 119/76 98 Mechanical Ventilator 30 07/29/16 02:00 80 22 102/69 97 Mechanical Ventilator 30 07/29/16 01:00 81 25 126/82 98 Mechanical Ventilator 30 07/29/16 00:42 78 33 30 07/29/16 00:00 69 07/29/16 00:00 30 07/29/16 00:00 98.4 69 24 125/83 97 Mechanical Ventilator 30 07/28/16 23:18 79 27 30 07/28/16 23:00 76 28 89/65 99 Mechanical Ventilator 30 07/28/16 22:00 62 20 109/60 100 Mechanical Ventilator 30 07/28/16 21:00 66 23 129/90 98 Mechanical Ventilator 30 07/28/16 20:43 82 29 30 07/28/16 20:00 77 07/28/16 20:00 30 07/28/16 20:00 98.5 77 22 107/27 100 Mechanical Ventilator 30 07/28/16 19:30 73 24 30 07/28/16 19:00 70 28 12/105 100 Mechanical Ventilator 30 07/28/16 18:00 75 28 124/75 100 Mechanical Ventilator 30 07/28/16 17:59 77 25 30 07/28/16 17:00 74 21 127/67 100 Mechanical Ventilator 30 07/28/16 16:00 67 07/28/16 16:00 30 07/28/16 16:00 99.0 70 29 113/64 100 Mechanical Ventilator 30 07/28/16 15:28 74 25 30 07/28/16 15:00 69 28 101/56 100 Mechanical Ventilator 30 07/28/16 14:00 67 28 106/61 100 Mechanical Ventilator 30 07/28/16 13:24 77 29 30 07/28/16 13:00 73 28 130/73 100 Mechanical Ventilator 30 07/28/16 12:00 82 07/28/16 12:00 30 07/28/16 12:00 98.9 81 26 137/88 100 Mechanical Ventilator 30 07/28/16 11:05 69 23 30 07/28/16 11:00 81 28 142/67 100 Mechanical Ventilator 30 07/28/16 10:00 79 28 129/67 99 Mechanical Ventilator 30 Height (Feet): 5 Height (Inches): 8.00 Weight (Pounds): 186 HEENT: anicteric Respiratory/Chest: no respiratory distress Cardiovascular: regular rhythm Abdomen: non distended Laboratory Tests Test 07/29/16 04:15 07/29/16 08:15 White Blood Count 6.0 K/UL (4.8-10.8) Red Blood Count 2.83 M/UL (4.70-6.10) L Hemoglobin 8.9 G/DL (14.2-18.0) L Hematocrit 25.7 % (42.0-52.0) L Mean Corpuscular Volume 91 FL (80-99) Mean Corpuscular Hemoglobin 31.3 PG (27.0-31.0) H Mean Corpuscular Hemoglobin Concent 34.5 G/DL (32.0-36.0) Red Cell Distribution Width 13.8 % (11.6-14.8) Platelet Count 187 K/UL (150-450) Mean Platelet Volume 7.0 FL (6.5-10.1) Neutrophils (%) (Auto) 68.6 % (45.0-75.0) Lymphocytes (%) (Auto) 21.9 % (20.0-45.0) Monocytes (%) (Auto) 5.4 % (1.0-10.0) Eosinophils (%) (Auto) 3.4 % (0.0-3.0) H Basophils (%) (Auto) 0.7 % (0.0-2.0) Sodium Level 140 mEQ/L (135-145) Potassium Level 4.6 mEQ/L (3.4-4.9) Chloride Level 106 mEQ/L (98-107) Carbon Dioxide Level 21 mEQ/L (20-30) Anion Gap 13 (5-15) Blood Urea Nitrogen 29 mg/dL (7-23) H Creatinine 1.5 mg/dL (0.7-1.2) H Estimat Glomerular Filtration Rate mL/min (>60) Glucose Level 101 mg/dL (74-106) Calcium Level 8.2 mg/dL (8.6-10.2) L Phosphorus Level 3.5 mg/dL (2.5-4.8) Magnesium Level 1.9 mg/dL (1.7-2.5) Total Bilirubin 0.4 mg/dL (0.0-1.2) Aspartate Amino Transf (AST/SGOT) 26 U/L (5-40) Alanine Aminotransferase (ALT/SGPT) 22 U/L (3-41) Alkaline Phosphatase 201 U/L (40-129) H Total Protein 5.7 g/dL (6.6-8.7) L Albumin 1.9 g/dL (3.5-5.2) L Globulin 3.8 g/dL Albumin/Globulin Ratio 0.5 (1.0-2.7) L Arterial Blood pH 7.440 (7.350-7.450) Arterial Blood Partial Pressure CO2 33.3 mmHg (35.0-45.0) L Arterial Blood Partial Pressure O2 90.0 mmHg (75.0-100.0) Arterial Blood HCO3 22.3 mmol/L (22.0-26.0) Arterial Blood Oxygen Saturation 96.1 % (92.0-98.0) Arterial Blood Base Excess -1.4 Caleb Test Positive Current Medications Medications (Trade) Dose Ordered Sig/Janay Route PRN Reason Start Time Stop Time Status Last Admin Dose Admin Acetaminophen (Tylenol) 650 mg Q4H PRN ORAL fever 07/16/16 15:15 08/15/16 15:14 07/24/16 14:36 Chlorhexidine Gluconate (Loree-Hex 2%) 1 applic Q24H TOPIC 07/20/16 23:00 08/19/16 22:59 07/29/16 00:15 Lactobacillus Acidophilus (Culturelle) 1 tab THREE TIMES A DAY GT 07/21/16 13:00 08/20/16 12:59 07/28/16 18:09 Levofloxacin (Levaquin) 50 ml @ 50 mls/hr Q24H IVPB 07/25/16 18:00 07/29/16 23:59 07/28/16 18:09 Nitroglycerin (Ntg) 0.4 mg Q5M PRN SL Prn Chest Pain 07/16/16 15:15 08/15/16 15:14 Ondansetron HCl (Zofran) 4 mg Q6H PRN IVP Nausea & Vomiting 07/16/16 15:15 08/15/16 15:14 Pantoprazole 40 mg 40 mg DAILY IVP 07/25/16 09:00 08/24/16 08:59 07/28/16 08:00 Polyethylene Glycol (Miralax) 17 gm DAILYPRN PRN ORAL Constipation 07/16/16 15:15 08/15/16 15:14 PHILLIP BARNES M.D. Jul 29, 2016 09:13
[2016-07-29] MEDS: Lactobacillus-GG tablet GT SCH ×3 (09:18→18:58)
[2016-07-29] MEDS: Pantoprazole Inj IVP SCH (09:18)
--- NOTE | 2016-07-29 10:54 | Pulmonolgy Critical Care Note ---
Critical Care - Asmt/Plan Problems: (1) Acute respiratory failure (2) Gram-negative bacteremia (3) ATN (acute tubular necrosis) (4) Hyperkalemia (5) Acute encephalopathy Respiratory: monitor respiratory rate, adjust FIO2, CXR Cardiac: continue to monitor HR/BP Renal: F/U I&O, keep IV fluid, check electrolytes Infectious Disease: check cultures, continue antibiotics Gastrointestinal: continue feedings/current rate Endocrine: monitor blood sugar, check HgA1C, start insulin drip Hematologic: monitor H/H, transfuse if hgb<8.5 Neurologic: PRN Ativan, PRN Morphine, keep patient comfortable Prophylaxis: Heparin Time Spent (Minutes): 40 Notes Reviewed: head bucker, renal Discussed with: nurses, consultants, 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 - Objective Last 24 Hour Vital Signs Date Time Temp Pulse Resp B/P Pulse Ox O2 Delivery O2 Flow Rate FiO2 07/29/16 10:00 75 20 97/54 99 Mechanical Ventilator 30 07/29/16 09:00 80 28 123/66 99 Mechanical Ventilator 30 07/29/16 08:38 80 23 30 07/29/16 08:00 30 07/29/16 08:00 100.3 85 24 144/100 100 Mechanical Ventilator 30 07/29/16 08:00 85 07/29/16 07:25 76 28 30 07/29/16 07:00 83 25 110/59 98 Mechanical Ventilator 30 07/29/16 06:00 84 32 120/70 99 Mechanical Ventilator 30 07/29/16 05:00 82 26 133/60 99 Mechanical Ventilator 30 07/29/16 04:52 84 27 30 07/29/16 04:00 99.6 88 25 136/80 99 Mechanical Ventilator 30 07/29/16 04:00 30 07/29/16 04:00 88 07/29/16 03:19 81 25 30 07/29/16 03:00 83 23 119/76 98 Mechanical Ventilator 30 07/29/16 02:00 80 22 102/69 97 Mechanical Ventilator 30 07/29/16 01:00 81 25 126/82 98 Mechanical Ventilator 30 07/29/16 00:42 78 33 30 07/29/16 00:00 69 07/29/16 00:00 30 07/29/16 00:00 98.4 69 24 125/83 97 Mechanical Ventilator 30 07/28/16 23:18 79 27 30 07/28/16 23:00 76 28 89/65 99 Mechanical Ventilator 30 07/28/16 22:00 62 20 109/60 100 Mechanical Ventilator 30 07/28/16 21:00 66 23 129/90 98 Mechanical Ventilator 30 07/28/16 20:43 82 29 30 07/28/16 20:00 77 07/28/16 20:00 30 07/28/16 20:00 98.5 77 22 107/27 100 Mechanical Ventilator 30 07/28/16 19:30 73 24 30 07/28/16 19:00 70 28 12/105 100 Mechanical Ventilator 30 07/28/16 18:00 75 28 124/75 100 Mechanical Ventilator 30 07/28/16 17:59 77 25 30 07/28/16 17:00 74 21 127/67 100 Mechanical Ventilator 30 07/28/16 16:00 67 07/28/16 16:00 30 07/28/16 16:00 99.0 70 29 113/64 100 Mechanical Ventilator 30 07/28/16 15:28 74 25 30 07/28/16 15:00 69 28 101/56 100 Mechanical Ventilator 30 07/28/16 14:00 67 28 106/61 100 Mechanical Ventilator 30 07/28/16 13:24 77 29 30 07/28/16 13:00 73 28 130/73 100 Mechanical Ventilator 30 07/28/16 12:00 82 07/28/16 12:00 30 07/28/16 12:00 98.9 81 26 137/88 100 Mechanical Ventilator 30 07/28/16 11:05 69 23 30 07/28/16 11:00 81 28 142/67 100 Mechanical Ventilator 30 Status: awake Condition: critical HEENT: atraumatic Neck: full ROM Lungs: clear Heart: HR/BP stable, HR/BP unstable Abdomen: soft, non-tender, feeding tube Extremities: no C/C/E, edema Micro: Microbiology Date/Time Source Procedure Growth Status 07/28/16 20:00 Stool Clostridium difficile Toxin Assay - Final Complete Accucheck: 102 Critical Care - Subjective ROS Limited/Unobtainable: Yes ICU Day: 13 Intubation Day: 13 Condition: critical EKG Rhythm: Sinus Rhythm FI02: 30 Vent Support Breath Rate: 8 Vent Support Mode: IMV/SIMV Vent Tidal Volume: 500 Sputum Amount: Small PEEP: 5.0 PIP: 17 Tube Feeding Amount: 50 I&O: Intake and Output 07/28/16 07/29/16 19:00 07:00 Intake Total 660 ml 900 ml Output Total 990 ml 1145 ml Balance -330 ml -245 ml Free Water 300 ml Tube Feeding 600 ml 600 ml Other 60 ml Output Urine Total 990 ml 1145 ml # Bowel Movements 2 Subjective: comfortable CXR: no change ET-Tube: 8.0 ET Position: 24 Labs: Laboratory Tests Test 07/29/16 04:15 07/29/16 08:15 White Blood Count 6.0 K/UL (4.8-10.8) Red Blood Count 2.83 M/UL (4.70-6.10) L Hemoglobin 8.9 G/DL (14.2-18.0) L Hematocrit 25.7 % (42.0-52.0) L Mean Corpuscular Volume 91 FL (80-99) Mean Corpuscular Hemoglobin 31.3 PG (27.0-31.0) H Mean Corpuscular Hemoglobin Concent 34.5 G/DL (32.0-36.0) Red Cell Distribution Width 13.8 % (11.6-14.8) Platelet Count 187 K/UL (150-450) Mean Platelet Volume 7.0 FL (6.5-10.1) Neutrophils (%) (Auto) 68.6 % (45.0-75.0) Lymphocytes (%) (Auto) 21.9 % (20.0-45.0) Monocytes (%) (Auto) 5.4 % (1.0-10.0) Eosinophils (%) (Auto) 3.4 % (0.0-3.0) H Basophils (%) (Auto) 0.7 % (0.0-2.0) Sodium Level 140 mEQ/L (135-145) Potassium Level 4.6 mEQ/L (3.4-4.9) Chloride Level 106 mEQ/L (98-107) Carbon Dioxide Level 21 mEQ/L (20-30) Anion Gap 13 (5-15) Blood Urea Nitrogen 29 mg/dL (7-23) H Creatinine 1.5 mg/dL (0.7-1.2) H Estimat Glomerular Filtration Rate mL/min (>60) Glucose Level 101 mg/dL (74-106) Calcium Level 8.2 mg/dL (8.6-10.2) L Phosphorus Level 3.5 mg/dL (2.5-4.8) Magnesium Level 1.9 mg/dL (1.7-2.5) Total Bilirubin 0.4 mg/dL (0.0-1.2) Aspartate Amino Transf (AST/SGOT) 26 U/L (5-40) Alanine Aminotransferase (ALT/SGPT) 22 U/L (3-41) Alkaline Phosphatase 201 U/L (40-129) H Total Protein 5.7 g/dL (6.6-8.7) L Albumin 1.9 g/dL (3.5-5.2) L Globulin 3.8 g/dL Albumin/Globulin Ratio 0.5 (1.0-2.7) L Arterial Blood pH 7.440 (7.350-7.450) Arterial Blood Partial Pressure CO2 33.3 mmHg (35.0-45.0) L Arterial Blood Partial Pressure O2 90.0 mmHg (75.0-100.0) Arterial Blood HCO3 22.3 mmol/L (22.0-26.0) Arterial Blood Oxygen Saturation 96.1 % (92.0-98.0) Arterial Blood Base Excess -1.4 Caleb Test Positive MACARENA FLANNERY Jul 29, 2016 10:54
--- NOTE | 2016-07-29 11:43 | Diagnostic Imaging Report ---
Indications: DYSPNEA Technique: Portable AP chest Findings: Comparison: 07/27/16 Left lung volume loss has decreased with increase in bronchovascular markings, development of linear density left base, elevation apparent left hemidiaphragm, lesser distinctness of left costophrenic angle. Bibasal interstitial prominence unchanged. Cardiac mediastinal silhouette stable. Lines and tubes remain in place. IMPRESSION: Developing atelectasis left lung base No other change from 2 days prior
[2016-07-29 12:22] LABS: ABG ALLEN TEST POSITIVE; ABG BASE EXCESS -1.2; ABG PCO2 35.1 mmHg (35.0-45.0)
--- NOTE | 2016-07-29 14:04 | General Progress Note ---
Assessment/Plan Status: stable Status Narrative still waiting for Trach consent Assessment/Plan status: acute renal failure, requiring HD , done 07/16 & 07/19 & no more acute hyperkalemia , resolved Low BP , septic Shock , on Pressors- RESOLVED acute respiratory failure requiring intubation UTI gross hematuria anemia CHF Sever Hypoalbuminemia h/o Parkinsons , OBS , ? Sz Plan: HD 07/19, no further dialysis appears to be needed, DC Dialysis cath from groin 06/23/16--( right groin catheter was discontinued and the site was dressed under pressure and hemostasis acheived) Monitor renal parameters- K supplement as needed- one liter D5 weaning in process Lactobacillus Avoid Nephrotoxics On Renal feeding BP support per orders Subjective ROS Limited/Unobtainable: Yes Allergies: Coded Allergies: No Known Allergies (Unverified , 07/16/16) Objective Last 24 Hour Vital Signs Date Time Temp Pulse Resp B/P Pulse Ox O2 Delivery O2 Flow Rate FiO2 07/29/16 13:40 30 07/29/16 13:25 67 21 30 07/29/16 13:00 68 26 105/71 100 Mechanical Ventilator 30 07/29/16 12:00 67 07/29/16 12:00 99.3 67 22 93/49 99 Mechanical Ventilator 30 07/29/16 11:10 99.0 07/29/16 11:00 77 27 122/61 100 Mechanical Ventilator 30 07/29/16 11:00 76 27 30 07/29/16 11:00 30 07/29/16 10:53 98 07/29/16 10:00 75 20 97/54 99 Mechanical Ventilator 30 07/29/16 09:00 80 28 123/66 99 Mechanical Ventilator 30 07/29/16 08:38 80 23 30 07/29/16 08:00 30 07/29/16 08:00 100.3 85 24 144/100 100 Mechanical Ventilator 30 07/29/16 08:00 85 07/29/16 07:25 76 28 30 07/29/16 07:00 83 25 110/59 98 Mechanical Ventilator 30 07/29/16 06:00 84 32 120/70 99 Mechanical Ventilator 30 07/29/16 05:00 82 26 133/60 99 Mechanical Ventilator 30 07/29/16 04:52 84 27 30 07/29/16 04:00 99.6 88 25 136/80 99 Mechanical Ventilator 30 07/29/16 04:00 30 07/29/16 04:00 88 07/29/16 03:19 81 25 30 07/29/16 03:00 83 23 119/76 98 Mechanical Ventilator 30 07/29/16 02:00 80 22 102/69 97 Mechanical Ventilator 30 07/29/16 01:00 81 25 126/82 98 Mechanical Ventilator 30 07/29/16 00:42 78 33 30 07/29/16 00:00 69 07/29/16 00:00 30 07/29/16 00:00 98.4 69 24 125/83 97 Mechanical Ventilator 30 07/28/16 23:18 79 27 30 07/28/16 23:00 76 28 89/65 99 Mechanical Ventilator 30 07/28/16 22:00 62 20 109/60 100 Mechanical Ventilator 30 07/28/16 21:00 66 23 129/90 98 Mechanical Ventilator 30 07/28/16 20:43 82 29 30 07/28/16 20:00 77 07/28/16 20:00 30 07/28/16 20:00 98.5 77 22 107/27 100 Mechanical Ventilator 30 07/28/16 19:30 73 24 30 07/28/16 19:00 70 28 12/105 100 Mechanical Ventilator 30 07/28/16 18:00 75 28 124/75 100 Mechanical Ventilator 30 07/28/16 17:59 77 25 30 07/28/16 17:00 74 21 127/67 100 Mechanical Ventilator 30 07/28/16 16:00 67 07/28/16 16:00 30 07/28/16 16:00 99.0 70 29 113/64 100 Mechanical Ventilator 30 07/28/16 15:28 74 25 30 07/28/16 15:00 69 28 101/56 100 Mechanical Ventilator 30 07/28/16 14:00 67 28 106/61 100 Mechanical Ventilator 30 Intake and Output 07/28/16 07/29/16 19:00 07:00 Intake Total 660 ml 900 ml Output Total 990 ml 1145 ml Balance -330 ml -245 ml Free Water 300 ml Tube Feeding 600 ml 600 ml Other 60 ml Output Urine Total 990 ml 1145 ml # Bowel Movements 2 Laboratory Tests 07/29/16 04:15: White Blood Count 6.0, Red Blood Count 2.83L, Hemoglobin 8.9L, Hematocrit 25.7L , Mean Corpuscular Volume 91, Mean Corpuscular Hemoglobin 31.3H, Mean Corpuscular Hemoglobin Concent 34.5, Red Cell Distribution Width 13.8, Platelet Count 187, Mean Platelet Volume 7.0, Neutrophils (%) (Auto) 68.6, Lymphocytes (% ) (Auto) 21.9, Monocytes (%) (Auto) 5.4, Eosinophils (%) (Auto) 3.4H, Basophils (%) (Auto) 0.7, Sodium Level 140, Potassium Level 4.6, Chloride Level 106, Carbon Dioxide Level 21, Anion Gap 13, Blood Urea Nitrogen 29H, Creatinine 1.5H , Estimat Glomerular Filtration Rate , Glucose Level 101, Calcium Level 8.2L, Phosphorus Level 3.5, Magnesium Level 1.9, Total Bilirubin 0.4, Aspartate Amino Transf (AST/SGOT) 26, Alanine Aminotransferase (ALT/SGPT) 22, Alkaline Phosphatase 201H, Total Protein 5.7L, Albumin 1.9L, Globulin 3.8, Albumin/ Globulin Ratio 0.5L 07/29/16 08:15: Arterial Blood pH 7.440, Arterial Blood Partial Pressure CO2 33.3L, Arterial Blood Partial Pressure O2 90.0, Arterial Blood HCO3 22.3, Arterial Blood Oxygen Saturation 96.1, Arterial Blood Base Excess -1.4, Caleb Test Positive 07/29/16 12:00: Arterial Blood pH 7.430, Arterial Blood Partial Pressure CO2 35.1, Arterial Blood Partial Pressure O2 96.7, Arterial Blood HCO3 22.8, Arterial Blood Oxygen Saturation 96.6, Arterial Blood Base Excess -1.2, Caleb Test Positive Height (Feet): 5 Height (Inches): 8.00 Weight (Pounds): 186 General Appearance: no apparent distress Objective other PE not changed HAI THOMPSON Jul 29, 2016 14:04
[2016-07-29] MEDS ORDERED: NS 275ml ONE (15:31)
[2016-07-29] MEDS: Levofloxacin 250mg/D5W 50ml IVPB SCH (18:57)
[2016-07-30] VITALS (25 sets, daily range): BP systolic 92–136; BP diastolic 47–96
[2016-07-30 05:25] LABS: BASOPHILS % (AUTO) 0.7 % (0.0-2.0); EOSINOPHILS % (AUTO) 3.1 % (0.0-3.0); LYMPHOCYTES % (AUTO) 19.2 % (20.0-45.0); MEAN CORPUSCULAR HEMOGLOBIN 29.9 PG (27.0-31.0); MEAN CORPUSCULAR HGB CONC 32.1 G/DL (32.0-36.0); MEAN CORPUSCULAR VOLUME 93 FL (80-99); MEAN PLATELET VOLUME 6.6 FL (6.5-10.1); MONOCYTES % (AUTO) 4.4 % (1.0-10.0); NEUTROPHILS % (AUTO) 72.7 % (45.0-75.0); PLATELET COUNT 189 K/UL (150-450); RED BLOOD COUNT 2.79 M/UL (4.70-6.10); RED CELL DISTRIBUTION WIDTH 13.8 % (11.6-14.8); WHITE BLOOD COUNT 5.6 K/UL (4.8-10.8)
[2016-07-30 05:45] LABS: ALANINE AMINOTRANSFERASE 24 U/L (3-41); ALBUMIN/GLOBULIN RATIO 0.5 (1.0-2.7); ANION GAP 14 (5-15); ASPARTATE AMINO TRANSFERASE 33 U/L (5-40); CALCIUM 8.4 mg/dL (8.6-10.2); CARBON DIOXIDE 22 mEQ/L (20-30); CHLORIDE 105 mEQ/L (98-107); CREATININE 1.5 mg/dL (0.7-1.2); HEMOLYSIS 1; MAGNESIUM 1.9 mg/dL (1.7-2.5); PHOSPHORUS 4.1 mg/dL (2.5-4.8); POTASSIUM 4.4 mEQ/L (3.4-4.9); SODIUM 141 mEQ/L (135-145); TOTAL PROTEIN 6.1 g/dL (6.6-8.7)
[2016-07-30 07:18] LABS: ABG ALLEN TEST POSITIVE; ABG BASE EXCESS -0.7
[2016-07-30] MEDS: Pantoprazole Inj IVP SCH (08:46)
[2016-07-30] MEDS: Lactobacillus-GG tablet GT SCH ×3 (08:46→18:00)
--- NOTE | 2016-07-30 09:14 | Pulmonolgy Critical Care Note ---
Critical Care - Asmt/Plan Problems: (1) Acute respiratory failure (2) Gram-negative bacteremia (3) ATN (acute tubular necrosis) (4) Hyperkalemia (5) Acute encephalopathy Critical Care - Objective Last 24 Hour Vital Signs Date Time Temp Pulse Resp B/P Pulse Ox O2 Delivery O2 Flow Rate FiO2 07/30/16 08:00 99.7 78 20 121/71 99 Mechanical Ventilator 30 07/30/16 08:00 77 07/30/16 08:00 30 07/30/16 07:09 89 23 30 07/30/16 06:00 80 23 130/64 100 Mechanical Ventilator 30 07/30/16 05:00 84 23 125/60 100 Mechanical Ventilator 30 07/30/16 04:56 90 22 30 07/30/16 04:00 30 07/30/16 04:00 90 23 130/64 100 Mechanical Ventilator 30 07/30/16 04:00 90 07/30/16 03:23 72 22 30 07/30/16 03:00 88 23 104/64 100 Mechanical Ventilator 30 07/30/16 03:00 77 23 125/64 100 Mechanical Ventilator 30 07/30/16 02:00 77 23 125/64 100 Mechanical Ventilator 30 07/30/16 01:00 80 23 136/96 100 Mechanical Ventilator 30 07/30/16 00:00 30 07/30/16 00:00 70 07/30/16 00:00 99.0 80 23 133/82 100 Mechanical Ventilator 30 07/29/16 23:10 70 22 30 07/29/16 23:00 80 23 130/71 100 Mechanical Ventilator 30 07/29/16 22:00 70 23 120/65 100 Mechanical Ventilator 30 07/29/16 21:05 74 22 30 07/29/16 21:00 75 22 110/54 100 Mechanical Ventilator 30 07/29/16 20:00 30 07/29/16 20:00 74 24 120/65 99 Mechanical Ventilator 30 07/29/16 20:00 75 07/29/16 19:00 75 23 104/90 100 Mechanical Ventilator 30 07/29/16 18:48 68 22 30 07/29/16 18:00 70 22 94/54 100 Mechanical Ventilator 30 07/29/16 17:00 75 22 114/59 98 Mechanical Ventilator 30 07/29/16 16:45 70 25 30 07/29/16 16:00 71 07/29/16 16:00 99.1 71 22 95/48 100 Mechanical Ventilator 30 07/29/16 15:22 76 29 30 07/29/16 15:16 29 30 07/29/16 15:00 76 24 137/58 100 Mechanical Ventilator 30 07/29/16 14:00 74 27 110/54 99 Mechanical Ventilator 30 07/29/16 13:40 30 07/29/16 13:25 67 21 30 07/29/16 13:00 68 26 105/71 100 Mechanical Ventilator 30 07/29/16 12:00 67 07/29/16 12:00 99.3 67 22 93/49 99 Mechanical Ventilator 30 07/29/16 11:10 99.0 07/29/16 11:00 77 27 122/61 100 Mechanical Ventilator 30 07/29/16 11:00 76 27 30 07/29/16 11:00 30 07/29/16 10:53 98 07/29/16 10:00 75 20 97/54 99 Mechanical Ventilator 30 Micro: Microbiology Date/Time Source Procedure Growth Status 07/28/16 20:00 Stool Clostridium difficile Toxin Assay - Final Complete 07/29/16 09:40 Urine,Clean Catch Urine Culture - Preliminary NO GROWTH AFTER 24 HOURS Resulted Accucheck: 102 Critical Care - Subjective FI02: 30 Vent Support Breath Rate: 8 Vent Support Mode: IMV/SIMV Vent Tidal Volume: 500 Sputum Amount: Moderate PEEP: 5.0 PIP: 17 Tube Feeding Amount: 50 I&O: Intake and Output 07/29/16 07/30/16 19:00 07:00 Intake Total 950 ml 1050 ml Output Total 695 ml 570 ml Balance 255 ml 480 ml Free Water 350 ml 400 ml Tube Feeding 600 ml 650 ml Output Urine Total 695 ml 570 ml # Bowel Movements 4 4 Subjective: comfortable ET-Tube: 8.0 ET Position: 24 MACARENA FLANNERY Jul 30, 2016 09:14
--- NOTE | 2016-07-30 09:16 | Diagnostic Imaging Report ---
Indications: DYSPNEA Technique: Portable AP chest Findings: Comparison: 07/29/16 Left lung base subsegmental atelectasis, bilateral interstitial infiltrates, right costophrenic angle blunting persist, unchanged. Lines and tubes remain in place. No new abnormality identified. IMPRESSION: No change from one day prior
--- NOTE | 2016-07-30 09:57 | General Progress Note ---
Assessment/Plan Status: stable Assessment/Plan status: acute renal failure, requiring HD , done 07/16 & 07/19 & no more acute hyperkalemia , resolved Low BP , septic Shock , on Pressors- RESOLVED acute respiratory failure requiring intubation UTI gross hematuria anemia CHF Sever Hypoalbuminemia h/o Parkinsons , OBS , ? Sz Plan: waiting for family decision reg trach HD 07/19, no further dialysis appears to be needed, DC Dialysis cath from groin 06/23/16--( right groin catheter was discontinued and the site was dressed under pressure and hemostasis acheived) Monitor renal parameters- K supplement as needed- one liter D5 weaning in process Lactobacillus Avoid Nephrotoxics On Renal feeding BP support per orders Subjective ROS Limited/Unobtainable: Yes Allergies: Coded Allergies: No Known Allergies (Unverified , 07/16/16) Objective Last 24 Hour Vital Signs Date Time Temp Pulse Resp B/P Pulse Ox O2 Delivery O2 Flow Rate FiO2 07/30/16 08:54 99 07/30/16 08:50 82 19 30 07/30/16 08:00 99.7 78 20 121/71 99 Mechanical Ventilator 30 07/30/16 08:00 77 07/30/16 08:00 30 07/30/16 07:09 89 23 30 07/30/16 06:00 80 23 130/64 100 Mechanical Ventilator 07/30/16 05:00 84 23 125/60 100 Mechanical Ventilator 07/30/16 04:56 90 22 30 07/30/16 04:00 30 07/30/16 04:00 90 23 130/64 100 Mechanical Ventilator 07/30/16 04:00 90 07/30/16 03:23 72 22 30 07/30/16 03:00 88 23 104/64 100 Mechanical Ventilator 30 07/30/16 03:00 77 23 125/64 100 Mechanical Ventilator 30 07/30/16 02:00 77 23 125/64 100 Mechanical Ventilator 30 07/30/16 01:00 80 23 136/96 100 Mechanical Ventilator 30 07/30/16 00:00 30 07/30/16 00:00 70 07/30/16 00:00 99.0 80 23 133/82 100 Mechanical Ventilator 30 07/29/16 23:10 70 22 30 07/29/16 23:00 80 23 130/71 100 Mechanical Ventilator 30 07/29/16 22:00 70 23 120/65 100 Mechanical Ventilator 30 07/29/16 21:05 74 22 30 07/29/16 21:00 75 22 110/54 100 Mechanical Ventilator 30 07/29/16 20:00 30 07/29/16 20:00 74 24 120/65 99 Mechanical Ventilator 30 07/29/16 20:00 75 07/29/16 19:00 75 23 104/90 100 Mechanical Ventilator 30 07/29/16 18:48 68 22 30 07/29/16 18:00 70 22 94/54 100 Mechanical Ventilator 30 07/29/16 17:00 75 22 114/59 98 Mechanical Ventilator 30 07/29/16 16:45 70 25 30 07/29/16 16:00 71 07/29/16 16:00 99.1 71 22 95/48 100 Mechanical Ventilator 30 07/29/16 15:22 76 29 30 07/29/16 15:16 29 30 07/29/16 15:00 76 24 137/58 100 Mechanical Ventilator 30 07/29/16 14:00 74 27 110/54 99 Mechanical Ventilator 30 07/29/16 13:40 30 07/29/16 13:25 67 21 30 07/29/16 13:00 68 26 105/71 100 Mechanical Ventilator 30 07/29/16 12:00 67 07/29/16 12:00 99.3 67 22 93/49 99 Mechanical Ventilator 30 07/29/16 11:10 99.0 07/29/16 11:00 77 27 122/61 100 Mechanical Ventilator 30 07/29/16 11:00 76 27 30 07/29/16 11:00 30 07/29/16 10:53 98 07/29/16 10:00 75 20 97/54 99 Mechanical Ventilator 30 Intake and Output 07/29/16 07/30/16 19:00 07:00 Intake Total 950 ml 1050 ml Output Total 695 ml 570 ml Balance 255 ml 480 ml Free Water 350 ml 400 ml Tube Feeding 600 ml 650 ml Output Urine Total 695 ml 570 ml # Bowel Movements 4 4 Laboratory Tests 07/29/16 12:00: Arterial Blood pH 7.430, Arterial Blood Partial Pressure CO2 35.1, Arterial Blood Partial Pressure O2 96.7, Arterial Blood HCO3 22.8, Arterial Blood Oxygen Saturation 96.6, Arterial Blood Base Excess -1.2, Caleb Test Positive 07/30/16 03:50: White Blood Count 5.6, Red Blood Count 2.79L, Hemoglobin 8.4L, Hematocrit 26.1L , Mean Corpuscular Volume 93, Mean Corpuscular Hemoglobin 29.9, Mean Corpuscular Hemoglobin Concent 32.1, Red Cell Distribution Width 13.8, Platelet Count 189, Mean Platelet Volume 6.6, Neutrophils (%) (Auto) 72.7, Lymphocytes (% ) (Auto) 19.2L, Monocytes (%) (Auto) 4.4, Eosinophils (%) (Auto) 3.1H, Basophils (%) (Auto) 0.7, Sodium Level 141, Potassium Level 4.4, Chloride Level 105, Carbon Dioxide Level 22, Anion Gap 14, Blood Urea Nitrogen 29H, Creatinine 1.5H, Estimat Glomerular Filtration Rate , Glucose Level 103, Calcium Level 8.4L , Phosphorus Level 4.1, Magnesium Level 1.9, Total Bilirubin 0.3, Aspartate Amino Transf (AST/SGOT) 33, Alanine Aminotransferase (ALT/SGPT) 24, Alkaline Phosphatase 213H, Total Protein 6.1L, Albumin 2.1L, Globulin 4.0, Albumin/ Globulin Ratio 0.5L 07/30/16 07:05: Arterial Blood pH 7.450, Arterial Blood Partial Pressure CO2 33.0L, Arterial Blood Partial Pressure O2 95.9, Arterial Blood HCO3 22.8, Arterial Blood Oxygen Saturation 96.8, Arterial Blood Base Excess -0.7, Caleb Test Positive Height (Feet): 5 Height (Inches): 8.00 Weight (Pounds): 184 General Appearance: no apparent distress Objective other PE not changed HAI THOMPSON Jul 30, 2016 09:57
[2016-07-30] MEDS ORDERED: NS 275ml ONE (10:24)
[2016-07-30 13:26] LABS: ABG ALLEN TEST POSITIVE; ABG BASE EXCESS -2.9; ABG PCO2 31.6 mmHg (35.0-45.0)
[2016-07-30] MEDS ORDERED: Vancomycin 1250mg/D5W 275ml IVPB ONE ×2 (14:30)
--- NOTE | 2016-07-30 21:17 | Infectious Diseases Prog Note ---
Assessment/Plan Assessment/Plan A: The patient is an 80-year-old male with bacteremia GPC Low grade fever Leukocytosis, SP Septic shock SP - off of pressors Urinary tract infection : P mirabilis x 2 CT: Diffuse thickening of the urinary bladder wall consistent with cystitis. Garcia in good position. Mild bilateral hydronephrosis probably on the basis of a bladder disease. Thickening of the uroepithelium suggestive of chronic inflammation or infection. 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 Renal insufficiency SP hemodialysis x 2 Hypernatremia Dementia Parkinson disease Seizure disorder History of congestive heart failure Post pacemaker placement Chronic BLE DVT Obesity Renal insufficiency Hematuria Depression Anemia PLAN: IV Vanco d# 1 SP Levaquin d # 10 /10 6/ IV Zosyn d# 4 Monitor CBC Monitor BMP. resp support, monitor culture ( blood and Urine , sputum ) Subjective Constitutional: Denies: anorexia, chills, drenching sweats, fatigue, fever, no symptoms, other Allergies: Coded Allergies: No Known Allergies (Unverified , 07/16/16) Subjective low grade fever ,x 1 , extubated Objective Vital Signs Last 24 Hour Vital Signs Date Time Temp Pulse Resp B/P Pulse Ox O2 Delivery O2 Flow Rate FiO2 07/30/16 21:01 66 16 114/56 100 Nasal Cannula 3.0 07/30/16 20:30 67 20 114/56 94 Nasal Cannula 3.0 07/30/16 20:00 30 07/30/16 20:00 67 07/30/16 20:00 98.0 66 22 119/85 100 Mechanical Ventilator 30 07/30/16 19:00 70 22 119/85 99 Mechanical Ventilator 30 07/30/16 18:47 69 22 30 07/30/16 18:00 67 22 119/85 94 Mechanical Ventilator 30 07/30/16 17:09 66 22 30 07/30/16 17:00 98.7 66 19 92/53 100 Mechanical Ventilator 30 07/30/16 16:00 98.7 66 19 92/53 100 Mechanical Ventilator 30 07/30/16 16:00 30 07/30/16 16:00 69 07/30/16 15:19 72 27 30 07/30/16 15:00 66 20 114/69 99 Mechanical Ventilator 30 07/30/16 14:00 74 23 114/58 100 Mechanical Ventilator 30 07/30/16 13:01 65 22 30 07/30/16 13:00 69 22 114/53 100 Mechanical Ventilator 30 07/30/16 12:00 76 07/30/16 12:00 98.8 79 20 109/52 100 Mechanical Ventilator 30 07/30/16 12:00 30 07/30/16 11:00 72 23 104/56 100 Mechanical Ventilator 30 07/30/16 10:41 80 27 30 07/30/16 10:00 80 23 125/47 100 Mechanical Ventilator 30 07/30/16 09:00 82 21 135/71 100 Mechanical Ventilator 30 07/30/16 08:54 99 07/30/16 08:50 82 19 30 07/30/16 08:00 99.7 78 20 121/71 99 Mechanical Ventilator 30 07/30/16 08:00 77 07/30/16 08:00 30 07/30/16 07:09 89 23 30 07/30/16 07:00 85 21 120/89 100 Mechanical Ventilator 30 07/30/16 06:00 80 23 130/64 100 Mechanical Ventilator 30 07/30/16 05:00 84 23 125/60 100 Mechanical Ventilator 30 07/30/16 04:56 90 22 30 07/30/16 04:00 30 07/30/16 04:00 90 23 130/64 100 Mechanical Ventilator 30 07/30/16 04:00 90 07/30/16 03:23 72 22 30 07/30/16 03:00 88 23 104/64 100 Mechanical Ventilator 30 07/30/16 03:00 77 23 125/64 100 Mechanical Ventilator 30 07/30/16 02:00 77 23 125/64 100 Mechanical Ventilator 30 07/30/16 01:00 80 23 136/96 100 Mechanical Ventilator 30 07/30/16 00:00 30 07/30/16 00:00 70 07/30/16 00:00 99.0 80 23 133/82 100 Mechanical Ventilator 30 07/29/16 23:10 70 22 30 07/29/16 23:00 80 23 130/71 100 Mechanical Ventilator 30 07/29/16 22:00 70 23 120/65 100 Mechanical Ventilator 30 Height (Feet): 5 Height (Inches): 8.00 Weight (Pounds): 184 HEENT: anicteric Respiratory/Chest: no respiratory distress Cardiovascular: regular rhythm Abdomen: non distended Microbiology Date/Time Source Procedure Growth Status 07/29/16 09:40 Blood Blood Culture - Preliminary Resulted 07/29/16 09:40 Sputum Gram Stain - Final Resulted 07/29/16 09:40 Sputum Sputum Culture - Preliminary NORMAL UPPER RESPIRATORY INA PRESENT Resulted 07/28/16 20:00 Stool Clostridium difficile Toxin Assay - Final Complete 07/29/16 09:40 Urine,Clean Catch Urine Culture - Preliminary NO GROWTH AFTER 24 HOURS Resulted Laboratory Tests Test 07/30/16 03:50 07/30/16 07:05 07/30/16 13:08 White Blood Count 5.6 K/UL (4.8-10.8) Red Blood Count 2.79 M/UL (4.70-6.10) L Hemoglobin 8.4 G/DL (14.2-18.0) L Hematocrit 26.1 % (42.0-52.0) L Mean Corpuscular Volume 93 FL (80-99) Mean Corpuscular Hemoglobin 29.9 PG (27.0-31.0) Mean Corpuscular Hemoglobin Concent 32.1 G/DL (32.0-36.0) Red Cell Distribution Width 13.8 % (11.6-14.8) Platelet Count 189 K/UL (150-450) Mean Platelet Volume 6.6 FL (6.5-10.1) Neutrophils (%) (Auto) 72.7 % (45.0-75.0) Lymphocytes (%) (Auto) 19.2 % (20.0-45.0) L Monocytes (%) (Auto) 4.4 % (1.0-10.0) Eosinophils (%) (Auto) 3.1 % (0.0-3.0) H Basophils (%) (Auto) 0.7 % (0.0-2.0) Sodium Level 141 mEQ/L (135-145) Potassium Level 4.4 mEQ/L (3.4-4.9) Chloride Level 105 mEQ/L (98-107) Carbon Dioxide Level 22 mEQ/L (20-30) Anion Gap 14 (5-15) Blood Urea Nitrogen 29 mg/dL (7-23) H Creatinine 1.5 mg/dL (0.7-1.2) H Estimat Glomerular Filtration Rate mL/min (>60) Glucose Level 103 mg/dL (74-106) Calcium Level 8.4 mg/dL (8.6-10.2) L Phosphorus Level 4.1 mg/dL (2.5-4.8) Magnesium Level 1.9 mg/dL (1.7-2.5) Total Bilirubin 0.3 mg/dL (0.0-1.2) Aspartate Amino Transf (AST/SGOT) 33 U/L (5-40) Alanine Aminotransferase (ALT/SGPT) 24 U/L (3-41) Alkaline Phosphatase 213 U/L (40-129) H Total Protein 6.1 g/dL (6.6-8.7) L Albumin 2.1 g/dL (3.5-5.2) L Globulin 4.0 g/dL Albumin/Globulin Ratio 0.5 (1.0-2.7) L Arterial Blood pH 7.450 (7.350-7.450) 7.430 (7.350-7.450) Arterial Blood Partial Pressure CO2 33.0 mmHg (35.0-45.0) L 31.6 mmHg (35.0-45.0) L Arterial Blood Partial Pressure O2 95.9 mmHg (75.0-100.0) 102.9 mmHg (75.0-100.0) H Arterial Blood HCO3 22.8 mmol/L (22.0-26.0) 20.8 mmol/L (22.0-26.0) L Arterial Blood Oxygen Saturation 96.8 % (92.0-98.0) 96.8 % (92.0-98.0) Arterial Blood Base Excess -0.7 -2.9 Caleb Test Positive Positive Current Medications Medications (Trade) Dose Ordered Sig/Janay Route PRN Reason Start Time Stop Time Status Last Admin Dose Admin Acetaminophen (Tylenol) 650 mg Q4H PRN ORAL fever 07/16/16 15:15 08/15/16 15:14 07/29/16 09:56 Chlorhexidine Gluconate (Loree-Hex 2%) 1 applic Q24H TOPIC 07/20/16 23:00 08/19/16 22:59 07/29/16 23:00 Lactobacillus Acidophilus (Culturelle) 1 tab THREE TIMES A DAY GT 07/21/16 13:00 08/20/16 12:59 07/30/16 13:15 Nitroglycerin (Ntg) 0.4 mg Q5M PRN SL Prn Chest Pain 07/16/16 15:15 08/15/16 15:14 Ondansetron HCl (Zofran) 4 mg Q6H PRN IVP Nausea & Vomiting 07/16/16 15:15 08/15/16 15:14 Pantoprazole (Protonix) 40 mg DAILY IVP 07/25/16 09:00 08/24/16 08:59 07/30/16 08:46 Polyethylene Glycol (Miralax) 17 gm DAILYPRN PRN ORAL Constipation 07/16/16 15:15 08/15/16 15:14 Vancomycin HCl (Vanco rx to dose) 1 ea DAILY PRN MISC Per rx protocol 07/30/16 13:00 08/29/16 12:59 PHILLIP BARNES M.D. Jul 30, 2016 21:17
[2016-07-30] MEDS: Dyna-Hex 2% Top Sol 8oz TOPIC SCH (23:00)
[2016-07-31] VITALS (11 sets, daily range): BP systolic 97–146; BP diastolic 56–83
[2016-07-31 05:11] LABS: MEAN CORPUSCULAR HEMOGLOBIN 31.6 PG (27.0-31.0); MEAN CORPUSCULAR HGB CONC 33.9 G/DL (32.0-36.0); MEAN CORPUSCULAR VOLUME 93 FL (80-99); PLATELET COUNT 164 K/UL (150-450); RED BLOOD COUNT 2.48 M/UL (4.70-6.10); RED CELL DISTRIBUTION WIDTH 14.1 % (11.6-14.8); WHITE BLOOD COUNT 4.1 K/UL (4.8-10.8)
[2016-07-31 05:24] LABS: ALANINE AMINOTRANSFERASE 17 U/L (3-41); ALBUMIN/GLOBULIN RATIO 0.5 (1.0-2.7); ANION GAP 14 (5-15); ASPARTATE AMINO TRANSFERASE 20 U/L (5-40); CALCIUM 8.1 mg/dL (8.6-10.2); CARBON DIOXIDE 22 mEQ/L (20-30); CHLORIDE 108 mEQ/L (98-107); CREATININE 1.4 mg/dL (0.7-1.2); HEMOLYSIS 1; PHOSPHORUS 3.7 mg/dL (2.5-4.8); POTASSIUM 3.7 mEQ/L (3.4-4.9); SODIUM 144 mEQ/L (135-145); TOTAL PROTEIN 5.4 g/dL (6.6-8.7)
[2016-07-31 08:02] LABS: BAND NEUTROPHILS % (MANUAL) 1 % (0-8); EOSINOPHILS % (MANUAL) 2 % (0-3); LYMPHOCYTES % (MANUAL) 19 % (20-45); NEUTROPHILS % (MANUAL) 77 % (45-75); TOTAL CELLS COUNTED 100
[2016-07-31 08:03] LABS: ANISOCYTOSIS 1+; BASOPHILS % (MANUAL) 0 % (0-2); HYPOCHROMASIA OCCASIONAL; PLATELET ESTIMATE ADEQUATE; PLATELET MORPHOLOGY NORMAL
[2016-07-31] MEDS ORDERED: Nitroglycerin Subl 0.4mg tab (Bottle Of 25) SL PRN (08:05)
[2016-07-31] MEDS ORDERED: Miralax 17gm pkt ORAL PRN (08:21)
[2016-07-31] MEDS: Lactobacillus-GG tablet GT SCH ×3 (09:17→17:57)
[2016-07-31] MEDS ORDERED: NS 275ml ONE (10:03)
[2016-07-31] MEDS ORDERED: Tubing IV Secondary IV ONE (10:03)
--- NOTE | 2016-07-31 12:26 | Pulmonology Progress Note ---
Subjective Allergies: Coded Allergies: No Known Allergies (Unverified , 07/16/16) Objective Last 24 Hour Vital Signs Date Time Temp Pulse Resp B/P Pulse Ox O2 Delivery O2 Flow Rate FiO2 07/31/16 08:00 97.7 66 20 123/62 94 Nasal Cannula 2.0 07/31/16 08:00 97.7 63 20 97/56 94 Room Air 07/31/16 06:02 68 18 108/58 98 Nasal Cannula 3.0 07/31/16 05:00 75 18 122/58 97 Nasal Cannula 3.0 07/31/16 04:00 98.3 65 22 122/58 100 Nasal Cannula 3.0 07/31/16 04:00 65 07/31/16 03:00 73 21 115/66 100 Nasal Cannula 3.0 07/31/16 02:00 71 20 112/83 100 Nasal Cannula 3.0 07/31/16 01:00 70 17 112/70 100 Nasal Cannula 3.0 07/31/16 00:00 98.0 64 18 122/70 100 Nasal Cannula 3.0 07/31/16 00:00 64 07/30/16 23:00 68 16 111/64 100 Nasal Cannula 3.0 07/30/16 22:00 68 16 111/56 100 Nasal Cannula 3.0 07/30/16 21:01 66 16 114/56 100 Nasal Cannula 3.0 07/30/16 20:30 67 20 114/56 94 Nasal Cannula 3.0 07/30/16 20:00 30 07/30/16 20:00 67 07/30/16 20:00 98.0 66 22 119/85 100 Mechanical Ventilator 30 07/30/16 19:00 70 22 119/85 99 Mechanical Ventilator 30 07/30/16 18:47 69 22 30 07/30/16 18:00 67 22 119/85 94 Mechanical Ventilator 30 07/30/16 17:09 66 22 30 07/30/16 17:00 98.7 66 19 92/53 100 Mechanical Ventilator 30 07/30/16 16:00 98.7 66 19 92/53 100 Mechanical Ventilator 30 07/30/16 16:00 30 07/30/16 16:00 69 07/30/16 15:19 72 27 30 07/30/16 15:00 66 20 114/69 99 Mechanical Ventilator 30 07/30/16 14:00 74 23 114/58 100 Mechanical Ventilator 30 07/30/16 13:01 65 22 30 07/30/16 13:00 69 22 114/53 100 Mechanical Ventilator 30 Intake and Output 07/30/16 07/31/16 19:00 07:00 Intake Total 300 ml 150 ml Output Total 805 ml 640 ml Balance -505 ml -490 ml Tube Feeding 300 ml 150 ml Output Urine Total 805 ml 640 ml Microbiology Date/Time Source Procedure Growth Status 07/29/16 09:40 Blood Blood Culture - Preliminary Resulted 07/29/16 09:40 Sputum Gram Stain - Final Complete 07/29/16 09:40 Sputum Sputum Culture - Final NORMAL UPPER RESPIRATORY INA AT 48 ... Complete 07/28/16 20:00 Stool Clostridium difficile Toxin Assay - Final Complete 07/29/16 09:40 Urine,Clean Catch Urine Culture - Preliminary NO GROWTH AFTER 24 HOURS Resulted Laboratory Tests 07/30/16 13:08: Arterial Blood pH 7.430, Arterial Blood Partial Pressure CO2 31.6L, Arterial Blood Partial Pressure O2 102.9H, Arterial Blood HCO3 20.8L, Arterial Blood Oxygen Saturation 96.8, Arterial Blood Base Excess -2.9, Caleb Test Positive 07/31/16 03:55: White Blood Count 4.1L, Red Blood Count 2.48L, Hemoglobin 7.8L, Hematocrit 23.1L , Mean Corpuscular Volume 93, Mean Corpuscular Hemoglobin 31.6H, Mean Corpuscular Hemoglobin Concent 33.9, Red Cell Distribution Width 14.1, Platelet Count 164, Mean Platelet Volume 7.0, Neutrophils (%) (Auto) , Lymphocytes (%) ( Auto) , Monocytes (%) (Auto) , Eosinophils (%) (Auto) , Basophils (%) (Auto) , Neutrophils % (Manual) [Pending], Lymphocytes % (Manual) [Pending], Platelet Estimate [Pending], Platelet Morphology [Pending], Sodium Level 144, Potassium Level 3.7, Chloride Level 108H, Carbon Dioxide Level 22, Anion Gap 14, Blood Urea Nitrogen 25H, Creatinine 1.4H, Estimat Glomerular Filtration Rate , Glucose Level 87, Calcium Level 8.1L, Phosphorus Level 3.7, Magnesium Level 2.0 , Total Bilirubin 0.3, Aspartate Amino Transf (AST/SGOT) 20, Alanine Aminotransferase (ALT/SGPT) 17, Alkaline Phosphatase 158H, Total Protein 5.4L, Albumin 2.0L, Globulin 3.4, Albumin/Globulin Ratio 0.5L Current Medications Medications (Trade) Dose Ordered Sig/Janay Route PRN Reason Start Time Stop Time Status Last Admin Dose Admin Acetaminophen (Tylenol) 650 mg Q4H PRN ORAL fever 07/31/16 08:18 08/30/16 08:17 Chlorhexidine Gluconate (Loree-Hex 2%) 1 applic Q24H TOPIC 07/31/16 21:00 08/30/16 20:59 Lactobacillus Acidophilus (Culturelle) 1 tab THREE TIMES A DAY GT 07/31/16 09:00 08/30/16 08:59 07/31/16 09:17 Lansoprazole (Prevacid) 30 mg DAILY NG 07/31/16 09:00 08/30/16 08:59 07/31/16 09:16 Nitroglycerin (Ntg) 0.4 mg Q5MIN X 3 DOSES PRN SL Prn Chest Pain 07/31/16 08:05 08/30/16 08:04 Ondansetron HCl (Zofran) 4 mg Q6H PRN IVP Nausea & Vomiting 07/31/16 08:19 08/30/16 08:18 Polyethylene Glycol (Miralax) 17 gm DAILYPRN PRN ORAL Constipation 07/31/16 08:21 08/30/16 08:20 Vancomycin HCl (Vanco rx to dose) 1 ea DAILY PRN MISC Per rx protocol 07/31/16 09:00 08/30/16 08:59 Mega (Efrain)Nora NP Jul 31, 2016 12:26
--- NOTE | 2016-07-31 15:43 | Pulmonology Progress Note ---
Assessment/Plan Assessment/Plan ASSESSMENT acute respiratory failure requiring intubation s/p extubation acute toxic metabolic encephalopathy sepsis with bacteremia bacteremia with Proteus septic shock -resolved UTI with Proteus gross hematuria acute renal failure on CRI rhabdo acute hyperkalemia anemia s/p blood transfusion elevated CEA R hydronephrosis dementia with Parkinsonian features bipolar disorder HTN chronic BLE DVT seizure disorder CHF severe hypoalbuminemia multiple skin DTI POA PLAN OF CARE initially in ICU vent support, pulmonary toilet was able to be weaned 07/30 now DNR/DNI status O2 HHN to keep sat above 92% ID follows abx, sputum cx negative urine cx + Proteus ( 2 diff species) , blood cx + Proteus, repeated GPC in clusters nephro follows renal US with R hydro increased renal echogenicity c/w medical renal disease s/p HD 07/16 and 07/19, no further HD renal parameters improving HD catheter was dc 07/24 monitor renal parameters,. 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 urology seen and evaluated for gross hematuria hematuria resolved recommended further workup when patient stabilized ENT seen the patient since the patient had numerous episodes of intubation and extubation patient is a good candidate for trach family did not decide for trach code status was changed to DNR/DNI status supportive care and symptomatic treatment case discussed and evaluated by supervising physician Subjective Allergies: Coded Allergies: No Known Allergies (Unverified , 07/16/16) Subjective extubated on O2 via NC sat stable afebrile, no leukocytosis HH with drop Hgb-7.8 Objective Last 24 Hour Vital Signs Date Time Temp Pulse Resp B/P Pulse Ox O2 Delivery O2 Flow Rate FiO2 07/31/16 12:00 97.3 71 20 113/65 95 Room Air 07/31/16 12:00 98.1 64 20 120/82 95 Nasal Cannula 2.0 07/31/16 08:00 97.7 66 20 123/62 94 Nasal Cannula 2.0 07/31/16 08:00 97.7 63 20 97/56 94 Room Air 07/31/16 06:02 68 18 108/58 98 Nasal Cannula 3.0 07/31/16 05:00 75 18 122/58 97 Nasal Cannula 3.0 07/31/16 04:00 98.3 65 22 122/58 100 Nasal Cannula 3.0 07/31/16 04:00 65 07/31/16 03:00 73 21 115/66 100 Nasal Cannula 3.0 07/31/16 02:00 71 20 112/83 100 Nasal Cannula 3.0 07/31/16 01:00 70 17 112/70 100 Nasal Cannula 3.0 07/31/16 00:00 98.0 64 18 122/70 100 Nasal Cannula 3.0 07/31/16 00:00 64 07/30/16 23:00 68 16 111/64 100 Nasal Cannula 3.0 07/30/16 22:00 68 16 111/56 100 Nasal Cannula 3.0 07/30/16 21:01 66 16 114/56 100 Nasal Cannula 3.0 07/30/16 20:30 67 20 114/56 94 Nasal Cannula 3.0 07/30/16 20:00 30 07/30/16 20:00 67 07/30/16 20:00 98.0 66 22 119/85 100 Mechanical Ventilator 30 07/30/16 19:00 70 22 119/85 99 Mechanical Ventilator 30 07/30/16 18:47 69 22 30 07/30/16 18:00 67 22 119/85 94 Mechanical Ventilator 30 07/30/16 17:09 66 22 30 07/30/16 17:00 98.7 66 19 92/53 100 Mechanical Ventilator 30 07/30/16 16:00 98.7 66 19 92/53 100 Mechanical Ventilator 30 07/30/16 16:00 30 07/30/16 16:00 69 Intake and Output 07/30/16 07/31/16 19:00 07:00 Intake Total 300 ml 150 ml Output Total 805 ml 640 ml Balance -505 ml -490 ml Tube Feeding 300 ml 150 ml Output Urine Total 805 ml 640 ml General Appearance: other - bedridden, open eyes spontanesouly, not responsive , not follows commands HEENT: normocephalic, atraumatic, other - NGT Respiratory/Chest: lungs clear - with moderate air entry , no respiratory distress Cardiovascular: normal rate, regular rhythm, no JVD, other - RUE PICC intact Abdomen: normal bowel sounds, soft, non tender - mild distention Genitourinary: other - Garcia no hematuria Extremities: other - trac edema BLE , SCD on Skin: other - multiple skin DTI POA Neurologic/Psychiatric: abnormal gait Musculoskeletal: atrophy - BLE Microbiology Date/Time Source Procedure Growth Status 07/29/16 09:40 Blood Blood Culture - Preliminary Resulted 07/29/16 09:40 Sputum Gram Stain - Final Complete 07/29/16 09:40 Sputum Sputum Culture - Final NORMAL UPPER RESPIRATORY INA AT 48 ... Complete 07/28/16 20:00 Stool Clostridium difficile Toxin Assay - Final Complete 07/29/16 09:40 Urine,Clean Catch Urine Culture - Preliminary NO GROWTH AFTER 24 HOURS Resulted Laboratory Tests 07/31/16 03:55: White Blood Count 4.1L, Red Blood Count 2.48L, Hemoglobin 7.8L, Hematocrit 23.1L , Mean Corpuscular Volume 93, Mean Corpuscular Hemoglobin 31.6H, Mean Corpuscular Hemoglobin Concent 33.9, Red Cell Distribution Width 14.1, Platelet Count 164, Mean Platelet Volume 7.0, Neutrophils (%) (Auto) , Lymphocytes (%) ( Auto) , Monocytes (%) (Auto) , Eosinophils (%) (Auto) , Basophils (%) (Auto) , Neutrophils % (Manual) [Pending], Lymphocytes % (Manual) [Pending], Platelet Estimate [Pending], Platelet Morphology [Pending], Sodium Level 144, Potassium Level 3.7, Chloride Level 108H, Carbon Dioxide Level 22, Anion Gap 14, Blood Urea Nitrogen 25H, Creatinine 1.4H, Estimat Glomerular Filtration Rate , Glucose Level 87, Calcium Level 8.1L, Phosphorus Level 3.7, Magnesium Level 2.0 , Total Bilirubin 0.3, Aspartate Amino Transf (AST/SGOT) 20, Alanine Aminotransferase (ALT/SGPT) 17, Alkaline Phosphatase 158H, Total Protein 5.4L, Albumin 2.0L, Globulin 3.4, Albumin/Globulin Ratio 0.5L Current Medications Medications (Trade) Dose Ordered Sig/Janay Route PRN Reason Start Time Stop Time Status Last Admin Dose Admin Acetaminophen (Tylenol) 650 mg Q4H PRN ORAL fever 07/31/16 08:18 08/30/16 08:17 Chlorhexidine Gluconate (Loree-Hex 2%) 1 applic Q24H TOPIC 07/31/16 21:00 08/30/16 20:59 Lactobacillus Acidophilus (Culturelle) 1 tab THREE TIMES A DAY GT 07/31/16 09:00 08/30/16 08:59 07/31/16 13:30 Lansoprazole (Prevacid) 30 mg DAILY NG 07/31/16 09:00 08/30/16 08:59 07/31/16 09:16 Nitroglycerin (Ntg) 0.4 mg Q5MIN X 3 DOSES PRN SL Prn Chest Pain 07/31/16 08:05 08/30/16 08:04 Ondansetron HCl (Zofran) 4 mg Q6H PRN IVP Nausea & Vomiting 07/31/16 08:19 08/30/16 08:18 Polyethylene Glycol (Miralax) 17 gm DAILYPRN PRN ORAL Constipation 07/31/16 08:21 08/30/16 08:20 Vancomycin HCl (Vanco rx to dose) 1 ea DAILY PRN MISC Per rx protocol 07/31/16 09:00 08/30/16 08:59 Mega (Efrain)Nora NP Jul 31, 2016 15:43
[2016-07-31] MEDS ORDERED: DuoNeb 0.5-3(2.5)mg/3ml neb HHN PRN (15:45)
--- NOTE | 2016-07-31 16:11 | General Progress Note ---
Assessment/Plan Status: stable Status Narrative extubated- doing well on O2- Cr lower- Hgb Lower Assessment/Plan status: acute renal failure, requiring HD , done 07/16 & 07/19 & no more acute hyperkalemia , resolved Low BP , septic Shock , on Pressors- RESOLVED acute respiratory failure requiring intubation UTI gross hematuria anemia CHF Sever Hypoalbuminemia h/o Parkinsons , OBS , ? Sz Plan: extubated now HD 07/19, no further dialysis appears to be needed, DC Dialysis cath from groin 06/23/16--( right groin catheter was discontinued and the site was dressed under pressure and hemostasis acheived) Monitor renal parameters- K supplement as needed- Lactobacillus Avoid Nephrotoxics On Renal feeding BP support per orders Subjective ROS Limited/Unobtainable: Yes Constitutional: Reports: other - now extubated Allergies: Coded Allergies: No Known Allergies (Unverified , 07/16/16) Objective Last 24 Hour Vital Signs Date Time Temp Pulse Resp B/P Pulse Ox O2 Delivery O2 Flow Rate FiO2 07/31/16 12:00 97.3 71 20 113/65 95 Room Air 07/31/16 12:00 98.1 64 20 120/82 95 Nasal Cannula 2.0 07/31/16 08:00 97.7 66 20 123/62 94 Nasal Cannula 2.0 07/31/16 08:00 97.7 63 20 97/56 94 Room Air 07/31/16 06:02 68 18 108/58 98 Nasal Cannula 3.0 07/31/16 05:00 75 18 122/58 97 Nasal Cannula 3.0 07/31/16 04:00 98.3 65 22 122/58 100 Nasal Cannula 3.0 07/31/16 04:00 65 07/31/16 03:00 73 21 115/66 100 Nasal Cannula 3.0 07/31/16 02:00 71 20 112/83 100 Nasal Cannula 3.0 07/31/16 01:00 70 17 112/70 100 Nasal Cannula 3.0 07/31/16 00:00 98.0 64 18 122/70 100 Nasal Cannula 3.0 07/31/16 00:00 64 07/30/16 23:00 68 16 111/64 100 Nasal Cannula 3.0 07/30/16 22:00 68 16 111/56 100 Nasal Cannula 3.0 07/30/16 21:01 66 16 114/56 100 Nasal Cannula 3.0 07/30/16 20:30 67 20 114/56 94 Nasal Cannula 3.0 07/30/16 20:00 30 07/30/16 20:00 67 07/30/16 20:00 98.0 66 22 119/85 100 Mechanical Ventilator 30 07/30/16 19:00 70 22 119/85 99 Mechanical Ventilator 30 07/30/16 18:47 69 22 30 07/30/16 18:00 67 22 119/85 94 Mechanical Ventilator 30 07/30/16 17:09 66 22 30 07/30/16 17:00 98.7 66 19 92/53 100 Mechanical Ventilator 30 Intake and Output 07/30/16 07/31/16 19:00 07:00 Intake Total 300 ml 150 ml Output Total 805 ml 640 ml Balance -505 ml -490 ml Tube Feeding 300 ml 150 ml Output Urine Total 805 ml 640 ml Laboratory Tests 07/31/16 03:55: White Blood Count 4.1L, Red Blood Count 2.48L, Hemoglobin 7.8L, Hematocrit 23.1L , Mean Corpuscular Volume 93, Mean Corpuscular Hemoglobin 31.6H, Mean Corpuscular Hemoglobin Concent 33.9, Red Cell Distribution Width 14.1, Platelet Count 164, Mean Platelet Volume 7.0, Neutrophils (%) (Auto) , Lymphocytes (%) ( Auto) , Monocytes (%) (Auto) , Eosinophils (%) (Auto) , Basophils (%) (Auto) , Neutrophils % (Manual) [Pending], Lymphocytes % (Manual) [Pending], Platelet Estimate [Pending], Platelet Morphology [Pending], Sodium Level 144, Potassium Level 3.7, Chloride Level 108H, Carbon Dioxide Level 22, Anion Gap 14, Blood Urea Nitrogen 25H, Creatinine 1.4H, Estimat Glomerular Filtration Rate , Glucose Level 87, Calcium Level 8.1L, Phosphorus Level 3.7, Magnesium Level 2.0 , Total Bilirubin 0.3, Aspartate Amino Transf (AST/SGOT) 20, Alanine Aminotransferase (ALT/SGPT) 17, Alkaline Phosphatase 158H, Total Protein 5.4L, Albumin 2.0L, Globulin 3.4, Albumin/Globulin Ratio 0.5L Height (Feet): 5 Height (Inches): 8.00 Weight (Pounds): 177 General Appearance: no apparent distress Cardiovascular: tachycardia Respiratory/Chest: decreased breath sounds Abdomen: soft Objective other PE not changed HAI THOMPSON Jul 31, 2016 16:11
[2016-07-31] MEDS: Vancomycin 1250mg/D5W 275ml IVPB SCH ×2 (17:57)
--- NOTE | 2016-07-31 19:36 | Infectious Diseases Prog Note ---
Assessment/Plan Assessment/Plan A: The patient is an 80-year-old male with bacteremia CoNS , repeat Blood cx 07/30 GPC Low grade fever Leukocytosis, SP Septic shock SP - off of pressors Urinary tract infection : P mirabilis x 2 CT: Diffuse thickening of the urinary bladder wall consistent with cystitis. Garcia in good position. Mild bilateral hydronephrosis probably on the basis of a bladder disease. Thickening of the uroepithelium suggestive of chronic inflammation or infection. 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 Renal insufficiency SP hemodialysis x 2 Hypernatremia Dementia Parkinson disease Seizure disorder History of congestive heart failure Post pacemaker placement Chronic BLE DVT Obesity Renal insufficiency Hematuria Depression Anemia PLAN: IV Vanco d# 2/10 SP Levaquin d # 10 /10 6/ IV Zosyn d# 4 Monitor CBC Monitor BMP. resp support, monitor culture ( blood ) repeat in AM Subjective Constitutional: Denies: anorexia, chills, drenching sweats, fatigue, fever, no symptoms, other Allergies: Coded Allergies: No Known Allergies (Unverified , 07/16/16) Subjective low grade fever ,x 1 , extubated Objective Vital Signs Last 24 Hour Vital Signs Date Time Temp Pulse Resp B/P Pulse Ox O2 Delivery O2 Flow Rate FiO2 07/31/16 16:00 97.9 100 20 146/76 94 Room Air 07/31/16 12:00 97.3 71 20 113/65 95 Room Air 07/31/16 12:00 98.1 64 20 120/82 95 Nasal Cannula 2.0 07/31/16 08:00 97.7 66 20 123/62 94 Nasal Cannula 2.0 07/31/16 08:00 97.7 63 20 97/56 94 Room Air 07/31/16 06:02 68 18 108/58 98 Nasal Cannula 3.0 07/31/16 05:00 75 18 122/58 97 Nasal Cannula 3.0 07/31/16 04:00 98.3 65 22 122/58 100 Nasal Cannula 3.0 07/31/16 04:00 65 07/31/16 03:00 73 21 115/66 100 Nasal Cannula 3.0 07/31/16 02:00 71 20 112/83 100 Nasal Cannula 3.0 07/31/16 01:00 70 17 112/70 100 Nasal Cannula 3.0 07/31/16 00:00 98.0 64 18 122/70 100 Nasal Cannula 3.0 07/31/16 00:00 64 07/30/16 23:00 68 16 111/64 100 Nasal Cannula 3.0 07/30/16 22:00 68 16 111/56 100 Nasal Cannula 3.0 07/30/16 21:01 66 16 114/56 100 Nasal Cannula 3.0 07/30/16 20:30 67 20 114/56 94 Nasal Cannula 3.0 07/30/16 20:00 30 07/30/16 20:00 67 07/30/16 20:00 98.0 66 22 119/85 100 Mechanical Ventilator 30 Height (Feet): 5 Height (Inches): 8.00 Weight (Pounds): 177 HEENT: anicteric Respiratory/Chest: normal breath sounds Cardiovascular: regular rhythm Abdomen: no organomegaly Microbiology Date/Time Source Procedure Growth Status 07/30/16 16:30 Blood Blood Culture - Preliminary Resulted 07/29/16 09:40 Blood Blood Culture - Preliminary Staphylococcus Sp Coag Neg Resulted 07/29/16 09:40 Sputum Gram Stain - Final Complete 07/29/16 09:40 Sputum Sputum Culture - Final NORMAL UPPER RESPIRATORY INA AT 48 ... Complete 07/28/16 20:00 Stool Clostridium difficile Toxin Assay - Final Complete 07/29/16 09:40 Urine,Clean Catch Urine Culture - Final NO GROWTH AFTER 48 HOURS Complete Laboratory Tests Test 07/31/16 03:55 07/31/16 16:30 White Blood Count 4.1 K/UL (4.8-10.8) L Red Blood Count 2.48 M/UL (4.70-6.10) L Hemoglobin 7.8 G/DL (14.2-18.0) L Hematocrit 23.1 % (42.0-52.0) L Mean Corpuscular Volume 93 FL (80-99) Mean Corpuscular Hemoglobin 31.6 PG (27.0-31.0) H Mean Corpuscular Hemoglobin Concent 33.9 G/DL (32.0-36.0) Red Cell Distribution Width 14.1 % (11.6-14.8) Platelet Count 164 K/UL (150-450) Mean Platelet Volume 7.0 FL (6.5-10.1) Neutrophils (%) (Auto) % (45.0-75.0) Lymphocytes (%) (Auto) % (20.0-45.0) Monocytes (%) (Auto) % (1.0-10.0) Eosinophils (%) (Auto) % (0.0-3.0) Basophils (%) (Auto) % (0.0-2.0) Differential Total Cells Counted 100 Neutrophils % (Manual) 77 % (45-75) H Lymphocytes % (Manual) 19 % (20-45) L Monocytes % (Manual) 1 % (1-10) Eosinophils % (Manual) 2 % (0-3) Basophils % (Manual) 0 % (0-2) Band Neutrophils 1 % (0-8) Platelet Estimate Adequate Platelet Morphology Normal Hypochromasia Occasional Anisocytosis 1+ Sodium Level 144 mEQ/L (135-145) Potassium Level 3.7 mEQ/L (3.4-4.9) Chloride Level 108 mEQ/L (98-107) H Carbon Dioxide Level 22 mEQ/L (20-30) Anion Gap 14 (5-15) Blood Urea Nitrogen 25 mg/dL (7-23) H Creatinine 1.4 mg/dL (0.7-1.2) H Estimat Glomerular Filtration Rate mL/min (>60) Glucose Level 87 mg/dL (74-106) Calcium Level 8.1 mg/dL (8.6-10.2) L Phosphorus Level 3.7 mg/dL (2.5-4.8) Magnesium Level 2.0 mg/dL (1.7-2.5) Total Bilirubin 0.3 mg/dL (0.0-1.2) Aspartate Amino Transf (AST/SGOT) 20 U/L (5-40) Alanine Aminotransferase (ALT/SGPT) 17 U/L (3-41) Alkaline Phosphatase 158 U/L (40-129) H Total Protein 5.4 g/dL (6.6-8.7) L Albumin 2.0 g/dL (3.5-5.2) L Globulin 3.4 g/dL Albumin/Globulin Ratio 0.5 (1.0-2.7) L Vancomycin Level Trough 9.5 ug/mL (5.0-12.0) Current Medications Medications (Trade) Dose Ordered Sig/Janay Route PRN Reason Start Time Stop Time Status Last Admin Dose Admin Acetaminophen (Tylenol) 650 mg Q4H PRN ORAL fever 07/31/16 08:18 08/30/16 08:17 Albuterol/ Ipratropium 3 ml 3 ml Q4H PRN HHN Shortness of Breath 07/31/16 15:45 08/05/16 15:44 Chlorhexidine Gluconate (Loree-Hex 2%) 1 applic Q24H TOPIC 07/31/16 21:00 08/30/16 20:59 Lactobacillus Acidophilus (Culturelle) 1 tab THREE TIMES A DAY GT 07/31/16 09:00 08/30/16 08:59 07/31/16 17:57 Lansoprazole (Prevacid) 30 mg DAILY NG 07/31/16 09:00 08/30/16 08:59 07/31/16 09:16 Nitroglycerin (Ntg) 0.4 mg Q5MIN X 3 DOSES PRN SL Prn Chest Pain 07/31/16 08:05 08/30/16 08:04 Ondansetron HCl (Zofran) 4 mg Q6H PRN IVP Nausea & Vomiting 07/31/16 08:19 08/30/16 08:18 Polyethylene Glycol (Miralax) 17 gm DAILYPRN PRN ORAL Constipation 07/31/16 08:21 08/30/16 08:20 Vancomycin HCl (Vanco rx to dose) 1 ea DAILY PRN MISC Per rx protocol 07/31/16 09:00 08/30/16 08:59 Vancomycin HCl/ Dextrose (Vancomycin/D5W) 275 ml @ 183.333 mls/hr Q24H IVPB 07/31/16 18:00 08/05/16 17:59 07/31/16 17:57 PHILLIP BARNES M.D. Jul 31, 2016 19:36
[2016-07-31] MEDS: Dyna-Hex 2% Top Sol 8oz TOPIC SCH (21:00)
[2016-08-01] VITALS: BP 142/72
[2016-08-01 04:00] VITALS: BP 159/85
[2016-08-01 07:20] LABS: EOSINOPHILS % (AUTO) 5.5 % (0.0-3.0); LYMPHOCYTES % (AUTO) 21.8 % (20.0-45.0); MEAN CORPUSCULAR HEMOGLOBIN 30.1 PG (27.0-31.0); MEAN CORPUSCULAR HGB CONC 32.5 G/DL (32.0-36.0); MEAN CORPUSCULAR VOLUME 93 FL (80-99); MEAN PLATELET VOLUME 6.7 FL (6.5-10.1); MONOCYTES % (AUTO) 4.7 % (1.0-10.0); PLATELET COUNT 190 K/UL (150-450); RED BLOOD COUNT 2.82 M/UL (4.70-6.10); RED CELL DISTRIBUTION WIDTH 13.3 % (11.6-14.8); WHITE BLOOD COUNT 5.7 K/UL (4.8-10.8)
[2016-08-01 07:32] LABS: BILIRUBIN,DIRECT 0.1 mg/dL (0.1-0.3); CRP QUANT 4.6 mg/dL (< 0.5); PHOSPHORUS 3.2 mg/dL (2.5-4.8); TOTAL PROTEIN 6.3 g/dL (6.6-8.7)
[2016-08-01 07:33] LABS: ANION GAP 11 (5-15); CALCIUM 8.4 mg/dL (8.6-10.2); CARBON DIOXIDE 25 mEQ/L (20-30); CHLORIDE 106 mEQ/L (98-107); CREATININE 1.4 mg/dL (0.7-1.2); HEMOLYSIS 2; POTASSIUM 4.4 mEQ/L (3.4-4.9); SODIUM 142 mEQ/L (135-145)
[2016-08-01 08:00] VITALS: BP 136/79
[2016-08-01] MEDS: Lactobacillus-GG tablet GT SCH ×3 (08:45→18:26)
--- NOTE | 2016-08-01 10:27 | Diagnostic Imaging Report ---
Indication: Nasogastric tube placement Technique: XRAY ABDOMEN 1VIEW/KUB Comparison: 07/16/16 Findings: Nasogastric tube is seen with tip in the distal stomach. Bowel gas pattern is nonspecific. Impression: Satisfactory placement of the nasogastric tube.
--- NOTE | 2016-08-01 11:30 | Infectious Diseases Prog Note ---
Assessment/Plan Assessment/Plan A; New Bacteremia with GPC & CoNS Proteus sepsis ProteusUTI respiratory failure Anemia Parkinson's disease Adrenal mass P; continue Vancomycin Will f/u cultures May need central line removal Subjective ROS Limited/Unobtainable: Yes Neurologic: Reports: confusion, other - restraint by mittens Allergies: Coded Allergies: No Known Allergies (Unverified , 07/16/16) Objective Vital Signs Last 24 Hour Vital Signs Date Time Temp Pulse Resp B/P Pulse Ox O2 Delivery O2 Flow Rate FiO2 08/01/16 08:00 97.9 78 20 136/79 100 Nasal Cannula 2.0 08/01/16 07:27 85 18 Nasal Cannula 2.0 28 08/01/16 04:00 97.5 89 20 159/85 97 Nasal Cannula 2.0 08/01/16 00:00 97.9 74 20 142/72 98 Nasal Cannula 07/31/16 20:00 97.9 78 20 101/56 94 Room Air 07/31/16 16:00 97.9 100 20 146/76 94 Room Air 07/31/16 12:00 97.3 71 20 113/65 95 Room Air 07/31/16 12:00 98.1 64 20 120/82 95 Nasal Cannula 2.0 Height (Feet): 5 Height (Inches): 8.00 Weight (Pounds): 183 General Appearance: no acute distress HEENT: mucous membranes moist Respiratory/Chest: other - few rhochi Cardiovascular: normal rate Abdomen: soft, non tender, other - NG tube feeding Extremities: other - R arm PICC line Neurologic/Psychiatric: disoriented Microbiology Date/Time Source Procedure Growth Status 07/30/16 16:40 Blood Blood Culture - Preliminary Resulted 07/30/16 16:30 Blood Blood Culture - Final Staphylococcus Sp Coag Neg Complete Laboratory Tests Test 07/31/16 16:30 08/01/16 04:30 Vancomycin Level Trough 9.5 ug/mL (5.0-12.0) White Blood Count 5.7 K/UL (4.8-10.8) Red Blood Count 2.82 M/UL (4.70-6.10) L Hemoglobin 8.5 G/DL (14.2-18.0) L Hematocrit 26.2 % (42.0-52.0) L Mean Corpuscular Volume 93 FL (80-99) Mean Corpuscular Hemoglobin 30.1 PG (27.0-31.0) Mean Corpuscular Hemoglobin Concent 32.5 G/DL (32.0-36.0) Red Cell Distribution Width 13.3 % (11.6-14.8) Platelet Count 190 K/UL (150-450) Mean Platelet Volume 6.7 FL (6.5-10.1) Neutrophils (%) (Auto) 67.0 % (45.0-75.0) Lymphocytes (%) (Auto) 21.8 % (20.0-45.0) Monocytes (%) (Auto) 4.7 % (1.0-10.0) Eosinophils (%) (Auto) 5.5 % (0.0-3.0) H Basophils (%) (Auto) 1.0 % (0.0-2.0) Sodium Level 142 mEQ/L (135-145) Potassium Level 4.4 mEQ/L (3.4-4.9) Chloride Level 106 mEQ/L (98-107) Carbon Dioxide Level 25 mEQ/L (20-30) Anion Gap 11 (5-15) Blood Urea Nitrogen 25 mg/dL (7-23) H Creatinine 1.4 mg/dL (0.7-1.2) H Estimat Glomerular Filtration Rate mL/min (>60) Glucose Level 115 mg/dL (74-106) H Calcium Level 8.4 mg/dL (8.6-10.2) L Phosphorus Level 3.2 mg/dL (2.5-4.8) Magnesium Level 2.0 mg/dL (1.7-2.5) Total Bilirubin 0.3 mg/dL (0.0-1.2) Direct Bilirubin 0.1 mg/dL (0.1-0.3) Aspartate Amino Transf (AST/SGOT) 31 U/L (5-40) Alanine Aminotransferase (ALT/SGPT) 23 U/L (3-41) Alkaline Phosphatase 189 U/L (40-129) H C-Reactive Protein, Quantitative 4.6 mg/dL (< 0.5) H Pro-B-Type Natriuretic Peptide 1138 pg/mL (0-450) H Total Protein 6.3 g/dL (6.6-8.7) L Albumin 2.2 g/dL (3.5-5.2) L Current Medications Medications (Trade) Dose Ordered Sig/Janay Route PRN Reason Start Time Stop Time Status Last Admin Dose Admin Acetaminophen (Tylenol) 650 mg Q4H PRN ORAL fever 07/31/16 08:18 08/30/16 08:17 Albuterol/ Ipratropium 3 ml 3 ml Q4H PRN HHN Shortness of Breath 07/31/16 15:45 08/05/16 15:44 Chlorhexidine Gluconate (Loree-Hex 2%) 1 applic Q24H TOPIC 07/31/16 21:00 08/30/16 20:59 Lactobacillus Acidophilus (Culturelle) 1 tab THREE TIMES A DAY GT 07/31/16 09:00 08/30/16 08:59 08/01/16 08:45 Lansoprazole (Prevacid) 30 mg DAILY NG 07/31/16 09:00 08/30/16 08:59 08/01/16 08:45 Nitroglycerin (Ntg) 0.4 mg Q5MIN X 3 DOSES PRN SL Prn Chest Pain 07/31/16 08:05 08/30/16 08:04 Ondansetron HCl (Zofran) 4 mg Q6H PRN IVP Nausea & Vomiting 07/31/16 08:19 08/30/16 08:18 Polyethylene Glycol (Miralax) 17 gm DAILYPRN PRN ORAL Constipation 07/31/16 08:21 08/30/16 08:20 Vancomycin HCl (Vanco rx to dose) 1 ea DAILY PRN MISC Per rx protocol 07/31/16 09:00 08/30/16 08:59 Vancomycin HCl/ Dextrose (Vancomycin/D5W) 275 ml @ 183.333 mls/hr Q24H IVPB 07/31/16 18:00 08/05/16 17:59 07/31/16 17:57 RAYMOND IRWIN Aug 01, 2016 11:30
[2016-08-01 11:40] VITALS: BP 129/74
--- NOTE | 2016-08-01 11:55 | Pulmonology Progress Note ---
Assessment/Plan Assessment/Plan ASSESSMENT acute respiratory failure requiring intubation s/p extubation acute toxic metabolic encephalopathy sepsis with bacteremia bacteremia with Proteus , SCON septic shock -resolved UTI with Proteus gross hematuria acute renal failure on CRI rhabdo acute hyperkalemia anemia s/p blood transfusion elevated CEA R hydronephrosis dementia with Parkinsonian features bipolar disorder HTN chronic BLE DVT seizure disorder CHF severe hypoalbuminemia multiple skin DTI POA PLAN OF CARE initially in ICU vent support, pulmonary toilet was able to be weaned 07/30 now DNR/DNI status O2 HHN to keep sat above 92% ID follows abx, sputum cx negative urine cx + Proteus ( 2 diff species) , blood cx + Proteus, repeated blood cx + SCON nephro follows renal US with R hydro increased renal echogenicity c/w medical renal disease s/p HD 07/16 and 07/19, no further HD renal parameters improving HD catheter was dc 07/24 monitor renal parameters,. 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 urology seen and evaluated for gross hematuria hematuria resolved recommended further workup when patient stabilized ENT seen the patient since the patient had numerous episodes of intubation and extubation patient was a good candidate for trach family did not decide for trach code status was changed to DNR/DNI status supportive care and symptomatic treatment case discussed and evaluated by supervising physician Subjective Allergies: Coded Allergies: No Known Allergies (Unverified , 07/16/16) Subjective extubated on O2 via NC sat stable afebrile, no leukocytosis HH up to 8.5/26.2 Objective Last 24 Hour Vital Signs Date Time Temp Pulse Resp B/P Pulse Ox O2 Delivery O2 Flow Rate FiO2 08/01/16 11:40 98.2 88 18 129/74 99 Nasal Cannula 2.0 08/01/16 08:00 97.9 78 20 136/79 100 Nasal Cannula 2.0 08/01/16 07:27 85 18 Nasal Cannula 2.0 28 08/01/16 04:00 97.5 89 20 159/85 97 Nasal Cannula 2.0 08/01/16 00:00 97.9 74 20 142/72 98 Nasal Cannula 07/31/16 20:00 97.9 78 20 101/56 94 Room Air 07/31/16 16:00 97.9 100 20 146/76 94 Room Air 07/31/16 12:00 97.3 71 20 113/65 95 Room Air 07/31/16 12:00 98.1 64 20 120/82 95 Nasal Cannula 2.0 Intake and Output 07/31/16 08/01/16 19:00 07:00 Intake Total 983.333 ml 1016.667 ml Balance 983.333 ml 1016.667 ml Free Water 300 ml 300 ml IV Total 183.333 ml 91.667 ml Tube Feeding 500 ml 625 ml Objective General Appearance: other - bedridden, open eyes spontanesouly, not responsive , not follows commands HEENT: normocephalic, atraumatic, other - NGT Respiratory/Chest: lungs clear - with moderate air entry , no respiratory distress Cardiovascular: normal rate, regular rhythm, no JVD, other - RUE PICC intact Abdomen: normal bowel sounds, soft, non tender - mild distention Genitourinary: other - Garcia no hematuria Extremities: other - trac edema BLE , SCD on Skin: other - multiple skin DTI POA Neurologic/Psychiatric: abnormal gait Musculoskeletal: atrophy - BLE Microbiology Date/Time Source Procedure Growth Status 07/30/16 16:40 Blood Blood Culture - Preliminary Resulted 07/30/16 16:30 Blood Blood Culture - Final Staphylococcus Sp Coag Neg Complete Laboratory Tests 07/31/16 16:30: Vancomycin Level Trough 9.5 08/01/16 04:30: White Blood Count 5.7, Red Blood Count 2.82L, Hemoglobin 8.5L, Hematocrit 26.2L , Mean Corpuscular Volume 93, Mean Corpuscular Hemoglobin 30.1, Mean Corpuscular Hemoglobin Concent 32.5, Red Cell Distribution Width 13.3, Platelet Count 190, Mean Platelet Volume 6.7, Neutrophils (%) (Auto) 67.0, Lymphocytes (% ) (Auto) 21.8, Monocytes (%) (Auto) 4.7, Eosinophils (%) (Auto) 5.5H, Basophils (%) (Auto) 1.0, Sodium Level 142, Potassium Level 4.4, Chloride Level 106, Carbon Dioxide Level 25, Anion Gap 11, Blood Urea Nitrogen 25H, Creatinine 1.4H , Estimat Glomerular Filtration Rate , Glucose Level 115H, Calcium Level 8.4L, Phosphorus Level 3.2, Magnesium Level 2.0, Total Bilirubin 0.3, Direct Bilirubin 0.1, Aspartate Amino Transf (AST/SGOT) 31, Alanine Aminotransferase ( ALT/SGPT) 23, Alkaline Phosphatase 189H, C-Reactive Protein, Quantitative 4.6H, Pro-B-Type Natriuretic Peptide 1138H, Total Protein 6.3L, Albumin 2.2L Current Medications Medications (Trade) Dose Ordered Sig/Janay Route PRN Reason Start Time Stop Time Status Last Admin Dose Admin Acetaminophen (Tylenol) 650 mg Q4H PRN ORAL fever 07/31/16 08:18 08/30/16 08:17 Albuterol/ Ipratropium 3 ml 3 ml Q4H PRN HHN Shortness of Breath 07/31/16 15:45 08/05/16 15:44 Chlorhexidine Gluconate (Loree-Hex 2%) 1 applic Q24H TOPIC 07/31/16 21:00 08/30/16 20:59 Lactobacillus Acidophilus (Culturelle) 1 tab THREE TIMES A DAY GT 07/31/16 09:00 08/30/16 08:59 08/01/16 08:45 Lansoprazole (Prevacid) 30 mg DAILY NG 07/31/16 09:00 08/30/16 08:59 08/01/16 08:45 Nitroglycerin (Ntg) 0.4 mg Q5MIN X 3 DOSES PRN SL Prn Chest Pain 07/31/16 08:05 08/30/16 08:04 Ondansetron HCl (Zofran) 4 mg Q6H PRN IVP Nausea & Vomiting 07/31/16 08:19 08/30/16 08:18 Polyethylene Glycol (Miralax) 17 gm DAILYPRN PRN ORAL Constipation 07/31/16 08:21 08/30/16 08:20 Vancomycin HCl (Vanco rx to dose) 1 ea DAILY PRN MISC Per rx protocol 07/31/16 09:00 08/30/16 08:59 Vancomycin HCl/ Dextrose (Vancomycin/D5W) 275 ml @ 183.333 mls/hr Q24H IVPB 07/31/16 18:00 08/05/16 17:59 07/31/16 17:57 Nora Ayoub NP ([facility]anchtein) Aug 01, 2016 11:55
[2016-08-01] MEDS ORDERED: Heparin 2000 units/Ns 1000ml INJ PRN (14:00)
[2016-08-01] MEDS ORDERED: Lidocaine 1% Plain 30 ml INJ PRN (14:00)
[2016-08-01 15:54] VITALS: BP 118/60
[2016-08-01] MEDS ORDERED: NS 275ml ONE (15:57)
[2016-08-01] MEDS ORDERED: Tubing IV Secondary IV ONE (15:57)
[2016-08-01] MEDS: Vancomycin 1250mg/D5W 275ml IVPB SCH ×2 (18:00)
[2016-08-01 20:00] VITALS: BP 120/58
[2016-08-01] MEDS: Dyna-Hex 2% Top Sol 8oz TOPIC SCH (20:49)
--- NOTE | 2016-08-01 21:31 | General Progress Note ---
Assessment/Plan Status: stable - from renal stand Assessment/Plan status: acute renal failure, requiring HD , done 07/16 & 07/19 & no more acute hyperkalemia , resolved Low BP , septic Shock , on Pressors- RESOLVED acute respiratory failure requiring intubation UTI gross hematuria anemia CHF Sever Hypoalbuminemia h/o Parkinsons , OBS , ? Sz Plan: extubated now HD 07/19, no further dialysis appears to be needed, DC Dialysis cath from groin 06/23/16--( right groin catheter was discontinued and the site was dressed under pressure and hemostasis acheived) Monitor renal parameters- K supplement as needed- Lactobacillus Avoid Nephrotoxics On Renal feeding BP support per orders Subjective ROS Limited/Unobtainable: No Constitutional: Reports: malaise, weakness Allergies: Coded Allergies: No Known Allergies (Unverified , 07/16/16) Objective Last 24 Hour Vital Signs Date Time Temp Pulse Resp B/P Pulse Ox O2 Delivery O2 Flow Rate FiO2 08/01/16 20:00 97.7 68 18 120/58 100 Nasal Cannula 2.0 08/01/16 15:54 98.2 73 18 118/60 100 Nasal Cannula 2.0 08/01/16 11:40 98.2 88 18 129/74 99 Nasal Cannula 2.0 08/01/16 08:00 97.9 78 20 136/79 100 Nasal Cannula 2.0 08/01/16 07:27 85 18 Nasal Cannula 2.0 28 08/01/16 04:00 97.5 89 20 159/85 97 Nasal Cannula 2.0 08/01/16 00:00 97.9 74 20 142/72 98 Nasal Cannula Intake and Output 07/31/16 08/01/16 19:00 07:00 Intake Total 983.333 ml 1016.667 ml Balance 983.333 ml 1016.667 ml Free Water 300 ml 300 ml IV Total 183.333 ml 91.667 ml Tube Feeding 500 ml 625 ml Laboratory Tests 08/01/16 04:30: White Blood Count 5.7, Red Blood Count 2.82L, Hemoglobin 8.5L, Hematocrit 26.2L , Mean Corpuscular Volume 93, Mean Corpuscular Hemoglobin 30.1, Mean Corpuscular Hemoglobin Concent 32.5, Red Cell Distribution Width 13.3, Platelet Count 190, Mean Platelet Volume 6.7, Neutrophils (%) (Auto) 67.0, Lymphocytes (% ) (Auto) 21.8, Monocytes (%) (Auto) 4.7, Eosinophils (%) (Auto) 5.5H, Basophils (%) (Auto) 1.0, Sodium Level 142, Potassium Level 4.4, Chloride Level 106, Carbon Dioxide Level 25, Anion Gap 11, Blood Urea Nitrogen 25H, Creatinine 1.4H , Estimat Glomerular Filtration Rate , Glucose Level 115H, Calcium Level 8.4L, Phosphorus Level 3.2, Magnesium Level 2.0, Total Bilirubin 0.3, Direct Bilirubin 0.1, Aspartate Amino Transf (AST/SGOT) 31, Alanine Aminotransferase ( ALT/SGPT) 23, Alkaline Phosphatase 189H, C-Reactive Protein, Quantitative 4.6H, Pro-B-Type Natriuretic Peptide 1138H, Total Protein 6.3L, Albumin 2.2L Height (Feet): 5 Height (Inches): 8.00 Weight (Pounds): 183 General Appearance: no apparent distress, lethargic Cardiovascular: normal rate Respiratory/Chest: decreased breath sounds Abdomen: soft Objective other PE not changed HAI THOMPSON Aug 01, 2016 21:31
[2016-08-02] VITALS: BP 145/71
[2016-08-02 04:00] VITALS: BP 136/76
[2016-08-02 06:55] LABS: ANION GAP 10 (5-15); CALCIUM 8.4 mg/dL (8.6-10.2); CARBON DIOXIDE 25 mEQ/L (20-30); CHLORIDE 106 mEQ/L (98-107); CREATININE 1.4 mg/dL (0.7-1.2); HEMOLYSIS 6; POTASSIUM 5.1 mEQ/L (3.4-4.9); SODIUM 141 mEQ/L (135-145)
[2016-08-02 06:57] LABS: BASOPHILS % (AUTO) 1.1 % (0.0-2.0); EOSINOPHILS % (AUTO) 7.1 % (0.0-3.0); LYMPHOCYTES % (AUTO) 23.3 % (20.0-45.0); MEAN CORPUSCULAR HGB CONC 32.3 G/DL (32.0-36.0); MEAN CORPUSCULAR VOLUME 93 FL (80-99); MEAN PLATELET VOLUME 6.8 FL (6.5-10.1); MONOCYTES % (AUTO) 6.6 % (1.0-10.0); PLATELET COUNT 214 K/UL (150-450); RED BLOOD COUNT 2.83 M/UL (4.70-6.10); RED CELL DISTRIBUTION WIDTH 13.8 % (11.6-14.8); WHITE BLOOD COUNT 5.7 K/UL (4.8-10.8)
[2016-08-02 08:00] VITALS: BP 123/75
--- NOTE | 2016-08-02 08:39 | Diagnostic Imaging Report ---
Indication: Shortness of breath Technique: XRAY CHEST 1 V Comparison: 07/30/16 Findings: Endotracheal tube is no longer seen. Nasogastric tube is unchanged. Right PICC line is unchanged. Cardiomediastinal silhouette is stable. Mild bilateral interstitial opacities are again present. Bibasilar atelectasis is seen. Bilateral costophrenic angles are again blunted. Impression: Interval extubation. Otherwise stable chest.
[2016-08-02] MEDS ORDERED: Dyna-Hex 2% Top Sol 8oz TOPIC SCH (09:00)
[2016-08-02] MEDS ORDERED: Sodium Bicarbonate 4% 2.4meq/5ml vial INJ PRN (09:00)
--- NOTE | 2016-08-02 09:14 | Infectious Diseases Prog Note ---
Assessment/Plan Assessment/Plan A: The patient is an 80-year-old male with bacteremia CoNS , repeat Blood cx 07/30 CONS PICC was removed 08/01 Low grade fever, SP Leukocytosis, SP Septic shock SP - off of pressors Urinary tract infection : P mirabilis x 2 CT: Diffuse thickening of the urinary bladder wall consistent with cystitis. Garcia in good position. Mild bilateral hydronephrosis probably on the basis of a bladder disease. Thickening of the uroepithelium suggestive of chronic inflammation or infection. 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 Renal insufficiency SP hemodialysis x 2 Hypernatremia Dementia Parkinson disease Seizure disorder History of congestive heart failure Post pacemaker placement Chronic BLE DVT Obesity Renal insufficiency Hematuria Depression Anemia PLAN: IV Vanco d# 4 /10 SP Levaquin d # 10 /10 6/ IV Zosyn d# 4 Monitor CBC Monitor BMP. resp support, monitor culture ( blood ) repeat in AM Subjective Allergies: Coded Allergies: No Known Allergies (Unverified , 07/16/16) Subjective PS PICC improvable Objective Vital Signs Last 24 Hour Vital Signs Date Time Temp Pulse Resp B/P Pulse Ox O2 Delivery O2 Flow Rate FiO2 08/02/16 08:00 97.5 69 18 123/75 98 Nasal Cannula 2.0 08/02/16 04:00 97.9 68 20 136/76 98 Nasal Cannula 4.0 08/02/16 03:28 92 18 Nasal Cannula 2.0 28 08/02/16 00:00 97.7 94 18 145/71 93 Nasal Cannula 2.0 08/01/16 20:00 97.7 68 18 120/58 100 Nasal Cannula 2.0 08/01/16 15:54 98.2 73 18 118/60 100 Nasal Cannula 2.0 08/01/16 11:40 98.2 88 18 129/74 99 Nasal Cannula 2.0 Height (Feet): 5 Height (Inches): 8.00 Weight (Pounds): 181 HEENT: anicteric Respiratory/Chest: normal breath sounds Cardiovascular: normal rate Abdomen: no organomegaly Microbiology Date/Time Source Procedure Growth Status 07/30/16 16:40 Blood Blood Culture - Preliminary Streptococcus Species Resulted 07/30/16 16:30 Blood Blood Culture - Final Staphylococcus Sp Coag Neg Complete Laboratory Tests Test 08/02/16 05:40 White Blood Count 5.7 K/UL (4.8-10.8) Red Blood Count 2.83 M/UL (4.70-6.10) L Hemoglobin 8.5 G/DL (14.2-18.0) L Hematocrit 26.3 % (42.0-52.0) L Mean Corpuscular Volume 93 FL (80-99) Mean Corpuscular Hemoglobin 30.0 PG (27.0-31.0) Mean Corpuscular Hemoglobin Concent 32.3 G/DL (32.0-36.0) Red Cell Distribution Width 13.8 % (11.6-14.8) Platelet Count 214 K/UL (150-450) Mean Platelet Volume 6.8 FL (6.5-10.1) Neutrophils (%) (Auto) 62.0 % (45.0-75.0) Lymphocytes (%) (Auto) 23.3 % (20.0-45.0) Monocytes (%) (Auto) 6.6 % (1.0-10.0) Eosinophils (%) (Auto) 7.1 % (0.0-3.0) H Basophils (%) (Auto) 1.1 % (0.0-2.0) Sodium Level 141 mEQ/L (135-145) Potassium Level 5.1 mEQ/L (3.4-4.9) H Chloride Level 106 mEQ/L (98-107) Carbon Dioxide Level 25 mEQ/L (20-30) Anion Gap 10 (5-15) Blood Urea Nitrogen 25 mg/dL (7-23) H Creatinine 1.4 mg/dL (0.7-1.2) H Estimat Glomerular Filtration Rate mL/min (>60) Glucose Level 105 mg/dL (74-106) Calcium Level 8.4 mg/dL (8.6-10.2) L Current Medications Medications (Trade) Dose Ordered Sig/Janay Route PRN Reason Start Time Stop Time Status Last Admin Dose Admin Acetaminophen (Tylenol) 650 mg Q4H PRN ORAL fever 07/31/16 08:18 08/30/16 08:17 Albuterol/ Ipratropium 3 ml 3 ml Q4H PRN HHN Shortness of Breath 6/17/17 15:45 08/05/16 15:44 Chlorhexidine Gluconate (Loree-Hex 2%) 1 applic Q24H TOPIC 07/31/16 21:00 08/30/16 20:59 Heparin Sodium/ Sodium Chloride (Heparin 2000 units/Ns 1000ml premix) 2,000 unit ONCE PRN INJ PICC PLACEMENT 08/01/16 14:00 08/02/16 23:59 Lactobacillus Acidophilus (Culturelle) 1 tab THREE TIMES A DAY GT 07/31/16 09:00 08/30/16 08:59 08/01/16 18:26 Lansoprazole (Prevacid) 30 mg DAILY NG 07/31/16 09:00 08/30/16 08:59 08/01/16 08:45 Lidocaine HCl (Xylocaine 1% 30ml) 30 ml ONCE PRN INJ PICC PLACEMENT 08/01/16 14:00 08/02/16 23:59 Nitroglycerin (Ntg) 0.4 mg Q5MIN X 3 DOSES PRN SL Prn Chest Pain 07/31/16 08:05 08/30/16 08:04 Ondansetron HCl (Zofran) 4 mg Q6H PRN IVP Nausea & Vomiting 07/31/16 08:19 08/30/16 08:18 Polyethylene Glycol (Miralax) 17 gm DAILYPRN PRN ORAL Constipation 07/31/16 08:21 08/30/16 08:20 Sodium Bicarbonate (Sodium Bicarbonate 4%) 1 ml ONCE PRN INJ PICC PLACEMENT 08/02/16 09:00 08/02/16 23:59 Vancomycin HCl (Vanco rx to dose) 1 ea DAILY PRN MISC Per rx protocol 07/31/16 09:00 08/30/16 08:59 Vancomycin HCl/ Dextrose (Vancomycin/D5W) 275 ml @ 183.333 mls/hr Q24H IVPB 07/31/16 18:00 08/05/16 17:59 07/31/16 17:57 PHILLIP BARNES M.D. Aug 02, 2016 09:14
[2016-08-02] MEDS: Lactobacillus-GG tablet GT SCH ×3 (10:02→17:35)
--- NOTE | 2016-08-02 10:56 | General Progress Note ---
Assessment/Plan Status: stable Assessment/Plan status: acute renal failure, requiring HD , done 07/16 & 07/19 & no more acute hyperkalemia , resolved Low BP , septic Shock , on Pressors- RESOLVED acute respiratory failure requiring intubation UTI gross hematuria anemia CHF Sever Hypoalbuminemia h/o Parkinsons , OBS , ? Sz Plan: extubated now- doing well. HD 07/19, no further dialysis appears to be needed, DC Dialysis cath from groin 06/23/16--( right groin catheter was discontinued and the site was dressed under pressure and hemostasis acheived) Monitor renal parameters- K supplement as needed- Lactobacillus Avoid Nephrotoxics On Renal feeding BP support per orders per consultants Subjective ROS Limited/Unobtainable: No Constitutional: Reports: malaise Allergies: Coded Allergies: No Known Allergies (Unverified , 07/16/16) Objective Last 24 Hour Vital Signs Date Time Temp Pulse Resp B/P Pulse Ox O2 Delivery O2 Flow Rate FiO2 08/02/16 08:00 97.5 69 18 123/75 98 Nasal Cannula 2.0 08/02/16 04:00 97.9 68 20 136/76 98 Nasal Cannula 4.0 08/02/16 03:28 92 18 Nasal Cannula 2.0 28 08/02/16 00:00 97.7 94 18 145/71 93 Nasal Cannula 2.0 08/01/16 20:00 97.7 68 18 120/58 100 Nasal Cannula 2.0 08/01/16 15:54 98.2 73 18 118/60 100 Nasal Cannula 2.0 08/01/16 11:40 98.2 88 18 129/74 99 Nasal Cannula 2.0 Intake and Output 08/01/16 08/02/16 19:00 07:00 Intake Total 850 ml 850 ml Output Total 700 ml 950 ml Balance 150 ml -100 ml Free Water 250 ml 300 ml Tube Feeding 600 ml 550 ml Output Urine Total 700 ml 950 ml Laboratory Tests 08/02/16 05:40: White Blood Count 5.7, Red Blood Count 2.83L, Hemoglobin 8.5L, Hematocrit 26.3L , Mean Corpuscular Volume 93, Mean Corpuscular Hemoglobin 30.0, Mean Corpuscular Hemoglobin Concent 32.3, Red Cell Distribution Width 13.8, Platelet Count 214, Mean Platelet Volume 6.8, Neutrophils (%) (Auto) 62.0, Lymphocytes (% ) (Auto) 23.3, Monocytes (%) (Auto) 6.6, Eosinophils (%) (Auto) 7.1H, Basophils (%) (Auto) 1.1, Sodium Level 141, Potassium Level 5.1H, Chloride Level 106, Carbon Dioxide Level 25, Anion Gap 10, Blood Urea Nitrogen 25H, Creatinine 1.4H , Estimat Glomerular Filtration Rate , Glucose Level 105, Calcium Level 8.4L Height (Feet): 5 Height (Inches): 8.00 Weight (Pounds): 181 General Appearance: lethargic Cardiovascular: normal rate Respiratory/Chest: decreased breath sounds Abdomen: soft Objective other PE not changed HAI THOMPSON Aug 02, 2016 10:56
[2016-08-02 11:39] VITALS: BP 130/75
--- NOTE | 2016-08-02 11:55 | Wound Care Consultation ---
Wound Assessment Wound Assessment #1: Wound Number: #1 Wound Present on Admission: Yes New Wound: No Status Change of Wound: No Wound Location Body Site Modif: right Wound Location Body Site: heel Wound Type: pressure ulcer Kevin Test: Does not Kevin Pressure Ulcer Stage: deep tissue injury Wound Thickness: Full Thickness Wound Length: 6.5 Wound Width: 6.5 Wound Depth: utd Percent of Wound Purple/Maroon: 100 Wound Drainage Amount: None Wound Drainage Odor: None/Absent Tissue Surrounding Wound: Intact Wound General Appearance: Reddened - maroon Wound Assessment #2: Wound Number: #2 Wound Present on Admission: Yes New Wound: No Status Change of Wound: No Wound Location Body Site Modif: right, lateral Wound Location Body Site: metatarsal head - 5th Wound Type: pressure ulcer Kevin Test: Does not Kevin Pressure Ulcer Stage: deep tissue injury Wound Thickness: Full Thickness Wound Length: 4.5 Wound Width: 2.5 Wound Depth: utd Percent of Wound Purple/Maroon: 100 Wound Drainage Amount: None Wound Drainage Odor: None/Absent Tissue Surrounding Wound: Intact Wound General Appearance: Reddened - maroon. Wound Assessment #3: Wound Number: #3 Wound Present on Admission: Yes New Wound: No Status Change of Wound: No Wound Location Body Site Modif: left, medial Wound Location Body Site: metatarsal head - 1st Wound Type: pressure ulcer Kevin Test: Does not Kevin Pressure Ulcer Stage: deep tissue injury Wound Thickness: Full Thickness Wound Length: 3.0 Wound Width: 3.0 Wound Depth: utd Percent of Wound Purple/Maroon: 100 Wound Drainage Amount: None Wound Drainage Odor: None/Absent Tissue Surrounding Wound: Intact Wound General Appearance: Reddened - maroon. Wound Assessment #4: Wound Number: #4 Wound Present on Admission: Yes New Wound: No Status Change of Wound: No Wound Location Body Site Modif: left, mid, medial Wound Location Body Site: foot Wound Type: pressure ulcer Kevin Test: Does not Kevin Pressure Ulcer Stage: deep tissue injury Wound Thickness: Full Thickness Wound Length: 6.5 Wound Width: 5.0 Wound Depth: utd Percent of Wound Purple/Maroon: 100 Wound Drainage Amount: None Wound Drainage Odor: None/Absent Tissue Surrounding Wound: Intact Wound General Appearance: Reddened - maroon. Wound Assessment #5: Wound Number: #5 Wound Present on Admission: Yes New Wound: No Status Change of Wound: No Wound Location Body Site Modif: left Wound Location Body Site: heel Wound Type: pressure ulcer Kevin Test: Does not Kevin Pressure Ulcer Stage: deep tissue injury Wound Thickness: Full Thickness Wound Length: 6.0 Wound Width: 6.0 Wound Depth: utd Percent of Wound Purple/Maroon: 100 Wound Drainage Amount: None Wound Drainage Odor: None/Absent Tissue Surrounding Wound: Intact Wound General Appearance: Reddened - maroon. Wound Assessment #6: Wound Number: #6 Wound Present on Admission: Yes New Wound: No Status Change of Wound: No Wound Location Body Site Modif: right, mid, lateral Wound Location Body Site: foot Wound Type: pressure ulcer Kevin Test: Does not Kevin Pressure Ulcer Stage: deep tissue injury Wound Thickness: Full Thickness Wound Length: 1.0 Wound Width: 1.0 Wound Depth: utd Percent of Wound Purple/Maroon: 100 Wound Drainage Amount: None Wound Drainage Odor: None/Absent Tissue Surrounding Wound: Intact Wound General Appearance: Reddened - maroon. Wound Assessment #7: Wound Number: #7 Wound Present on Admission: Yes New Wound: No Status Change of Wound: No Wound Location Body Site Modif: right, lateral Wound Location Body Site: malleolus/ankle Wound Type: pressure ulcer Kevin Test: Does not Kevin Pressure Ulcer Stage: deep tissue injury Wound Thickness: Full Thickness Wound Length: 3.0 Wound Width: 2.5 Wound Depth: utd Percent of Wound Purple/Maroon: 100 Wound Drainage Amount: None Wound Drainage Odor: None/Absent Tissue Surrounding Wound: Intact Wound General Appearance: Reddened - maroon. Wound Assessment #8: Wound Number: #8 Wound Present on Admission: Yes New Wound: No Status Change of Wound: No Wound Location Body Site: perineal area Wound Type: chemical burn - with erosion. Kevin Test: Does not Kevin Percent of Wound Spivey/Red: 100 Wound Drainage Amount: None Wound Drainage Odor: None/Absent Tissue Surrounding Wound: Macerated Wound General Appearance: Reddened Wound Assessment #9: Wound Number: #9 Wound Present on Admission: No New Wound: Yes Status Change of Wound: No Wound Location Body Site Modif: left, lateral Wound Location Body Site: thigh Wound Type: blister - serous filled fluid blister. Kevin Test: Does not Kevin Wound Thickness: Partial Thickness Wound Length: 2.0 Wound Width: 1.0 Wound Depth: utd Percent of Wound Spivey/Red: 100 Wound Drainage Amount: None Wound Drainage Odor: None/Absent Tissue Surrounding Wound: Intact Wound General Appearance: Reddened Wound Comment #1 Right heel deep tissue injury. #2 Right lateral 5th metatarsal head deep tissue injury. #3 Left 1st medial metatarsal head deep tissue injury. #4 Left midfoot medial deep tissue injury. #5 Left heel deep tissue injury. #6 Right mid lateral foot deep tissue injury. #7 Right lateral malleolus deep tissue injury. #8 Perineal chemical burn with erosion. #9 Left lateral thigh fluid filled blister. DTI sites reassessed noted good progress, remains intact, current wound care is effective. No further deterioration present. Recommendation. - Local wound care as ordered. -Turn and reposition. - Keep clean and dry. -Optimize nutrition. -Offload affected sites, -Avoid shear and friction. -Heel protectors. -Continue low air loss mattress. -Assess and notify MD for any further changes of condition in skin noted. LANA SORIANO Aug 02, 2016 11:55
[2016-08-02 16:00] VITALS: BP 125/72
--- NOTE | 2016-08-02 19:31 | Pulmonology Progress Note ---
Assessment/Plan Problems: (1) Acute respiratory failure (2) Acute encephalopathy (3) Hyperkalemia (4) ATN (acute tubular necrosis) (5) Parkinson disease (6) Chronic renal insufficiency (7) Bipolar 1 disorder Assessment/Plan tolerated extubation swallow study noticed choices are comfort care or Gtube feeding dc planning in process Subjective ROS Limited/Unobtainable: Yes Interval Events: deep coma Allergies: Coded Allergies: No Known Allergies (Unverified , 07/16/16) Objective Last 24 Hour Vital Signs Date Time Temp Pulse Resp B/P Pulse Ox O2 Delivery O2 Flow Rate FiO2 08/02/16 16:00 97.3 65 18 125/72 99 Nasal Cannula 2.0 08/02/16 11:39 97.5 71 18 130/75 98 Nasal Cannula 2.0 08/02/16 09:40 86 18 Nasal Cannula 2.0 28 08/02/16 08:00 97.5 69 18 123/75 98 Nasal Cannula 2.0 08/02/16 04:00 97.9 68 20 136/76 98 Nasal Cannula 4.0 08/02/16 03:28 92 18 Nasal Cannula 2.0 28 08/02/16 00:00 97.7 94 18 145/71 93 Nasal Cannula 2.0 08/01/16 20:00 97.7 68 18 120/58 100 Nasal Cannula 2.0 Intake and Output 08/01/16 08/02/16 19:00 07:00 Intake Total 850 ml 900 ml Output Total 700 ml 950 ml Balance 150 ml -50 ml Free Water 250 ml 300 ml Tube Feeding 600 ml 600 ml Output Urine Total 700 ml 950 ml Objective General Appearance: WD/WN HEENT: normocephalic, atraumatic Respiratory/Chest: chest wall non-tender, lungs clear Cardiovascular: normal peripheral pulses, normal rate Abdomen: normal bowel sounds, soft, non tender, no organomegaly Extremities: no cyanosis, no clubbing Skin: no rash Laboratory Tests 08/02/16 05:40: White Blood Count 5.7, Red Blood Count 2.83L, Hemoglobin 8.5L, Hematocrit 26.3L , Mean Corpuscular Volume 93, Mean Corpuscular Hemoglobin 30.0, Mean Corpuscular Hemoglobin Concent 32.3, Red Cell Distribution Width 13.8, Platelet Count 214, Mean Platelet Volume 6.8, Neutrophils (%) (Auto) 62.0, Lymphocytes (% ) (Auto) 23.3, Monocytes (%) (Auto) 6.6, Eosinophils (%) (Auto) 7.1H, Basophils (%) (Auto) 1.1, Sodium Level 141, Potassium Level 5.1H, Chloride Level 106, Carbon Dioxide Level 25, Anion Gap 10, Blood Urea Nitrogen 25H, Creatinine 1.4H , Estimat Glomerular Filtration Rate , Glucose Level 105, Calcium Level 8.4L 08/02/16 17:30: Vancomycin Level Trough 7.5 Current Medications Medications (Trade) Dose Ordered Sig/Janay Route PRN Reason Start Time Stop Time Status Last Admin Dose Admin Acetaminophen (Tylenol) 650 mg Q4H PRN ORAL fever 07/31/16 08:18 08/30/16 08:17 Albuterol/ Ipratropium (DuoNeb 0.5-3(2.5)mg/3ml) 3 ml Q4H PRN HHN Shortness of Breath 07/31/16 15:45 08/05/16 15:44 Chlorhexidine Gluconate (Loree-Hex 2%) 1 applic Q24H TOPIC 07/31/16 21:00 08/30/16 20:59 Heparin Sodium/ Sodium Chloride (Heparin 2000 units/Ns 1000ml premix) 2,000 unit ONCE PRN INJ PICC PLACEMENT 08/01/16 14:00 08/02/16 23:59 Lactobacillus Acidophilus (Culturelle) 1 tab THREE TIMES A DAY GT 07/31/16 09:00 08/30/16 08:59 08/02/16 17:35 Lansoprazole (Prevacid) 30 mg DAILY NG 07/31/16 09:00 08/30/16 08:59 08/02/16 10:02 Lidocaine HCl (Xylocaine 1% 30ml) 30 ml ONCE PRN INJ PICC PLACEMENT 08/01/16 14:00 08/02/16 23:59 Nitroglycerin (Ntg) 0.4 mg Q5MIN X 3 DOSES PRN SL Prn Chest Pain 07/31/16 08:05 08/30/16 08:04 Ondansetron HCl (Zofran) 4 mg Q6H PRN IVP Nausea & Vomiting 07/31/16 08:19 08/30/16 08:18 Polyethylene Glycol (Miralax) 17 gm DAILYPRN PRN ORAL Constipation 07/31/16 08:21 08/30/16 08:20 Sodium Bicarbonate (Sodium Bicarbonate 4%) 1 ml ONCE PRN INJ PICC PLACEMENT 08/02/16 09:00 08/02/16 23:59 MACARENA FLANNERY Aug 02, 2016 19:31
[2016-08-02 20:00] VITALS: BP 150/71
[2016-08-02] MEDS: Dyna-Hex 2% Top Sol 8oz TOPIC SCH (20:52)
[2016-08-03] VITALS: BP 142/98
[2016-08-03 04:00] VITALS: BP 131/70
[2016-08-03 07:36] VITALS: BP 130/81
[2016-08-03] MEDS: Lactobacillus-GG tablet GT SCH ×3 (08:25→18:32)
--- NOTE | 2016-08-03 09:56 | General Progress Note ---
Assessment/Plan Status: stable Assessment/Plan status: acute renal failure, requiring HD , done 07/16 & 07/19 & no more acute hyperkalemia , resolved Low BP , septic Shock , on Pressors- RESOLVED acute respiratory failure requiring intubation UTI gross hematuria anemia CHF Sever Hypoalbuminemia h/o Parkinsons , OBS , ? Sz Plan: extubated now- doing well. HD 07/19, no further dialysis appears to be needed, DC Dialysis cath from groin 06/23/16--( right groin catheter was discontinued and the site was dressed under pressure and hemostasis acheived) Monitor renal parameters- K supplement as needed- Lactobacillus Avoid Nephrotoxics On Renal feeding BP support per orders per consultants Subjective ROS Limited/Unobtainable: No Constitutional: Reports: malaise, weakness Allergies: Coded Allergies: No Known Allergies (Unverified , 07/16/16) Objective Last 24 Hour Vital Signs Date Time Temp Pulse Resp B/P Pulse Ox O2 Delivery O2 Flow Rate FiO2 08/03/16 07:58 71 18 Nasal Cannula 2.0 28 08/03/16 07:56 Nasal Cannula 2.0 28 08/03/16 07:55 98 Nasal Cannula 2.0 28 08/03/16 07:36 98.4 84 16 130/81 96 Room Air 08/03/16 04:00 97.9 60 20 131/70 99 Nasal Cannula 2.0 08/03/16 00:00 98.1 67 20 142/98 100 Nasal Cannula 2.0 08/02/16 20:10 88 18 Nasal Cannula 2.0 28 08/02/16 20:00 97.9 93 20 150/71 100 Nasal Cannula 2.0 08/02/16 16:00 97.3 65 18 125/72 99 Nasal Cannula 2.0 08/02/16 11:39 97.5 71 18 130/75 98 Nasal Cannula 2.0 Intake and Output 08/02/16 08/03/16 19:00 07:00 Intake Total 900 ml 700 ml Output Total 1000 ml 900 ml Balance -100 ml -200 ml Free Water 300 ml 200 ml Tube Feeding 600 ml 500 ml Output Urine Total 1000 ml 900 ml # Bowel Movements 1 2 Laboratory Tests 08/02/16 17:30: Vancomycin Level Trough 7.5 Height (Feet): 5 Height (Inches): 8.00 Weight (Pounds): 182 General Appearance: no apparent distress Objective other PE not changed HAI THOMPSON Aug 03, 2016 09:56
--- NOTE | 2016-08-03 10:04 | Infectious Diseases Prog Note ---
Assessment/Plan Assessment/Plan A: The patient is an 80-year-old male with bacteremia CoNS , repeat Blood cx 07/30 CONS PICC was removed 08/01 Low grade fever, SP Leukocytosis, SP Septic shock SP - off of pressors Urinary tract infection : P mirabilis x 2 CT: Diffuse thickening of the urinary bladder wall consistent with cystitis. Garcia in good position. Mild bilateral hydronephrosis probably on the basis of a bladder disease. Thickening of the uroepithelium suggestive of chronic inflammation or infection. 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 Renal insufficiency SP hemodialysis x 2 Hypernatremia Dementia Parkinson disease Seizure disorder History of congestive heart failure Post pacemaker placement Chronic BLE DVT Obesity Renal insufficiency Hematuria Depression Anemia PLAN: IV Vanco d# 5 /10 SP Levaquin d # 10 /10 6/ IV Zosyn d# 4 Monitor CBC Monitor BMP. resp support, monitor culture ( blood , cath tip ) Subjective Allergies: Coded Allergies: No Known Allergies (Unverified , 07/16/16) Subjective comfortable Objective Vital Signs Last 24 Hour Vital Signs Date Time Temp Pulse Resp B/P Pulse Ox O2 Delivery O2 Flow Rate FiO2 08/03/16 07:58 71 18 Nasal Cannula 2.0 28 08/03/16 07:56 Nasal Cannula 2.0 28 08/03/16 07:55 98 Nasal Cannula 2.0 28 08/03/16 07:36 98.4 84 16 130/81 96 Room Air 08/03/16 04:00 97.9 60 20 131/70 99 Nasal Cannula 2.0 08/03/16 00:00 98.1 67 20 142/98 100 Nasal Cannula 2.0 08/02/16 20:10 88 18 Nasal Cannula 2.0 28 08/02/16 20:00 97.9 93 20 150/71 100 Nasal Cannula 2.0 08/02/16 16:00 97.3 65 18 125/72 99 Nasal Cannula 2.0 08/02/16 11:39 97.5 71 18 130/75 98 Nasal Cannula 2.0 Height (Feet): 5 Height (Inches): 8.00 Weight (Pounds): 182 HEENT: anicteric Respiratory/Chest: no respiratory distress Cardiovascular: normal rate Abdomen: non distended Microbiology Date/Time Source Procedure Growth Status 08/01/16 04:45 Blood Blood Culture - Preliminary NO GROWTH AFTER 24 HOURS Resulted 08/01/16 04:30 Blood Blood Culture - Preliminary NO GROWTH AFTER 24 HOURS Resulted 08/01/16 12:20 Arm Right Catheter Tip Culture - Preliminary NO GROWTH Resulted Laboratory Tests Test 08/02/16 17:30 Vancomycin Level Trough 7.5 ug/mL (5.0-12.0) Current Medications Medications (Trade) Dose Ordered Sig/Janay Route PRN Reason Start Time Stop Time Status Last Admin Dose Admin Acetaminophen (Tylenol) 650 mg Q4H PRN ORAL fever 07/31/16 08:18 08/30/16 08:17 Albuterol/ Ipratropium (DuoNeb 0.5-3(2.5)mg/3ml) 3 ml Q4H PRN HHN Shortness of Breath 07/31/16 15:45 08/05/16 15:44 Chlorhexidine Gluconate (Loree-Hex 2%) 1 applic Q24H TOPIC 07/31/16 21:00 08/30/16 20:59 Lactobacillus Acidophilus (Culturelle) 1 tab THREE TIMES A DAY GT 07/31/16 09:00 08/30/16 08:59 08/03/16 08:25 Lansoprazole (Prevacid) 30 mg DAILY NG 07/31/16 09:00 08/30/16 08:59 08/03/16 08:24 Nitroglycerin (Ntg) 0.4 mg Q5MIN X 3 DOSES PRN SL Prn Chest Pain 07/31/16 08:05 08/30/16 08:04 Ondansetron HCl (Zofran) 4 mg Q6H PRN IVP Nausea & Vomiting 07/31/16 08:19 08/30/16 08:18 Polyethylene Glycol (Miralax) 17 gm DAILYPRN PRN ORAL Constipation 07/31/16 08:21 08/30/16 08:20 PHILLIP BARNES M.D. Aug 03, 2016 10:04
[2016-08-03 11:24] VITALS: BP 110/69
[2016-08-03 16:09] VITALS: BP 130/75
--- NOTE | 2016-08-03 18:57 | Pulmonology Progress Note ---
Assessment/Plan Problems: (1) Acute respiratory failure (2) Acute encephalopathy (3) Hyperkalemia (4) ATN (acute tubular necrosis) (5) Parkinson disease (6) Chronic renal insufficiency (7) Bipolar 1 disorder Assessment/Plan tolerated extubation swallow study noticed choices are comfort care or Gtube feeding dc planning in process family needs to decide if they want Peg placement or comfort care Subjective ROS Limited/Unobtainable: Yes Interval Events: deep coma Allergies: Coded Allergies: No Known Allergies (Unverified , 07/16/16) Objective Last 24 Hour Vital Signs Date Time Temp Pulse Resp B/P Pulse Ox O2 Delivery O2 Flow Rate FiO2 08/03/16 16:09 97.7 79 16 130/75 95 Room Air 08/03/16 11:24 97.5 69 15 110/69 98 Room Air 08/03/16 07:58 71 18 Nasal Cannula 2.0 28 08/03/16 07:56 Nasal Cannula 2.0 28 08/03/16 07:55 98 Nasal Cannula 2.0 28 08/03/16 07:36 98.4 84 16 130/81 96 Room Air 08/03/16 04:00 97.9 60 20 131/70 99 Nasal Cannula 2.0 08/03/16 00:00 98.1 67 20 142/98 100 Nasal Cannula 2.0 08/02/16 20:10 88 18 Nasal Cannula 2.0 28 08/02/16 20:00 97.9 93 20 150/71 100 Nasal Cannula 2.0 Intake and Output 08/02/16 08/03/16 19:00 07:00 Intake Total 900 ml 700 ml Output Total 1000 ml 900 ml Balance -100 ml -200 ml Free Water 300 ml 200 ml Tube Feeding 600 ml 500 ml Output Urine Total 1000 ml 900 ml # Bowel Movements 1 2 Objective General Appearance: WD/WN HEENT: normocephalic, atraumatic Respiratory/Chest: chest wall non-tender, lungs clear Cardiovascular: normal peripheral pulses, normal rate Abdomen: normal bowel sounds, soft, non tender, no organomegaly Extremities: no cyanosis, no clubbing Skin: no rash Microbiology Date/Time Source Procedure Growth Status 08/01/16 04:45 Blood Blood Culture - Preliminary NO GROWTH AFTER 24 HOURS Resulted 08/01/16 04:30 Blood Blood Culture - Preliminary NO GROWTH AFTER 24 HOURS Resulted 08/01/16 12:20 Arm Right Catheter Tip Culture - Preliminary NO GROWTH Resulted Current Medications Medications (Trade) Dose Ordered Sig/Janay Route PRN Reason Start Time Stop Time Status Last Admin Dose Admin Acetaminophen (Tylenol) 650 mg Q4H PRN ORAL fever 07/31/16 08:18 08/30/16 08:17 Albuterol/ Ipratropium (DuoNeb 0.5-3(2.5)mg/3ml) 3 ml Q4H PRN HHN Shortness of Breath 07/31/16 15:45 08/05/16 15:44 Chlorhexidine Gluconate (Loree-Hex 2%) 1 applic Q24H TOPIC 07/31/16 21:00 08/30/16 20:59 Lactobacillus Acidophilus (Culturelle) 1 tab THREE TIMES A DAY GT 07/31/16 09:00 08/30/16 08:59 08/03/16 18:32 Lansoprazole (Prevacid) 30 mg DAILY NG 07/31/16 09:00 08/30/16 08:59 08/03/16 08:24 Nitroglycerin (Ntg) 0.4 mg Q5MIN X 3 DOSES PRN SL Prn Chest Pain 07/31/16 08:05 08/30/16 08:04 Ondansetron HCl (Zofran) 4 mg Q6H PRN IVP Nausea & Vomiting 07/31/16 08:19 08/30/16 08:18 Polyethylene Glycol (Miralax) 17 gm DAILYPRN PRN ORAL Constipation 07/31/16 08:21 08/30/16 08:20 MACARENA FLANNERY Aug 03, 2016 18:57
[2016-08-03 20:00] VITALS: BP 113/62
[2016-08-04] VITALS: BP 163/68
[2016-08-04 04:00] VITALS: BP 147/71
[2016-08-04 08:00] VITALS: BP 141/65
[2016-08-04] MEDS: Lactobacillus-GG tablet GT SCH ×3 (09:14→17:28)
--- NOTE | 2016-08-04 11:02 | Infectious Diseases Prog Note ---
Assessment/Plan Assessment/Plan A: The patient is an 80-year-old male with bacteremia CoNS , repeat Blood cx 07/30 CONS and VRE , Blood cx 08/02 : GPC PICC was removed 08/01 Low grade fever, SP Leukocytosis, SP Septic shock SP - off of pressors Urinary tract infection : P mirabilis x 2 CT: Diffuse thickening of the urinary bladder wall consistent with cystitis. Garcia in good position. Mild bilateral hydronephrosis probably on the basis of a bladder disease. Thickening of the uroepithelium suggestive of chronic inflammation or infection. 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 Renal insufficiency SP hemodialysis x 2 Hypernatremia Dementia Parkinson disease Seizure disorder History of congestive heart failure Post pacemaker placement Chronic BLE DVT Obesity Renal insufficiency Hematuria Depression Anemia PLAN: IV Vanco d# 7 change to Zyvox d# 1 /10 SP Levaquin d # 10 /10 07/21 IV Zosyn d# 4 Monitor CBC Monitor BMP. resp support, monitor culture ( blood , cath tip ) repeat Bl Cx Subjective Constitutional: Denies: anorexia, chills, drenching sweats, fatigue, fever, no symptoms, other Allergies: Coded Allergies: No Known Allergies (Unverified , 07/16/16) Objective Vital Signs Last 24 Hour Vital Signs Date Time Temp Pulse Resp B/P Pulse Ox O2 Delivery O2 Flow Rate FiO2 08/04/16 08:00 97.9 70 20 141/65 97 Nasal Cannula 3.0 08/04/16 07:40 74 16 Nasal Cannula 2.0 28 08/04/16 07:40 Nasal Cannula 2.0 28 08/04/16 07:40 100 Nasal Cannula 2.0 28 08/04/16 04:00 97.9 74 19 147/71 100 Nasal Cannula 08/04/16 00:00 97.9 114 18 163/68 95 Nasal Cannula 08/03/16 20:00 97.9 65 16 113/62 100 Room Air 08/03/16 19:30 Nasal Cannula 2.0 28 08/03/16 19:30 63 16 Nasal Cannula 2.0 28 08/03/16 19:30 95 Nasal Cannula 2.0 28 08/03/16 16:09 97.7 79 16 130/75 95 Room Air 08/03/16 11:24 97.5 69 15 110/69 98 Room Air Height (Feet): 5 Height (Inches): 8.00 Weight (Pounds): 171 HEENT: mucous membranes moist Respiratory/Chest: respiratory distress Cardiovascular: regular rhythm Abdomen: soft, non tender Genitourinary: normal external genitalia Microbiology Date/Time Source Procedure Growth Status 08/02/16 17:30 Blood Blood Culture - Preliminary NO GROWTH AFTER 24 HOURS Resulted 08/02/16 17:15 Blood Blood Culture - Preliminary Resulted 08/01/16 12:20 Arm Right Catheter Tip Culture - Preliminary NO GROWTH Resulted Current Medications Medications (Trade) Dose Ordered Sig/Janay Route PRN Reason Start Time Stop Time Status Last Admin Dose Admin Acetaminophen (Tylenol) 650 mg Q4H PRN ORAL fever 07/31/16 08:18 08/30/16 08:17 Albuterol/ Ipratropium (DuoNeb 0.5-3(2.5)mg/3ml) 3 ml Q4H PRN HHN Shortness of Breath 07/31/16 15:45 08/05/16 15:44 Lactobacillus Acidophilus (Culturelle) 1 tab THREE TIMES A DAY GT 07/31/16 09:00 08/30/16 08:59 08/04/16 09:14 Lansoprazole (Prevacid) 30 mg DAILY NG 07/31/16 09:00 08/30/16 08:59 08/04/16 09:14 Nitroglycerin (Ntg) 0.4 mg Q5MIN X 3 DOSES PRN SL Prn Chest Pain 07/31/16 08:05 08/30/16 08:04 Ondansetron HCl (Zofran) 4 mg Q6H PRN IVP Nausea & Vomiting 07/31/16 08:19 08/30/16 08:18 Polyethylene Glycol (Miralax) 17 gm DAILYPRN PRN ORAL Constipation 07/31/16 08:21 08/30/16 08:20 PHILLIP BARNES M.D. Aug 04, 2016 11:02
--- NOTE | 2016-08-04 11:07 | General Progress Note ---
Assessment/Plan Status: stable Assessment/Plan status: acute renal failure, requiring HD , done 07/16 & 07/19 & no more acute hyperkalemia , resolved Low BP , septic Shock , on Pressors- RESOLVED acute respiratory failure requiring intubation UTI gross hematuria anemia CHF Sever Hypoalbuminemia h/o Parkinsons , OBS , ? Sz Plan: extubated - doing well. HD 07/19, no further dialysis appears to be needed, DC Dialysis cath from groin 06/23/16--( right groin catheter was discontinued and the site was dressed under pressure and hemostasis acheived) Monitor renal parameters- K supplement as needed- Lactobacillus Avoid Nephrotoxics On Renal feeding BP support per orders per consultants Subjective ROS Limited/Unobtainable: No Constitutional: Reports: malaise Allergies: Coded Allergies: No Known Allergies (Unverified , 07/16/16) Objective Last 24 Hour Vital Signs Date Time Temp Pulse Resp B/P Pulse Ox O2 Delivery O2 Flow Rate FiO2 08/04/16 08:00 97.9 70 20 141/65 97 Nasal Cannula 3.0 08/04/16 07:40 74 16 Nasal Cannula 2.0 28 08/04/16 07:40 Nasal Cannula 2.0 28 08/04/16 07:40 100 Nasal Cannula 2.0 28 08/04/16 04:00 97.9 74 19 147/71 100 Nasal Cannula 08/04/16 00:00 97.9 114 18 163/68 95 Nasal Cannula 08/03/16 20:00 97.9 65 16 113/62 100 Room Air 08/03/16 19:30 Nasal Cannula 2.0 28 08/03/16 19:30 63 16 Nasal Cannula 2.0 28 08/03/16 19:30 95 Nasal Cannula 2.0 28 08/03/16 16:09 97.7 79 16 130/75 95 Room Air 08/03/16 11:24 97.5 69 15 110/69 98 Room Air Intake and Output 08/03/16 08/04/16 19:00 07:00 Intake Total 900 ml 900 ml Output Total 1200 ml 900 ml Balance -300 ml 0 ml Free Water 300 ml 300 ml Tube Feeding 600 ml 600 ml Output Urine Total 1200 ml 900 ml # Bowel Movements 1 Height (Feet): 5 Height (Inches): 8.00 Weight (Pounds): 171 General Appearance: no apparent distress, lethargic Objective other PE not changed HAI THOMPSON Aug 04, 2016 11:07
[2016-08-04 12:00] VITALS: BP 145/77
[2016-08-04 16:00] VITALS: BP 117/68
[2016-08-04 20:00] VITALS: BP 118/91
--- NOTE | 2016-08-04 22:08 | Pulmonology Progress Note ---
Assessment/Plan Problems: (1) Acute respiratory failure (2) Acute encephalopathy (3) Hyperkalemia (4) ATN (acute tubular necrosis) (5) Parkinson disease (6) Chronic renal insufficiency (7) Bipolar 1 disorder Assessment/Plan tolerated extubation swallow study noticed choices are comfort care or Gtube feeding dc planning in process family needs to decide if they want Peg placement or comfort care Subjective Allergies: Coded Allergies: No Known Allergies (Unverified , 07/16/16) Objective Last 24 Hour Vital Signs Date Time Temp Pulse Resp B/P Pulse Ox O2 Delivery O2 Flow Rate FiO2 08/04/16 20:00 97.5 65 20 118/91 98 Nasal Cannula 2.0 08/04/16 19:56 98 Nasal Cannula 3.0 32 08/04/16 19:56 70 16 Nasal Cannula 3.0 32 08/04/16 19:56 Nasal Cannula 3.0 32 08/04/16 16:00 97.7 65 20 117/68 96 Nasal Cannula 3.0 08/04/16 12:00 97.9 70 20 145/77 96 Nasal Cannula 3.0 08/04/16 08:00 97.9 70 20 141/65 97 Nasal Cannula 3.0 08/04/16 07:40 74 16 Nasal Cannula 2.0 28 08/04/16 07:40 Nasal Cannula 2.0 28 08/04/16 07:40 100 Nasal Cannula 2.0 28 08/04/16 04:00 97.9 74 19 147/71 100 Nasal Cannula 08/04/16 00:00 97.9 114 18 163/68 95 Nasal Cannula Intake and Output 08/03/16 08/04/16 19:00 07:00 Intake Total 900 ml 980 ml Output Total 1200 ml 900 ml Balance -300 ml 80 ml Free Water 300 ml 330 ml Tube Feeding 600 ml 650 ml Output Urine Total 1200 ml 900 ml # Bowel Movements 1 Objective General Appearance: WD/WN HEENT: normocephalic, atraumatic Respiratory/Chest: chest wall non-tender, lungs clear Cardiovascular: normal peripheral pulses, normal rate Abdomen: normal bowel sounds, soft, non tender, no organomegaly Extremities: no cyanosis, no clubbing Skin: no rash Microbiology Date/Time Source Procedure Growth Status 08/02/16 17:30 Blood Blood Culture - Preliminary NO GROWTH AFTER 24 HOURS Resulted 08/02/16 17:15 Blood Blood Culture - Preliminary Resulted Current Medications Medications (Trade) Dose Ordered Sig/Janay Route PRN Reason Start Time Stop Time Status Last Admin Dose Admin Acetaminophen (Tylenol) 650 mg Q4H PRN ORAL fever 07/31/16 08:18 08/30/16 08:17 Albuterol/ Ipratropium 3 ml 3 ml Q4H PRN HHN Shortness of Breath 07/31/16 15:45 08/05/16 15:44 Lactobacillus Acidophilus (Culturelle) 1 tab THREE TIMES A DAY GT 07/31/16 09:00 08/30/16 08:59 08/04/16 17:28 Lansoprazole (Prevacid) 30 mg DAILY NG 07/31/16 09:00 08/30/16 08:59 08/04/16 09:14 Linezolid (Zyvox) 300 ml @ 300 mls/hr Q12HR IVPB 08/04/16 13:30 08/11/16 13:29 08/04/16 21:21 Nitroglycerin (Ntg) 0.4 mg Q5MIN X 3 DOSES PRN SL Prn Chest Pain 07/31/16 08:05 08/30/16 08:04 Ondansetron HCl (Zofran) 4 mg Q6H PRN IVP Nausea & Vomiting 07/31/16 08:19 08/30/16 08:18 Polyethylene Glycol (Miralax) 17 gm DAILYPRN PRN ORAL Constipation 07/31/16 08:21 08/30/16 08:20 MACARENA FLANNERY Aug 04, 2016 22:08
[2016-08-05] VITALS: BP 110/70
[2016-08-05 04:00] VITALS: BP 105/77
[2016-08-05 08:00] VITALS: BP 124/78
[2016-08-05] MEDS: Lactobacillus-GG tablet GT SCH ×3 (09:00→18:11)
--- NOTE | 2016-08-05 11:48 | General Progress Note ---
Assessment/Plan Status: stable Assessment/Plan status: acute renal failure, requiring HD , done 07/16 & 07/19 & no more acute hyperkalemia , resolved Low BP , septic Shock , on Pressors- RESOLVED acute respiratory failure requiring intubation UTI gross hematuria anemia CHF Sever Hypoalbuminemia h/o Parkinsons , OBS , ? Sz Plan: No new labs extubated - doing well. HD 07/19, no further dialysis appears to be needed, DC Dialysis cath from groin 06/23/16--( right groin catheter was discontinued and the site was dressed under pressure and hemostasis acheived) Monitor renal parameters- K supplement as needed- Lactobacillus Avoid Nephrotoxics On Renal feeding BP support per orders per consultants Subjective ROS Limited/Unobtainable: No Allergies: Coded Allergies: No Known Allergies (Unverified , 07/16/16) Objective Last 24 Hour Vital Signs Date Time Temp Pulse Resp B/P Pulse Ox O2 Delivery O2 Flow Rate FiO2 08/05/16 08:00 97.9 66 20 124/78 98 Nasal Cannula 2.0 08/05/16 07:08 68 16 Nasal Cannula 2.0 28 08/05/16 07:08 Nasal Cannula 2.0 28 08/05/16 07:08 98 Nasal Cannula 2.0 28 08/05/16 04:00 97.7 70 17 105/77 98 Nasal Cannula 2.0 08/05/16 00:00 97.2 76 20 110/70 95 Room Air 08/04/16 20:00 97.5 65 20 118/91 98 Nasal Cannula 2.0 08/04/16 19:56 98 Nasal Cannula 3.0 32 08/04/16 19:56 70 16 Nasal Cannula 3.0 32 08/04/16 19:56 Nasal Cannula 3.0 32 08/04/16 16:00 97.7 65 20 117/68 96 Nasal Cannula 3.0 08/04/16 12:00 97.9 70 20 145/77 96 Nasal Cannula 3.0 Intake and Output 08/04/16 08/05/16 19:00 07:00 Intake Total 1200 ml 1050 ml Output Total 750 ml Balance 450 ml 1050 ml Free Water 300 ml 200 ml IV Total 300 ml 300 ml Tube Feeding 600 ml 550 ml Output Urine Total 750 ml Height (Feet): 5 Height (Inches): 8.00 Weight (Pounds): 169 General Appearance: no apparent distress Objective other PE not changed HAI THOMPSON Aug 05, 2016 11:48
[2016-08-05 12:00] VITALS: BP 115/68
[2016-08-05 16:00] VITALS: BP 143/69
[2016-08-05] MEDS ORDERED: Sterile Water Irrig 1000ml IRRIG ONE (17:22)
--- NOTE | 2016-08-05 18:29 | Infectious Diseases Prog Note ---
Assessment/Plan Assessment/Plan A: The patient is an 80-year-old male with bacteremia CoNS , repeat Blood cx 07/30 CONS and VRE , Blood cx 08/02 : GPC PICC was removed 08/01 Low grade fever, SP Leukocytosis, SP Septic shock SP - off of pressors Urinary tract infection : P mirabilis x 2 CT: Diffuse thickening of the urinary bladder wall consistent with cystitis. Garcia in good position. Mild bilateral hydronephrosis probably on the basis of a bladder disease. Thickening of the uroepithelium suggestive of chronic inflammation or infection. 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 Renal insufficiency SP hemodialysis x 2 Hypernatremia Dementia Parkinson disease Seizure disorder History of congestive heart failure Post pacemaker placement Chronic BLE DVT Obesity Renal insufficiency Hematuria Depression Anemia PLAN: Zyvox d# 2 /10 08/04 SP IV Vanco d# 7 SP Levaquin d # 10 /07/21 IV Zosyn d# 4 Monitor CBC Monitor BMP. resp support, monitor culture ( blood , cath tip ) repeat Bl Cx Subjective Constitutional: Denies: anorexia, chills, drenching sweats, fatigue, fever, no symptoms, other Allergies: Coded Allergies: No Known Allergies (Unverified , 07/16/16) Objective Vital Signs Last 24 Hour Vital Signs Date Time Temp Pulse Resp B/P Pulse Ox O2 Delivery O2 Flow Rate FiO2 08/05/16 16:00 97.9 67 20 143/69 97 Nasal Cannula 2.0 08/05/16 12:00 98.1 79 20 115/68 96 Room Air 08/05/16 08:00 97.9 66 20 124/78 98 Nasal Cannula 2.0 08/05/16 07:08 68 16 Nasal Cannula 2.0 28 08/05/16 07:08 Nasal Cannula 2.0 28 08/05/16 07:08 98 Nasal Cannula 2.0 28 08/05/16 04:00 97.7 70 17 105/77 98 Nasal Cannula 2.0 08/05/16 00:00 97.2 76 20 110/70 95 Room Air 08/04/16 20:00 97.5 65 20 118/91 98 Nasal Cannula 2.0 08/04/16 19:56 98 Nasal Cannula 3.0 32 08/04/16 19:56 70 16 Nasal Cannula 3.0 32 08/04/16 19:56 Nasal Cannula 3.0 32 Height (Feet): 5 Height (Inches): 8.00 Weight (Pounds): 169 HEENT: PERRL Respiratory/Chest: normal breath sounds Cardiovascular: regular rhythm Abdomen: non distended Current Medications Medications (Trade) Dose Ordered Sig/Janay Route PRN Reason Start Time Stop Time Status Last Admin Dose Admin Acetaminophen (Tylenol) 650 mg Q4H PRN ORAL fever 07/31/16 08:18 08/30/16 08:17 Lactobacillus Acidophilus (Culturelle) 1 tab THREE TIMES A DAY GT 07/31/16 09:00 08/30/16 08:59 08/05/16 18:11 Lansoprazole (Prevacid) 30 mg DAILY NG 07/31/16 09:00 08/30/16 08:59 08/04/16 09:14 Linezolid (Zyvox) 300 ml @ 300 mls/hr Q12HR IVPB 08/04/16 13:30 08/11/16 13:29 08/05/16 09:33 Nitroglycerin (Ntg) 0.4 mg Q5MIN X 3 DOSES PRN SL Prn Chest Pain 07/31/16 08:05 08/30/16 08:04 Ondansetron HCl (Zofran) 4 mg Q6H PRN IVP Nausea & Vomiting 07/31/16 08:19 08/30/16 08:18 Polyethylene Glycol 17 gm 17 gm DAILYPRN PRN ORAL Constipation 07/31/16 08:21 08/30/16 08:20 PHILLIP BARNES M.D. Aug 05, 2016 18:29
[2016-08-05 20:00] VITALS: BP 131/104
[2016-08-06] VITALS: BP 139/79
[2016-08-06 04:00] VITALS: BP 158/80
[2016-08-06 07:52] VITALS: BP 138/90
[2016-08-06] MEDS: Lactobacillus-GG tablet GT SCH ×2 (08:36→14:48)
--- NOTE | 2016-08-06 09:30 | Infectious Diseases Prog Note ---
Assessment/Plan Assessment/Plan A: The patient is an 80-year-old male with bacteremia CoNS , persistent repeat Blood cx :P PICC was removed 08/01 Low grade fever, SP Leukocytosis, SP Septic shock SP - off of pressors Urinary tract infection : P mirabilis x 2 CT: Diffuse thickening of the urinary bladder wall consistent with cystitis. Garcia in good position. Mild bilateral hydronephrosis probably on the basis of a bladder disease. Thickening of the uroepithelium suggestive of chronic inflammation or infection. 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 Renal insufficiency SP hemodialysis x 2 Hypernatremia Dementia Parkinson disease Seizure disorder History of congestive heart failure Post pacemaker placement Chronic BLE DVT Obesity Renal insufficiency Hematuria Depression Anemia PLAN: Zyvox d# 3 /10 08/04 SP IV Vanco d# 7 SP Levaquin d # 10 /10 07/21 IV Zosyn d# 4 Monitor CBC Monitor BMP. resp support, monitor culture ( blood )x Subjective Constitutional: Denies: anorexia, chills, drenching sweats, fatigue, fever, no symptoms, other Allergies: Coded Allergies: No Known Allergies (Unverified , 07/16/16) Objective Vital Signs Last 24 Hour Vital Signs Date Time Temp Pulse Resp B/P Pulse Ox O2 Delivery O2 Flow Rate FiO2 08/06/16 07:52 98.6 78 21 138/90 100 Nasal Cannula 2.0 08/06/16 04:00 97.8 85 18 158/80 97 08/06/16 00:00 98.2 69 20 139/79 97 Room Air 08/05/16 20:24 Nasal Cannula 2.0 28 08/05/16 20:24 97 Nasal Cannula 2.0 28 08/05/16 20:00 97.7 68 20 131/104 97 Room Air 08/05/16 16:00 97.9 67 20 143/69 97 Nasal Cannula 2.0 08/05/16 12:00 98.1 79 20 115/68 96 Room Air Height (Feet): 5 Height (Inches): 8.00 Weight (Pounds): 170 HEENT: anicteric Respiratory/Chest: no accessory muscle use Cardiovascular: regular rhythm Abdomen: non distended Current Medications Medications (Trade) Dose Ordered Sig/Janay Route PRN Reason Start Time Stop Time Status Last Admin Dose Admin Acetaminophen (Tylenol) 650 mg Q4H PRN ORAL fever 07/31/16 08:18 08/30/16 08:17 Lactobacillus Acidophilus (Culturelle) 1 tab THREE TIMES A DAY GT 07/31/16 09:00 08/30/16 08:59 08/06/16 08:36 Lansoprazole (Prevacid) 30 mg DAILY NG 07/31/16 09:00 08/30/16 08:59 08/06/16 08:36 Linezolid (Zyvox) 300 ml @ 300 mls/hr Q12HR IVPB 08/04/16 13:30 08/11/16 13:29 08/06/16 08:36 Nitroglycerin (Ntg) 0.4 mg Q5MIN X 3 DOSES PRN SL Prn Chest Pain 07/31/16 08:05 08/30/16 08:04 Ondansetron HCl (Zofran) 4 mg Q6H PRN IVP Nausea & Vomiting 07/31/16 08:19 08/30/16 08:18 Polyethylene Glycol 17 gm 17 gm DAILYPRN PRN ORAL Constipation 07/31/16 08:21 08/30/16 08:20 PHILLIP BARNES M.D. Aug 06, 2016 09:30
[2016-08-06] MEDS ORDERED: ACETAMINOPHEN325 M1 ORAL (11:46)
[2016-08-06 12:00] VITALS: BP 128/67
--- NOTE | 2016-08-06 13:08 | General Progress Note ---
Assessment/Plan Status: stable Assessment/Plan status: acute renal failure, requiring HD , done 07/16 & 07/19 & no more acute hyperkalemia , resolved Low BP , septic Shock , on Pressors- RESOLVED acute respiratory failure requiring intubation UTI gross hematuria anemia CHF Sever Hypoalbuminemia h/o Parkinsons , OBS , ? Sz Plan: No new labs- Due DC on Hospice- HD 07/19, no further dialysis appears to be needed, DC Dialysis cath from groin 06/23/16--( right groin catheter was discontinued and the site was dressed under pressure and hemostasis acheived) Monitor renal parameters- K supplement as needed- Lactobacillus Avoid Nephrotoxics On Renal feeding BP support per orders per consultants Subjective ROS Limited/Unobtainable: No Constitutional: Reports: malaise, weakness Allergies: Coded Allergies: No Known Allergies (Unverified , 07/16/16) Objective Last 24 Hour Vital Signs Date Time Temp Pulse Resp B/P Pulse Ox O2 Delivery O2 Flow Rate FiO2 08/06/16 07:52 98.6 78 21 138/90 100 Nasal Cannula 2.0 08/06/16 04:00 97.8 85 18 158/80 97 08/06/16 00:00 98.2 69 20 139/79 97 Room Air 08/05/16 20:24 Nasal Cannula 2.0 28 08/05/16 20:24 97 Nasal Cannula 2.0 28 08/05/16 20:00 97.7 68 20 131/104 97 Room Air 08/05/16 16:00 97.9 67 20 143/69 97 Nasal Cannula 2.0 Intake and Output 08/05/16 08/06/16 19:00 07:00 Intake Total 300 ml Output Total 500 ml 1525 ml Balance -500 ml -1225 ml IV Total 300 ml Output Urine Total 500 ml 1525 ml # Bowel Movements 1 Height (Feet): 5 Height (Inches): 8.00 Weight (Pounds): 170 General Appearance: no apparent distress Objective other PE not changed HAI THOMPSON Aug 06, 2016 13:08
--- NOTE | 2016-08-06 13:23 | Pulmonology Progress Note ---
Assessment/Plan Problems: (1) Acute respiratory failure (2) Acute encephalopathy (3) Hyperkalemia (4) ATN (acute tubular necrosis) (5) Parkinson disease (6) Chronic renal insufficiency (7) Bipolar 1 disorder Assessment/Plan tolerated extubation swallow study noticed improving family/son declined peg placement oral feeding dc planning in process Subjective Interval Events: late note for 08/05, no change, in mental status Allergies: Coded Allergies: No Known Allergies (Unverified , 07/16/16) Objective Last 24 Hour Vital Signs Date Time Temp Pulse Resp B/P Pulse Ox O2 Delivery O2 Flow Rate FiO2 08/06/16 12:00 98.8 83 18 128/67 99 Nasal Cannula 3.0 08/06/16 07:52 98.6 78 21 138/90 100 Nasal Cannula 2.0 08/06/16 04:00 97.8 85 18 158/80 97 08/06/16 00:00 98.2 69 20 139/79 97 Room Air 08/05/16 20:24 Nasal Cannula 2.0 28 08/05/16 20:24 97 Nasal Cannula 2.0 28 08/05/16 20:00 97.7 68 20 131/104 97 Room Air 08/05/16 16:00 97.9 67 20 143/69 97 Nasal Cannula 2.0 Intake and Output 08/05/16 08/06/16 19:00 07:00 Intake Total 300 ml Output Total 500 ml 1525 ml Balance -500 ml -1225 ml IV Total 300 ml Output Urine Total 500 ml 1525 ml # Bowel Movements 1 Objective General Appearance: WD/WN HEENT: normocephalic, atraumatic Respiratory/Chest: chest wall non-tender, lungs clear Cardiovascular: normal peripheral pulses, normal rate Abdomen: normal bowel sounds, soft, non tender, no organomegaly Extremities: no cyanosis, no clubbing Skin: no rash Current Medications Medications (Trade) Dose Ordered Sig/Janay Route PRN Reason Start Time Stop Time Status Last Admin Dose Admin Acetaminophen (Tylenol) 650 mg Q4H PRN ORAL fever 07/31/16 08:18 08/30/16 08:17 Lactobacillus Acidophilus (Culturelle) 1 tab THREE TIMES A DAY GT 07/31/16 09:00 08/30/16 08:59 08/06/16 08:36 Lansoprazole (Prevacid) 30 mg DAILY NG 07/31/16 09:00 08/30/16 08:59 08/06/16 08:36 Linezolid (Zyvox) 300 ml @ 300 mls/hr Q12HR IVPB 08/04/16 13:30 08/11/16 13:29 08/06/16 08:36 Nitroglycerin (Ntg) 0.4 mg Q5MIN X 3 DOSES PRN SL Prn Chest Pain 07/31/16 08:05 08/30/16 08:04 Ondansetron HCl (Zofran) 4 mg Q6H PRN IVP Nausea & Vomiting 07/31/16 08:19 08/30/16 08:18 Polyethylene Glycol 17 gm 17 gm DAILYPRN PRN ORAL Constipation 07/31/16 08:21 08/30/16 08:20 MACARENA FLANNERY Aug 06, 2016 13:23
--- NOTE | 2016-08-06 13:24 | Pulmonology Progress Note ---
Assessment/Plan Problems: (1) Acute respiratory failure (2) Acute encephalopathy (3) Hyperkalemia (4) ATN (acute tubular necrosis) (5) Parkinson disease (6) Chronic renal insufficiency (7) Bipolar 1 disorder Assessment/Plan no new complians swallow study noticed improving family/son declined peg placement oral feeding dc planning in process pt is going to [facility] with hospice Subjective Interval Events: comfortable Allergies: Coded Allergies: No Known Allergies (Unverified , 07/16/16) Objective Last 24 Hour Vital Signs Date Time Temp Pulse Resp B/P Pulse Ox O2 Delivery O2 Flow Rate FiO2 08/06/16 12:00 98.8 83 18 128/67 99 Nasal Cannula 3.0 08/06/16 07:52 98.6 78 21 138/90 100 Nasal Cannula 2.0 08/06/16 04:00 97.8 85 18 158/80 97 08/06/16 00:00 98.2 69 20 139/79 97 Room Air 08/05/16 20:24 Nasal Cannula 2.0 28 08/05/16 20:24 97 Nasal Cannula 2.0 28 08/05/16 20:00 97.7 68 20 131/104 97 Room Air 08/05/16 16:00 97.9 67 20 143/69 97 Nasal Cannula 2.0 Intake and Output 08/05/16 08/06/16 19:00 07:00 Intake Total 300 ml Output Total 500 ml 1525 ml Balance -500 ml -1225 ml IV Total 300 ml Output Urine Total 500 ml 1525 ml # Bowel Movements 1 Objective General Appearance: WD/WN HEENT: normocephalic, atraumatic Respiratory/Chest: chest wall non-tender, lungs clear Cardiovascular: normal peripheral pulses, normal rate Abdomen: normal bowel sounds, soft, non tender, no organomegaly Extremities: no cyanosis, no clubbing Skin: no rash Current Medications Medications (Trade) Dose Ordered Sig/Janay Route PRN Reason Start Time Stop Time Status Last Admin Dose Admin Acetaminophen (Tylenol) 650 mg Q4H PRN ORAL fever 07/31/16 08:18 08/30/16 08:17 Lactobacillus Acidophilus (Culturelle) 1 tab THREE TIMES A DAY GT 07/31/16 09:00 08/30/16 08:59 08/06/16 08:36 Lansoprazole (Prevacid) 30 mg DAILY NG 07/31/16 09:00 08/30/16 08:59 08/06/16 08:36 Linezolid (Zyvox) 300 ml @ 300 mls/hr Q12HR IVPB 08/04/16 13:30 08/11/16 13:29 08/06/16 08:36 Nitroglycerin (Ntg) 0.4 mg Q5MIN X 3 DOSES PRN SL Prn Chest Pain 07/31/16 08:05 08/30/16 08:04 Ondansetron HCl (Zofran) 4 mg Q6H PRN IVP Nausea & Vomiting 07/31/16 08:19 08/30/16 08:18 Polyethylene Glycol 17 gm 17 gm DAILYPRN PRN ORAL Constipation 07/31/16 08:21 08/30/16 08:20 MACARENA FLANNERY Aug 06, 2016 13:24
--- NOTE | 2016-08-09 13:29 | Discharge Summary ---
Discharge Summary Hospital Course Date of Admission Jul 16, 2016 at 12:43 Date of Discharge Aug 06, 2016 at 15:10 Admitting Diagnosis respiratory distress HPI Collazoamilcar Lentz is a 80 year old male who was admitted on Jul 16, 2016 at 12: 43 for Respiratory Distress Hospital Course dc summary #[id number] Discharge Medications New Medications: Acetaminophen* (Acetaminophen 325MG Tablet*) 325 Mg Tablet 650 MG ORAL Q4H PRN for 30 Days, TAB Continued Medications: Docusate Sodium* (Docusate Sodium*) 100 Mg Capsule 100 MG ORAL DAILY, CAP Levodopa/Carbidopa (Carbidopa-Levodopa 25-100 Tab) 1 Each Tablet 1 TAB ORAL EVERY 12 HOURS, TAB Discharge Condition Upon Discharge: stable Discharge Disposition Patient was discharged to SNF/Subacute Facility(03) with hospice services Discharge Diagnoses: Mega (Pardeepfili)Nora NP Aug 09, 2016 13:29
== END 2016-08-06 15:10 | DRG 870 ==
LOC: EDBD 11:58 → EMR 12:41 → 2W 12:43 → EDBEDREQ 13:42 → EDBEDREQSVC 14:11 → EDBEDREQ 14:11 → ICU 15:59 → 4E 07-31 06:23
PROC: 06HM33Z Insertion of Infusion Device into Right Femoral Vein, Percutaneous Approach (ICD-10-PCS; principal; 2016-07-16)
PROC: 5A1955Z Respiratory Ventilation, Greater than 96 Consecutive Hours (ICD-10-PCS; principal; 2016-07-16)
PROC: 0BH17EZ Insertion of Endotracheal Airway into Trachea, Via Natural or Artificial Opening (ICD-10-PCS; principal; 2016-07-16)
PROC: 5A1D60Z (ICD-10-PCS; 2016-07-17)
PROC: 05H533Z Insertion of Infusion Device into Right Subclavian Vein, Percutaneous Approach (ICD-10-PCS; 2016-07-21)
PROC: B546ZZA Ultrasonography of Right Subclavian Vein, Guidance (ICD-10-PCS; 2016-07-21)
DX: A41.59 Other Gram-negative sepsis (principal); J96.00 Acute respiratory failure, unspecified whether with hypoxia or hypercapnia; N17.0 Acute kidney failure with tubular necrosis; G92 Toxic encephalopathy; R65.21 Severe sepsis with septic shock; G20 Parkinson's disease; M62.82 Rhabdomyolysis; N39.0 Urinary tract infection, site not specified; Z99.11 Dependence on respirator [ventilator] status; I82.533 Chronic embolism and thrombosis of popliteal vein, bilateral; I82.593 Chronic embolism and thrombosis of other specified deep vein of lower extremity, bilateral; E87.0 Hyperosmolality and hypernatremia; N13.30 Unspecified hydronephrosis; E87.5 Hyperkalemia; D64.9 Anemia, unspecified; F02.80 Dementia in other diseases classified elsewhere, unspecified severity, without behavioral disturbance, psychotic disturbance, mood disturbance, and anxiety; F31.9 Bipolar disorder, unspecified; I11.0 Hypertensive heart disease with heart failure; I50.9 Heart failure, unspecified; R31.9 Hematuria, unspecified; Z95.0 Presence of cardiac pacemaker; G40.909 Epilepsy, unspecified, not intractable, without status epilepticus; E66.9 Obesity, unspecified; Z68.25 Body mass index [BMI] 25.0-25.9, adult; F32.9 Major depressive disorder, single episode, unspecified; E88.09 Other disorders of plasma-protein metabolism, not elsewhere classified; Z66 Do not resuscitate
CPT/HCPCS: 36415; 36569; 36600; 70450; 71010; 74000; 74176; 74230; 76775; 76937; 80048; 80053; 80076; 80202; 81003; 82248; 82270; 82378; 82436; 82550; 82553; 82607; 82728; 82746; 82803; 82962; 82977; 83540; 83550; 83605; 83690; 83735; 83880; 84100; 84133; 84300; 84439; 84443; 84484; 84550; 85007; 85025; 85610; 85730; 86140; 86850; 86900; 86901; 86920; 87040; 87070; 87081; 87086; 87181; 87205; 87324; 89050; 93005; 93970; 94002; 94003; 94664; 94760; J1815; J7620

== ENCOUNTER 2016-08-13 14:33 | Inpatient (IN) | payer MEDICARE, MEDICAID ==
[~2016-08-13] VITALS: Ht 177.8 cm; Wt 77.1 kg
[~2016-08-13 14:33] MED LIST: ACETAMINOPHEN325 M1 ORAL; ARTIFICIAL TEAR15 M2 OP; CALCIUM CARBON500 M1 PO; CARVEDILOL6.25 MG ORAL; DOCUSATE SODIU100 MG ORAL; DONEPEZIL HCL5 MG ORAL; FAMOTIDINE20 MG ORAL; MULTIVITAMINS1 EAC8 ORAL; NAMENDA5 MG ORAL; PROMOD946 ML PO; SINEMET 25/1001 EA ORAL; TAMSULOSIN HCL0.4 MG ORAL; VALPROIC A250 MG/5 M PO; VITAMIN B-1100 MG ORAL; ZYRTEC10 MG ORAL
[2016-08-13 15:36] LABS: BASOPHILS % (AUTO) 0.5 % (0.0-2.0); EOSINOPHILS % (AUTO) 1.6 % (0.0-3.0); MEAN CORPUSCULAR HEMOGLOBIN 29.2 PG (27.0-31.0); MEAN CORPUSCULAR HGB CONC 31.6 G/DL (32.0-36.0); MEAN CORPUSCULAR VOLUME 92 FL (80-99); MEAN PLATELET VOLUME 5.7 FL (6.5-10.1); MONOCYTES % (AUTO) 7.6 % (1.0-10.0); NEUTROPHILS % (AUTO) 80.3 % (45.0-75.0); PLATELET COUNT 270 K/UL (150-450); RED BLOOD COUNT 3.16 M/UL (4.70-6.10); RED CELL DISTRIBUTION WIDTH 13.8 % (11.6-14.8); WHITE BLOOD COUNT 11.3 K/UL (4.8-10.8)
[2016-08-13] MEDS ORDERED: Unasyn 3gm Inj ONE (15:40)
[2016-08-13 15:42] VITALS: BP 115/92
[2016-08-13] MEDS ORDERED: Ampicillin/Sulbactam Sod 3 GM in NS 110 ML IVPB ONE (15:45)
[2016-08-13 15:46] LABS: APPEARANCE,URINE SLIGHTLY CLOUDY; KETONES,URINE NEGATIVE (NEGATIVE); LEUKOCYTE ESTERASE ,URINE 3+ (NEGATIVE); NITRITE,URINE NEGATIVE (NEGATIVE); PH,URINE 9 (4.5-8.0); PROTEIN,URINE 3+ (NEGATIVE); UROBILINOGEN,URINE NORMAL MG/DL (0.0-1.0)
[2016-08-13 15:49] LABS: AMORPHOUS SEDIMENT,UR FEW /LPF; BACTERIA,URINE MANY /HPF; RBC,URINE 20-30 /HPF (0 - 0); WBC,URINE 15-20 /HPF (0 - 0)
[2016-08-13 15:51] LABS: TROPONIN I < 0.30 ng/mL (<=0.30)
[2016-08-13 15:55] LABS: CKMB 2.5 ng/mL (< 6.7)
[2016-08-13] MEDS ORDERED: LORazepam Inj 2mg/ml 1ml IV PRN (16:00)
[2016-08-13] MEDS ORDERED: DuoNeb 0.5-3(2.5)mg/3ml neb HHN PRN (16:00)
[2016-08-13] MEDS ORDERED: Miralax 17gm pkt ORAL PRN (16:00)
[2016-08-13] MEDS ORDERED: Morphine Sulfate 2mg/ml Inj IVP PRN (16:00)
[2016-08-13 16:07] LABS: ALANINE AMINOTRANSFERASE 84 U/L (3-41); ALBUMIN/GLOBULIN RATIO 0.6 (1.0-2.7); ASPARTATE AMINO TRANSFERASE 140 U/L (5-40); CALCIUM 8.8 mg/dL (8.6-10.2); CARBON DIOXIDE 12 mEQ/L (20-30); TOTAL PROTEIN 6.5 g/dL (6.6-8.7)
[2016-08-13 16:08] LABS: CHLORIDE 102 mEQ/L (98-107); SODIUM 138 mEQ/L (135-145)
--- NOTE | 2016-08-13 16:10 | History and Physical ---
History of Present Illness General Date patient seen: Aug 13, 2016 Time patient seen: 15:00 Reason for Hospitalization: acute renal failure Present Illness HPI 80 y/old male with multiple chronic medical comorbidities, including recent intubation, sepsis, UTI, PNA, rhabdo, acute renal failure, presented to ED with abnormal labs recently hospitalized and was subsequently sent to SNF with hospice services laboratory work work revealed leukocytosis -11.3 low grade fever, tachycardia lactic acid WNL urine in Garcia grossly infected evidence of anemia -9.2/29.2 evidence of acute renal failure BUN 141 and creat -16.9 elevated LFT patient was admitted for further management Allergies: Coded Allergies: No Known Allergies (Unverified , 07/16/16) Medication History Scheduled Calcium Carbonate (Calcium Carbonate), 1,000 MG PO DAILY, (Reported) Cetirizine Hcl* (Zyrtec*), 10 MG ORAL DAILY, (Reported) Docusate Sodium* (Docusate Sodium*), 50 MG ORAL DAILY, (Reported) Donepezil Hcl* (Donepezil Hcl*), 5 MG ORAL HS, (Reported) Famotidine (Famotidine), 20 MG ORAL DAILY, (Reported) Levodopa/Carbidopa (Carbidopa-Levodopa 25-100 Tab), 1 TAB ORAL EVERY 12 HOURS, ( Reported) Memantine Hcl* (Namenda*), 5 MG ORAL TWICE A DAY, (Reported) Multivitamin With Minerals (Multivitamins With Minerals*), 1 TAB ORAL DAILY, ( Reported) Protein Supplement (Promod), 30 ML PO DAILY, (Reported) Tamsulosin Hcl (Tamsulosin Hcl*), 0.4 MG ORAL DAILY, (Reported) Thiamine Hcl* (Vitamin B-1*), 100 MG ORAL DAILY, (Reported) Valproate Sodium (Valproic Acid), 7.5 ML PO TID, (Reported) Scheduled PRN Acetaminophen* (Acetaminophen 325MG Tablet*), 650 MG ORAL Q4H PRN Bisacodyl* (Dulcolax*), 10 MG ORAL DAILY PRN for Constipation, (Reported) Lorazepam* (Lorazepam*), 2 MG ORAL THREE TIMES A DAY PRN for For Anxiety, ( Reported) Morphine Sulfate* (Morphine Sulfate*), 5 MG ORAL for For Pain, (Reported) Nitroglycerin (Nitrostat), 0.4 MG SL Q5M X3 DOSES PRN for CHEST PAIN, (Reported) Miscellaneous Medications Carvedilol* (Carvedilol*), 6.25 MG ORAL, (Reported) Polyvinyl Alcohol (Artificial Tears), 15 ML OP, (Reported) Patient History Healthcare decision maker Resuscitation status Advanced Directive on File Past Medical/Surgical History Past Medical/Surgical History: (1) Anemia (2) Chronic renal insufficiency (3) Parkinson disease (4) Acute encephalopathy (5) Acute respiratory failure (6) Gram-negative bacteremia (7) Hyperkalemia (8) ATN (acute tubular necrosis) Review of Systems ROS Narrative unable to access due to medical condition (aphasic) Physical Exam Physical Exam Narrative General Appearance: mild distress, Chronically ill looking elderly male Eyes: PERRL, no icterus ENT: dry mucus membranes Respiratory: normal breath sounds, Cardiovascular #1: regular rate, rhythm, no edema Gastrointestinal: soft, normoactive BS Musculoskeletal: decreased range of motion, contracture, resting tremor Neurologic: poorly responsive, nonverbal, tremor Last 24 Hour Vital Signs Date Time Temp Pulse Resp B/P Pulse Ox O2 Delivery O2 Flow Rate FiO2 08/13/16 15:42 99.4 111 20 115/92 99 Nasal Cannula 3.0 08/13/16 14:26 99.3 90 20 138/64 100 Nasal Cannula 3.0 Laboratory Tests Test 08/13/16 15:00 White Blood Count 11.3 K/UL (4.8-10.8) H Red Blood Count 3.16 M/UL (4.70-6.10) L Hemoglobin 9.2 G/DL (14.2-18.0) L Hematocrit 29.2 % (42.0-52.0) L Mean Corpuscular Volume 92 FL (80-99) Mean Corpuscular Hemoglobin 29.2 PG (27.0-31.0) Mean Corpuscular Hemoglobin Concent 31.6 G/DL (32.0-36.0) L Red Cell Distribution Width 13.8 % (11.6-14.8) Platelet Count 270 K/UL (150-450) Mean Platelet Volume 5.7 FL (6.5-10.1) L Neutrophils (%) (Auto) 80.3 % (45.0-75.0) H Lymphocytes (%) (Auto) 10.0 % (20.0-45.0) L Monocytes (%) (Auto) 7.6 % (1.0-10.0) Eosinophils (%) (Auto) 1.6 % (0.0-3.0) Basophils (%) (Auto) 0.5 % (0.0-2.0) Urine Color Yellow Urine Appearance Slightly cloudy Urine pH 9 (4.5-8.0) Urine Specific [place] 1.015 (1.005-1.035) Urine Protein 3+ (NEGATIVE) H Urine Glucose (UA) Negative (NEGATIVE) Urine Ketones Negative (NEGATIVE) Urine Occult Blood 4+ (NEGATIVE) H Urine Nitrite Negative (NEGATIVE) Urine Bilirubin Negative (NEGATIVE) Urine Urobilinogen Normal MG/DL (0.0-1.0) Urine Leukocyte Esterase 3+ (NEGATIVE) H Urine RBC 20-30 /HPF (0 - 0) H Urine WBC 15-20 /HPF (0 - 0) H Urine Squamous Epithelial Cells None /LPF (NONE/OCC) Urine Amorphous Sediment Few /LPF (NONE) H Urine Bacteria Many /HPF (NONE) H Sodium Level Pending Potassium Level Pending Chloride Level Pending Carbon Dioxide Level Pending Blood Urea Nitrogen Pending Creatinine Pending Estimat Glomerular Filtration Rate Pending Glucose Level Pending Lactic Acid Level Pending Calcium Level Pending Total Bilirubin Pending Aspartate Amino Transf (AST/SGOT) Pending Alanine Aminotransferase (ALT/SGPT) Pending Alkaline Phosphatase Pending Total Creatine Kinase Pending Creatine Kinase MB Pending Troponin I Pending Total Protein Pending Albumin Pending Globulin Pending Height (Feet): 5 Height (Inches): 10.00 Weight (Pounds): 170 Medications Current Medications Medications (Trade) Dose Ordered Sig/Janay Route PRN Reason Start Time Stop Time Status Last Admin Dose Admin Ampicillin Sodium/ Sulbactam Sodium/ Sodium Chloride (Unasyn/Sodium Chloride) 110 ml @ 220 mls/hr ONCE ONCE IVPB 08/13/16 15:45 08/13/16 16:14 08/13/16 15:43 Assessment/Plan Assessment/Plan ASSESSMENT acute renal failure on CKD likely 2 to hydro and dehydration hydronephrosis sepsis UTI anemia hx of recent respiratory failure with intubation dehydration R heel decub st 3, POA PLAN OF CARE admit IVF nephro consult IV abx ID consult , fup with cx monitor renal parameters, lytes renal US with significant hydro ( done in ER, official report pending ) avoid nephrotoxic keep NPO swalow eval on Tuesday monitor HH, transfuse prn DVT GI prophylaxis pain management bowel regimen wound nurse consult for wound care patient DNR/DNI status but family wants treatment case discussed and evaluated by supervising physician Mega Rodriguez)Nora NP Aug 13, 2016 16:10
--- NOTE | 2016-08-13 16:11 | Diagnostic Imaging Report ---
Indication: SOB Technique: One view of the chest Comparison: 07/31/2016 Findings: Left hemidiaphragm is slightly elevated. Atelectasis. Lungs and pleural spaces otherwise clear. Heart size is normal aeration is minimally improved from prior study. Previously demonstrated nasogastric tube is no longer evident. Previously demonstrated right arm midline is no longer evident Impression: Left basilar atelectasis No acute process otherwise
[2016-08-13 16:13] LABS: ANION GAP 24 (5-15)
[2016-08-13] MEDS ORDERED: LORAZEPAM2 MG ORAL (16:28)
[2016-08-13] MEDS ORDERED: MORPHINE S10 MG/5 ML ORAL (16:28)
[2016-08-13] MEDS ORDERED: BISACODYL5 MG ORAL (16:28)
[2016-08-13] MEDS ORDERED: NITROSTAT0.4 M1 SL (16:28)
[2016-08-13 16:30] LABS: POTASSIUM 6.1 mEQ/L (3.4-4.9)
[2016-08-13] MEDS ORDERED: D5 1/2NS 1,000 ML IV SCH (16:30)
[2016-08-13] MEDS ORDERED: Sodium Polystyrene Sulfonate Enema RECTAL ONE (16:45)
--- NOTE | 2016-08-13 17:13 | Emergency Room Report ---
History of Present Illness General Chief Complaint: Abnormal Labs Source: Medical Record, EMS, PMD Present Illness HPI Patient is an 80-year-old male sent in by nursing facility after abnormal laboratory values are noted. The patient had previously been hospitalized for urinary infection. Patient had the been noted to have elevated BUN and creatinine laboratory testing. Patient had no prior history of dialysis but did have a history of renal insufficiency. The patient had prior history of renal insufficiency. The patient was noted to have previous improvement with fluid after last episode of similar symptoms. The patient was nonverbal. Patient reportedly was discharge on hospice however family the reportedly requested the patient be transported for medical management Allergies: Coded Allergies: No Known Allergies (Unverified , 07/16/16) Patient History Past Medical History: see triage record Reviewed Nursing Documentation: PMH: Agreed, PSxH: Agreed Nursing Documentation-PMH Past Medical History: No History, Except For Hx Cardiac Problems: Yes Hx Hypertension: Yes Hx Cancer: No Hx Gastrointestinal Problems: Yes Hx Dialysis: No - Start today Hx Neurological Problems: Yes Hx Alzheimer's Disease: Yes Hx Parkinson's Disease: Yes Hx Seizures: Yes Hx Weakness: Yes Review of Systems All Other Systems: limited - by mental status Physical Exam Vital Signs Date Time Temp Pulse Resp B/P Pulse Ox O2 Delivery O2 Flow Rate FiO2 08/13/16 14:26 99.3 90 20 138/64 100 Nasal Cannula 3.0 General Appearance: mild distress, Chronically Ill Eyes: bilateral eye PERRL ENT: dry mucus membranes Respiratory: normal breath sounds, no rhonchi Cardiovascular #1: regular rate, rhythm, no edema Gastrointestinal: soft, no mass Musculoskeletal: decreased range of motion, other - contracture, resting tremor Neurologic: responsive, other - nonverbal, tremor Psychiatric: other - unable to assess Skin: other - discoloration to right hand fingertip Medical Decision Making Diagnostic Impression: Primary Impression: Acute kidney injury Additional Impressions: Urinary tract infection Renal stone ER Course Patient presented for abnormal laboratory testing. Differential diagnosis included was not limited to anemia, urinary tract infection, electrolyte abnormality, hypothyroidism, myocardial infarction, myasthenia gravis, dehydration, among others. Because of complexity of patient's case laboratory testing and imaging studies were ordered. The patient was started on IV fluids and IV antibiotics after cultures are obtained. A Garcia catheter was placed and showed grossly purulent urine. The laboratory studies showed mildly elevated white blood count. The renal ultrasound was ordered and was noted for bilateral hydronephrosis as well as a possible stone. Kayexalate was ordered for hyperkalemia. Dr. Carballo was contacted for inpatient management due to complexity of medical condition. Labs Test 08/13/16 15:00 08/13/16 15:20 White Blood Count 11.3 K/UL (4.8-10.8) Red Blood Count 3.16 M/UL (4.70-6.10) Hemoglobin 9.2 G/DL (14.2-18.0) Hematocrit 29.2 % (42.0-52.0) Mean Corpuscular Volume 92 FL (80-99) Mean Corpuscular Hemoglobin 29.2 PG (27.0-31.0) Mean Corpuscular Hemoglobin Concent 31.6 G/DL (32.0-36.0) Red Cell Distribution Width 13.8 % (11.6-14.8) Platelet Count 270 K/UL (150-450) Mean Platelet Volume 5.7 FL (6.5-10.1) Neutrophils (%) (Auto) 80.3 % (45.0-75.0) Lymphocytes (%) (Auto) 10.0 % (20.0-45.0) Monocytes (%) (Auto) 7.6 % (1.0-10.0) Eosinophils (%) (Auto) 1.6 % (0.0-3.0) Basophils (%) (Auto) 0.5 % (0.0-2.0) Urine Amorphous Sediment Few /LPF (NONE) Sodium Level 138 mEQ/L (135-145) Potassium Level 6.1 mEQ/L (3.4-4.9) Chloride Level 102 mEQ/L (98-107) Carbon Dioxide Level 12 mEQ/L (20-30) Anion Gap 24 (5-15) Blood Urea Nitrogen 141 mg/dL (7-23) Creatinine 16.0 mg/dL (0.7-1.2) Estimat Glomerular Filtration Rate mL/min (>60) Glucose Level 150 mg/dL (74-106) Lactic Acid Level 1.40 mmol/L (0.66-2.22) Calcium Level 8.8 mg/dL (8.6-10.2) Total Bilirubin 0.5 mg/dL (0.0-1.2) Aspartate Amino Transf (AST/SGOT) 140 U/L (5-40) Alanine Aminotransferase (ALT/SGPT) 84 U/L (3-41) Alkaline Phosphatase 411 U/L (40-129) Total Creatine Kinase 66 U/L (38-174) Creatine Kinase MB 2.5 ng/mL (< 6.7) Creatine Kinase MB Relative Index 3.7 Troponin I < 0.30 ng/mL (<=0.30) Total Protein 6.5 g/dL (6.6-8.7) Albumin 2.6 g/dL (3.5-5.2) Globulin 3.9 g/dL Albumin/Globulin Ratio 0.6 (1.0-2.7) Last Vital Signs Date Time Temp Pulse Resp B/P Pulse Ox O2 Delivery O2 Flow Rate FiO2 08/13/16 15:42 99.4 111 20 115/92 99 Nasal Cannula 3.0 Status: improved Disposition: HOME, SELF-CARE Condition: Stable Referrals: NOT CHOSEN IPA/,REFERRING (PCP) Baudilio Huitron Aug 13, 2016 17:13
[2016-08-13 17:35] VITALS: BP 109/54
[2016-08-13] MEDS ORDERED: Vancomycin 1.5 GM in D5W 325 ML IVPB ONE (18:00)
[2016-08-13 19:22] VITALS: BP 137/63
[2016-08-13 20:00] VITALS: BP 116/76
[2016-08-13 20:30] VITALS: BP 128/67
[2016-08-13] MEDS ORDERED: Cefepime 1gm vial ONE (21:39)
[2016-08-13] MEDS: Cefepime HCl 0.5 GM in D5W 55 ML IVPB SCH (21:52)
[2016-08-13] MEDS: Heparin 5000 units/ml inj SUBQ SCH (21:54)
[2016-08-14] VITALS: BP 122/76
[2016-08-14] MEDS: D5 1/2NS 1,000 ML IV SCH ×2 (00:54→05:37)
--- NOTE | 2016-08-14 03:55 | Wound Care Consultation ---
Wound Assessment Wound Assessment #1: Wound Number: #1 Wound Present on Admission: Yes New Wound: No Status Change of Wound: No Wound Location Body Site Modif: left Wound Location Body Site: metatarsal head - 1st Wound Type: pressure ulcer Kevin Test: Does not Kevin Pressure Ulcer Stage: deep tissue injury Wound Thickness: Full Thickness Wound Length: 2.5 Wound Width: 2.5 Wound Depth: utd Percent of Wound Black/Brown: 100 Wound Drainage Amount: None Wound Drainage Odor: None/Absent Tissue Surrounding Wound: Intact Wound General Appearance: Blackened Wound Assessment #2: Wound Number: #2 Wound Present on Admission: Yes New Wound: No Status Change of Wound: No Wound Location Body Site Modif: left, mid Wound Location Body Site: foot Wound Type: pressure ulcer Kevin Test: Does not Kevin Pressure Ulcer Stage: deep tissue injury Wound Thickness: Full Thickness Wound Length: 6.0 Wound Width: 4.5 Wound Depth: utd Percent of Wound Black/Brown: 100 Wound Drainage Amount: None Wound Drainage Odor: None/Absent Tissue Surrounding Wound: Intact Wound General Appearance: Blackened Wound Assessment #3: Wound Number: #3 Wound Present on Admission: Yes New Wound: No Status Change of Wound: No Wound Location Body Site Modif: right Wound Location Body Site: heel Wound Type: pressure ulcer Kevin Test: Does not Kvein Pressure Ulcer Stage: III Wound Thickness: Full Thickness Wound Length: 9.0 Wound Width: 5.5 Wound Depth: 0.2 Percent of Wound [place]/Red: 100 Wound Drainage Description: Serosanguineous Wound Drainage Amount: Moderate Wound Drainage Odor: None/Absent Tissue Surrounding Wound: Macerated Wound General Appearance: Reddened, Draining Wound Assessment #4: Wound Number: #4 Wound Present on Admission: Yes New Wound: No Status Change of Wound: No Wound Location Body Site Modif: right, lateral Wound Location Body Site: malleolus/ankle Wound Type: pressure ulcer Kevin Test: Does not Kevin Pressure Ulcer Stage: deep tissue injury Wound Thickness: Full Thickness Wound Length: 3.0 Wound Width: 3.0 Wound Depth: utd Percent of Wound Purple/Maroon: 100 Wound Drainage Amount: None Wound Drainage Odor: None/Absent Tissue Surrounding Wound: Intact Wound General Appearance: Reddened - purple, Draining Wound Assessment #5: Wound Number: #5 Wound Present on Admission: Yes New Wound: No Status Change of Wound: No Wound Location Body Site Modif: right, lateral Wound Location Body Site: metatarsal head - 5th Wound Type: pressure ulcer Kevin Test: Does not Kevin Pressure Ulcer Stage: deep tissue injury Wound Thickness: Full Thickness Wound Length: 3.0 Wound Width: 1.5 Wound Depth: utd Percent of Wound Purple/Maroon: 100 Wound Drainage Amount: None Wound Drainage Odor: None/Absent Tissue Surrounding Wound: Intact Wound General Appearance: Reddened - purple Wound Assessment #6: Wound Number: #6 Wound Present on Admission: Yes New Wound: No Status Change of Wound: No Wound Location Body Site Modif: left Wound Location Body Site: heel Wound Type: pressure ulcer Kevin Test: Does not Kevin Pressure Ulcer Stage: I Wound Length: 4.5 Wound Width: 3.0 Percent of Wound [place]/Red: 100 Wound Drainage Amount: None Tissue Surrounding Wound: Intact Wound General Appearance: Reddened Wound Assessment #7: Wound Number: #7 Wound Present on Admission: Yes New Wound: No Status Change of Wound: No Wound Location Body Site: perineal area Wound Type: chemical burn - with erosion Kevin Test: Does not Kevin Percent of Wound [place]/Red: 100 Wound Drainage Amount: None Wound Drainage Odor: None/Absent Tissue Surrounding Wound: Erythemic Wound General Appearance: Reddened Wound Comment #1 Right heel stage III pressure ulcer #2 Right lateral 5th metatarsal head deep tissue injury. #3 Left 1st metatarsal head deep tissue injury. #4 Left midfoot medial deep tissue injury. #5 Left heel stage I pressure ulcer. #6 Right lateral malleolus deep tissue injury. #7 Perineal chemical burn with erosion. Recommendation. -Right heel stage III pressure ulcer Cleanse with saline, pat dry, apply Triad cream, cover with 4x4, wrap with Kerlix daily and PRN soiled/dislodged -Chemical burn on perineal area Cleanse with saline pat dry apply Triad cream leave area open to air BID and PRN soiled -Local wound care per protocol for DTI -Turn and reposition. -Keep clean and dry. -Optimize nutrition. -Offload both heels -Avoid shear and friction. -Heel protectors. -Low air loss mattress. -Assess and f/u accordingly for any changes. AMADO HIGH RN Aug 14, 2016 03:55
[2016-08-14 04:00] VITALS: BP 129/69
[2016-08-14 04:53] LABS: MEAN CORPUSCULAR HGB CONC 32.4 G/DL (32.0-36.0); MEAN CORPUSCULAR VOLUME 93 FL (80-99); MEAN PLATELET VOLUME 5.5 FL (6.5-10.1); PLATELET COUNT 231 K/UL (150-450); RED BLOOD COUNT 2.49 M/UL (4.70-6.10); WHITE BLOOD COUNT 11.2 K/UL (4.8-10.8)
[2016-08-14 05:10] LABS: ANION GAP 23 (5-15); CALCIUM 8.8 mg/dL (8.6-10.2); CARBON DIOXIDE 14 mEQ/L (20-30); CHLORIDE 104 mEQ/L (98-107); CREATININE 13.4 mg/dL (0.7-1.2); HEMOLYSIS 0; SODIUM 141 mEQ/L (135-145)
[2016-08-14 07:54] VITALS: BP 129/54
[2016-08-14] MEDS: Heparin 5000 units/ml inj SUBQ SCH ×2 (08:14→20:51)
[2016-08-14 09:02] LABS: BAND NEUTROPHILS % (MANUAL) 0 % (0-8); BASOPHILS % (MANUAL) 0 % (0-2); EOSINOPHILS % (MANUAL) 1 % (0-3); HYPOCHROMASIA 1+; LYMPHOCYTES % (MANUAL) 15 % (20-45); NEUTROPHILS % (MANUAL) 82 % (45-75); PLATELET ESTIMATE ADEQUATE; PLATELET MORPHOLOGY NORMAL; TOTAL CELLS COUNTED 100
--- NOTE | 2016-08-14 10:23 | Pulmonology Progress Note ---
Assessment/Plan Assessment/Plan ASSESSMENT acute renal failure on CKD possibly 2 to hydronephrosis and dehydration hydronephrosis sepsis UTI anemia of chronic renal disease hx of recent respiratory failure with intubation dehydration R heel st 3 POA PLAN OF CARE IVF nephro consult pending IV abx , urine cx + GNR, fup with all cx ID consult , monitor renal parameters, lytes , small trend down renal US with moderate hydro ( official report pending) avoid nephrotoxic keep NPO swallow eval monitor HH, transfuse 1 u PRBC today anemia workup DVT GI prophylaxis pain management bowel regimen wound care as per wound nurse recommendations patient DNR/DNI status but family wants treatment case discussed and evaluated by supervising physician Subjective Allergies: Coded Allergies: No Known Allergies (Unverified , 07/16/16) Subjective still with mild leukocytosis , afebrile renal parameters sightly down K down to 5.0 anemic-7.5/23.1 Objective Last 24 Hour Vital Signs Date Time Temp Pulse Resp B/P Pulse Ox O2 Delivery O2 Flow Rate FiO2 08/14/16 07:54 97.5 66 20 129/54 95 Nasal Cannula 3.0 08/14/16 04:00 97.9 76 20 129/69 97 Nasal Cannula 3.0 08/14/16 04:00 68 08/14/16 00:00 97.9 91 20 122/76 97 Nasal Cannula 3.0 08/14/16 00:00 71 08/13/16 20:30 97.3 86 23 128/67 99 Nasal Cannula 3.0 97 92 08/13/16 20:26 92 23 128/67 99 Nasal Cannula 3.0 08/13/16 20:00 97.9 92 18 116/76 100 Nasal Cannula 3.0 08/13/16 20:00 85 08/13/16 19:22 97.3 97 24 137/63 100 Nasal Cannula 3.0 08/13/16 17:35 97.4 86 17 109/54 98 Nasal Cannula 3.0 08/13/16 15:42 99.4 111 20 115/92 99 Nasal Cannula 3.0 08/13/16 15:00 107 20 Nasal Cannula 3.0 08/13/16 14:26 99.3 90 20 138/64 100 Nasal Cannula 3.0 Intake and Output 08/13/16 08/14/16 19:00 07:00 Intake Total 1175 ml 735 ml Output Total 280 ml 950 ml Balance 895 ml -215 ml Intake IV Total 1175 ml 735 ml Output Urine Total 280 ml 950 ml # Bowel Movements 1 Objective General Appearance: Chronically ill looking elderly male, aphasic Eyes: PERRL, no icterus ENT: dry mucus membranes Respiratory: normal breath sounds, Cardiovascular #1: regular rate, rhythm, no edema Gastrointestinal: soft, normoactive BS Musculoskeletal: decreased range of motion, contracture, resting tremor Neurologic: porrly responsive, nonverbal, tremor Microbiology Date/Time Source Procedure Growth Status 08/13/16 15:00 Urine,Clean Catch Urine Culture - Preliminary Gram Negative Ryan Resulted Laboratory Tests 08/13/16 15:00: White Blood Count 11.3H, Red Blood Count 3.16L, Hemoglobin 9.2L, Hematocrit 29.2L, Mean Corpuscular Volume 92, Mean Corpuscular Hemoglobin 29.2, Mean Corpuscular Hemoglobin Concent 31.6L, Red Cell Distribution Width 13.8, Platelet Count 270, Mean Platelet Volume 5.7L, Neutrophils (%) (Auto) 80.3H, Lymphocytes (%) (Auto) 10.0L, Monocytes (%) (Auto) 7.6, Eosinophils (%) (Auto) 1.6, Basophils (%) (Auto) 0.5, Urine Color Yellow, Urine Appearance Slightly cloudy, Urine pH 9, Urine Specific [place] 1.015, Urine Protein 3+H, Urine Glucose (UA) Negative, Urine Ketones Negative, Urine Occult Blood 4+H, Urine Nitrite Negative, Urine Bilirubin Negative, Urine Urobilinogen Normal, Urine Leukocyte Esterase 3+H, Urine RBC 20-30H, Urine WBC 15-20H, Urine Squamous Epithelial Cells None, Urine Amorphous Sediment FewH, Urine Bacteria ManyH, Sodium Level 138, Potassium Level 6.1*H, Chloride Level 102, Carbon Dioxide Level 12L, Anion Gap 24H, Blood Urea Nitrogen 141H, Creatinine 16.0H, Estimat Glomerular Filtration Rate , Glucose Level 150H, Lactic Acid Level 1.40, Calcium Level 8.8, Total Bilirubin 0.5, Aspartate Amino Transf (AST/SGOT) 140H, Alanine Aminotransferase (ALT/SGPT) 84H, Alkaline Phosphatase 411H, Total Creatine Kinase 66, Creatine Kinase MB 2.5, Creatine Kinase MB Relative Index 3.7, Troponin I < 0.30, Total Protein 6.5L, Albumin 2.6L, Globulin 3.9, Albumin/ Globulin Ratio 0.6L 08/13/16 15:20: Urine Color [Pending], Urine Appearance [Pending], Urine pH [Pending], Urine Specific [place] [Pending], Urine Protein [Pending], Urine Glucose (UA) [Pending ], Urine Ketones [Pending], Urine Occult Blood [Pending], Urine Nitrite [Pending ], Urine Bilirubin [Pending], Urine Urobilinogen [Pending], Urine Leukocyte Esterase [Pending], Urine RBC [Pending], Urine WBC [Pending], Urine Squamous Epithelial Cells [Pending], Urine Bacteria [Pending] 08/14/16 04:00: White Blood Count 11.2H, Red Blood Count 2.49L, Hemoglobin 7.5L, Hematocrit 23.1L, Mean Corpuscular Volume 93, Mean Corpuscular Hemoglobin 30.0, Mean Corpuscular Hemoglobin Concent 32.4, Red Cell Distribution Width 14.0, Platelet Count 231, Mean Platelet Volume 5.5L, Neutrophils (%) (Auto) , Lymphocytes (%) ( Auto) , Monocytes (%) (Auto) , Eosinophils (%) (Auto) , Basophils (%) (Auto) , Sodium Level 141, Potassium Level 5.0H, Chloride Level 104, Carbon Dioxide Level 14L, Anion Gap 23H, Blood Urea Nitrogen 130H, Creatinine 13.4H, Estimat Glomerular Filtration Rate , Glucose Level 129H, Calcium Level 8.8, Differential Total Cells Counted 100, Neutrophils % (Manual) 82H, Lymphocytes % (Manual) 15L, Monocytes % (Manual) 2, Eosinophils % (Manual) 1, Basophils % ( Manual) 0, Band Neutrophils 0, Platelet Estimate Adequate, Platelet Morphology Normal, Hypochromasia 1+, Random Vancomycin Level 21.4 Current Medications Medications (Trade) Dose Ordered Sig/Janay Route PRN Reason Start Time Stop Time Status Last Admin Dose Admin Acetaminophen (Tylenol) 650 mg Q4H PRN ORAL fever 08/13/16 16:00 09/12/16 15:59 Albuterol/ Ipratropium (DuoNeb 0.5-3(2.5)mg/3ml) 3 ml Q4H PRN HHN Shortness of Breath 08/13/16 16:00 08/18/16 15:59 Cefepime HCl 0.5 gm/Dextrose 55 ml @ 110 mls/hr QHS IVPB 08/13/16 21:00 08/20/16 20:59 08/13/16 21:52 Dextrose (Dextrose 50%) STAT PRN IV Hypoglycemia 08/13/16 16:00 09/12/16 15:59 Dextrose/Sodium Chloride (D5 0.45% NS) 1,000 ml @ 125 mls/hr Q8H IV 08/14/16 01:00 09/13/16 00:59 08/14/16 05:37 Heparin Sodium (Porcine) (Heparin 5000 units/ml) 5,000 units EVERY 12 HOURS SUBQ 08/13/16 21:00 09/12/16 20:59 08/13/16 21:54 Lorazepam (Ativan 2mg/ml 1ml) 0.5 mg Q4H PRN IV For Anxiety 08/13/16 16:00 08/20/16 15:59 Morphine Sulfate (Morphine Sulfate) 1 mg Q4H PRN IVP For Pain 08/13/16 16:00 08/20/16 15:59 Ondansetron HCl (Zofran) 4 mg Q6H PRN IVP Nausea & Vomiting 08/13/16 16:00 09/12/16 15:59 Polyethylene Glycol (Miralax) 17 gm HSPRN PRN ORAL Constipation 08/13/16 16:00 09/12/16 15:59 Ranitidine HCl (Zantac) 150 mg DAILY ORAL 08/14/16 09:00 09/13/16 08:59 Vancomycin HCl 1 ea 1 ea DAILY PRN MISC Per rx protocol 08/13/16 16:15 09/12/16 16:14 Nroa Ayoub NP ([facility]anchtein) Aug 14, 2016 10:23
[2016-08-14 11:30] LABS: HEMOLYSIS 5; IRON 27 ug/dL (59-158); TOTAL IRON BINDING CAPACITY 151 ug/dL (250-400)
[2016-08-14 11:39] LABS: FERRITIN 788 ng/mL (10-230)
--- NOTE | 2016-08-14 11:45 | Diagnostic Imaging Report ---
Indication: Dyspnea Comparison: 08/13/16 A single view chest radiograph was obtained. Findings: The heart is normal in size. No infiltrates are seen. Bones are osteopenic. Impression: No acute disease
[2016-08-14 11:47] VITALS: BP 124/66
--- NOTE | 2016-08-14 12:13 | Consultation ---
Consult Note Consult Note asked to eval for high BUN and cr Patient is an 80-year-old male sent in by nursing facility after abnormal laboratory values are noted. The patient had previously been hospitalized for urinary infection. Patient had the been noted to have elevated BUN and creatinine laboratory testing. Patient had no prior history of dialysis but did have a history of renal insufficiency. The patient had prior history of renal insufficiency. The patient was noted to have previous improvement with fluid after last episode of similar symptoms. The patient was nonverbal. Patient reportedly was discharge on hospice however family the reportedly requested the patient be transported for medical management Past Medical History: No History, Except For Hx Cardiac Problems: Yes Hx Hypertension: Yes Hx Gastrointestinal Problems: Yes Hx Neurological Problems: Yes Hx Alzheimer's Disease: Yes Hx Parkinson's Disease: Yes Hx Seizures: Yes Hx Weakness: Yes examined- data reviewed Assessment/Plan acute renal failure, requiring HD ,once in the past acute hyperkalemia , ROBBIE variable h/o acute respiratory failure UTI h/o gross hematuria anemia CHF Sever Hypoalbuminemai h/o Parkinsons , OBS , ? Sz Plan: IN 150 cc hour Monitor renal parameters- Avoid Nephrotoxics BP support transfusion urine studies per orders HAI THOMPSON Aug 14, 2016 12:13
--- NOTE | 2016-08-14 15:20 | Consultation ---
Consult Note Consult Note ID Dic # [id number] PHILLIP BARNES M.D. Aug 14, 2016 15:20
[2016-08-14 16:04] VITALS: BP 105/60
[2016-08-14 20:00] VITALS: BP_SYST 106; BP_SYST 138; BP_DIAS 68; BP_DIAS 69
--- NOTE | 2016-08-14 20:02 | Consultation ---
DATE OF CONSULTATION: INFECTIOUS DISEASES CONSULTATION CONSULTING PHYSICIAN: New Thao M.D. REASON FOR CONSULTATION: Evaluation of the patient for sepsis, urinary tract infection, antibiotic management. HISTORY OF PRESENT ILLNESS: The patient is an 80-year-old male with multiple medical problems as listed below, who was admitted to this medical center for generalized weakness. The patient was found to have mild leukocytosis and low-grade fever. Workup was suggestive of urinary tract infection. Infectious diseases consultation has been requested for further evaluation of the patient's antibiotic management. PAST MEDICAL HISTORY: 1. History of acute renal failure. 2. History of dementia. 3. Parkinson disease. 4. Seizure disorder. 5. Status post pacemaker placement. 6. Hypertension. 7. Obesity. 8. Dysuria and hematuria. 9. Depression. 10. Bipolar disorder. 11. Anemia. MEDICATIONS: IV cefepime, day #2. ALLERGIES: No known drug allergies. FAMILY HISTORY: Unavailable. REVIEW OF SYSTEMS: Unobtainable. PHYSICAL EXAMINATION: VITAL SIGNS: Temperature 97.5 degrees, pulse 86, respiratory rate 18, and T-max 99.4 degrees. HEENT: Mild pale conjunctivae. NECK: No lymphadenopathy. CHEST: Clear. HEART: S1 and S2. ABDOMEN: Obese. EXTREMITIES: No cyanosis. The patient has unstageable stage IV decubitus of right lower extremity. No other signs of infection. LABORATORY AND DIAGNOSTIC DATA: WBC 11.3, hemoglobin 9.2, and platelets 217,000. BUN 110 and creatinine 13.4. Alkaline phosphatase 411, AST 140, and ALT 184. Urine culture is growing gram-negative rods. Urinalysis shows 15-20 white blood cells and many bacteria. Chest x-ray, [facility]. ASSESSMENT: The patient is an 80-year-old male with multiple medical problems as listed above who has 1. Mild leukocytosis. 2. Possible urinary tract infection. 3. Rule out bacteremia. 4. Elevated alkaline phosphatase and liver function test, rule out biliary tract disease and chronic hepatitis B and C. 5. Anemia. 6. Acute renal failure. PLAN: 1. We will continue the patient on cefepime day #2. 2. Monitor CBC. 3. Monitor BMP. 4. Monitor cultures (blood and urine). 5. Ultrasound of the liver and abdomen, evaluation of biliary tract and kidneys. 6. Hepatitis panel. 7. Based on the patient's clinical course and labs, we will do further recommendation. Thank you, . , for allowing me to participate in the care of this patient. I will follow the patient with you during this hospitalization. New Thao M.D. DR: ROQUE JOB#: [id number] CC:
[2016-08-14] MEDS: Cefepime HCl 0.5 GM in D5W 55 ML IVPB SCH (20:51)
[2016-08-15] VITALS (7 sets, daily range): BP systolic 129–169; BP diastolic 67–99
[2016-08-15] MEDS: D5 1/2NS 1,000 ML IV SCH ×4 (00:51→21:49)
[2016-08-15 07:25] LABS: BASOPHILS % (AUTO) 0.5 % (0.0-2.0); EOSINOPHILS % (AUTO) 3.9 % (0.0-3.0); LYMPHOCYTES % (AUTO) 10.4 % (20.0-45.0); MEAN CORPUSCULAR HEMOGLOBIN 30.2 PG (27.0-31.0); MEAN CORPUSCULAR HGB CONC 32.4 G/DL (32.0-36.0); MEAN CORPUSCULAR VOLUME 93 FL (80-99); MEAN PLATELET VOLUME 5.7 FL (6.5-10.1); MONOCYTES % (AUTO) 8.3 % (1.0-10.0); NEUTROPHILS % (AUTO) 77.1 % (45.0-75.0); PLATELET COUNT 245 K/UL (150-450); RED BLOOD COUNT 3.18 M/UL (4.70-6.10); RED CELL DISTRIBUTION WIDTH 13.8 % (11.6-14.8); WHITE BLOOD COUNT 8.7 K/UL (4.8-10.8)
[2016-08-15 07:59] LABS: HEMOGLOBIN A1C 6.1 % (< 6.0)
[2016-08-15 08:03] LABS: ALANINE AMINOTRANSFERASE 52 U/L (3-41); ALBUMIN/GLOBULIN RATIO 0.5 (1.0-2.7); ASPARTATE AMINO TRANSFERASE 30 U/L (5-40); CARBON DIOXIDE 15 mEQ/L (20-30); CHOLESTEROL 110 mg/dL (< 200); CRP QUANT 17.9 mg/dL (< 0.5); HEMOLYSIS 1; LDL CHOLESTEROL (CALC.) 69 mg/dL (60-99); MAGNESIUM 2.5 mg/dL (1.7-2.5); TOTAL PROTEIN 6.6 g/dL (6.6-8.7); URIC ACID 11.1 mg/dL (3.0-7.5)
[2016-08-15 08:18] LABS: ANION GAP 21 (5-15); CHLORIDE 106 mEQ/L (98-107); POTASSIUM 4.9 mEQ/L (3.4-4.9); SODIUM 142 mEQ/L (135-145)
[2016-08-15] MEDS: Heparin 5000 units/ml inj SUBQ SCH ×2 (09:00→21:00)
--- NOTE | 2016-08-15 09:19 | Diagnostic Imaging Report ---
Indication:Elevated Bun and Creatinine. Technique: Grayscale and duplex Doppler imaging of the kidneys performed. Comparison: None Findings: Right kidney is 10.2 CM. Left kidney 12.5 CM. There is bilateral hydronephrosis present moderate in degree. There is a Garcia catheter present. The bladder is not distended. Prostate is prominent in size measuring 5.8 x 5.5 x 7.1 CM. Volume is 118 cc. Impression: Moderate bilateral hydronephrosis. Please correlate clinically. This is not on the basis of a distended urinary bladder as there is a Garcia catheter present with nondistention of the bladder noted. Prostate enlargement
--- NOTE | 2016-08-15 10:48 | Infectious Diseases Prog Note ---
Assessment/Plan Assessment/Plan A; UTI Hydronephrosis Acute renal failure Anemia elevated transaminase P; Continue Cefepime will f/u cultures Subjective ROS Limited/Unobtainable: Yes Allergies: Coded Allergies: No Known Allergies (Unverified , 07/16/16) Objective Vital Signs Last 24 Hour Vital Signs Date Time Temp Pulse Resp B/P Pulse Ox O2 Delivery O2 Flow Rate FiO2 08/15/16 08:00 77 08/15/16 07:55 97.5 96 20 156/77 100 Nasal Cannula 3.0 08/15/16 04:28 97.7 69 20 134/71 100 Nasal Cannula 3.0 08/15/16 03:58 76 08/15/16 00:26 97.5 66 20 129/67 99 Nasal Cannula 3.0 08/14/16 23:34 70 08/14/16 20:00 98.0 78 20 138/68 98 Nasal Cannula 3.0 08/14/16 20:00 84 08/14/16 16:04 98.1 90 20 105/60 97 Nasal Cannula 3.0 08/14/16 16:00 86 08/14/16 12:00 71 08/14/16 11:47 97.5 72 20 124/66 99 Nasal Cannula 3.0 Height (Feet): 5 Height (Inches): 10.00 Weight (Pounds): 170 General Appearance: no acute distress HEENT: mucous membranes moist Respiratory/Chest: lungs clear Cardiovascular: normal rate Abdomen: other - soft Genitourinary: other - Garcia catheter, cloudy urine Extremities: no edema Neurologic/Psychiatric: alert, responsive Microbiology Date/Time Source Procedure Growth Status 08/13/16 15:00 Blood Blood Culture - Preliminary NO GROWTH AFTER 24 HOURS Resulted 08/13/16 15:00 Blood Blood Culture - Preliminary NO GROWTH AFTER 24 HOURS Resulted 08/13/16 15:22 Nasal Nares MRSA Culture - Final NO METHICILLIN RESISTANT STAPH AUREUS... Complete 08/13/16 15:00 Urine,Clean Catch Urine Culture - Final Proteus Mirabilis Complete Laboratory Tests Test 08/14/16 14:18 08/15/16 04:10 08/15/16 05:10 Urine Random Sodium 81 mmol/L Urine Eosinophils None seen White Blood Count 8.7 K/UL (4.8-10.8) Red Blood Count 3.18 M/UL (4.70-6.10) L Hemoglobin 9.6 G/DL (14.2-18.0) L Hematocrit 29.6 % (42.0-52.0) L Mean Corpuscular Volume 93 FL (80-99) Mean Corpuscular Hemoglobin 30.2 PG (27.0-31.0) Mean Corpuscular Hemoglobin Concent 32.4 G/DL (32.0-36.0) Red Cell Distribution Width 13.8 % (11.6-14.8) Platelet Count 245 K/UL (150-450) Mean Platelet Volume 5.7 FL (6.5-10.1) L Neutrophils (%) (Auto) 77.1 % (45.0-75.0) H Lymphocytes (%) (Auto) 10.4 % (20.0-45.0) L Monocytes (%) (Auto) 8.3 % (1.0-10.0) Eosinophils (%) (Auto) 3.9 % (0.0-3.0) H Basophils (%) (Auto) 0.5 % (0.0-2.0) Sodium Level 142 mEQ/L (135-145) Potassium Level 4.9 mEQ/L (3.4-4.9) Chloride Level 106 mEQ/L (98-107) Carbon Dioxide Level 15 mEQ/L (20-30) L Anion Gap 21 (5-15) H Blood Urea Nitrogen 113 mg/dL (7-23) H Creatinine 11.0 mg/dL (0.7-1.2) H Estimat Glomerular Filtration Rate mL/min (>60) Glucose Level 142 mg/dL (74-106) H Hemoglobin A1c 6.1 % (< 6.0) H Uric Acid 11.1 mg/dL (3.0-7.5) H Calcium Level 9.0 mg/dL (8.6-10.2) Phosphorus Level 6.0 mg/dL (2.5-4.8) H Magnesium Level 2.5 mg/dL (1.7-2.5) Total Bilirubin 0.4 mg/dL (0.0-1.2) Gamma Glutamyl Transpeptidase 115 U/L (8-61) H Aspartate Amino Transf (AST/SGOT) 30 U/L (5-40) Alanine Aminotransferase (ALT/SGPT) 52 U/L (3-41) H Alkaline Phosphatase 335 U/L (40-129) H Total Creatine Kinase 32 U/L (38-174) L C-Reactive Protein, Quantitative 17.9 mg/dL (< 0.5) H Pro-B-Type Natriuretic Peptide 2845 pg/mL (0-450) H Total Protein 6.6 g/dL (6.6-8.7) Albumin 2.2 g/dL (3.5-5.2) L Globulin 4.4 g/dL Albumin/Globulin Ratio 0.5 (1.0-2.7) L Triglycerides Level 154 mg/dL (< 150) H Cholesterol Level 110 mg/dL (< 200) LDL Cholesterol 69 mg/dL (60-99) HDL Cholesterol 10 mg/dL (> 60) Cholesterol/HDL Ratio 11.0 (3.3-4.4) H Hepatitis A IgM Antibody Pending Hepatitis B Surface Antigen Pending Hepatitis B Core IgM Antibody Pending Hepatitis C Antibody Pending Current Medications Medications (Trade) Dose Ordered Sig/Janay Route PRN Reason Start Time Stop Time Status Last Admin Dose Admin Acetaminophen (Tylenol) 650 mg Q4H PRN ORAL fever 08/13/16 16:00 09/12/16 15:59 Albuterol/ Ipratropium (DuoNeb 0.5-3(2.5)mg/3ml) 3 ml Q4H PRN HHN Shortness of Breath 08/13/16 16:00 08/18/16 15:59 Cefepime HCl 0.5 gm/Dextrose 55 ml @ 110 mls/hr QHS IVPB 08/13/16 21:00 08/20/16 20:59 08/14/16 20:51 Dextrose STAT PRN IV Hypoglycemia 08/13/16 16:00 09/12/16 15:59 Dextrose/Sodium Chloride (D5 0.45% NS) 1,000 ml @ 150 mls/hr Q6H40M IV 08/15/16 01:00 09/14/16 00:59 08/15/16 07:04 Heparin Sodium (Porcine) (Heparin 5000 units/ml) 5,000 units EVERY 12 HOURS SUBQ 08/13/16 21:00 09/12/16 20:59 08/13/16 21:54 Lorazepam (Ativan 2mg/ml 1ml) 0.5 mg Q4H PRN IV For Anxiety 08/13/16 16:00 08/20/16 15:59 Morphine Sulfate (Morphine Sulfate) 1 mg Q4H PRN IVP For Pain 08/13/16 16:00 08/20/16 15:59 Ondansetron HCl (Zofran) 4 mg Q6H PRN IVP Nausea & Vomiting 08/13/16 16:00 09/12/16 15:59 Polyethylene Glycol (Miralax) 17 gm HSPRN PRN ORAL Constipation 08/13/16 16:00 09/12/16 15:59 Ranitidine HCl (Zantac) 150 mg DAILY ORAL 08/14/16 09:00 09/13/16 08:59 RAYMOND IRWIN Aug 15, 2016 10:48
--- NOTE | 2016-08-15 10:55 | General Progress Note ---
Assessment/Plan Status: unchanged Status Narrative renal parameters slightly better Assessment/Plan acute renal failure, requiring HD ,once in the past acute hyperkalemia , ROBBIE variable h/o acute respiratory failure UTI h/o gross hematuria anemia CHF Sever Hypoalbuminemai h/o Parkinsons , OBS , ? Sz Plan: IN 150 cc hour Allopurinol and Bicitra Monitor renal parameters- Avoid Nephrotoxics BP support transfusion urine studies per orders Subjective ROS Limited/Unobtainable: Yes Allergies: Coded Allergies: No Known Allergies (Unverified , 07/16/16) Objective Last 24 Hour Vital Signs Date Time Temp Pulse Resp B/P Pulse Ox O2 Delivery O2 Flow Rate FiO2 08/15/16 08:00 77 08/15/16 07:55 97.5 96 20 156/77 100 Nasal Cannula 3.0 08/15/16 04:28 97.7 69 20 134/71 100 Nasal Cannula 3.0 08/15/16 03:58 76 08/15/16 00:26 97.5 66 20 129/67 99 Nasal Cannula 3.0 08/14/16 23:34 70 08/14/16 20:00 98.0 78 20 138/68 98 Nasal Cannula 3.0 08/14/16 20:00 84 08/14/16 16:04 98.1 90 20 105/60 97 Nasal Cannula 3.0 08/14/16 16:00 86 08/14/16 12:00 71 08/14/16 11:47 97.5 72 20 124/66 99 Nasal Cannula 3.0 Intake and Output 08/14/16 08/15/16 19:00 07:00 Intake Total 955 ml Output Total 1000 ml 1700 ml Balance -1000 ml -745 ml Intake IV Total 955 ml Output Urine Total 1000 ml 1700 ml Laboratory Tests 08/14/16 14:18: Urine Random Sodium 81 08/15/16 04:10: Urine Eosinophils None seen 08/15/16 05:10: White Blood Count 8.7, Red Blood Count 3.18L, Hemoglobin 9.6L, Hematocrit 29.6L , Mean Corpuscular Volume 93, Mean Corpuscular Hemoglobin 30.2, Mean Corpuscular Hemoglobin Concent 32.4, Red Cell Distribution Width 13.8, Platelet Count 245, Mean Platelet Volume 5.7L, Neutrophils (%) (Auto) 77.1H, Lymphocytes (%) (Auto) 10.4L, Monocytes (%) (Auto) 8.3, Eosinophils (%) (Auto) 3.9H, Basophils (%) (Auto) 0.5, Sodium Level 142, Potassium Level 4.9, Chloride Level 106, Carbon Dioxide Level 15L, Anion Gap 21H, Blood Urea Nitrogen 113H, Creatinine 11.0H, Estimat Glomerular Filtration Rate , Glucose Level 142H, Hemoglobin A1c 6.1H, Uric Acid 11.1H, Calcium Level 9.0, Phosphorus Level 6.0H, Magnesium Level 2.5, Total Bilirubin 0.4, Gamma Glutamyl Transpeptidase 115H, Aspartate Amino Transf (AST/SGOT) 30, Alanine Aminotransferase (ALT/SGPT) 52H, Alkaline Phosphatase 335H, Total Creatine Kinase 32L, C-Reactive Protein, Quantitative 17.9H, Pro-B-Type Natriuretic Peptide 2845H, Total Protein 6.6, Albumin 2.2L, Globulin 4.4, Albumin/Globulin Ratio 0.5L, Triglycerides Level 154H, Cholesterol Level 110, LDL Cholesterol 69, HDL Cholesterol 10, Cholesterol /HDL Ratio 11.0H, Hepatitis A IgM Antibody [Pending], Hepatitis B Surface Antigen [Pending], Hepatitis B Core IgM Antibody [Pending], Hepatitis C Antibody [Pending] Height (Feet): 5 Height (Inches): 10.00 Weight (Pounds): 170 General Appearance: mild distress Cardiovascular: tachycardia Respiratory/Chest: decreased breath sounds Abdomen: distended HAI THOMPSON Aug 15, 2016 10:55
--- NOTE | 2016-08-15 11:17 | Diagnostic Imaging Report ---
Indication:Hydronephrosis. Abdominal pain Technique: Grayscale and duplex Doppler imaging of the abdomen performed. Comparison: Ultrasound kidneys 08/13/16 Findings: Liver is heterogeneous. There is no obvious ascites. The portal vein is patent by Doppler. Gallbladder is unremarkable. There is bilateral hydronephrosis. CBD is 6 mm. Main portal vein is patent. No free fluid identified. Pancreas is poorly seen. Aorta is poorly seen. Impression: Limited study demonstrating bilateral hydronephrosis unchanged from the prior study. Note: Previous CT 07/20/16 had demonstrated a large mass in the area of the left adrenal gland, for which a contrast CT was recommended. This mass is not appreciated on the current study is obtained.
--- NOTE | 2016-08-15 11:18 | Cardiology Report ---
APPROVED REPORT EKG Measurement Heart [id number] Sinus tachycardia with frequent premature ventricular complexes Low voltage QRS Right bundle branch block Abnormal ECG
--- NOTE | 2016-08-15 11:42 | Pulmonology Progress Note ---
Assessment/Plan Assessment/Plan ASSESSMENT acute renal failure on CKD possibly 2 to hydronephrosis and dehydration hydronephrosis sepsis UTI anemia of chronic renal disease hx of recent respiratory failure with intubation dehydration R heel st 3 POA PLAN OF CARE IVF nephro follows IV abx , urine cx + Proteus, blood cx preliminary negative ID monitor renal parameters, lytes , small trend down renal US with moderate bilateral hydronephrosis. prostate enlargement avoid nephrotoxic monitor HH, stable after 1 u PRBC transfusion anemia workup with low iron and high ferritin LFT trending down , elevated GGT abdominal US :Liver is heterogeneous. There is no obvious ascites, No gallstones , No bile dilatation, Moderate hydronephrosis noted. hepatitis panel pending DVT GI prophylaxis pain management bowel regimen NPO swallow eval pending for am wound care as per wound nurse recommendations patient DNR/DNI status but family wants treatment case discussed and evaluated by supervising physician Subjective Allergies: Coded Allergies: No Known Allergies (Unverified , 07/16/16) Subjective leukocytosis resolved, afebrile renal parameters slowly trending down HH stable after blood transfusion Objective Last 24 Hour Vital Signs Date Time Temp Pulse Resp B/P Pulse Ox O2 Delivery O2 Flow Rate FiO2 08/15/16 11:31 96.8 87 20 141/74 100 Nasal Cannula 3.0 08/15/16 08:00 77 08/15/16 07:55 97.5 96 20 156/77 100 Nasal Cannula 3.0 08/15/16 04:28 97.7 69 20 134/71 100 Nasal Cannula 3.0 08/15/16 03:58 76 08/15/16 00:26 97.5 66 20 129/67 99 Nasal Cannula 3.0 08/14/16 23:34 70 08/14/16 20:00 98.0 78 20 138/68 98 Nasal Cannula 3.0 08/14/16 20:00 84 08/14/16 16:04 98.1 90 20 105/60 97 Nasal Cannula 3.0 08/14/16 16:00 86 08/14/16 12:00 71 08/14/16 11:47 97.5 72 20 124/66 99 Nasal Cannula 3.0 Intake and Output 08/14/16 08/15/16 19:00 07:00 Intake Total 955 ml Output Total 1000 ml 1700 ml Balance -1000 ml -745 ml Intake IV Total 955 ml Output Urine Total 1000 ml 1700 ml Objective General Appearance: Chronically ill looking elderly male, aphasic Eyes: PERRL, no icterus ENT: dry mucus membranes Respiratory: normal breath sounds, Cardiovascular #1: regular rate, rhythm, no edema Gastrointestinal: soft, normoactive BS Musculoskeletal: decreased range of motion, contracture, resting tremor Neurologic: porrly responsive, nonverbal, tremor Microbiology Date/Time Source Procedure Growth Status 08/13/16 15:00 Blood Blood Culture - Preliminary NO GROWTH AFTER 24 HOURS Resulted 08/13/16 15:00 Blood Blood Culture - Preliminary NO GROWTH AFTER 24 HOURS Resulted 08/13/16 15:22 Nasal Nares MRSA Culture - Final NO METHICILLIN RESISTANT STAPH AUREUS... Complete 08/13/16 15:00 Urine,Clean Catch Urine Culture - Final Proteus Mirabilis Complete Laboratory Tests 08/14/16 14:18: Urine Random Sodium 81 08/15/16 04:10: Urine Eosinophils None seen 08/15/16 05:10: White Blood Count 8.7, Red Blood Count 3.18L, Hemoglobin 9.6L, Hematocrit 29.6L , Mean Corpuscular Volume 93, Mean Corpuscular Hemoglobin 30.2, Mean Corpuscular Hemoglobin Concent 32.4, Red Cell Distribution Width 13.8, Platelet Count 245, Mean Platelet Volume 5.7L, Neutrophils (%) (Auto) 77.1H, Lymphocytes (%) (Auto) 10.4L, Monocytes (%) (Auto) 8.3, Eosinophils (%) (Auto) 3.9H, Basophils (%) (Auto) 0.5, Sodium Level 142, Potassium Level 4.9, Chloride Level 106, Carbon Dioxide Level 15L, Anion Gap 21H, Blood Urea Nitrogen 113H, Creatinine 11.0H, Estimat Glomerular Filtration Rate , Glucose Level 142H, Hemoglobin A1c 6.1H, Uric Acid 11.1H, Calcium Level 9.0, Phosphorus Level 6.0H, Magnesium Level 2.5, Total Bilirubin 0.4, Gamma Glutamyl Transpeptidase 115H, Aspartate Amino Transf (AST/SGOT) 30, Alanine Aminotransferase (ALT/SGPT) 52H, Alkaline Phosphatase 335H, Total Creatine Kinase 32L, C-Reactive Protein, Quantitative 17.9H, Pro-B-Type Natriuretic Peptide 2845H, Total Protein 6.6, Albumin 2.2L, Globulin 4.4, Albumin/Globulin Ratio 0.5L, Triglycerides Level 154H, Cholesterol Level 110, LDL Cholesterol 69, HDL Cholesterol 10, Cholesterol /HDL Ratio 11.0H, Hepatitis A IgM Antibody [Pending], Hepatitis B Surface Antigen [Pending], Hepatitis B Core IgM Antibody [Pending], Hepatitis C Antibody [Pending] Current Medications Medications (Trade) Dose Ordered Sig/Janay Route PRN Reason Start Time Stop Time Status Last Admin Dose Admin Acetaminophen (Tylenol) 650 mg Q4H PRN ORAL fever 08/13/16 16:00 09/12/16 15:59 Albuterol/ Ipratropium (DuoNeb 0.5-3(2.5)mg/3ml) 3 ml Q4H PRN HHN Shortness of Breath 08/13/16 16:00 08/18/16 15:59 Allopurinol (Allopurinol) 300 mg DAILY GT 08/15/16 11:30 09/14/16 11:29 Cefepime HCl 0.5 gm/Dextrose 55 ml @ 110 mls/hr QHS IVPB 08/13/16 21:00 08/20/16 20:59 08/14/16 20:51 Dextrose STAT PRN IV Hypoglycemia 08/13/16 16:00 09/12/16 15:59 Dextrose/Sodium Chloride (D5 0.45% NS) 1,000 ml @ 150 mls/hr Q6H40M IV 08/15/16 01:00 09/14/16 00:59 08/15/16 07:04 Heparin Sodium (Porcine) (Heparin 5000 units/ml) 5,000 units EVERY 12 HOURS SUBQ 08/13/16 21:00 09/12/16 20:59 08/13/16 21:54 Lorazepam (Ativan 2mg/ml 1ml) 0.5 mg Q4H PRN IV For Anxiety 08/13/16 16:00 08/20/16 15:59 Morphine Sulfate (Morphine Sulfate) 1 mg Q4H PRN IVP For Pain 08/13/16 16:00 08/20/16 15:59 Ondansetron HCl (Zofran) 4 mg Q6H PRN IVP Nausea & Vomiting 08/13/16 16:00 09/12/16 15:59 Polyethylene Glycol (Miralax) 17 gm HSPRN PRN ORAL Constipation 08/13/16 16:00 09/12/16 15:59 Ranitidine HCl (Zantac) 150 mg DAILY ORAL 08/14/16 09:00 09/13/16 08:59 Sodium Citrate (Bicitra) 30 ml EVERY 6 HOURS GT 08/15/16 12:00 09/14/16 11:59 Mega ([facility])Nora NP Aug 15, 2016 11:42
[2016-08-15] MEDS ORDERED: Sodium Citrate 30ml GT SCH (12:00)
--- NOTE | 2016-08-15 15:13 | Consultation ---
History of Present Illness General Date patient seen: Aug 14, 2016 Chief Complaint: Abnormal Labs Present Illness HPI 80-year-old male with multiple medical problems as listed below, who was admitted to this medical center for generalized weakness. The patient was found to have mild leukocytosis and low-grade fever. positive for urinary tract infection. the pt pw waxing and waning of consciousness. Allergies: Coded Allergies: No Known Allergies (Unverified , 07/16/16) Medication History Scheduled Calcium Carbonate (Calcium Carbonate), 1,000 MG PO DAILY, (Reported) Cetirizine Hcl* (Zyrtec*), 10 MG ORAL DAILY, (Reported) Docusate Sodium* (Docusate Sodium*), 50 MG ORAL DAILY, (Reported) Donepezil Hcl* (Donepezil Hcl*), 5 MG ORAL HS, (Reported) Famotidine (Famotidine), 20 MG ORAL DAILY, (Reported) Levodopa/Carbidopa (Carbidopa-Levodopa 25-100 Tab), 1 TAB ORAL EVERY 12 HOURS, ( Reported) Memantine Hcl* (Namenda*), 5 MG ORAL TWICE A DAY, (Reported) Multivitamin With Minerals (Multivitamins With Minerals*), 1 TAB ORAL DAILY, ( Reported) Protein Supplement (Promod), 30 ML PO DAILY, (Reported) Tamsulosin Hcl (Tamsulosin Hcl*), 0.4 MG ORAL DAILY, (Reported) Thiamine Hcl* (Vitamin B-1*), 100 MG ORAL DAILY, (Reported) Valproate Sodium (Valproic Acid), 7.5 ML PO TID, (Reported) Scheduled PRN Acetaminophen* (Acetaminophen 325MG Tablet*), 650 MG ORAL Q4H PRN Bisacodyl* (Dulcolax*), 10 MG ORAL DAILY PRN for Constipation, (Reported) Lorazepam* (Lorazepam*), 2 MG ORAL THREE TIMES A DAY PRN for For Anxiety, ( Reported) Morphine Sulfate* (Morphine Sulfate*), 5 MG ORAL for For Pain, (Reported) Nitroglycerin (Nitrostat), 0.4 MG SL Q5M X3 DOSES PRN for CHEST PAIN, (Reported) Miscellaneous Medications Carvedilol* (Carvedilol*), 6.25 MG ORAL, (Reported) Polyvinyl Alcohol (Artificial Tears), 15 ML OP, (Reported) Patient History Limited by: medical condition History Provided By: Patient, Medical Record, PMD Healthcare decision maker Resuscitation status Advanced Directive on File unknown Past Medical/Surgical History Past Medical/Surgical History: (1) Bipolar 1 disorder (2) Acute respiratory failure (3) Hyperkalemia (4) Anemia (5) Parkinson disease (6) ATN (acute tubular necrosis) (7) Chronic renal insufficiency (8) Gram-negative bacteremia (9) Acute encephalopathy (10) Sepsis (11) Urinary tract infection (12) Renal stone (13) Acute kidney injury (14) Acute on chronic renal failure Review of Systems Constitutional: Reports: malaise, weakness Psychiatric: Reports: anxiety, depressed feelings, emotional problems, hallucinations, prior hx Physical Exam General Appearance: confused, mild distress, agitated Neurologic: disoriented, depressed affect Last 24 Hour Vital Signs Date Time Temp Pulse Resp B/P Pulse Ox O2 Delivery O2 Flow Rate FiO2 08/15/16 12:00 77 08/15/16 11:31 96.8 87 20 141/74 100 Nasal Cannula 3.0 08/15/16 08:00 77 08/15/16 07:55 97.5 96 20 156/77 100 Nasal Cannula 3.0 08/15/16 04:28 97.7 69 20 134/71 100 Nasal Cannula 3.0 08/15/16 03:58 76 08/15/16 00:26 97.5 66 20 129/67 99 Nasal Cannula 3.0 08/14/16 23:34 70 08/14/16 20:00 98.0 78 20 138/68 98 Nasal Cannula 3.0 08/14/16 20:00 84 08/14/16 16:04 98.1 90 20 105/60 97 Nasal Cannula 3.0 08/14/16 16:00 86 Intake and Output 08/14/16 08/15/16 19:00 07:00 Intake Total 955 ml Output Total 1000 ml 1700 ml Balance -1000 ml -745 ml Intake IV Total 955 ml Output Urine Total 1000 ml 1700 ml Laboratory Tests Test 08/15/16 04:10 08/15/16 05:10 Urine Eosinophils None seen White Blood Count 8.7 K/UL (4.8-10.8) Red Blood Count 3.18 M/UL (4.70-6.10) L Hemoglobin 9.6 G/DL (14.2-18.0) L Hematocrit 29.6 % (42.0-52.0) L Mean Corpuscular Volume 93 FL (80-99) Mean Corpuscular Hemoglobin 30.2 PG (27.0-31.0) Mean Corpuscular Hemoglobin Concent 32.4 G/DL (32.0-36.0) Red Cell Distribution Width 13.8 % (11.6-14.8) Platelet Count 245 K/UL (150-450) Mean Platelet Volume 5.7 FL (6.5-10.1) L Neutrophils (%) (Auto) 77.1 % (45.0-75.0) H Lymphocytes (%) (Auto) 10.4 % (20.0-45.0) L Monocytes (%) (Auto) 8.3 % (1.0-10.0) Eosinophils (%) (Auto) 3.9 % (0.0-3.0) H Basophils (%) (Auto) 0.5 % (0.0-2.0) Sodium Level 142 mEQ/L (135-145) Potassium Level 4.9 mEQ/L (3.4-4.9) Chloride Level 106 mEQ/L (98-107) Carbon Dioxide Level 15 mEQ/L (20-30) L Anion Gap 21 (5-15) H Blood Urea Nitrogen 113 mg/dL (7-23) H Creatinine 11.0 mg/dL (0.7-1.2) H Estimat Glomerular Filtration Rate mL/min (>60) Glucose Level 142 mg/dL (74-106) H Hemoglobin A1c 6.1 % (< 6.0) H Uric Acid 11.1 mg/dL (3.0-7.5) H Calcium Level 9.0 mg/dL (8.6-10.2) Phosphorus Level 6.0 mg/dL (2.5-4.8) H Magnesium Level 2.5 mg/dL (1.7-2.5) Total Bilirubin 0.4 mg/dL (0.0-1.2) Gamma Glutamyl Transpeptidase 115 U/L (8-61) H Aspartate Amino Transf (AST/SGOT) 30 U/L (5-40) Alanine Aminotransferase (ALT/SGPT) 52 U/L (3-41) H Alkaline Phosphatase 335 U/L (40-129) H Total Creatine Kinase 32 U/L (38-174) L C-Reactive Protein, Quantitative 17.9 mg/dL (< 0.5) H Pro-B-Type Natriuretic Peptide 2845 pg/mL (0-450) H Total Protein 6.6 g/dL (6.6-8.7) Albumin 2.2 g/dL (3.5-5.2) L Globulin 4.4 g/dL Albumin/Globulin Ratio 0.5 (1.0-2.7) L Triglycerides Level 154 mg/dL (< 150) H Cholesterol Level 110 mg/dL (< 200) LDL Cholesterol 69 mg/dL (60-99) HDL Cholesterol 10 mg/dL (> 60) Cholesterol/HDL Ratio 11.0 (3.3-4.4) H Hepatitis A IgM Antibody Pending Hepatitis B Surface Antigen Pending Hepatitis B Core IgM Antibody Pending Hepatitis C Antibody Pending Height (Feet): 5 Height (Inches): 10.00 Weight (Pounds): 170 Medications Current Medications Medications (Trade) Dose Ordered Sig/Janay Route PRN Reason Start Time Stop Time Status Last Admin Dose Admin Acetaminophen (Tylenol) 650 mg Q4H PRN ORAL fever 08/13/16 16:00 09/12/16 15:59 Albuterol/ Ipratropium (DuoNeb 0.5-3(2.5)mg/3ml) 3 ml Q4H PRN HHN Shortness of Breath 08/13/16 16:00 08/18/16 15:59 Allopurinol (Allopurinol) 300 mg DAILY ORAL 08/16/16 09:00 09/15/16 08:59 Cefepime HCl 0.5 gm/Dextrose 55 ml @ 110 mls/hr QHS IVPB 08/13/16 21:00 08/20/16 20:59 08/14/16 20:51 Dextrose STAT PRN IV Hypoglycemia 08/13/16 16:00 09/12/16 15:59 Dextrose/Sodium Chloride (D5 0.45% NS) 1,000 ml @ 150 mls/hr Q6H40M IV 08/15/16 01:00 09/14/16 00:59 08/15/16 13:58 Heparin Sodium (Porcine) (Heparin 5000 units/ml) 5,000 units EVERY 12 HOURS SUBQ 08/13/16 21:00 09/12/16 20:59 08/13/16 21:54 Lorazepam (Ativan 2mg/ml 1ml) 0.5 mg Q4H PRN IV For Anxiety 08/13/16 16:00 08/20/16 15:59 Morphine Sulfate (Morphine Sulfate) 1 mg Q4H PRN IVP For Pain 08/13/16 16:00 08/20/16 15:59 Ondansetron HCl (Zofran) 4 mg Q6H PRN IVP Nausea & Vomiting 08/13/16 16:00 09/12/16 15:59 Polyethylene Glycol (Miralax) 17 gm HSPRN PRN ORAL Constipation 08/13/16 16:00 09/12/16 15:59 Ranitidine HCl (Zantac) 150 mg DAILY ORAL 08/14/16 09:00 09/13/16 08:59 Sodium Citrate (Bicitra) 30 ml EVERY 6 HOURS ORAL 08/15/16 18:00 09/14/16 17:59 Assessment/Plan Status: not improved Assessment/Plan Dementia, Delirium, bipolar d/o Zyprexa 2.5qhs Paulino Feliciano M.D. Aug 15, 2016 15:13
[2016-08-15] MEDS: Sodium Citrate 30ml ORAL SCH ×2 (17:46→23:35)
[2016-08-15] MEDS ORDERED: Pneumococcal Vaccine 25mcg/0.5ml IM ONE (18:30)
[2016-08-15] MEDS ORDERED: OLANZapine 2.5mg tab ORAL SCH (21:00)
[2016-08-15] MEDS: Cefepime HCl 0.5 GM in D5W 55 ML IVPB SCH (21:49)
[2016-08-16 02:33] VITALS: BP 131/74
[2016-08-16] MEDS: D5 1/2NS 1,000 ML IV SCH ×4 (03:40→21:01)
[2016-08-16 03:55] VITALS: BP 144/75
[2016-08-16] MEDS: Sodium Citrate 30ml ORAL SCH ×4 (06:00→23:37)
[2016-08-16 07:10] LABS: BASOPHILS % (AUTO) 0.5 % (0.0-2.0); EOSINOPHILS % (AUTO) 4.4 % (0.0-3.0); LYMPHOCYTES % (AUTO) 14.3 % (20.0-45.0); MEAN CORPUSCULAR HEMOGLOBIN 30.7 PG (27.0-31.0); MEAN CORPUSCULAR HGB CONC 32.6 G/DL (32.0-36.0); MEAN CORPUSCULAR VOLUME 94 FL (80-99); MEAN PLATELET VOLUME 5.4 FL (6.5-10.1); MONOCYTES % (AUTO) 7.7 % (1.0-10.0); PLATELET COUNT 246 K/UL (150-450); RED BLOOD COUNT 3.29 M/UL (4.70-6.10); RED CELL DISTRIBUTION WIDTH 13.9 % (11.6-14.8); WHITE BLOOD COUNT 8.6 K/UL (4.8-10.8)
[2016-08-16 07:17] LABS: ALANINE AMINOTRANSFERASE 44 U/L (3-41); ALBUMIN/GLOBULIN RATIO 0.5 (1.0-2.7); ANION GAP 14 (5-15); ASPARTATE AMINO TRANSFERASE 24 U/L (5-40); CALCIUM 8.9 mg/dL (8.6-10.2); CARBON DIOXIDE 16 mEQ/L (20-30); CHLORIDE 111 mEQ/L (98-107); CREATININE 7.4 mg/dL (0.7-1.2); HEMOLYSIS 2; MAGNESIUM 2.1 mg/dL (1.7-2.5); PHOSPHORUS 4.8 mg/dL (2.5-4.8); POTASSIUM 4.9 mEQ/L (3.4-4.9); SODIUM 141 mEQ/L (135-145); URIC ACID 9.9 mg/dL (3.0-7.5)
[2016-08-16 07:58] VITALS: BP 177/91
[2016-08-16] MEDS: Heparin 5000 units/ml inj SUBQ SCH ×2 (08:22→20:39)
[2016-08-16] MEDS ORDERED: NS 275ml ONE (09:11)
[2016-08-16] MEDS ORDERED: Tubing Blood Filter IV ONE (09:11)
[2016-08-16] MEDS ORDERED: Tubing IV Secondary IV ONE (09:11)
[2016-08-16] MEDS ORDERED: D5 1/2NS 1000ml IV ONE (09:11)
--- NOTE | 2016-08-16 11:03 | General Progress Note ---
Assessment/Plan Status: stable Status Narrative Cr lowering Assessment/Plan acute renal failure, requiring HD ,once in the past acute hyperkalemia , ROBBIE variable h/o acute respiratory failure UTI h/o gross hematuria anemia CHF Sever Hypoalbuminemai h/o Parkinsons , OBS , ? Sz Plan: IN 150 cc hour Allopurinol and Bicitra Monitor renal parameters- Avoid Nephrotoxics BP support transfusion urine studies per orders Subjective ROS Limited/Unobtainable: Yes Allergies: Coded Allergies: No Known Allergies (Unverified , 07/16/16) Objective Last 24 Hour Vital Signs Date Time Temp Pulse Resp B/P Pulse Ox O2 Delivery O2 Flow Rate FiO2 08/16/16 08:43 165/91 08/16/16 08:00 91 08/16/16 07:58 97.3 90 20 177/91 99 Nasal Cannula 3.0 08/16/16 03:55 98.8 83 20 144/75 94 Nasal Cannula 3.0 08/16/16 03:42 87 08/16/16 02:33 84 131/74 08/15/16 23:54 81 08/15/16 23:48 97.9 87 19 169/99 93 Nasal Cannula 08/15/16 20:19 99.0 84 20 163/81 97 Room Air 08/15/16 19:53 82 08/15/16 16:00 90 08/15/16 15:43 97.1 92 20 139/86 98 Nasal Cannula 3.0 08/15/16 12:00 77 08/15/16 11:31 96.8 87 20 141/74 100 Nasal Cannula 3.0 Intake and Output 08/15/16 08/16/16 19:00 07:00 Intake Total 1650 ml 1507 ml Output Total 1650 ml 1000 ml Balance 0 ml 507 ml Intake IV Total 1650 ml 1507 ml Output Urine Total 1650 ml 1000 ml Laboratory Tests 08/16/16 04:00: Urine Eosinophils None seen 08/16/16 04:40: White Blood Count 8.6, Red Blood Count 3.29L, Hemoglobin 10.1L, Hematocrit 31.0L , Mean Corpuscular Volume 94, Mean Corpuscular Hemoglobin 30.7, Mean Corpuscular Hemoglobin Concent 32.6, Red Cell Distribution Width 13.9, Platelet Count 246, Mean Platelet Volume 5.4L, Neutrophils (%) (Auto) 73.0, Lymphocytes ( %) (Auto) 14.3L, Monocytes (%) (Auto) 7.7, Eosinophils (%) (Auto) 4.4H, Basophils (%) (Auto) 0.5, Sodium Level 141, Potassium Level 4.9, Chloride Level 111H, Carbon Dioxide Level 16L, Anion Gap 14, Blood Urea Nitrogen 88#H, Creatinine 7.4H, Estimat Glomerular Filtration Rate , Glucose Level 168H, Uric Acid 9.9H, Calcium Level 8.9, Phosphorus Level 4.8, Magnesium Level 2.1, Total Bilirubin 0.5, Gamma Glutamyl Transpeptidase 132H, Aspartate Amino Transf (AST/ SGOT) 24, Alanine Aminotransferase (ALT/SGPT) 44H, Alkaline Phosphatase 359H, C- Reactive Protein, Quantitative 11.0H, Total Protein 7.0, Albumin 2.4L, Globulin 4.6, Albumin/Globulin Ratio 0.5L Height (Feet): 5 Height (Inches): 10.00 Weight (Pounds): 170 General Appearance: no apparent distress Cardiovascular: tachycardia Respiratory/Chest: decreased breath sounds Abdomen: soft Objective other PE not changed HAI THOMPSON Aug 16, 2016 11:03
[2016-08-16 11:17] VITALS: BP 148/69
--- NOTE | 2016-08-16 12:18 | Pulmonology Progress Note ---
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 (4) Limited mobility (5) Parkinson disease (6) Gram-negative bacteremia (7) Urinary tract infection Assessment/Plan improving IV fluilds check cultures check electrolytes swallow study noted start oral diet dvt prophylaxis Subjective ROS Limited/Unobtainable: No Constitutional: Reports: no symptoms Respiratory: Reports: no symptoms Allergies: Coded Allergies: No Known Allergies (Unverified , 07/16/16) Objective Last 24 Hour Vital Signs Date Time Temp Pulse Resp B/P Pulse Ox O2 Delivery O2 Flow Rate FiO2 08/16/16 11:17 96.6 110 22 148/69 100 Room Air 08/16/16 08:43 165/91 08/16/16 08:00 91 08/16/16 07:58 97.3 90 20 177/91 99 Nasal Cannula 3.0 08/16/16 03:55 98.8 83 20 144/75 94 Nasal Cannula 3.0 08/16/16 03:42 87 08/16/16 02:33 84 131/74 08/15/16 23:54 81 08/15/16 23:48 97.9 87 19 169/99 93 Nasal Cannula 08/15/16 20:19 99.0 84 20 163/81 97 Room Air 08/15/16 19:53 82 08/15/16 16:00 90 08/15/16 15:43 97.1 92 20 139/86 98 Nasal Cannula 3.0 Intake and Output 08/15/16 08/16/16 19:00 07:00 Intake Total 1650 ml 1507 ml Output Total 1650 ml 1000 ml Balance 0 ml 507 ml Intake IV Total 1650 ml 1507 ml Output Urine Total 1650 ml 1000 ml General Appearance: cachetic HEENT: normocephalic, atraumatic Respiratory/Chest: chest wall non-tender, lungs clear Cardiovascular: normal peripheral pulses, normal rate Abdomen: normal bowel sounds, soft, non tender Extremities: no cyanosis, no clubbing Neurologic/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 Complete 08/13/16 15:00 Urine,Clean Catch Urine Culture - Final Proteus Mirabilis Complete Laboratory Tests 08/16/16 04:00: Urine Eosinophils None seen 08/16/16 04:40: White Blood Count 8.6, Red Blood Count 3.29L, Hemoglobin 10.1L, Hematocrit 31.0L , Mean Corpuscular Volume 94, Mean Corpuscular Hemoglobin 30.7, Mean Corpuscular Hemoglobin Concent 32.6, Red Cell Distribution Width 13.9, Platelet Count 246, Mean Platelet Volume 5.4L, Neutrophils (%) (Auto) 73.0, Lymphocytes ( %) (Auto) 14.3L, Monocytes (%) (Auto) 7.7, Eosinophils (%) (Auto) 4.4H, Basophils (%) (Auto) 0.5, Sodium Level 141, Potassium Level 4.9, Chloride Level 111H, Carbon Dioxide Level 16L, Anion Gap 14, Blood Urea Nitrogen 88#H, Creatinine 7.4H, Estimat Glomerular Filtration Rate , Glucose Level 168H, Uric Acid 9.9H, Calcium Level 8.9, Phosphorus Level 4.8, Magnesium Level 2.1, Total Bilirubin 0.5, Gamma Glutamyl Transpeptidase 132H, Aspartate Amino Transf (AST/ SGOT) 24, Alanine Aminotransferase (ALT/SGPT) 44H, Alkaline Phosphatase 359H, C- Reactive Protein, Quantitative 11.0H, Total Protein 7.0, Albumin 2.4L, Globulin 4.6, Albumin/Globulin Ratio 0.5L Current Medications Medications (Trade) Dose Ordered Sig/Janay Route PRN Reason Start Time Stop Time Status Last Admin Dose Admin Acetaminophen (Tylenol) 650 mg Q4H PRN ORAL fever 08/13/16 16:00 09/12/16 15:59 Albuterol/ Ipratropium (DuoNeb 0.5-3(2.5)mg/3ml) 3 ml Q4H PRN HHN Shortness of Breath 08/13/16 16:00 08/18/16 15:59 Allopurinol (Allopurinol) 300 mg DAILY ORAL 08/16/16 09:00 09/15/16 08:59 08/16/16 08:33 Cefepime HCl 0.5 gm/Dextrose 55 ml @ 110 mls/hr QHS IVPB 08/13/16 21:00 08/20/16 20:59 08/15/16 21:49 Dextrose STAT PRN IV Hypoglycemia 08/13/16 16:00 09/12/16 15:59 Dextrose/Sodium Chloride (D5 0.45% NS) 1,000 ml @ 150 mls/hr Q6H40M IV 08/15/16 01:00 09/14/16 00:59 08/16/16 05:58 Heparin Sodium (Porcine) (Heparin 5000 units/ml) 5,000 units EVERY 12 HOURS SUBQ 08/13/16 21:00 09/12/16 20:59 08/13/16 21:54 Hydralazine HCl (Apresoline) 10 mg Q4H PRN IV For High Blood Pressure 08/16/16 08:30 09/15/16 08:29 08/16/16 08:43 Lorazepam (Ativan 2mg/ml 1ml) 0.5 mg Q4H PRN IV For Anxiety 08/13/16 16:00 08/20/16 15:59 Morphine Sulfate (Morphine Sulfate) 1 mg Q4H PRN IVP For Pain 08/13/16 16:00 08/20/16 15:59 08/16/16 09:58 Olanzapine (ZyPREXA) 2.5 mg BEDTIME ORAL 08/15/16 21:00 09/14/16 20:59 Ondansetron HCl (Zofran) 4 mg Q6H PRN IVP Nausea & Vomiting 08/13/16 16:00 09/12/16 15:59 Polyethylene Glycol (Miralax) 17 gm HSPRN PRN ORAL Constipation 08/13/16 16:00 09/12/16 15:59 Ranitidine HCl (Zantac) 150 mg DAILY ORAL 08/14/16 09:00 09/13/16 08:59 08/16/16 08:33 Sodium Citrate (Bicitra) 30 ml EVERY 6 HOURS ORAL 08/15/16 18:00 09/14/16 17:59 08/16/16 12:01 MACARENA FLANNERY Aug 16, 2016 12:18
[2016-08-16] MEDS ORDERED: DuoNeb 0.5-3(2.5)mg/3ml neb HHN PRN (15:00)
[2016-08-16] MEDS ORDERED: LORazepam Inj 2mg/ml 1ml IV PRN (15:00)
[2016-08-16] MEDS ORDERED: Morphine Sulfate 2mg/ml Inj IVP PRN (15:00)
[2016-08-16 16:03] VITALS: BP 156/77
--- NOTE | 2016-08-16 19:44 | Infectious Diseases Prog Note ---
Subjective Constitutional: Denies: anorexia, chills, drenching sweats, fatigue, fever, no symptoms, other Allergies: Coded Allergies: No Known Allergies (Unverified , 07/16/16) Objective Vital Signs Last 24 Hour Vital Signs Date Time Temp Pulse Resp B/P Pulse Ox O2 Delivery O2 Flow Rate FiO2 08/16/16 16:03 97.6 122 21 156/77 95 Room Air 08/16/16 12:00 97 08/16/16 11:17 96.6 110 22 148/69 100 Room Air 08/16/16 09:45 89 18 Room Air 21 08/16/16 08:43 165/91 08/16/16 08:00 91 08/16/16 07:58 97.3 90 20 177/91 99 Nasal Cannula 3.0 08/16/16 03:55 98.8 83 20 144/75 94 Nasal Cannula 3.0 08/16/16 03:42 87 08/16/16 02:33 84 131/74 08/15/16 23:54 81 08/15/16 23:48 97.9 87 19 169/99 93 Nasal Cannula 08/15/16 20:19 99.0 84 20 163/81 97 Room Air 08/15/16 19:53 82 Height (Feet): 5 Height (Inches): 10.00 Weight (Pounds): 170 Respiratory/Chest: normal breath sounds Cardiovascular: normal rate Abdomen: no organomegaly Laboratory Tests Test 08/16/16 04:00 08/16/16 04:40 Urine Eosinophils None seen White Blood Count 8.6 K/UL (4.8-10.8) Red Blood Count 3.29 M/UL (4.70-6.10) L Hemoglobin 10.1 G/DL (14.2-18.0) L Hematocrit 31.0 % (42.0-52.0) L Mean Corpuscular Volume 94 FL (80-99) Mean Corpuscular Hemoglobin 30.7 PG (27.0-31.0) Mean Corpuscular Hemoglobin Concent 32.6 G/DL (32.0-36.0) Red Cell Distribution Width 13.9 % (11.6-14.8) Platelet Count 246 K/UL (150-450) Mean Platelet Volume 5.4 FL (6.5-10.1) L Neutrophils (%) (Auto) 73.0 % (45.0-75.0) Lymphocytes (%) (Auto) 14.3 % (20.0-45.0) L Monocytes (%) (Auto) 7.7 % (1.0-10.0) Eosinophils (%) (Auto) 4.4 % (0.0-3.0) H Basophils (%) (Auto) 0.5 % (0.0-2.0) Sodium Level 141 mEQ/L (135-145) Potassium Level 4.9 mEQ/L (3.4-4.9) Chloride Level 111 mEQ/L (98-107) H Carbon Dioxide Level 16 mEQ/L (20-30) L Anion Gap 14 (5-15) Blood Urea Nitrogen 88 mg/dL (7-23) #H Creatinine 7.4 mg/dL (0.7-1.2) H Estimat Glomerular Filtration Rate mL/min (>60) Glucose Level 168 mg/dL (74-106) H Uric Acid 9.9 mg/dL (3.0-7.5) H Calcium Level 8.9 mg/dL (8.6-10.2) Phosphorus Level 4.8 mg/dL (2.5-4.8) Magnesium Level 2.1 mg/dL (1.7-2.5) Total Bilirubin 0.5 mg/dL (0.0-1.2) Gamma Glutamyl Transpeptidase 132 U/L (8-61) H Aspartate Amino Transf (AST/SGOT) 24 U/L (5-40) Alanine Aminotransferase (ALT/SGPT) 44 U/L (3-41) H Alkaline Phosphatase 359 U/L (40-129) H C-Reactive Protein, Quantitative 11.0 mg/dL (< 0.5) H Total Protein 7.0 g/dL (6.6-8.7) Albumin 2.4 g/dL (3.5-5.2) L Globulin 4.6 g/dL Albumin/Globulin Ratio 0.5 (1.0-2.7) L Current Medications Medications (Trade) Dose Ordered Sig/Jaany Route PRN Reason Start Time Stop Time Status Last Admin Dose Admin Acetaminophen (Tylenol) 650 mg Q4H PRN ORAL T>100.5 08/16/16 15:00 09/15/16 14:59 Albuterol/ Ipratropium (DuoNeb 0.5-3(2.5)mg/3ml) 3 ml Q4H PRN HHN Shortness of Breath 08/16/16 15:00 08/21/16 14:59 Allopurinol (Allopurinol) 300 mg DAILY ORAL 08/17/16 09:00 09/16/16 08:59 Cefepime HCl 0.5 gm/Dextrose 55 ml @ 110 mls/hr QHS IVPB 08/16/16 21:00 08/23/16 20:59 Dextrose (Dextrose 50%) STAT PRN IV Hypoglycemia 08/16/16 15:00 09/15/16 14:59 Dextrose/Sodium Chloride (D5 0.45% NS) 1,000 ml @ 150 mls/hr Q6H40M IV 08/16/16 15:00 09/15/16 14:59 Heparin Sodium (Porcine) (Heparin 5000 units/ml) 5,000 units EVERY 12 HOURS SUBQ 08/16/16 21:00 09/15/16 20:59 Lorazepam (Ativan 2mg/ml 1ml) 0.5 mg Q4H PRN IV For Anxiety 08/16/16 15:00 08/23/16 14:59 Morphine Sulfate (Morphine Sulfate) 1 mg Q4H PRN IVP PAIN 4-10 08/16/16 15:00 08/23/16 14:59 Olanzapine (ZyPREXA) 2.5 mg BEDTIME ORAL 08/16/16 21:00 09/15/16 20:59 Ondansetron HCl (Zofran) 4 mg Q6H PRN IVP Nausea & Vomiting 08/16/16 16:00 09/15/16 15:59 Polyethylene Glycol (Miralax) 17 gm HSPRN PRN ORAL Constipation 08/16/16 21:00 09/15/16 20:59 Ranitidine HCl (Zantac) 150 mg DAILY ORAL 08/17/16 09:00 09/16/16 08:59 Sodium Citrate (Bicitra) 30 ml EVERY 6 HOURS ORAL 08/16/16 18:00 09/15/16 17:59 08/16/16 18:09 PHILLIP BARNES M.D. Aug 16, 2016 19:44
[2016-08-16 20:00] VITALS: BP 143/97
--- NOTE | 2016-08-16 20:08 | Infectious Diseases Prog Note ---
Assessment/Plan Assessment/Plan A: Mild leukocytosis. Possible urinary tract infection, UCx : P Mirabilis Rule out bacteremia. Elevated alkaline phosphatase and liver function test, US : no evid of biliary tract disease Hep B/C ab : P Acute renal failure History of dementia Parkinson disease Seizure disorder Status post pacemaker placement Hypertension Obesity Depression Bipolar disorder Anemia PLAN: continue the patient on cefepime day # 4 /14 , upon DC will change to oral Keflex to complete the course Monitor CBC. Monitor BMP. Monitor cultures (blood). Subjective Constitutional: Denies: anorexia, chills, drenching sweats, fatigue, fever, no symptoms, other Allergies: Coded Allergies: No Known Allergies (Unverified , 07/16/16) Objective Vital Signs Last 24 Hour Vital Signs Date Time Temp Pulse Resp B/P Pulse Ox O2 Delivery O2 Flow Rate FiO2 08/16/16 16:03 97.6 122 21 156/77 95 Room Air 08/16/16 12:00 97 08/16/16 11:17 96.6 110 22 148/69 100 Room Air 08/16/16 09:45 89 18 Room Air 21 08/16/16 08:43 165/91 08/16/16 08:00 91 08/16/16 07:58 97.3 90 20 177/91 99 Nasal Cannula 3.0 08/16/16 03:55 98.8 83 20 144/75 94 Nasal Cannula 3.0 08/16/16 03:42 87 08/16/16 02:33 84 131/74 08/15/16 23:54 81 08/15/16 23:48 97.9 87 19 169/99 93 Nasal Cannula 08/15/16 20:19 99.0 84 20 163/81 97 Room Air 08/15/16 19:53 82 Height (Feet): 5 Height (Inches): 10.00 Weight (Pounds): 170 HEENT: anicteric Respiratory/Chest: no respiratory distress Cardiovascular: regular rhythm Abdomen: soft, non tender Skin: no lesions Laboratory Tests Test 08/16/16 04:00 08/16/16 04:40 Urine Eosinophils None seen White Blood Count 8.6 K/UL (4.8-10.8) Red Blood Count 3.29 M/UL (4.70-6.10) L Hemoglobin 10.1 G/DL (14.2-18.0) L Hematocrit 31.0 % (42.0-52.0) L Mean Corpuscular Volume 94 FL (80-99) Mean Corpuscular Hemoglobin 30.7 PG (27.0-31.0) Mean Corpuscular Hemoglobin Concent 32.6 G/DL (32.0-36.0) Red Cell Distribution Width 13.9 % (11.6-14.8) Platelet Count 246 K/UL (150-450) Mean Platelet Volume 5.4 FL (6.5-10.1) L Neutrophils (%) (Auto) 73.0 % (45.0-75.0) Lymphocytes (%) (Auto) 14.3 % (20.0-45.0) L Monocytes (%) (Auto) 7.7 % (1.0-10.0) Eosinophils (%) (Auto) 4.4 % (0.0-3.0) H Basophils (%) (Auto) 0.5 % (0.0-2.0) Sodium Level 141 mEQ/L (135-145) Potassium Level 4.9 mEQ/L (3.4-4.9) Chloride Level 111 mEQ/L (98-107) H Carbon Dioxide Level 16 mEQ/L (20-30) L Anion Gap 14 (5-15) Blood Urea Nitrogen 88 mg/dL (7-23) #H Creatinine 7.4 mg/dL (0.7-1.2) H Estimat Glomerular Filtration Rate mL/min (>60) Glucose Level 168 mg/dL (74-106) H Uric Acid 9.9 mg/dL (3.0-7.5) H Calcium Level 8.9 mg/dL (8.6-10.2) Phosphorus Level 4.8 mg/dL (2.5-4.8) Magnesium Level 2.1 mg/dL (1.7-2.5) Total Bilirubin 0.5 mg/dL (0.0-1.2) Gamma Glutamyl Transpeptidase 132 U/L (8-61) H Aspartate Amino Transf (AST/SGOT) 24 U/L (5-40) Alanine Aminotransferase (ALT/SGPT) 44 U/L (3-41) H Alkaline Phosphatase 359 U/L (40-129) H C-Reactive Protein, Quantitative 11.0 mg/dL (< 0.5) H Total Protein 7.0 g/dL (6.6-8.7) Albumin 2.4 g/dL (3.5-5.2) L Globulin 4.6 g/dL Albumin/Globulin Ratio 0.5 (1.0-2.7) L Current Medications Medications (Trade) Dose Ordered Sig/Janay Route PRN Reason Start Time Stop Time Status Last Admin Dose Admin Acetaminophen (Tylenol) 650 mg Q4H PRN ORAL T>100.5 08/16/16 15:00 09/15/16 14:59 Albuterol/ Ipratropium (DuoNeb 0.5-3(2.5)mg/3ml) 3 ml Q4H PRN HHN Shortness of Breath 08/16/16 15:00 08/21/16 14:59 Allopurinol (Allopurinol) 300 mg DAILY ORAL 08/17/16 09:00 09/16/16 08:59 Cefepime HCl 0.5 gm/Dextrose 55 ml @ 110 mls/hr QHS IVPB 08/16/16 21:00 08/23/16 20:59 Dextrose (Dextrose 50%) STAT PRN IV Hypoglycemia 08/16/16 15:00 09/15/16 14:59 Dextrose/Sodium Chloride (D5 0.45% NS) 1,000 ml @ 150 mls/hr Q6H40M IV 08/16/16 15:00 09/15/16 14:59 Heparin Sodium (Porcine) (Heparin 5000 units/ml) 5,000 units EVERY 12 HOURS SUBQ 08/16/16 21:00 09/15/16 20:59 Lorazepam (Ativan 2mg/ml 1ml) 0.5 mg Q4H PRN IV For Anxiety 08/16/16 15:00 08/23/16 14:59 Morphine Sulfate (Morphine Sulfate) 1 mg Q4H PRN IVP PAIN 4-10 08/16/16 15:00 08/23/16 14:59 Olanzapine (ZyPREXA) 2.5 mg BEDTIME ORAL 08/16/16 21:00 09/15/16 20:59 Ondansetron HCl (Zofran) 4 mg Q6H PRN IVP Nausea & Vomiting 08/16/16 16:00 09/15/16 15:59 Polyethylene Glycol (Miralax) 17 gm HSPRN PRN ORAL Constipation 08/16/16 21:00 09/15/16 20:59 Ranitidine HCl (Zantac) 150 mg DAILY ORAL 08/17/16 09:00 09/16/16 08:59 Sodium Citrate (Bicitra) 30 ml EVERY 6 HOURS ORAL 08/16/16 18:00 09/15/16 17:59 08/16/16 18:09 PHILLIP BARNES M.D. Aug 16, 2016 20:07
[2016-08-16] MEDS: OLANZapine 2.5mg tab ORAL SCH (20:38)
[2016-08-16] MEDS ORDERED: Cefepime HCl 0.5 GM in D5W 55 ML IVPB SCH (21:00)
[2016-08-16] MEDS ORDERED: Miralax 17gm pkt ORAL PRN (21:00)
[2016-08-17] VITALS: BP 151/87
[2016-08-17 04:00] VITALS: BP 156/90
[2016-08-17] MEDS: D5 1/2NS 1,000 ML IV SCH ×4 (04:46→23:06)
[2016-08-17] MEDS: Sodium Citrate 30ml ORAL SCH ×3 (05:31→18:53)
[2016-08-17 06:29] LABS: BASOPHILS % (AUTO) 0.5 % (0.0-2.0); LYMPHOCYTES % (AUTO) 16.9 % (20.0-45.0); MEAN CORPUSCULAR HEMOGLOBIN 30.5 PG (27.0-31.0); MEAN CORPUSCULAR HGB CONC 32.5 G/DL (32.0-36.0); MEAN CORPUSCULAR VOLUME 94 FL (80-99); MEAN PLATELET VOLUME 5.6 FL (6.5-10.1); MONOCYTES % (AUTO) 7.7 % (1.0-10.0); PLATELET COUNT 246 K/UL (150-450); RED BLOOD COUNT 3.21 M/UL (4.70-6.10); RED CELL DISTRIBUTION WIDTH 13.5 % (11.6-14.8); WHITE BLOOD COUNT 8.2 K/UL (4.8-10.8)
[2016-08-17 07:04] LABS: ALANINE AMINOTRANSFERASE 245 U/L (3-41); ALBUMIN/GLOBULIN RATIO 0.5 (1.0-2.7); ANION GAP 11 (5-15); ASPARTATE AMINO TRANSFERASE 246 U/L (5-40); CARBON DIOXIDE 18 mEQ/L (20-30); CHLORIDE 116 mEQ/L (98-107); CREATININE 4.6 mg/dL (0.7-1.2); CRP QUANT 7.3 mg/dL (< 0.5); HEMOLYSIS 3; MAGNESIUM 1.7 mg/dL (1.7-2.5); PHOSPHORUS 3.7 mg/dL (2.5-4.8); POTASSIUM 4.5 mEQ/L (3.4-4.9); SODIUM 145 mEQ/L (135-145); TOTAL PROTEIN 6.9 g/dL (6.6-8.7); URIC ACID 7.7 mg/dL (3.0-7.5)
[2016-08-17 07:11] VITALS: BP 164/70
--- NOTE | 2016-08-17 10:13 | Pulmonology Progress Note ---
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 (4) Limited mobility (5) Parkinson disease (6) Gram-negative bacteremia (7) Urinary tract infection Assessment/Plan improving, bun/creatinine decreasing IV fluilds check cultures check electrolytes swallow study noted start oral diet dvt prophylaxis Subjective ROS Limited/Unobtainable: No HEENT: Repors: no symptoms Respiratory: Reports: no symptoms Allergies: Coded Allergies: No Known Allergies (Unverified , 07/16/16) Objective Last 24 Hour Vital Signs Date Time Temp Pulse Resp B/P Pulse Ox O2 Delivery O2 Flow Rate FiO2 08/17/16 07:48 76 18 Room Air 21 08/17/16 07:11 97.5 93 18 164/70 100 Room Air 08/17/16 04:00 98.1 83 20 156/90 98 Room Air 08/17/16 00:00 97.9 81 20 151/87 99 Room Air 08/16/16 20:00 98.6 99 20 143/97 98 Nasal Cannula 2.0 08/16/16 19:05 91 18 Room Air 21 08/16/16 16:03 97.6 122 21 156/77 95 Room Air 08/16/16 12:00 97 08/16/16 11:17 96.6 110 22 148/69 100 Room Air Intake and Output 08/16/16 08/17/16 19:00 07:00 Intake Total 560 ml 1405 ml Output Total 400 ml 770 ml Balance 160 ml 635 ml Intake Oral 560 ml IV Total 1405 ml Output Urine Total 400 ml 770 ml General Appearance: cachetic HEENT: normocephalic, atraumatic Respiratory/Chest: chest wall non-tender, lungs clear Cardiovascular: normal peripheral pulses, normal rate Abdomen: normal bowel sounds, no organomegaly Extremities: no clubbing Skin: no lesions Laboratory Tests 08/17/16 05:25: White Blood Count 8.2, Red Blood Count 3.21L, Hemoglobin 9.8L, Hematocrit 30.1L , Mean Corpuscular Volume 94, Mean Corpuscular Hemoglobin 30.5, Mean Corpuscular Hemoglobin Concent 32.5, Red Cell Distribution Width 13.5, Platelet Count 246, Mean Platelet Volume 5.6L, Neutrophils (%) (Auto) 71.0, Lymphocytes ( %) (Auto) 16.9L, Monocytes (%) (Auto) 7.7, Eosinophils (%) (Auto) 4.0H, Basophils (%) (Auto) 0.5, Sodium Level 145, Potassium Level 4.5, Chloride Level 116H, Carbon Dioxide Level 18L, Anion Gap 11, Blood Urea Nitrogen 64H, Creatinine 4.6H, Estimat Glomerular Filtration Rate , Glucose Level 159H, Uric Acid 7.7H, Calcium Level 9.0, Phosphorus Level 3.7, Magnesium Level 1.7, Total Bilirubin 0.5, Aspartate Amino Transf (AST/SGOT) 246H, Alanine Aminotransferase (ALT/SGPT) 245H, Alkaline Phosphatase 503H, C-Reactive Protein, Quantitative 7.3H, Pro-B-Type Natriuretic Peptide 2339H, Total Protein 6.9, Albumin 2.4L, Globulin 4.5, Albumin/Globulin Ratio 0.5L 08/17/16 05:45: Urine Eosinophils None seen Current Medications Medications (Trade) Dose Ordered Sig/Janay Route PRN Reason Start Time Stop Time Status Last Admin Dose Admin Acetaminophen (Tylenol) 650 mg Q4H PRN ORAL T>100.5 08/16/16 15:00 09/15/16 14:59 Albuterol/ Ipratropium (DuoNeb 0.5-3(2.5)mg/3ml) 3 ml Q4H PRN HHN Shortness of Breath 08/16/16 15:00 08/21/16 14:59 Allopurinol (Allopurinol) 300 mg DAILY ORAL 08/17/16 09:00 09/16/16 08:59 Cefepime HCl 0.5 gm/Dextrose 55 ml @ 110 mls/hr QHS IVPB 08/16/16 21:00 08/23/16 20:59 08/16/16 20:56 Dextrose (Dextrose 50%) STAT PRN IV Hypoglycemia 08/16/16 15:00 09/15/16 14:59 Dextrose/Sodium Chloride (D5 0.45% NS) 1,000 ml @ 150 mls/hr Q6H40M IV 08/16/16 15:00 09/15/16 14:59 08/17/16 04:46 Heparin Sodium (Porcine) (Heparin 5000 units/ml) 5,000 units EVERY 12 HOURS SUBQ 08/16/16 21:00 09/15/16 20:59 08/16/16 20:39 Lorazepam (Ativan 2mg/ml 1ml) 0.5 mg Q4H PRN IV For Anxiety 08/16/16 15:00 08/23/16 14:59 Morphine Sulfate (Morphine Sulfate) 1 mg Q4H PRN IVP PAIN 4-10 08/16/16 15:00 08/23/16 14:59 Olanzapine (ZyPREXA) 2.5 mg BEDTIME ORAL 08/16/16 21:00 09/15/16 20:59 08/16/16 20:38 Ondansetron HCl (Zofran) 4 mg Q6H PRN IVP Nausea & Vomiting 08/16/16 16:00 09/15/16 15:59 Polyethylene Glycol (Miralax) 17 gm HSPRN PRN ORAL Constipation 08/16/16 21:00 09/15/16 20:59 Ranitidine HCl (Zantac) 150 mg DAILY ORAL 08/17/16 09:00 09/16/16 08:59 Sodium Citrate (Bicitra) 30 ml EVERY 6 HOURS ORAL 08/16/16 18:00 09/15/16 17:59 08/17/16 05:31 MACARENA FLANNERY Aug 17, 2016 10:13
--- NOTE | 2016-08-17 10:46 | Infectious Diseases Prog Note ---
Assessment/Plan Assessment/Plan A: Mild leukocytosis. Possible urinary tract infection, UCx : P Mirabilis Rule out bacteremia. Elevated alkaline phosphatase and liver function test, US : no evid of biliary tract disease Hep B/C ab : P Acute renal failure History of dementia Parkinson disease Seizure disorder Status post pacemaker placement Hypertension Obesity Depression Bipolar disorder Anemia PLAN: continue the patient on Ancef d# 1 10 , upon DC will change to oral Keflex to complete the course 08/17 SP cefepime day # 4 Monitor CBC. Monitor BMP. Monitor cultures (blood). Subjective Constitutional: Denies: anorexia, chills, drenching sweats, fatigue, fever, no symptoms, other Allergies: Coded Allergies: No Known Allergies (Unverified , 07/16/16) Objective Vital Signs Last 24 Hour Vital Signs Date Time Temp Pulse Resp B/P Pulse Ox O2 Delivery O2 Flow Rate FiO2 08/17/16 07:48 76 18 Room Air 21 08/17/16 07:11 97.5 93 18 164/70 100 Room Air 08/17/16 04:00 98.1 83 20 156/90 98 Room Air 08/17/16 00:00 97.9 81 20 151/87 99 Room Air 08/16/16 20:00 98.6 99 20 143/97 98 Nasal Cannula 2.0 08/16/16 19:05 91 18 Room Air 21 08/16/16 16:03 97.6 122 21 156/77 95 Room Air 08/16/16 12:00 97 08/16/16 11:17 96.6 110 22 148/69 100 Room Air Height (Feet): 5 Height (Inches): 10.00 Weight (Pounds): 170 HEENT: anicteric Respiratory/Chest: normal breath sounds Cardiovascular: regular rhythm Abdomen: no organomegaly Laboratory Tests Test 08/17/16 05:25 08/17/16 05:45 White Blood Count 8.2 K/UL (4.8-10.8) Red Blood Count 3.21 M/UL (4.70-6.10) L Hemoglobin 9.8 G/DL (14.2-18.0) L Hematocrit 30.1 % (42.0-52.0) L Mean Corpuscular Volume 94 FL (80-99) Mean Corpuscular Hemoglobin 30.5 PG (27.0-31.0) Mean Corpuscular Hemoglobin Concent 32.5 G/DL (32.0-36.0) Red Cell Distribution Width 13.5 % (11.6-14.8) Platelet Count 246 K/UL (150-450) Mean Platelet Volume 5.6 FL (6.5-10.1) L Neutrophils (%) (Auto) 71.0 % (45.0-75.0) Lymphocytes (%) (Auto) 16.9 % (20.0-45.0) L Monocytes (%) (Auto) 7.7 % (1.0-10.0) Eosinophils (%) (Auto) 4.0 % (0.0-3.0) H Basophils (%) (Auto) 0.5 % (0.0-2.0) Sodium Level 145 mEQ/L (135-145) Potassium Level 4.5 mEQ/L (3.4-4.9) Chloride Level 116 mEQ/L (98-107) H Carbon Dioxide Level 18 mEQ/L (20-30) L Anion Gap 11 (5-15) Blood Urea Nitrogen 64 mg/dL (7-23) H Creatinine 4.6 mg/dL (0.7-1.2) H Estimat Glomerular Filtration Rate mL/min (>60) Glucose Level 159 mg/dL (74-106) H Uric Acid 7.7 mg/dL (3.0-7.5) H Calcium Level 9.0 mg/dL (8.6-10.2) Phosphorus Level 3.7 mg/dL (2.5-4.8) Magnesium Level 1.7 mg/dL (1.7-2.5) Total Bilirubin 0.5 mg/dL (0.0-1.2) Aspartate Amino Transf (AST/SGOT) 246 U/L (5-40) H Alanine Aminotransferase (ALT/SGPT) 245 U/L (3-41) H Alkaline Phosphatase 503 U/L (40-129) H C-Reactive Protein, Quantitative 7.3 mg/dL (< 0.5) H Pro-B-Type Natriuretic Peptide 2339 pg/mL (0-450) H Total Protein 6.9 g/dL (6.6-8.7) Albumin 2.4 g/dL (3.5-5.2) L Globulin 4.5 g/dL Albumin/Globulin Ratio 0.5 (1.0-2.7) L Urine Eosinophils None seen Current Medications Medications (Trade) Dose Ordered Sig/Janay Route PRN Reason Start Time Stop Time Status Last Admin Dose Admin Acetaminophen (Tylenol) 650 mg Q4H PRN ORAL T>100.5 08/16/16 15:00 09/15/16 14:59 Albuterol/ Ipratropium (DuoNeb 0.5-3(2.5)mg/3ml) 3 ml Q4H PRN HHN Shortness of Breath 08/16/16 15:00 08/21/16 14:59 Allopurinol (Allopurinol) 300 mg DAILY ORAL 08/17/16 09:00 09/16/16 08:59 Cefepime HCl 0.5 gm/Dextrose 55 ml @ 110 mls/hr QHS IVPB 08/16/16 21:00 08/23/16 20:59 08/16/16 20:56 Clonidine HCl (Catapres) 0.1 mg Q6H PRN ORAL For High Blood Pressure 08/17/16 10:30 09/16/16 10:29 Dextrose (Dextrose 50%) STAT PRN IV Hypoglycemia 08/16/16 15:00 09/15/16 14:59 Dextrose/Sodium Chloride (D5 0.45% NS) 1,000 ml @ 150 mls/hr Q6H40M IV 08/16/16 15:00 09/15/16 14:59 08/17/16 04:46 Heparin Sodium (Porcine) (Heparin 5000 units/ml) 5,000 units EVERY 12 HOURS SUBQ 08/16/16 21:00 09/15/16 20:59 08/16/16 20:39 Lorazepam (Ativan 2mg/ml 1ml) 0.5 mg Q4H PRN IV For Anxiety 08/16/16 15:00 08/23/16 14:59 Morphine Sulfate (Morphine Sulfate) 1 mg Q4H PRN IVP PAIN 4-10 08/16/16 15:00 08/23/16 14:59 Olanzapine (ZyPREXA) 2.5 mg BEDTIME ORAL 08/16/16 21:00 09/15/16 20:59 08/16/16 20:38 Ondansetron HCl (Zofran) 4 mg Q6H PRN IVP Nausea & Vomiting 08/16/16 16:00 09/15/16 15:59 Polyethylene Glycol (Miralax) 17 gm HSPRN PRN ORAL Constipation 08/16/16 21:00 09/15/16 20:59 Ranitidine HCl (Zantac) 150 mg DAILY ORAL 08/17/16 09:00 09/16/16 08:59 Sodium Citrate (Bicitra) 30 ml EVERY 6 HOURS ORAL 08/16/16 18:00 09/15/16 17:59 08/17/16 05:31 PHILLIP BARNES M.D. Aug 17, 2016 10:46
[2016-08-17] MEDS: Heparin 5000 units/ml inj SUBQ SCH ×2 (10:51→21:35)
[2016-08-17 11:13] VITALS: BP 153/80
[2016-08-17] MEDS: ceFAZolin 500 MG in D5W 55 ML SCH ×2 (11:23→21:33)
--- NOTE | 2016-08-17 12:44 | General Progress Note ---
Assessment/Plan Status: stable Status Narrative Serum Cr lowering Assessment/Plan acute renal failure, required HD ,once in the past acute hyperkalemia , ROBBIE variable h/o acute respiratory failure UTI h/o gross hematuria anemia CHF Sever Hypoalbuminemai h/o Parkinsons , OBS , ? Sz Plan: Hydrate Allopurinol and Bicitra Monitor renal parameters- Avoid Nephrotoxics BP support transfusion urine studies per orders Subjective ROS Limited/Unobtainable: Yes Allergies: Coded Allergies: No Known Allergies (Unverified , 07/16/16) Objective Last 24 Hour Vital Signs Date Time Temp Pulse Resp B/P Pulse Ox O2 Delivery O2 Flow Rate FiO2 08/17/16 11:13 97.9 77 18 153/80 100 Room Air 08/17/16 10:49 164/70 08/17/16 07:48 76 18 Room Air 21 08/17/16 07:11 97.5 93 18 164/70 100 Room Air 08/17/16 04:00 98.1 83 20 156/90 98 Room Air 08/17/16 00:00 97.9 81 20 151/87 99 Room Air 08/16/16 20:00 98.6 99 20 143/97 98 Nasal Cannula 2.0 08/16/16 19:05 91 18 Room Air 21 08/16/16 16:03 97.6 122 21 156/77 95 Room Air Intake and Output 08/16/16 08/17/16 19:00 07:00 Intake Total 560 ml 1405 ml Output Total 400 ml 770 ml Balance 160 ml 635 ml Intake Oral 560 ml IV Total 1405 ml Output Urine Total 400 ml 770 ml Laboratory Tests 08/17/16 05:25: White Blood Count 8.2, Red Blood Count 3.21L, Hemoglobin 9.8L, Hematocrit 30.1L , Mean Corpuscular Volume 94, Mean Corpuscular Hemoglobin 30.5, Mean Corpuscular Hemoglobin Concent 32.5, Red Cell Distribution Width 13.5, Platelet Count 246, Mean Platelet Volume 5.6L, Neutrophils (%) (Auto) 71.0, Lymphocytes ( %) (Auto) 16.9L, Monocytes (%) (Auto) 7.7, Eosinophils (%) (Auto) 4.0H, Basophils (%) (Auto) 0.5, Sodium Level 145, Potassium Level 4.5, Chloride Level 116H, Carbon Dioxide Level 18L, Anion Gap 11, Blood Urea Nitrogen 64H, Creatinine 4.6H, Estimat Glomerular Filtration Rate , Glucose Level 159H, Uric Acid 7.7H, Calcium Level 9.0, Phosphorus Level 3.7, Magnesium Level 1.7, Total Bilirubin 0.5, Aspartate Amino Transf (AST/SGOT) 246H, Alanine Aminotransferase (ALT/SGPT) 245H, Alkaline Phosphatase 503H, C-Reactive Protein, Quantitative 7.3H, Pro-B-Type Natriuretic Peptide 2339H, Total Protein 6.9, Albumin 2.4L, Globulin 4.5, Albumin/Globulin Ratio 0.5L 08/17/16 05:45: Urine Eosinophils None seen Height (Feet): 5 Height (Inches): 10.00 Weight (Pounds): 170 General Appearance: no apparent distress Objective other PE not changed HAI THOMPSON Aug 17, 2016 12:44
[2016-08-17 16:43] VITALS: BP 149/87
[2016-08-17 20:00] VITALS: BP 139/87
[2016-08-17] MEDS: OLANZapine 2.5mg tab ORAL SCH (21:33)
[2016-08-18] VITALS (7 sets, daily range): BP systolic 119–163; BP diastolic 77–110
[2016-08-18] MEDS: Sodium Citrate 30ml ORAL SCH ×3 (00:06→12:13)
[2016-08-18 07:35] LABS: BASOPHILS % (AUTO) 0.8 % (0.0-2.0); EOSINOPHILS % (AUTO) 3.8 % (0.0-3.0); LYMPHOCYTES % (AUTO) 19.5 % (20.0-45.0); MEAN CORPUSCULAR HEMOGLOBIN 30.6 PG (27.0-31.0); MEAN CORPUSCULAR VOLUME 96 FL (80-99); MEAN PLATELET VOLUME 5.6 FL (6.5-10.1); MONOCYTES % (AUTO) 8.7 % (1.0-10.0); NEUTROPHILS % (AUTO) 67.3 % (45.0-75.0); PLATELET COUNT 213 K/UL (150-450); RED BLOOD COUNT 2.63 M/UL (4.70-6.10); RED CELL DISTRIBUTION WIDTH 13.8 % (11.6-14.8); WHITE BLOOD COUNT 8.2 K/UL (4.8-10.8)
[2016-08-18 08:20] LABS: ALANINE AMINOTRANSFERASE 175 U/L (3-41); ALBUMIN/GLOBULIN RATIO 0.5 (1.0-2.7); ANION GAP 10 (5-15); ASPARTATE AMINO TRANSFERASE 125 U/L (5-40); CALCIUM 8.7 mg/dL (8.6-10.2); CARBON DIOXIDE 21 mEQ/L (20-30); CHLORIDE 120 mEQ/L (98-107); HEMOLYSIS 24; MAGNESIUM 1.6 mg/dL (1.7-2.5); PHOSPHORUS 3.5 mg/dL (2.5-4.8); POTASSIUM 4.9 mEQ/L (3.4-4.9); SODIUM 151 mEQ/L (135-145)
[2016-08-18] MEDS: ceFAZolin 500 MG in D5W 55 ML SCH ×2 (09:07→21:00)
[2016-08-18] MEDS: Heparin 5000 units/ml inj SUBQ SCH ×2 (09:08→21:01)
[2016-08-18] MEDS ORDERED: CEPHALEXIN500 MG ORAL (12:13)
--- NOTE | 2016-08-18 13:01 | General Progress Note ---
Assessment/Plan Status: stable, progressing Assessment/Plan Cont zyprexa Subjective Constitutional: Reports: malaise, weakness Neurologic/Psychiatric: Reports: anxiety, emotional problems Allergies: Coded Allergies: No Known Allergies (Unverified , 07/16/16) Subjective The pt is gradually improving. no agitation. calm Objective Last 24 Hour Vital Signs Date Time Temp Pulse Resp B/P Pulse Ox O2 Delivery O2 Flow Rate FiO2 08/18/16 12:00 97.9 100 20 146/84 96 Room Air 08/18/16 08:00 97.7 82 20 140/78 98 Room Air 08/18/16 07:55 68 18 Room Air 21 08/18/16 04:00 96.8 75 20 119/83 98 Room Air 08/18/16 00:00 98.1 74 20 143/94 99 Room Air 08/17/16 20:00 98.2 110 20 139/87 96 Room Air 08/17/16 19:29 101 18 Room Air 21 08/17/16 16:43 98.1 101 20 149/87 99 Room Air Intake and Output 08/17/16 08/18/16 19:00 07:00 Intake Total 700 ml 1205 ml Output Total 1200 ml 900 ml Balance -500 ml 305 ml Intake Oral 600 ml IV Total 100 ml 1205 ml Output Urine Total 1200 ml 900 ml Laboratory Tests 08/18/16 05:45: White Blood Count 8.2, Red Blood Count 2.63L, Hemoglobin 8.0L, Hematocrit 25.1L , Mean Corpuscular Volume 96, Mean Corpuscular Hemoglobin 30.6, Mean Corpuscular Hemoglobin Concent 32.0, Red Cell Distribution Width 13.8, Platelet Count 213, Mean Platelet Volume 5.6L, Neutrophils (%) (Auto) 67.3, Lymphocytes ( %) (Auto) 19.5L, Monocytes (%) (Auto) 8.7, Eosinophils (%) (Auto) 3.8H, Basophils (%) (Auto) 0.8, Sodium Level 151H, Potassium Level 4.9, Chloride Level 120H, Carbon Dioxide Level 21, Anion Gap 10, Blood Urea Nitrogen 46H, Creatinine 3.0H, Estimat Glomerular Filtration Rate , Glucose Level 122H, Uric Acid 6.0, Calcium Level 8.7, Phosphorus Level 3.5, Magnesium Level 1.6L, Total Bilirubin 0.5, Aspartate Amino Transf (AST/SGOT) 125H, Alanine Aminotransferase (ALT/SGPT) 175H, Alkaline Phosphatase 376H, Total Protein 6.0L, Albumin 2.2L, Globulin 3.8, Albumin/Globulin Ratio 0.5L Height (Feet): 5 Height (Inches): 10.00 Weight (Pounds): 170 General Appearance: no apparent distress, alert Neurologic: alert, responsive, depressed affect Paulino Feliciano M.D. Aug 18, 2016 13:01
--- NOTE | 2016-08-18 13:49 | General Progress Note ---
Assessment/Plan Status: stable Status Narrative Cr lowering Assessment/Plan acute renal failure, required HD ,once in the past acute hyperkalemia , ROBBIE variable h/o acute respiratory failure UTI h/o gross hematuria anemia CHF Sever Hypoalbuminemai h/o Parkinsons , OBS , ? Sz Plan: Hydrate Allopurinol and Bicitra Monitor renal parameters- Avoid Nephrotoxics BP support transfusion urine studies per orders Subjective ROS Limited/Unobtainable: No Constitutional: Reports: malaise Allergies: Coded Allergies: No Known Allergies (Unverified , 07/16/16) Objective Last 24 Hour Vital Signs Date Time Temp Pulse Resp B/P Pulse Ox O2 Delivery O2 Flow Rate FiO2 08/18/16 12:00 97.9 100 20 146/84 96 Room Air 08/18/16 08:00 97.7 82 20 140/78 98 Room Air 08/18/16 07:55 68 18 Room Air 21 08/18/16 07:55 68 18 Room Air 21 08/18/16 04:00 96.8 75 20 119/83 98 Room Air 08/18/16 00:00 98.1 74 20 143/94 99 Room Air 08/17/16 20:00 98.2 110 20 139/87 96 Room Air 08/17/16 19:29 101 18 Room Air 21 08/17/16 16:43 98.1 101 20 149/87 99 Room Air Intake and Output 08/17/16 08/18/16 19:00 07:00 Intake Total 700 ml 1205 ml Output Total 1200 ml 900 ml Balance -500 ml 305 ml Intake Oral 600 ml IV Total 100 ml 1205 ml Output Urine Total 1200 ml 900 ml Laboratory Tests 08/18/16 05:45: White Blood Count 8.2, Red Blood Count 2.63L, Hemoglobin 8.0L, Hematocrit 25.1L , Mean Corpuscular Volume 96, Mean Corpuscular Hemoglobin 30.6, Mean Corpuscular Hemoglobin Concent 32.0, Red Cell Distribution Width 13.8, Platelet Count 213, Mean Platelet Volume 5.6L, Neutrophils (%) (Auto) 67.3, Lymphocytes ( %) (Auto) 19.5L, Monocytes (%) (Auto) 8.7, Eosinophils (%) (Auto) 3.8H, Basophils (%) (Auto) 0.8, Sodium Level 151H, Potassium Level 4.9, Chloride Level 120H, Carbon Dioxide Level 21, Anion Gap 10, Blood Urea Nitrogen 46H, Creatinine 3.0H, Estimat Glomerular Filtration Rate , Glucose Level 122H, Uric Acid 6.0, Calcium Level 8.7, Phosphorus Level 3.5, Magnesium Level 1.6L, Total Bilirubin 0.5, Aspartate Amino Transf (AST/SGOT) 125H, Alanine Aminotransferase (ALT/SGPT) 175H, Alkaline Phosphatase 376H, Total Protein 6.0L, Albumin 2.2L, Globulin 3.8, Albumin/Globulin Ratio 0.5L Height (Feet): 5 Height (Inches): 10.00 Weight (Pounds): 170 General Appearance: no apparent distress Objective other PE not changed HAI THOMPSON Aug 18, 2016 13:49
[2016-08-18] MEDS ORDERED: CLONIDINE0.1 MG ORAL (15:25)
[2016-08-18] MEDS ORDERED: OLANZAPINE2.5 MG ORAL (15:25)
--- NOTE | 2016-08-18 15:30 | Pulmonology Progress Note ---
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 (4) Limited mobility (5) Parkinson disease (6) Gram-negative bacteremia (7) Urinary tract infection Assessment/Plan improving, bun/creatinine decreasing transfuse one unit of blood IV fluilds check electrolytes swallow study noted start oral diet tolerating diet dvt prophylaxis Subjective Constitutional: Reports: no symptoms HEENT: Repors: no symptoms Allergies: Coded Allergies: No Known Allergies (Unverified , 07/16/16) Objective Last 24 Hour Vital Signs Date Time Temp Pulse Resp B/P Pulse Ox O2 Delivery O2 Flow Rate FiO2 08/18/16 12:00 97.9 100 20 146/84 96 Room Air 08/18/16 08:00 97.7 82 20 140/78 98 Room Air 08/18/16 07:55 68 18 Room Air 21 08/18/16 07:55 68 18 Room Air 21 08/18/16 04:00 96.8 75 20 119/83 98 Room Air 08/18/16 00:00 98.1 74 20 143/94 99 Room Air 08/17/16 20:00 98.2 110 20 139/87 96 Room Air 08/17/16 19:29 101 18 Room Air 21 08/17/16 16:43 98.1 101 20 149/87 99 Room Air Intake and Output 08/17/16 08/18/16 19:00 07:00 Intake Total 700 ml 1205 ml Output Total 1200 ml 900 ml Balance -500 ml 305 ml Intake Oral 600 ml IV Total 100 ml 1205 ml Output Urine Total 1200 ml 900 ml General Appearance: WD/WN HEENT: normocephalic, atraumatic Respiratory/Chest: chest wall non-tender, lungs clear Cardiovascular: normal peripheral pulses, normal rate Abdomen: normal bowel sounds, soft, non tender Genitourinary: normal external genitalia Extremities: no cyanosis Skin: no rash Neurologic/Psychiatric: histologic aide II-XII grossly normal, abnormal gait Lymphatic: no neck adenopathy, no groin adenopathy Laboratory Tests 08/18/16 05:45: White Blood Count 8.2, Red Blood Count 2.63L, Hemoglobin 8.0L, Hematocrit 25.1L , Mean Corpuscular Volume 96, Mean Corpuscular Hemoglobin 30.6, Mean Corpuscular Hemoglobin Concent 32.0, Red Cell Distribution Width 13.8, Platelet Count 213, Mean Platelet Volume 5.6L, Neutrophils (%) (Auto) 67.3, Lymphocytes ( %) (Auto) 19.5L, Monocytes (%) (Auto) 8.7, Eosinophils (%) (Auto) 3.8H, Basophils (%) (Auto) 0.8, Sodium Level 151H, Potassium Level 4.9, Chloride Level 120H, Carbon Dioxide Level 21, Anion Gap 10, Blood Urea Nitrogen 46H, Creatinine 3.0H, Estimat Glomerular Filtration Rate , Glucose Level 122H, Uric Acid 6.0, Calcium Level 8.7, Phosphorus Level 3.5, Magnesium Level 1.6L, Total Bilirubin 0.5, Aspartate Amino Transf (AST/SGOT) 125H, Alanine Aminotransferase (ALT/SGPT) 175H, Alkaline Phosphatase 376H, Total Protein 6.0L, Albumin 2.2L, Globulin 3.8, Albumin/Globulin Ratio 0.5L Current Medications Medications (Trade) Dose Ordered Sig/Janay Route PRN Reason Start Time Stop Time Status Last Admin Dose Admin Acetaminophen (Tylenol) 650 mg Q4H PRN ORAL T>100.5 08/16/16 15:00 09/15/16 14:59 Albuterol/ Ipratropium (DuoNeb 0.5-3(2.5)mg/3ml) 3 ml Q4H PRN HHN Shortness of Breath 08/16/16 15:00 08/21/16 14:59 Allopurinol (Allopurinol) 300 mg DAILY ORAL 08/17/16 09:00 09/16/16 08:59 08/18/16 09:07 Cefazolin Sodium 500 mg/Dextrose 55 ml @ 110 mls/hr Q12HR IV 08/17/16 12:00 08/24/16 11:59 08/18/16 09:07 Clonidine HCl 0.1 mg 0.1 mg Q6H PRN ORAL For High Blood Pressure 08/17/16 10:30 09/16/16 10:29 08/17/16 10:49 Dextrose (D5W 1000ml) 1,000 ml @ 75 mls/hr [id number] IV 08/18/16 09:30 09/17/16 09:29 08/18/16 09:25 Dextrose (Dextrose 50%) STAT PRN IV Hypoglycemia 08/16/16 15:00 09/15/16 14:59 Heparin Sodium (Porcine) (Heparin 5000 units/ml) 5,000 units EVERY 12 HOURS SUBQ 08/16/16 21:00 09/15/16 20:59 08/18/16 09:08 Lorazepam (Ativan 2mg/ml 1ml) 0.5 mg Q4H PRN IV For Anxiety 08/16/16 15:00 08/23/16 14:59 Morphine Sulfate (Morphine Sulfate) 1 mg Q4H PRN IVP PAIN 4-10 08/16/16 15:00 08/23/16 14:59 Olanzapine (ZyPREXA) 2.5 mg BEDTIME ORAL 08/16/16 21:00 09/15/16 20:59 08/17/16 21:33 Ondansetron HCl (Zofran) 4 mg Q6H PRN IVP Nausea & Vomiting 08/16/16 16:00 09/15/16 15:59 Polyethylene Glycol (Miralax) 17 gm HSPRN PRN ORAL Constipation 08/16/16 21:00 09/15/16 20:59 Ranitidine HCl (Zantac) 150 mg DAILY ORAL 08/17/16 09:00 09/16/16 08:59 08/18/16 09:07 MACARENA FLANNERY Aug 18, 2016 15:30
--- NOTE | 2016-08-18 16:24 | Infectious Diseases Prog Note ---
Assessment/Plan Assessment/Plan A: Mild leukocytosis. SP Possible urinary tract infection, UCx : P Mirabilis Elevated alkaline phosphatase and liver function test, US : no evid of biliary tract disease Hep B/C ab : Neg Acute renal failure improving History of dementia Parkinson disease Seizure disorder Status post pacemaker placement Hypertension Obesity Depression Bipolar disorder Anemia PLAN: continue the patient on Ancef d# 2/ 10 , upon DC will change to oral Keflex to complete the course 7/ SP cefepime day # 4 Monitor CBC. Monitor BMP. Monitor cultures (blood). Subjective Constitutional: Denies: anorexia, chills, drenching sweats, fatigue, fever, no symptoms, other Allergies: Coded Allergies: No Known Allergies (Unverified , 07/16/16) Objective Vital Signs Last 24 Hour Vital Signs Date Time Temp Pulse Resp B/P Pulse Ox O2 Delivery O2 Flow Rate FiO2 08/18/16 12:00 97.9 100 20 146/84 96 Room Air 08/18/16 08:00 97.7 82 20 140/78 98 Room Air 08/18/16 07:55 68 18 Room Air 21 08/18/16 07:55 68 18 Room Air 21 08/18/16 04:00 96.8 75 20 119/83 98 Room Air 08/18/16 00:00 98.1 74 20 143/94 99 Room Air 08/17/16 20:00 98.2 110 20 139/87 96 Room Air 08/17/16 19:29 101 18 Room Air 21 08/17/16 16:43 98.1 101 20 149/87 99 Room Air Height (Feet): 5 Height (Inches): 10.00 Weight (Pounds): 170 HEENT: anicteric Respiratory/Chest: normal breath sounds Cardiovascular: regular rhythm Abdomen: non distended Laboratory Tests Test 08/18/16 05:45 White Blood Count 8.2 K/UL (4.8-10.8) Red Blood Count 2.63 M/UL (4.70-6.10) L Hemoglobin 8.0 G/DL (14.2-18.0) L Hematocrit 25.1 % (42.0-52.0) L Mean Corpuscular Volume 96 FL (80-99) Mean Corpuscular Hemoglobin 30.6 PG (27.0-31.0) Mean Corpuscular Hemoglobin Concent 32.0 G/DL (32.0-36.0) Red Cell Distribution Width 13.8 % (11.6-14.8) Platelet Count 213 K/UL (150-450) Mean Platelet Volume 5.6 FL (6.5-10.1) L Neutrophils (%) (Auto) 67.3 % (45.0-75.0) Lymphocytes (%) (Auto) 19.5 % (20.0-45.0) L Monocytes (%) (Auto) 8.7 % (1.0-10.0) Eosinophils (%) (Auto) 3.8 % (0.0-3.0) H Basophils (%) (Auto) 0.8 % (0.0-2.0) Sodium Level 151 mEQ/L (135-145) H Potassium Level 4.9 mEQ/L (3.4-4.9) Chloride Level 120 mEQ/L (98-107) H Carbon Dioxide Level 21 mEQ/L (20-30) Anion Gap 10 (5-15) Blood Urea Nitrogen 46 mg/dL (7-23) H Creatinine 3.0 mg/dL (0.7-1.2) H Estimat Glomerular Filtration Rate mL/min (>60) Glucose Level 122 mg/dL (74-106) H Uric Acid 6.0 mg/dL (3.0-7.5) Calcium Level 8.7 mg/dL (8.6-10.2) Phosphorus Level 3.5 mg/dL (2.5-4.8) Magnesium Level 1.6 mg/dL (1.7-2.5) L Total Bilirubin 0.5 mg/dL (0.0-1.2) Aspartate Amino Transf (AST/SGOT) 125 U/L (5-40) H Alanine Aminotransferase (ALT/SGPT) 175 U/L (3-41) H Alkaline Phosphatase 376 U/L (40-129) H Total Protein 6.0 g/dL (6.6-8.7) L Albumin 2.2 g/dL (3.5-5.2) L Globulin 3.8 g/dL Albumin/Globulin Ratio 0.5 (1.0-2.7) L Current Medications Medications (Trade) Dose Ordered Sig/Janay Route PRN Reason Start Time Stop Time Status Last Admin Dose Admin Acetaminophen (Tylenol) 650 mg Q4H PRN ORAL T>100.5 08/16/16 15:00 09/15/16 14:59 08/18/16 15:32 Albuterol/ Ipratropium (DuoNeb 0.5-3(2.5)mg/3ml) 3 ml Q4H PRN HHN Shortness of Breath 08/16/16 15:00 08/21/16 14:59 Allopurinol (Allopurinol) 300 mg DAILY ORAL 08/17/16 09:00 09/16/16 08:59 08/18/16 09:07 Cefazolin Sodium 500 mg/Dextrose 55 ml @ 110 mls/hr Q12HR IV 08/17/16 12:00 08/24/16 11:59 08/18/16 09:07 Clonidine HCl 0.1 mg 0.1 mg Q6H PRN ORAL For High Blood Pressure 08/17/16 10:30 09/16/16 10:29 08/17/16 10:49 Dextrose (D5W 1000ml) 1,000 ml @ 75 mls/hr [id number] IV 08/18/16 09:30 09/17/16 09:29 08/18/16 09:25 Dextrose (Dextrose 50%) STAT PRN IV Hypoglycemia 08/16/16 15:00 09/15/16 14:59 Heparin Sodium (Porcine) (Heparin 5000 units/ml) 5,000 units EVERY 12 HOURS SUBQ 08/16/16 21:00 09/15/16 20:59 08/18/16 09:08 Lorazepam (Ativan 2mg/ml 1ml) 0.5 mg Q4H PRN IV For Anxiety 08/16/16 15:00 08/23/16 14:59 Morphine Sulfate (Morphine Sulfate) 1 mg Q4H PRN IVP PAIN 4-10 08/16/16 15:00 08/23/16 14:59 Olanzapine (ZyPREXA) 2.5 mg BEDTIME ORAL 08/16/16 21:00 09/15/16 20:59 08/17/16 21:33 Ondansetron HCl (Zofran) 4 mg Q6H PRN IVP Nausea & Vomiting 08/16/16 16:00 09/15/16 15:59 Polyethylene Glycol (Miralax) 17 gm HSPRN PRN ORAL Constipation 08/16/16 21:00 09/15/16 20:59 Ranitidine HCl (Zantac) 150 mg DAILY ORAL 08/17/16 09:00 09/16/16 08:59 08/18/16 09:07 PHILLIP BARNES M.D. Aug 18, 2016 16:24
[2016-08-18] MEDS ORDERED: D5 1/2NS 1000ml IV ONE ×2 (18:46→23:15)
[2016-08-18] MEDS: OLANZapine 2.5mg tab ORAL SCH (21:00)
[2016-08-18] MEDS ORDERED: NS 275ml ONE (23:15)
[2016-08-18] MEDS ORDERED: Tubing IV Secondary IV ONE (23:15)
[2016-08-18] MEDS ORDERED: Tubing Blood Filter IV ONE (23:15)
--- NOTE | 2016-08-19 14:38 | Discharge Summary ---
Discharge Summary Hospital Course Date of Admission Aug 13, 2016 at 15:30 Date of Discharge Aug 18, 2016 at 23:16 Admitting Diagnosis acute renal failure HPI Zay Lentz is a 80 year old male who was admitted on Aug 13, 2016 at 15: 30 for Acute Renal Failure Hospital Course [id number] Discharge Discharge Disposition Patient was discharged to SNF/Subacute Facility(03) Discharge Diagnoses: Marcelina Mascorro NP Aug 19, 2016 14:38
--- NOTE | 2016-08-19 17:00 | Discharge Summary 2 SIG ---
DATE OF ADMISSION: 08/13/2016 DATE OF DISCHARGE: 08/18/2016 CONSULTANTS: 1. New Thao M.D. 2. Jurgen Smith M.D. 3. Paulino Feliciano M.D. BRIEF HOSPITAL COURSE: The patient is an 80-year-old male with multiple chronic medical comorbidities including recent intubation, sepsis, urinary tract infection, pneumonia, rhabdomyolysis, acute renal failure presented to ED with abnormal labs. The patient was recently hospitalized and was subsequently discharged to SNF under hospice. He was noted to have elevated BUN and creatinine. Family requested the patient to be transported to the hospital for medical management. On evaluation at ED, the patient was started on IV hydration and was pancultured. Garcia catheter placed showed grossly purulent urine. Laboratories showed elevated WBC and renal ultrasound was notable for bilateral hydronephrosis. The patient was anemic. Potassium level was elevated to 6.1 and was given Kayexalate. The patient was admitted to telemetry for acute renal failure, dehydration, sepsis, urinary tract infection, and anemia. Following day, there was a drop in the patient's hemoglobin. Hemoglobin level was 7.5 and hematocrit 23. He was given one unit packed RBC blood transfusion. Dr. Smith was consulted for evaluation of renal failure. The patient required hemodialysis in the past. Renal parameters were monitored. Uric acid was elevated to 11 and was given allopurinol. Dr. Thao was consulted for management of sepsis and urinary tract infection. The patient was started empirically on cefepime. Urine culture showed growth of Proteus mirabilis. He had elevated alkaline phosphatase and liver function tests. Hepatitis serology was negative. Abdominal ultrasound done showed no evidence of biliary tract disease. He was seen by Dr. Feliciano as the patient had a waxing and waning of consciousness. He was diagnosed to have dementia, delirium, and bipolar disorder and was given Zyprexa 2.5 mg at bedtime. BUN and creatinine improved. He had a swallow study done and was started on oral diet and has been tolerating diet well. He came in with multiple pressure ulcers. Wound care was provided. He was eventually discharged back to snf. FINAL DIAGNOSES: 1. Sepsis. 2. Acute on chronic renal failure. 3. Dementia and Alzheimer disease. 4. Urinary tract infection with Proteus mirabilis. 5. Elevated liver transaminases and alkaline phosphatase. 6. Seizure disorder. 7. Bipolar disorder. 8. Acute anemia requiring blood transfusion. 9. Depression. 10. Status post pacemaker placement. 11. Acute hyperkalemia. 12. Severe hypoalbuminemia. 13. Delirium. 14. Multiple pressure ulcer present on admission. Dawson Carballo M.D. I have been assigned to dictate discharge summary on this account and I was not involved in the patient's management. Marcelina Mascorro N.P. DR: Donna JOB#: [id number] CC: [email or web address]
== END 2016-08-18 23:16 | DRG 871 ==
LOC: EDBD 14:33 → EMR 15:01 → 2E 15:30 → EDBEDREQ 15:52 → 2E 20:31 → 4E 08-16 14:38
DX: A41.9 Sepsis, unspecified organism (principal); L89.613 Pressure ulcer of right heel, stage 3; N17.9 Acute kidney failure, unspecified; I13.0 Hypertensive heart and chronic kidney disease with heart failure and stage 1 through stage 4 chronic kidney disease, or unspecified chronic kidney disease; I50.9 Heart failure, unspecified; N13.30 Unspecified hydronephrosis; N39.0 Urinary tract infection, site not specified; E86.0 Dehydration; D64.9 Anemia, unspecified; N18.9 Chronic kidney disease, unspecified; B96.4 Proteus (mirabilis) (morganii) as the cause of diseases classified elsewhere; E87.5 Hyperkalemia; E88.09 Other disorders of plasma-protein metabolism, not elsewhere classified; F32.9 Major depressive disorder, single episode, unspecified; F31.9 Bipolar disorder, unspecified; Z95.0 Presence of cardiac pacemaker; G40.909 Epilepsy, unspecified, not intractable, without status epilepticus; G30.9 Alzheimer's disease, unspecified; F02.80 Dementia in other diseases classified elsewhere, unspecified severity, without behavioral disturbance, psychotic disturbance, mood disturbance, and anxiety; E66.9 Obesity, unspecified; Z68.24 Body mass index [BMI] 24.0-24.9, adult
CPT/HCPCS: 36415; 71010; 76705; 76775; 80048; 80053; 80061; 80202; 81003; 82550; 82553; 82728; 82962; 82977; 83036; 83540; 83550; 83605; 83735; 83880; 84100; 84300; 84484; 84550; 85007; 85025; 86140; 86705; 86709; 86803; 86850; 86900; 86901; 86920; 87040; 87081; 87086; 87181; 87340; 89050; 90732; 93005; 94664